=== PATIENT | female | born 1980 | race Two or more races ===

== ENCOUNTER 2020-11-18 10:34 | Outpatient (REF) | payer MEDICAID, SELFPAY ==
[2020-11-18 12:57] LABS: MANUAL DIFF FLAG NO
[2020-11-18 13:01] LABS: Basophils Absolute Auto 0.1 X10*3/uL (0.0-0.2); Eosinophils Absolute Auto 0.6 X10*3/uL (0.0-0.4); Eosinophils Percent Auto 5.8 % (0-4); Hematocrit 35.4 % (37-47); Imm Gran Abs Auto 0.03 X10*3/uL (0.00-0.03); Imm Gran Pct Auto 0.3 % (0.0-0.4); Lymphocytes Absolute Auto 2.4 X10*3/uL (1.2-4.9); Lymphocytes Percent Auto 23.6 % (20-40); Mean Corpuscular HGB Conc 31.1 g/dl (31.0-35.0); Mean Corpuscular Hemoglobin 22.9 pg (27.0-33.0); Mean Corpuscular Volume 73.8 fL (80-98); Mean Platelet Volume 12.9 fL (9.4-12.3); Monocytes Absolute Auto 0.5 X10*3/uL (0.1-1.2); Monocytes Percent Auto 4.9 % (2-11); Neutrophils Absolute Auto 6.5 X10*3/uL (2.0-8.3); Neutrophils Percent Auto 64.4 % (45-73); Platelet Count 250 X10*3/uL (160-400); Red Cell Distribution Width 14.4 % (11.0-16.0); White Blood Count 10.1 X10*3/uL (4.8-10.8)
[2020-11-18 13:33] LABS: Alanine Aminotransferase 18 U/L (0-31); Alkaline Phosphatase 229 U/L (39-117); Anion Gap 14 (12-20); Aspartate Amino Transferase 18 U/L (5-31); Bilirubin Total 0.5 mg/dL (0.0-1.0); Blood Urea Nitrogen 15 mg/dL (9-16); Calcium 9.2 mg/dL (8.4-10.2); Carbon Dioxide 17 mmol/L (22-29); Chloride 110 mmol/L (96-108); Estimated Glomerular Filt Rate > 60; Glucose Random 213 mg/dL (60-115); Potassium 4.1 mmol/L (3.3-5.1); Sodium 137 mmol/L (135-145); Total Protein 6.8 g/dL (6.5-8.0)
[2020-11-18 13:34] LABS: Estimated Average Glucose 280 mg/dL; Hemoglobin A1c % 11.4 %
== END 2020-11-18 10:35 | disposition home or self-care (01) ==
LOC: HO.MANLDS 10:34
PROVIDERS: PCP Internal Medicine; Visit Provider Physician Assistant
DX: E11.9 Type 2 diabetes mellitus without complications (principal)
CPT/HCPCS: 36415; 80053; 83036; 85025

== ENCOUNTER 2021-02-17 16:58 | Emergency (ER) | payer MEDICAID, SELFPAY ==
[2021-02-17 19:24] VITALS: BP 133/85; PULSE 100; RESP 16; TEMP 37.4; O2SAT 100; BMI 29.5
--- NOTE | 2021-02-17 22:32 | ED_ITS ---
HPI - Skin/Abscess/Foreign Bdy General Chief complaint: Skin/Abscess/Foreign Body Stated complaint: abcess on left calf Time Seen by Provider: 02/17/21 22:32 Source: patient Mode of arrival: ambulatory Limitations: no limitations History of Present Illness MD complaint: abscess/boil and lesion Onset (ago): week(s) (2) Tetanus up to date: yes Location: RLE Severity: moderate Quality: aching and dull Pain Consistency: constant Relieving factors: none Exacerbating factors: palpation and movement Associated symptoms: denies other symptoms Treatments prior to arrival: bandages Related Data Previous Rx's Medication Instructions Recorded cephalexin 500 mg capsule 500 mg PO TID 7 Days #21 cap 02/18/21 doxycycline hyclate 100 mg capsule 100 mg PO BID 7 Days #14 cap 02/18/21 hydrocodone 5 mg-acetaminophen 325 1 tab PO Q6H PRN #12 tab 02/18/21 mg tablet ondansetron 4 mg disintegrating 4 mg PO Q8H PRN #20 tab 02/18/21 tablet Allergies Allergy/AdvReac Type Severity Reaction Status Date / Time No Known Allergies Allergy Mild NONE Verified 02/17/21 19:24 Review of Systems Review of Systems: Constitutional : No Fever, No Chills ENT/Mouth : No sore throat, No Rhinorrhea Eyes: No Eye Pain, No Swelling, No Redness Cardiovascular : No Chest Pain, No SOB Respiratory : No Cough, No Sputum Gastrointestinal : No Nausea, No Vomiting, No Diarrhea, No abdominal Pain Genitourinary : No Dysuria, No Hematuria Musculoskeletal : No joint pain, No Myalgias, No Joint Swelling Skin : No Skin Lesions, positive skin rash Neuro : No Weakness, No Numbness, No Headache Psych : No Anxiety, No Depression Heme/Lymph: No Bruising, No Bleeding,No Lymphadenopathy Endocrine : No Polyuria, No Polydipsia All other systems reviewed and are negative [facility] Past Medical History Attestation statement: The following information was validated with the patient. Medical History Diabetes Social History Social History (Updated 02/17/21 @ 22:40 by Fang Banuelos DO) Patient Tobacco Use Status: Never used Tobacco Advance Directives: No Advance Directives Information Provided: Yes Physical Exam Vital Signs: Vital Signs: Last Vital Signs Temp 99.4 F 02/17/21 19:24 Pulse 100 02/17/21 19:24 Resp 16 02/17/21 19:24 BP 133/85 02/17/21 19:24 Pulse Ox 100 02/17/21 19:24 Body Mass Index 29.5 Appearance: Alert. Oriented X3. No acute distress. Eyes: Pupils equal, round and reactive to light. ENT: Pharynx normal. Neck: Normal inspection. Neck supple. CVS: Normal heart rate and rhythm. Pulses normal. Respiratory: No respiratory distress. Breath sounds normal. Abdomen: Soft and nontender. Skin: Skin warm and dry. Normal skin color. Normal skin turgor. Extremities: No lower extremity edema. R posterior calf 4cm fluctuant area with hyperpigmented purple area and pointing noted - no extension of erythema/swelling Neuro: Oriented X 3. No motor deficit. No sensory deficit. MDM - Skin/Abscess/Foreign Bdy MDM Narrative Medical decision making narrative: 40 yo female with DM here with c/o R posterior leg abscess that she thinks started outas a bug bite - no fevers, no extension will start on oral antibiotics and I/D area - no concern for deeper space infection at this time Procedures Abscess I/D Site: lower extremity Side (if applicable): right Local Anesthetic: lidocaine 1% Amount of anesthesia used (mL): 5 Technique: incised with blade Amount of fluid expressed (mL): 7 Sent for culture/gram staining?: No Irrigation: Yes Packing used?: iodoform Discharge Plan Discharge Clinical Impression: Abscess of skin or subcutaneous tissue Qualifiers: Site of cutaneous abscess: extremity Site of cutaneous abscess of extremity: lower extremity Laterality: right Qualified Code(s): L02.415 - Cutaneous abscess of right lower limb Patient Disposition: Home, Self-Care Instructions: Abscess (ED), Abscess Follow-up (ED), Incision and Drainage (ED) Additional Instructions: return to ED for any worsening symptoms or concerns PACKING HAS TO COME OUT BY SATURDAY - HERE OR PRIMARY CARE DOCTOR Prescriptions: New doxycycline hyclate 100 mg capsule 100 mg PO BID 7 Days Qty: 14 RF: 0 hydrocodone-acetaminophen 5-325 mg tablet 1 tab PO Q6H PRN (Reason: pain) Qty: 12 RF: 0 cephalexin 500 mg capsule 500 mg PO TID 7 Days Qty: 21 RF: 0 ondansetron 4 mg tablet,disintegrating 4 mg PO Q8H PRN (Reason: nausea and vomiting) Qty: 20 RF: 0 Referrals: Gene Esparza MD [Primary Care Provider] - 5 days (as scheduled) Stand Alone Forms: Work/School Release
[2021-02-17] MEDS: LORazepam 1 MG TABLET PO (23:01)
[2021-02-17] MEDS: Ondansetron ODT 4 MG TAB.RAPDIS TRANSLINGU (23:01)
[2021-02-17] MEDS: cephALEXin 500 MG CAPSULE PO (23:01)
[2021-02-17] MEDS: Lidocaine/Epineph/Tetracaine 3 ML GEL.PF.APP TOPICAL (23:01)
[2021-02-17] MEDS: Lidocaine HCl 1 % MPF 5 ML VIAL SUBCUT (23:01)
--- NOTE | 2021-02-17 23:04 | PC.NURSE ---
PT MEDICATED PER EMAR.
[2021-02-18 00:23] VITALS: BP 131/65; PULSE 82; RESP 16; TEMP 36.8; O2SAT 100
[2021-02-18] MEDS: HYDROcodone Bit/Acetam 5/325 TABLET 1 TAB PO (00:25)
== END 2021-02-18 00:30 | disposition home or self-care (01) ==
PROVIDERS: Emergency Provider Emergency Medicine; PCP Internal Medicine
DX: L02.415 Cutaneous abscess of right lower limb (principal); E11.9 Type 2 diabetes mellitus without complications
CPT/HCPCS: 10060; 99284

== ENCOUNTER 2021-04-10 21:33 | Inpatient (IN) | payer MEDICAID, SELFPAY ==
--- NOTE | ~2021-04-10 | XR_ITS ---
EXAMINATION: XR ABDOMEN KUB CLINICAL INDICATION: Distended stomach. NGT placement. COMPARISON: CT abdomen and pelvis 04/11/2021 TECHNIQUE: Portable AP view of the abdomen. FINDINGS: Distal end NG tube overlies the distal stomach right abdomen. There is scattered gas in the large and small bowel of normal caliber. There is some moderate stool in the rectosigmoid. There is no pneumatosis or focal interval abnormal collections of gas. No visible urinary tract calculi on plain film. Intradiscal cages are again noted lumbosacral junction. No acute bony abnormality. XR/XR KUB IMPRESSION: NG tube in abdomen, tip in region of distal stomach.
--- NOTE | ~2021-04-10 | XR_ITS ---
EXAMINATION: XR CHEST CLINICAL INFORMATION: New central line COMPARISON: Previous chest x-ray most recent May 2017 TECHNIQUE: Frontal view of the chest was obtained. FINDINGS: There is a right jugular line with tip projecting over the cavoatrial junction. There is a nasogastric tube projects over the stomach. The tip is not seen. The cardiac and mediastinal contours are normal. There may be subsegmental atelectasis at the left lung base. The lungs are otherwise clear. There is no pleural effusion or pneumothorax. The stomach is distended. XR/XR chest 1V IMPRESSION: Right jugular line projects over cavoatrial junction. No pneumothorax. Nasogastric tube projects over stomach, tip not seen. The stomach appears distended.
--- NOTE | ~2021-04-10 | CT_ITS ---
EXAMINATION: CT ABDOMEN AND PELVIS WITH CONTRAST CLINICAL INFORMATION: Peritonitis. COMPARISON: MRI abdomen to 11/29/2018, CT abdomen pelvis 07/23/2017. TECHNIQUE: Multidetector volumetric images were obtained from the superior aspect of the liver through the pubic symphysis following administration 85 mL of Omnipaque 350 intravenous contrast. Sagittal and coronal reformatted images were obtained on the technologist's workstation. Oral contrast: No This CT examination was performed using dose optimization techniques as appropriate, variously including the following: *Automated exposure control *Adjustment of mA and/or kV according to patient size (this includes techniques or standardized protocols for targeted exams where dose is matched to indication/reason for exam; i.e. extremities or head) *Use of iterative reconstruction technique DLP: 589 mGy-cm FINDINGS: LUNG BASES: The visualized lung bases are unremarkable. LIVER, GALLBLADDER, AND BILIARY TREE: The liver is normal in size, shape, and attenuation. No focal hepatic lesion or biliary ductal dilatation is present. The gallbladder is unremarkable with no evidence of radiopaque gallstones, gallbladder wall thickening, or obvious pericholecystic inflammatory changes. PANCREAS: Unremarkable. SPLEEN: Unremarkable. ADRENAL GLANDS: Unremarkable. KIDNEYS AND URETERS: The kidneys are normal in size, shape, and attenuation. No hydronephrosis, hydroureter, or calculi seen. No perinephric stranding. BLADDER: Unremarkable. GASTROINTESTINAL TRACT: Contiguous concentric submucosal thickening and enhancement is present within the jejunum and is associated with reticulation of the adjacent small bowel mesentery and trace interloop fluid. Additionally, marked fluid distention of the stomach is present and fluid is noted within the visualized distal cervical esophagus. Cecum, terminal ileum and appendix are normal in appearance. Trace right subphrenic free intraperitoneal fluid is noted. No free intraperitoneal gas is visualized. ABDOMINAL WALL: A small periumbilical hernia measuring 2 cm in diameter without evidence of inflammatory changes is noted. LYMPH NODES: Normal. VASCULAR: Unremarkable. PELVIC VISCERA: Unremarkable. OSSEOUS STRUCTURES: An interbody devices present at L5-S1. CT/CT abdomen pelvis w con IMPRESSION: -Findings suspicious for acute enteritis with small bowel findings predominantly involving the jejunum associated with marked fluid distention of the stomach and fluid within the visualized distal esophagus. Findings are characterized by concentric mural thickening and edema of the small bowel, principally within the jejunum. Trace interloop and free intraperitoneal fluid is present and likely represents reactive fluid. Fluid distention of the stomach and distal esophagus may predispose for aspiration risk. This result was discussed with Marycruz Malik MD by telephone at 04/11/2021 3:51 AM and it was ascertained that the content and urgency of the report was understood at the time of direct communication.
[2021-04-10 22:07] VITALS: BP 109/62; PULSE 100; RESP 18; TEMP 36.9; O2SAT 99; BMI 27.4
[2021-04-11] VITALS (16 sets, daily range): BP systolic 77–161; BP diastolic 51–89; PULSE 104–154; RESP 16–24; TEMP 37.3–37.7; O2SAT 95–100; BMI 28.6
[2021-04-11 00:42] LABS: Basophils Absolute Auto 0.1 X10*3/uL (0.0-0.2); Basophils Percent Auto 0.3 % (0-2); Eosinophils Absolute Auto 0.1 X10*3/uL (0.0-0.4); Eosinophils Percent Auto 0.4 % (0-4); Hematocrit 38.9 % (37.0-47.0); Hemoglobin 11.4 g/dl (12.0-16.0); Imm Gran Abs Auto 0.11 X10*3/uL (0.00-0.03); Imm Gran Pct Auto 0.6 % (0.0-0.4); Lymphocytes Percent Auto 5.4 % (20-40); MANUAL DIFF FLAG NO; Mean Corpuscular HGB Conc 29.3 g/dl (31.0-35.0); Mean Corpuscular Hemoglobin 22.1 pg (27.0-33.0); Mean Corpuscular Volume 75.4 fL (80.0-98.0); Mean Platelet Volume 11.7 fL (9.4-12.3); Monocytes Percent Auto 5.3 % (2-11); Neutrophils Absolute Auto 16.2 x10*3/uL (2.0-8.3); Platelet Count 293 X10*3/uL (160-400); Red Blood Count 5.16 X10*6/uL (4.20-5.50); Red Cell Distribution Width 14.9 % (11.0-16.0); White Blood Count 18.4 X10*3/uL (4.8-10.8)
[2021-04-11 01:14] LABS: Alanine Aminotransferase 26 U/L (0-31); Albumin Level 3.7 g/dL (3.5-5.0); Alkaline Phosphatase 274 U/L (39-117); Anion Gap 23 (12-20); Aspartate Amino Transferase 26 U/L (5-31); Bilirubin Total 0.8 mg/dL (0.0-1.0); Blood Urea Nitrogen 11 mg/dL (9-16); Calcium 9.5 mg/dL (8.4-10.2); Carbon Dioxide 14 mmol/L (22-29); Chloride 105 mmol/L (96-108); Creatinine Clr Calc Pharmacy 79.1; Estimated Glomerular Filt Rate > 60; Potassium 3.8 mmol/L (3.3-5.1); Sodium 138 mmol/L (135-145); Total Protein 6.7 g/dL (6.5-8.0)
--- NOTE | 2021-04-11 02:14 | ED_ITS ---
HPI - Abdominal Pain General Chief Complaint: Abdominal Pain Stated Complaint: Abdominal Pain Time Seen by Provider: 04/10/21 21:42 Source: patient Mode of arrival: EMS History of Present Illness HPI narrative: 40-year-old female with history of diabetes that is insulin controlled presents with intermittent epigastric pain that suddenly progressed into severe sharp right-sided abdominal pain without associated diarrhea but patient reports some chills and nausea with this and it has progressively worsened and she is unable to lie on her right side. Otherwise she denies any specific fevers and denies any urinary pain/burning/frequency. Related Data Previous Rx's Medication Instructions Recorded cephalexin 500 mg capsule 500 mg PO TID 7 Days #21 cap 02/18/21 doxycycline hyclate 100 mg capsule 100 mg PO BID 7 Days #14 cap 02/18/21 hydrocodone 5 mg-acetaminophen 325 1 tab PO Q6H PRN #12 tab 02/18/21 mg tablet ondansetron 4 mg disintegrating 4 mg PO Q8H PRN #20 tab 02/18/21 tablet Allergies Allergy/AdvReac Type Severity Reaction Status Date / Time No Known Allergies Allergy Mild NONE Verified 04/11/21 02:26 Review of Systems Review of Systems Pertinent positives and negatives as stated in HPI 10 point review of systems is otherwise negative. Physical Exam Vital Signs: Vital Signs: Last Vital Signs Temp 98.5 F 04/10/21 22:07 Pulse 100 04/10/21 22:07 Resp 18 04/10/21 22:07 BP 109/62 04/10/21 22:07 Pulse Ox 99 04/10/21 22:07 Body Mass Index 27.4 VITAL SIGNS: Reviewed. GENERAL: Well developed, well nourished, Moderate to severe pain distress. HEAD: Normocephalic/atraumatic, EYES: PERRLA, EOMI OROPHARYNX: no oral lesions noted, posterior pharynx clear NECK: Supple, no adenopathy LUNGS: Normal breath sounds. No adventitious sounds or accessory muscle use. SpO2<99> CARDIOVASCULAR: Regular rate and rhythm without noted murmurs ABDOMEN: Soft, diffusely tender with rebound, non-distended with bowel sounds. No rigidity. NEUROLOGIC: Alert and oriented x 4. Strength and sensation to light touch were grossly intact x 4. Course Course Course Narrative: 40-year-old female with history and clinical presentation concerning for acute peritonitis possible perforation and suspicious for DKA. Review of all investigations significant for DKA as well as acute gastroenter itis with fluid filled bowel up into the stomach and lower esophagus. Patient receiving IV fluids, antibiotics, and started on DKA protocol. She is otherwise hemodynamically stable and is receiving supplemental potassium as well. I discussed this case with the bus company manager who accepts admission. MDM - Abdominal Pain Lab Data Result diagrams: 04/11/21 00:35 04/11/21 00:35 Labs: Lab Results 04/11/21 04/11/21 04/11/21 Range/Units 00:35 00:35 03:15 WBC 18.4 H (4.8-10.8) X10*3/uL RBC 5.16 (4.20-5.50) X10*6/uL Hgb 11.4 L (12.0-16.0) g/dl Hct 38.9 (37.0-47.0) % MCV 75.4 L (80.0-98.0) fL MCH 22.1 L (27.0-33.0) pg MCHC 29.3 L (31.0-35.0) g/dl RDW 14.9 (11.0-16.0) % Plt Count 293 (160-400) X10*3/uL MPV 11.7 (9.4-12.3) fL Immature Gran % (Auto) 0.6 H (0.0-0.4) % Neut % (Auto) 88.0 H (45-73) % Lymph % (Auto) 5.4 L (20-40) % [place] % (Auto) 5.3 (2-11) % Eos % (Auto) 0.4 (0-4) % Baso % (Auto) 0.3 (0-2) % Lymph # (Auto) 1.0 L (1.2-4.9) X10*3/uL [place] # (Auto) 1.0 (0.1-1.2) X10*3/uL Eos # (Auto) 0.1 (0.0-0.4) X10*3/uL Baso # (Auto) 0.1 (0.0-0.2) X10*3/uL Abs Immat Gran (auto) 0.11 H (0.00-0.03) X10*3/uL Absolute Neuts (auto) 16.2 H (2.0-8.3) x10*3/uL Absolute Nucleated RBC 0.000 (0.0-0.012) X10*3/uL Nucleated RBC % (auto) 0.0 (0.0-0.2) /100WBC Sodium 138 (135-145) mmol/L Potassium 3.8 (3.3-5.1) mmol/L Chloride 105 (96-108) mmol/L Carbon Dioxide 14 L (22-29) mmol/L Anion Gap 23 H (12-20) BUN 11 (9-16) mg/dL Creatinine 0.98 (0.5-1.4) mg/dL Estim Creat Clear Calc 79.1 Estimated GFR > 60 Random Glucose 481 H* (60-115) mg/dL Lactic Acid (0.5-2.0) mmol/L Calcium 9.5 (8.4-10.2) mg/dL Total Bilirubin 0.8 (0.0-1.0) mg/dL AST 26 D (5-31) U/L ALT 26 (0-31) U/L Alkaline Phosphatase 274 H (39-117) U/L Total Protein 6.7 (6.5-8.0) g/dL Albumin 3.7 (3.5-5.0) g/dL Urine Color Urine Appearance Urine pH (5.0-8.0) Ur Specific [place] (1.005-1.025) Urine Protein (NEG-TRACE) MG/DL Urine Glucose (UA) (NEG) MG/DL Urine Ketones (NEG) MG/DL Urine Blood (NEG) Urine Nitrite (NEG) Ur Leukocyte Esterase (NEG) Urine RBC (0) /HPF Urine WBC (0-4) /HPF Ur Squamous Epith Cells /LPF Urine Bacteria /LPF Acetone, Qual Small H (Negative) COVID-19 (MARINA) Negative (Negative) COVID-19 Clin Com See Note 04/11/21 04/11/21 Range/Units 03:15 03:19 WBC (4.8-10.8) X10*3/uL RBC (4.20-5.50) X10*6/uL Hgb (12.0-16.0) g/dl Hct (37.0-47.0) % MCV (80.0-98.0) fL MCH (27.0-33.0) pg MCHC (31.0-35.0) g/dl RDW (11.0-16.0) % Plt Count (160-400) X10*3/uL MPV (9.4-12.3) fL Immature Gran % (Auto) (0.0-0.4) % Neut % (Auto) (45-73) % Lymph % (Auto) (20-40) % [place] % (Auto) (2-11) % Eos % (Auto) (0-4) % Baso % (Auto) (0-2) % Lymph # (Auto) (1.2-4.9) X10*3/uL [place] # (Auto) (0.1-1.2) X10*3/uL Eos # (Auto) (0.0-0.4) X10*3/uL Baso # (Auto) (0.0-0.2) X10*3/uL Abs Immat Gran (auto) (0.00-0.03) X10*3/uL Absolute Neuts (auto) (2.0-8.3) x10*3/uL Absolute Nucleated RBC (0.0-0.012) X10*3/uL Nucleated RBC % (auto) (0.0-0.2) /100WBC Sodium (135-145) mmol/L Potassium (3.3-5.1) mmol/L Chloride (96-108) mmol/L Carbon Dioxide (22-29) mmol/L Anion Gap (12-20) BUN (9-16) mg/dL Creatinine (0.5-1.4) mg/dL Estim Creat Clear Calc Estimated GFR Random Glucose (60-115) mg/dL Lactic Acid 1.1 (0.5-2.0) mmol/L Calcium (8.4-10.2) mg/dL Total Bilirubin (0.0-1.0) mg/dL AST (5-31) U/L ALT (0-31) U/L Alkaline Phosphatase (39-117) U/L Total Protein (6.5-8.0) g/dL Albumin (3.5-5.0) g/dL Urine Color YELLOW Urine Appearance CLEAR Urine pH 6.0 (5.0-8.0) Ur Specific [place] 1.015 (1.005-1.025) Urine Protein TRACE (NEG-TRACE) MG/DL Urine Glucose (UA) 500 H (NEG) MG/DL Urine Ketones >=80 (NEG) MG/DL Urine Blood TRACE (NEG) Urine Nitrite NEG (NEG) Ur Leukocyte Esterase NEG (NEG) Urine RBC 1-4 (0) /HPF Urine WBC 1-4 (0-4) /HPF Ur Squamous Epith Cells 1+ /LPF Urine Bacteria 1+ /LPF Acetone, Qual (Negative) COVID-19 (MARINA) (Negative) COVID-19 Clin Com Discharge Plan Discharge Clinical Impression: Enteritis, DKA (diabetic ketoacidosis) Patient Disposition: Admitted As Inpatient [facility] Past Medical History Source: nursing notes reviewed Medical History Diabetes Social History Social History Patient Tobacco Use Status: Never used Tobacco Advance Directives: No Advance Directives Information Provided: Yes Patient : No
[2021-04-11 02:21] LABS: Acetone, serum QL Small (Negative)
[2021-04-11] MEDS: iohexoL 350 MG/ML 100 ML INFUS..BTL 85 ML IV (03:00)
[2021-04-11] MEDS: HYDROmorphone HCl 0.5 MG/0.5 ML SYRINGE 0.25 MG IVPUSH (03:04)
[2021-04-11] MEDS: 0.9 % Sodium Chloride 2,000 ML 999 ML IV (03:04)
[2021-04-11] MEDS: Potassium Chloride/H20 10 MEQ/100 ML PIGGYBACK 100 MEQ IV ×3 (03:04→06:35)
[2021-04-11 03:21] LABS: Appearance Urine CLEAR; Color Urine YELLOW; Glucose Urine UA 500 MG/DL (NEG); Leukocyte Esterase Urine NEG (NEG); Nitrite Urine NEG (NEG); Specific Gravity - Urine 1.015 (1.005-1.025); UACC Culture Trigger NO; Urine Blood TRACE (NEG); Urine Ketones >=80 MG/DL (NEG); Urine Protein TRACE MG/DL (NEG-TRACE)
[2021-04-11] MEDS: Piperacillin Sodium/Tazobactam 3.375 GM in 0.9 % Sodium Chloride 50 ML IV ×2 (03:26→19:38)
[2021-04-11 03:29] LABS: Bacteria Urine 1+ /LPF; Squamous Epithelial Cell Urine 1+ /LPF
[2021-04-11 03:35] LABS: COVID-19 Test Negative (Negative); IDNOW Serial# 9DD0AD1C
[2021-04-11 03:36] LABS: Lactic Acid 1.1 mmol/L (0.5-2.0)
[2021-04-11 04:27] LABS: Glucose Random 481 mg/dL (60-115)
[2021-04-11] MEDS: Insulin Regular, Human 100 UNIT/ML 3 ML VIAL IVPUSH (04:37)
[2021-04-11] MEDS: Insulin Lispro 100 UNIT/ML 3 ML VIAL SUBCUT (04:41)
[2021-04-11] MEDS: Insulin Regular/NS 100 UNIT/100 ML PLAST..BAG IVCONT (04:41)
[2021-04-11 05:51] LABS: Glucose, Whole Blood 338 mg/dL (60-115)
[2021-04-11 06:06] LABS: Venous Blood Gas Refer to POC result
[2021-04-11 06:06] LABS: VBG Base Excess -9.6 mmol/L; VBG HCO3 14 mmol/L (22-26); VBG pCO2 27 mmHg; VBG pH 7.33 (7.32-7.43); VBG pO2 44 mmHg
[2021-04-11 06:34] LABS: Alanine Aminotransferase 26 U/L (0-31); Albumin Level 3.3 g/dL (3.5-5.0); Alkaline Phosphatase 227 U/L (39-117); Anion Gap 16 (12-20); Aspartate Amino Transferase 25 U/L (5-31); Bilirubin Total 0.9 mg/dL (0.0-1.0); Blood Urea Nitrogen 10 mg/dL (9-16); Calcium 8.5 mg/dL (8.4-10.2); Carbon Dioxide 16 mmol/L (22-29); Chloride 111 mmol/L (96-108); Creatinine Clr Calc Pharmacy 91.3; Estimated Glomerular Filt Rate > 60; Glucose Random 395 mg/dL (60-115); Potassium 3.7 mmol/L (3.3-5.1); Sodium 139 mmol/L (135-145); Total Protein 5.7 g/dL (6.5-8.0)
[2021-04-11] MEDS: Enoxaparin Sodium 40 MG/0.4 ML SYRINGE SUBCUT (06:36)
[2021-04-11] MEDS: LORazepam 2 MG/ML VIAL 0.5 MG IVPUSH (06:48)
[2021-04-11] MEDS: HYDROmorphone HCl 0.5 MG/0.5 ML SYRINGE IVPUSH ×3 (06:53→22:28)
[2021-04-11 07:10] LABS: Glucose, Whole Blood 323 mg/dL (60-115)
[2021-04-11 08:19] LABS: Glucose, Whole Blood 306 mg/dL (60-115)
[2021-04-11 09:08] LABS: Glucose, Whole Blood 348 mg/dL (60-115)
[2021-04-11 10:08] LABS: Erythrocyte Sedimentation Rate 74 MM/HR (0-20)
[2021-04-11 10:10] LABS: Glucose, Whole Blood 442 mg/dL (60-115)
[2021-04-11 10:10] LABS: Glucose, Whole Blood 402 mg/dL (60-115)
--- NOTE | 2021-04-11 10:54 | P.CNGI_ITS ---
History of Present Illness Data of Consult Service Date: 04/11/21 Requesting physician: Clarisa Funes Primary Care Provider: Unknown Physician HPI Reason for consult: Abdominal pain, DKA, abnormal CT scan of abdomen 40 YF with DM came to [facility] ED this am with 1 day hx of severe generalized abdominal pain, nausea dn vomiting: HPI narrative:? 40-year-old female with history of diabetes that is insulin controlled presents with intermittent epigastric pain that suddenly progressed into severe sharp right-sided abdominal pain without associated diarrhea but patient reports some chills and nausea with this and it has progressively worsened and she is unable to lie on her right side.? Otherwise she denies any specific fevers and denies any urinary pain/burning/frequency . Pt admits to taking Ibuprofen three times daily for back pain. IMAGING STUDIES: ABD CT SCAN SHOWED (Reviewed with radiology): Findings suspicious for acute enteritis with small bowel findings predominantly involving the jejunum associated with marked fluid distention of the stomach and fluid within the visualized distal esophagus. Findings are characterized by concentric mural thickening and edema of the small bowel, principally within the jejunum. Trace interloop and free intraperitoneal fluid is present and likely represents reactive fluid. Fluid distention of the stomach and distal esophagus may predispose for aspiration risk. Marked distension of the stomach with a 1.5 to 2 cms perforated ulcer along lesser curve with free air between the liver and the stomach. ? PMFSH Past Medical History Medical History Diabetes Type 1 diabetes mellitus Surgical History Surgical History H/O exploratory laparotomy (04/11/21) Social History Social History Household Members: Children Housing: House Do you presently have visiting nurse or other home services: No Patient Tobacco Use Status: Former Tobacco user Quit Date: -10YEARS Tobacco use type: Cigarette Cigarettes Per Day: 3 service: No Current occupational status: unemployed Meds Allergies Allergy/AdvReac Type Severity Reaction Status Date / Time No Known Allergies Allergy Mild NONE Verified 06/23/21 10:26 Active Medications: Current Medications Enoxaparin Sodium (Enoxaparin Sodium 40 Mg/0.4 Ml Syringe) 40 mg SUBCUT Q24H [facility] Last Admin: 11/30/21 06:36 Dose: 40 mg Documented by: Hydromorphone HCl (Hydromorphone Hcl 0.5 Mg/0.5 Ml Syringe) 0.5 mg IVPUSH Q4H PRN; Protocol PRN Reason: Pain, Severe (Pain Scale 7-10) Last Admin: 04/11/21 06:53 Dose: 0.5 mg Documented by: Insulin Human Regular (Myxredlin) 100 unit in 100 mls @ 0 mls/hr IVCONT .Q0M LILIAN; Protocol Last Titration: 04/11/21 09:12 Dose: 3 unit/hr, 3 mls/hr Documented by: Potassium Chloride 40 meq/ (Lactated Ringer's) 1,020 mls @ 200 mls/hr IVCONT .Q5H6M LILIAN Last Infusion: 04/11/21 10:26 Dose: 200 mls/hr Documented by: Phenylephrine HCl 20 mg/ (Sodium Chloride) 252 mls @ 0 mls/hr IVCONT .Q0M LILIAN; Protocol Physical Exam Vital Signs: Vital Signs: Last Vital Signs Temp 98.5 F 04/10/21 22:07 Pulse 144 H 04/11/21 10:00 Resp 23 H 04/11/21 10:00 BP 77/51 L 04/11/21 10:00 Pulse Ox 98 04/11/21 10:00 Body Mass Index 28.6 Const: General: no acute distress and ill appearing Nutritional Appearance: overweight Orientation/consciousness: patient oriented x3 Limitations: no limitations HENMT: Head: Yes normal to inspection Ears: hearing grossly normal bilaterally Mouth: Normal oral and palatal mucosa present Eyes: Sclerae: sclerae normal Pupils: Equal, round and reactive pupils present Neck: Neck: Yes normal visual inspection Chest: Chest palpation & inspection: normal inspection of the chest Resp: Effort & Inspection: normal respiratory effort Auscultation: clear to auscultation bilaterally Cardio: Palpation: normal PMI Rate: regular rate Rhythm: regular rhythm Heart sounds: S1 normal heart sound present, S2 normal heart sound present and no murmurs GI: Inspection: Yes distended Palpation (GI): Soft to palpation, Tenderness to palpation present (GI) (moderate generalized tenderness ) and No hepatosplenomegaly present Auscultation: normal bowel sounds Rectal Exam - Female: deferred Skin: General skin exam: no rashes or lesions noted Neuro: General: patient oriented x3, gait normal and moves all extremities Cranial nerves: Yes Equal, round and reactive pupils present Psych: Appearance: grossly normal Mental Status: mental status grossly normal Results Labs CBC & Chem 7: 04/17/21 05:21 04/17/21 05:21 Labs: Short CBC 04/11/21 Range/Units 00:35 WBC 18.4 H (4.8-10.8) X10*3/uL Hgb 11.4 L (12.0-16.0) g/dl Hct 38.9 (37.0-47.0) % Plt Count 293 (160-400) X10*3/uL BMP 04/11/21 04/11/21 00:35 05:53 Sodium 138 139 Potassium 3.8 3.7 Chloride 105 111 H Carbon Dioxide 14 L 16 L BUN 11 10 Creatinine 0.98 0.85 Calcium 9.5 8.5 D Liver Function 04/11/21 04/11/21 Range/Units 00:35 05:53 Total Bilirubin 0.8 0.9 (0.0-1.0) mg/dL AST 26 D 25 (5-31) U/L ALT 26 26 (0-31) U/L Alkaline Phosphatase 274 H 227 H (39-117) U/L Albumin 3.7 3.3 L (3.5-5.0) g/dL Urine 04/11/21 Range/Units 03:15 Urine Color YELLOW Urine Appearance CLEAR Urine pH 6.0 (5.0-8.0) Ur Specific [place] 1.015 (1.005-1.025) Urine Protein TRACE (NEG-TRACE) MG/DL Urine Glucose (UA) 500 H (NEG) MG/DL Assessment and Plan (1) Abnormal CT scan, gastrointestinal tract: Status: Resolved (2) DKA (diabetic ketoacidosis): Status: Resolved Plan 40 YF with new onset DM admitted with 1 day hx of generalized abdominal pain ABD CT SCAN SHOWED (Reviewed with radiology): Findings suspicious for acute enteritis with small bowel findings predominantly involving the jejunum associated with marked fluid distention of the stomach and fluid within the visualized distal esophagus. Findings are characterized by concentric mural thickening and edema of the small bowel, principally within the jejunum. Trace interloop and free intraperitoneal fluid is present and likely represents reactive fluid. Fluid distention of the stomach and distal esophagus may predispose for aspiration risk. Marked distension of the stomach with a 1.5 to 2 cms perforated ulcer along lesser curve with free air between the liver and the stomach. RECOMMENDATIONS: 1. Agree with NG tube placement to decompress the stomach 2. Urgent Surgery consult - Dr Moe informed about the patient. Procedures Date of Service Date of Service: 04/11/21
[2021-04-11] MEDS: Albumin Human 25 % 50 ML 100 ML IV (11:11)
[2021-04-11 11:19] LABS: Amphetamine Screen Urine Not Detected (Not Detect); Barbiturates, Urine Not Detected (Not Detect); Benzodiazepines Screen Urine Not Detected (Not Detect); Cannabinoid Screen Urine Not Detected (Not Detect); Cocaine Screen Urine Not Detected (Not Detect); Fentanyl, urine Not Detected (Not Detect); Opiate Screen Urine POSITIVE (Not Detect); Phencyclidine Screen Urine Not Detected (Not Detect)
--- NOTE | 2021-04-11 11:20 | PM.CNGS ---
History of Present Illness Consult details Consult date: 04/11/21 Requesting physician: Clarisa Funes Narrative: 40-year-old female patient presenting with a 1 day history of severe abdominal pain in the epigastrium and right upper quadrant associated with nausea and vomiting. Pain started suddenly and without warning. And was associated with nausea, vomiting, fever, and chills. Pain increases with movement and especially when lying on her right side. Denies a previous history of similar type pain. She has a previous history of these mellitus and was found to be in diabetic ketoacidosis in the emergency department. She is admitted to the ICU and CT of the abdomen and pelvis obtained. This revealed a suspected perforation of the stomach with some free air between the lesser curve of the stomach and the liver. Surgical consultation was requested for further management of the possible perforated gastric ulcer. Review of Systems Review of Systems: Yes all other systems are reviewed and are negative Constitutional: Constitutional: Reports chills, Reports fever(s), Denies headache(s) and Reports poor appetite ENT: Denies dizziness and Denies headache(s) Cardiovascular: Cardiovascular: Denies chest pain, Reports rapid heart rate, Denies palpitations and Denies slow heart rate Respiratory: Respiratory: Denies chest congestion, Denies cough, Reports pain on inspiration and Denies wheezing Gastrointestinal: Gastrointestinal: Reports abdominal pain, Reports bloating, Denies change in stool character, Denies constipation, Denies diarrhea, Reports nausea, Reports vomiting and Denies hematemesis Musculoskeletal: Musculoskeletal: Reports back pain, Denies arthralgias, Denies joint swelling and Denies numbness Integumentary/Breasts: Skin/Breast: Denies change in pigmentation, Denies erythema and Denies rash Neurologic: Denies dizziness, Denies headache(s) and Denies numbness Psychiatric: Psychiatric: Denies anxiety and Denies depression Endocrine: Endocrine: Denies palpitations Hematologic/Lymphatic: Hematologic/Lymphatic: Denies easy bleeding, Denies easy bruising and Denies lymphadenopathy Allergic/Immunologic: Allergic/Immunologic: Denies wheezing PMFSH Past Medical History Medical History Diabetes Social History Social History Household Members: Children Housing: House Do you presently have visiting nurse or other home services: No Patient Tobacco Use Status: Former Tobacco user Quit Date: -10YEARS Tobacco use type: Cigarette Cigarettes Per Day: 3 Smoked in Last 30 Days: No Use of substances other than those prescribed or required for medical reasons: No Have you been hit, kicked, punched, or otherwise hurt by someone within the past year? If so, by whom?: No Do you feel safe in your current relationship?: Yes Is there a partner from a previous relationship who is making you feel unsafe now?: No Are you made to feel afraid or neglected: No Advance Directives: No Advance Directives Information Provided: Yes Advance Directives on File: No Do you have thoughts of harming others: None Do you have a plan to hurt others: No Plan Recently lost weight without trying: No Nutrition Risks: No Nutritional Risk Patient : No : No Poor oral hygiene: No Meds Allergies Allergy/AdvReac Type Severity Reaction Status Date / Time No Known Allergies Allergy Mild NONE Verified 04/11/21 02:26 Active Medications: Current Medications Enoxaparin Sodium (Enoxaparin Sodium 40 Mg/0.4 Ml Syringe) 40 mg SUBCUT Q24H [facility] Last Admin: 04/11/21 06:36 Dose: 40 mg Documented by: Hydromorphone HCl (Hydromorphone Hcl 0.5 Mg/0.5 Ml Syringe) 0.5 mg IVPUSH Q4H PRN; Protocol PRN Reason: Pain, Severe (Pain Scale 7-10) Last Admin: 04/11/21 06:53 Dose: 0.5 mg Documented by: Insulin Human Regular (Myxredlin) 100 unit in 100 mls @ 0 mls/hr IVCONT .Q0M [facility]; Protocol Last Titration: 04/11/21 10:00 Dose: 4.5 unit/hr, 4.5 mls/hr Documented by: Potassium Chloride 40 meq/ (Lactated Ringer's) 1,020 mls @ 200 mls/hr IVCONT .Q5H6M [facility] Last Infusion: 04/11/21 10:26 Dose: 200 mls/hr Documented by: Phenylephrine HCl 20 mg/ (Sodium Chloride) 252 mls @ 0 mls/hr IVCONT .Q0M [facility]; Protocol Cefazolin Sodium/Dextrose (Ancef) 2 gm in 50 mls @ 100 mls/hr IV PREOP ONE Stop: 04/11/21 11:36 Physical Exam Vital Signs: Vital Signs: Last Vital Signs Temp 98.5 F 04/10/21 22:07 Pulse 137 H 04/11/21 11:00 Resp 22 H 04/11/21 11:00 BP 94/57 L 04/11/21 11:00 Pulse Ox 97 04/11/21 11:00 Body Mass Index 28.6 Const: General: ill appearing and lethargic Nutritional Appearance: well nourished Orientation/consciousness: patient oriented x3 and lethargic HENMT: Head: Yes normocephalic and Yes atraumatic Resp: Other: Shallow respirations, no cough, no stridor Cardio: Rate: regular rate Rhythm: regular rhythm GI: Palpation (GI): Soft to palpation, Tenderness to palpation present (GI) ( diffusely) with rebound tenderness, Guarding due to palpation present (GI) and not rigid Percussion: Yes dullness to percussion Auscultation: Absent bowel sounds Rectal Exam - Female: deferred Skin: Other: pale, cool, no rash, no jaundice Neuro: General: patient oriented x3 Extrem: General: Yes normal to inspection and Yes no clubbing, cyanosis or edema Results Labs Result diagrams: 04/11/21 00:35 04/11/21 05:53 Labs: Abnormal lab results 04/11/21 04/11/21 04/11/21 Range/Units 00:35 00:35 03:15 WBC 18.4 H (4.8-10.8) X10*3/uL Hgb 11.4 L (12.0-16.0) g/dl MCV 75.4 L (80.0-98.0) fL MCH 22.1 L (27.0-33.0) pg MCHC 29.3 L (31.0-35.0) g/dl Immature Gran % (Auto) 0.6 H (0.0-0.4) % Neut % (Auto) 88.0 H (45-73) % Lymph % (Auto) 5.4 L (20-40) % Lymph # (Auto) 1.0 L (1.2-4.9) X10*3/uL Abs Immat Gran (auto) 0.11 H (0.00-0.03) X10*3/uL Absolute Neuts (auto) 16.2 H (2.0-8.3) x10*3/uL ESR (0-20) MM/HR VBG HCO3 (22-26) mmol/L Chloride (96-108) mmol/L Carbon Dioxide 14 L (22-29) mmol/L Anion Gap 23 H (12-20) POC Glucose (60-115) mg/dL Random Glucose 481 H* (60-115) mg/dL Alkaline Phosphatase 274 H (39-117) U/L C-Reactive Protein (< or = 0.50) mg/dL Total Protein (6.5-8.0) g/dL Albumin (3.5-5.0) g/dL Urine Glucose (UA) 500 H (NEG) MG/DL Urine Opiates Screen (Not Detect) Acetone, Qual Small H (Negative) 04/11/21 04/11/21 04/11/21 Range/Units 05:48 05:53 05:56 WBC (4.8-10.8) X10*3/uL Hgb (12.0-16.0) g/dl MCV (80.0-98.0) fL MCH (27.0-33.0) pg MCHC (31.0-35.0) g/dl Immature Gran % (Auto) (0.0-0.4) % Neut % (Auto) (45-73) % Lymph % (Auto) (20-40) % Lymph # (Auto) (1.2-4.9) X10*3/uL Abs Immat Gran (auto) (0.00-0.03) X10*3/uL Absolute Neuts (auto) (2.0-8.3) x10*3/uL ESR (0-20) MM/HR VBG HCO3 14 L (22-26) mmol/L Chloride 111 H (96-108) mmol/L Carbon Dioxide 16 L (22-29) mmol/L Anion Gap (12-20) POC Glucose 338 H (60-115) mg/dL Random Glucose 395 H* (60-115) mg/dL Alkaline Phosphatase 227 H (39-117) U/L C-Reactive Protein (< or = 0.50) mg/dL Total Protein 5.7 L (6.5-8.0) g/dL Albumin 3.3 L (3.5-5.0) g/dL Urine Glucose (UA) (NEG) MG/DL Urine Opiates Screen (Not Detect) Acetone, Qual (Negative) 04/11/21 04/11/21 04/11/21 Range/Units 07:07 08:06 09:04 WBC (4.8-10.8) X10*3/uL Hgb (12.0-16.0) g/dl MCV (80.0-98.0) fL MCH (27.0-33.0) pg MCHC (31.0-35.0) g/dl Immature Gran % (Auto) (0.0-0.4) % Neut % (Auto) (45-73) % Lymph % (Auto) (20-40) % Lymph # (Auto) (1.2-4.9) X10*3/uL Abs Immat Gran (auto) (0.00-0.03) X10*3/uL Absolute Neuts (auto) (2.0-8.3) x10*3/uL ESR (0-20) MM/HR VBG HCO3 (22-26) mmol/L Chloride (96-108) mmol/L Carbon Dioxide (22-29) mmol/L Anion Gap (12-20) POC Glucose 323 H 306 H 348 H (60-115) mg/dL Random Glucose (60-115) mg/dL Alkaline Phosphatase (39-117) U/L C-Reactive Protein (< or = 0.50) mg/dL Total Protein (6.5-8.0) g/dL Albumin (3.5-5.0) g/dL Urine Glucose (UA) (NEG) MG/DL Urine Opiates Screen (Not Detect) Acetone, Qual (Negative) 04/11/21 04/11/21 04/11/21 Range/Units 09:18 09:18 10:05 WBC (4.8-10.8) X10*3/uL Hgb (12.0-16.0) g/dl MCV (80.0-98.0) fL MCH (27.0-33.0) pg MCHC (31.0-35.0) g/dl Immature Gran % (Auto) (0.0-0.4) % Neut % (Auto) (45-73) % Lymph % (Auto) (20-40) % Lymph # (Auto) (1.2-4.9) X10*3/uL Abs Immat Gran (auto) (0.00-0.03) X10*3/uL Absolute Neuts (auto) (2.0-8.3) x10*3/uL ESR 74 H (0-20) MM/HR VBG HCO3 (22-26) mmol/L Chloride (96-108) mmol/L Carbon Dioxide (22-29) mmol/L Anion Gap (12-20) POC Glucose 402 H* (60-115) mg/dL Random Glucose (60-115) mg/dL Alkaline Phosphatase (39-117) U/L C-Reactive Protein 12.10 H (< or = 0.50) mg/dL Total Protein (6.5-8.0) g/dL Albumin (3.5-5.0) g/dL Urine Glucose (UA) (NEG) MG/DL Urine Opiates Screen (Not Detect) Acetone, Qual (Negative) 04/11/21 04/11/21 Range/Units 10:07 10:42 WBC (4.8-10.8) X10*3/uL Hgb (12.0-16.0) g/dl MCV (80.0-98.0) fL MCH (27.0-33.0) pg MCHC (31.0-35.0) g/dl Immature Gran % (Auto) (0.0-0.4) % Neut % (Auto) (45-73) % Lymph % (Auto) (20-40) % Lymph # (Auto) (1.2-4.9) X10*3/uL Abs Immat Gran (auto) (0.00-0.03) X10*3/uL Absolute Neuts (auto) (2.0-8.3) x10*3/uL ESR (0-20) MM/HR VBG HCO3 (22-26) mmol/L Chloride (96-108) mmol/L Carbon Dioxide (22-29) mmol/L Anion Gap (12-20) POC Glucose 442 H* (60-115) mg/dL Random Glucose (60-115) mg/dL Alkaline Phosphatase (39-117) U/L C-Reactive Protein (< or = 0.50) mg/dL Total Protein (6.5-8.0) g/dL Albumin (3.5-5.0) g/dL Urine Glucose (UA) (NEG) MG/DL Urine Opiates Screen POSITIVE H (Not Detect) Acetone, Qual (Negative) Short CBC 04/11/21 Range/Units 00:35 WBC 18.4 H (4.8-10.8) X10*3/uL Hgb 11.4 L (12.0-16.0) g/dl Hct 38.9 (37.0-47.0) % Plt Count 293 (160-400) X10*3/uL BMP 04/11/21 04/11/21 00:35 05:53 Sodium 138 139 Potassium 3.8 3.7 Chloride 105 111 H Carbon Dioxide 14 L 16 L BUN 11 10 Creatinine 0.98 0.85 Calcium 9.5 8.5 D Liver Function 04/11/21 04/11/21 Range/Units 00:35 05:53 Total Bilirubin 0.8 0.9 (0.0-1.0) mg/dL AST 26 D 25 (5-31) U/L ALT 26 26 (0-31) U/L Alkaline Phosphatase 274 H 227 H (39-117) U/L Albumin 3.7 3.3 L (3.5-5.0) g/dL Urine 04/11/21 Range/Units 03:15 Urine Color YELLOW Urine Appearance CLEAR Urine pH 6.0 (5.0-8.0) Ur Specific [place] 1.015 (1.005-1.025) Urine Protein TRACE (NEG-TRACE) MG/DL Urine Glucose (UA) 500 H (NEG) MG/DL All other labs normal. Assessment and Plan (1) Enteritis: Status: Acute (2) Abnormal CT scan, gastrointestinal tract: Status: Acute (3) DKA (diabetic ketoacidosis): Status: Acute (4) Perforated gastric ulcer: Status: Acute 40-year-old female patient presenting with a sudden onset of abdominal pain now diffusely tender peritoneal signs. Patient with history of diabetes found to be in DKA. CT of the abdomen and pelvis revealed air outside of the stomach suggestive of perforated gastric ulcer. I reviewed the findings with the patient and need for emergent exploratory laparotomy and possible repair of a perforated gastric ulcer, possible partial gastrectomy. After discussion of the procedure, risks, and alternatives, she consents to the procedure. She will be added onto the operative schedule as soon as possible. Procedures Date of Service Date of Service: 04/11/21
--- NOTE | 2021-04-11 11:44 | MHC.SHP ---
Pre-Procedural Eval Section A Date of Service: 04/11/21 The patient is an INPATIENT: Yes Section B Chief Complaint: DKA Allergies: Allergies Allergy/AdvReac Type Severity Reaction Status Date / Time No Known Allergies Allergy Mild NONE Verified 04/11/21 02:26 Plan Diagnosis/Plan: Unchanged I have reviewed the history and physical and performed a pertinent physical examination on my patient. No changes have occurred unless specified.
[2021-04-11 11:45] LABS: Glucose, Whole Blood 494 mg/dL (60-115)
--- NOTE | 2021-04-11 11:57 | P.CONAN_ITS ---
HPI - Anesthesia Eval Consult details Narrative: 40 F for perforated gastric ulcer . Patient in the ICU , being taken to the OR emergently PMFSH Active Problems Active Problems: All Active Problems (Updated 04/11/21 @ 11:27 by Eric Moe MD) Perforated gastric ulcer (Acute) Abnormal CT scan, gastrointestinal tract (Acute) Enteritis (Acute) DKA (diabetic ketoacidosis) (Acute) Past Medical History Medical History (Updated 04/11/21 @ 15:29 by Clarisa Funes MD) Diabetes Type 1 diabetes mellitus Family History Family history of problems with anesthesia: No Surgical History History of Problems with Anesthesia: Yes (Awarness under anesthesia ) Social History Social History Household Members: Children Housing: House Do you presently have visiting nurse or other home services: No Patient Tobacco Use Status: Former Tobacco user Quit Date: -10YEARS Tobacco use type: Cigarette Cigarettes Per Day: 3 Smoked in Last 30 Days: No Use of substances other than those prescribed or required for medical reasons: No Have you been hit, kicked, punched, or otherwise hurt by someone within the past year? If so, by whom?: No Do you feel safe in your current relationship?: Yes Is there a partner from a previous relationship who is making you feel unsafe now?: No Are you made to feel afraid or neglected: No Advance Directives: No Advance Directives Information Provided: Yes Advance Directives on File: No Do you have thoughts of harming others: None Do you have a plan to hurt others: No Plan Recently lost weight without trying: No Nutrition Risks: No Nutritional Risk Patient : No : No Poor oral hygiene: No service: No Current occupational status: unemployed Meds Allergies Allergy/AdvReac Type Severity Reaction Status Date / Time No Known Allergies Allergy Mild NONE Verified 04/11/21 02:26 Active Medications: Current Medications Enoxaparin Sodium (Enoxaparin Sodium 40 Mg/0.4 Ml Syringe) 40 mg SUBCUT Q24H [facility] Last Admin: 04/11/21 06:36 Dose: 40 mg Documented by: Hydromorphone HCl (Hydromorphone Hcl 0.5 Mg/0.5 Ml Syringe) 0.5 mg IVPUSH Q4H PRN; Protocol PRN Reason: Pain, Severe (Pain Scale 7-10) Last Admin: 04/11/21 06:53 Dose: 0.5 mg Documented by: Insulin Human Regular (Myxredlin) 100 unit in 100 mls @ 0 mls/hr IVCONT .Q0M [facility]; Protocol Last Titration: 04/11/21 10:00 Dose: 4.5 unit/hr, 4.5 mls/hr Documented by: Potassium Chloride 40 meq/ (Lactated Ringer's) 1,020 mls @ 200 mls/hr IVCONT .Q5H6M [facility] Last Infusion: 04/11/21 10:26 Dose: 200 mls/hr Documented by: Phenylephrine HCl 20 mg/ (Sodium Chloride) 252 mls @ 0 mls/hr IVCONT .Q0M [facility]; Protocol Albumin Human (Kedbumin 25 %) 50 mls @ 100 mls/hr IV ONCE ONE Stop: 04/11/21 12:11 Exam Exam Date and Time: April 11, 2021 1157 Height,Weight and Vital Signs: Height 5 ft 6 in Weight 80.6 kg Last Vital Signs Temp 98.5 F 04/10/21 22:07 Pulse 137 H 04/11/21 11:00 Resp 22 H 04/11/21 11:00 BP 94/57 L 04/11/21 11:00 Pulse Ox 97 04/11/21 11:00 Pertinent Lab Results Pertinent Lab Results: Laboratory Tests 04/11/21 04/11/21 04/11/21 00:35 00:35 03:15 WBC 18.4 H RBC 5.16 Hgb 11.4 L Hct 38.9 MCV 75.4 L MCH 22.1 L MCHC 29.3 L RDW 14.9 Plt Count 293 MPV 11.7 Immature Gran % (Auto) 0.6 H Neut % (Auto) 88.0 H Lymph % (Auto) 5.4 L [place] % (Auto) 5.3 Eos % (Auto) 0.4 Baso % (Auto) 0.3 Lymph # (Auto) 1.0 L [place] # (Auto) 1.0 Eos # (Auto) 0.1 Baso # (Auto) 0.1 Abs Immat Gran (auto) 0.11 H Absolute Neuts (auto) 16.2 H Absolute Nucleated RBC 0.000 Nucleated RBC % (auto) 0.0 ESR VBG pH VBG pCO2 VBG pO2 VBG HCO3 VBG O2 Saturation VBG Base Excess Sodium 138 Potassium 3.8 Chloride 105 Carbon Dioxide 14 L Anion Gap 23 H BUN 11 Creatinine 0.98 Estim Creat Clear Calc 79.1 Estimated GFR > 60 POC Glucose Random Glucose 481 H* Lactic Acid Calcium 9.5 Total Bilirubin 0.8 AST 26 D ALT 26 Alkaline Phosphatase 274 H C-Reactive Protein Total Protein 6.7 Albumin 3.7 Urine Color Urine Appearance Urine pH Ur Specific [place] Urine Protein Urine Glucose (UA) Urine Ketones Urine Blood Urine Nitrite Ur Leukocyte Esterase Urine RBC Urine WBC Ur Squamous Epith Cells Urine Bacteria Urine Opiates Screen Urine Fentanyl Screen Ur Barbiturates Screen Ur Phencyclidine Scrn Ur Amphetamines Screen U Benzodiazepines Scrn Urine Cocaine Screen U Marijuana (THC) Screen Acetone, Qual Small H COVID-19 ([facility]) Negative COVID-19 Clin Com See Note 04/11/21 04/11/21 04/11/21 03:15 03:19 05:48 WBC RBC Hgb Hct MCV MCH MCHC RDW Plt Count MPV Immature Gran % (Auto) Neut % (Auto) Lymph % (Auto) [place] % (Auto) Eos % (Auto) Baso % (Auto) Lymph # (Auto) [place] # (Auto) Eos # (Auto) Baso # (Auto) Abs Immat Gran (auto) Absolute Neuts (auto) Absolute Nucleated RBC Nucleated RBC % (auto) ESR VBG pH VBG pCO2 VBG pO2 VBG HCO3 VBG O2 Saturation VBG Base Excess Sodium Potassium Chloride Carbon Dioxide Anion Gap BUN Creatinine Estim Creat Clear Calc Estimated GFR POC Glucose 338 H Random Glucose Lactic Acid 1.1 Calcium Total Bilirubin AST ALT Alkaline Phosphatase C-Reactive Protein Total Protein Albumin Urine Color YELLOW Urine Appearance CLEAR Urine pH 6.0 Ur Specific [place] 1.015 Urine Protein TRACE Urine Glucose (UA) 500 H Urine Ketones >=80 Urine Blood TRACE Urine Nitrite NEG Ur Leukocyte Esterase NEG Urine RBC 1-4 Urine WBC 1-4 Ur Squamous Epith Cells 1+ Urine Bacteria 1+ Urine Opiates Screen Urine Fentanyl Screen Ur Barbiturates Screen Ur Phencyclidine Scrn Ur Amphetamines Screen U Benzodiazepines Scrn Urine Cocaine Screen U Marijuana (THC) Screen Acetone, Qual COVID-19 ([facility]) COVID-19 Clin Com 04/11/21 04/11/21 04/11/21 05:53 05:56 07:07 WBC RBC Hgb Hct MCV MCH MCHC RDW Plt Count MPV Immature Gran % (Auto) Neut % (Auto) Lymph % (Auto) [place] % (Auto) Eos % (Auto) Baso % (Auto) Lymph # (Auto) [place] # (Auto) Eos # (Auto) Baso # (Auto) Abs Immat Gran (auto) Absolute Neuts (auto) Absolute Nucleated RBC Nucleated RBC % (auto) ESR VBG pH 7.33 VBG pCO2 27 VBG pO2 44 VBG HCO3 14 L VBG O2 Saturation 67.0 VBG Base Excess -9.6 Sodium 139 Potassium 3.7 Chloride 111 H Carbon Dioxide 16 L Anion Gap 16 BUN 10 Creatinine 0.85 Estim Creat Clear Calc 91.3 Estimated GFR > 60 POC Glucose 323 H Random Glucose 395 H* Lactic Acid Calcium 8.5 D Total Bilirubin 0.9 AST 25 ALT 26 Alkaline Phosphatase 227 H C-Reactive Protein Total Protein 5.7 L Albumin 3.3 L Urine Color Urine Appearance Urine pH Ur Specific [place] Urine Protein Urine Glucose (UA) Urine Ketones Urine Blood Urine Nitrite Ur Leukocyte Esterase Urine RBC Urine WBC Ur Squamous Epith Cells Urine Bacteria Urine Opiates Screen Urine Fentanyl Screen Ur Barbiturates Screen Ur Phencyclidine Scrn Ur Amphetamines Screen U Benzodiazepines Scrn Urine Cocaine Screen U Marijuana (THC) Screen Acetone, Qual COVID-19 ([facility]) COVID-19 Clin Com 04/11/21 04/11/21 04/11/21 08:06 09:04 09:18 WBC RBC Hgb Hct MCV MCH MCHC RDW Plt Count MPV Immature Gran % (Auto) Neut % (Auto) Lymph % (Auto) [place] % (Auto) Eos % (Auto) Baso % (Auto) Lymph # (Auto) [place] # (Auto) Eos # (Auto) Baso # (Auto) Abs Immat Gran (auto) Absolute Neuts (auto) Absolute Nucleated RBC Nucleated RBC % (auto) ESR 74 H VBG pH VBG pCO2 VBG pO2 VBG HCO3 VBG O2 Saturation VBG Base Excess Sodium Potassium Chloride Carbon Dioxide Anion Gap BUN Creatinine Estim Creat Clear Calc Estimated GFR POC Glucose 306 H 348 H Random Glucose Lactic Acid Calcium Total Bilirubin AST ALT Alkaline Phosphatase C-Reactive Protein Total Protein Albumin Urine Color Urine Appearance Urine pH Ur Specific [place] Urine Protein Urine Glucose (UA) Urine Ketones Urine Blood Urine Nitrite Ur Leukocyte Esterase Urine RBC Urine WBC Ur Squamous Epith Cells Urine Bacteria Urine Opiates Screen Urine Fentanyl Screen Ur Barbiturates Screen Ur Phencyclidine Scrn Ur Amphetamines Screen U Benzodiazepines Scrn Urine Cocaine Screen U Marijuana (THC) Screen Acetone, Qual COVID-19 ([facility]) COVID-19 Clin Com 04/11/21 04/11/21 04/11/21 09:18 10:05 10:07 WBC RBC Hgb Hct MCV MCH MCHC RDW Plt Count MPV Immature Gran % (Auto) Neut % (Auto) Lymph % (Auto) [place] % (Auto) Eos % (Auto) Baso % (Auto) Lymph # (Auto) [place] # (Auto) Eos # (Auto) Baso # (Auto) Abs Immat Gran (auto) Absolute Neuts (auto) Absolute Nucleated RBC Nucleated RBC % (auto) ESR VBG pH VBG pCO2 VBG pO2 VBG HCO3 VBG O2 Saturation VBG Base Excess Sodium Potassium Chloride Carbon Dioxide Anion Gap BUN Creatinine Estim Creat Clear Calc Estimated GFR POC Glucose 402 H* 442 H* Random Glucose Lactic Acid Calcium Total Bilirubin AST ALT Alkaline Phosphatase C-Reactive Protein 12.10 H Total Protein Albumin Urine Color Urine Appearance Urine pH Ur Specific [place] Urine Protein Urine Glucose (UA) Urine Ketones Urine Blood Urine Nitrite Ur Leukocyte Esterase Urine RBC Urine WBC Ur Squamous Epith Cells Urine Bacteria Urine Opiates Screen Urine Fentanyl Screen Ur Barbiturates Screen Ur Phencyclidine Scrn Ur Amphetamines Screen U Benzodiazepines Scrn Urine Cocaine Screen U Marijuana (THC) Screen Acetone, Qual COVID-19 ([facility]) COVID-19 Clin Com 04/11/21 04/11/21 10:42 11:41 WBC RBC Hgb Hct MCV MCH MCHC RDW Plt Count MPV Immature Gran % (Auto) Neut % (Auto) Lymph % (Auto) [place] % (Auto) Eos % (Auto) Baso % (Auto) Lymph # (Auto) [place] # (Auto) Eos # (Auto) Baso # (Auto) Abs Immat Gran (auto) Absolute Neuts (auto) Absolute Nucleated RBC Nucleated RBC % (auto) ESR VBG pH VBG pCO2 VBG pO2 VBG HCO3 VBG O2 Saturation VBG Base Excess Sodium Potassium Chloride Carbon Dioxide Anion Gap BUN Creatinine Estim Creat Clear Calc Estimated GFR POC Glucose 494 H* Random Glucose Lactic Acid Calcium Total Bilirubin AST ALT Alkaline Phosphatase C-Reactive Protein Total Protein Albumin Urine Color Urine Appearance Urine pH Ur Specific [place] Urine Protein Urine Glucose (UA) Urine Ketones Urine Blood Urine Nitrite Ur Leukocyte Esterase Urine RBC Urine WBC Ur Squamous Epith Cells Urine Bacteria Urine Opiates Screen POSITIVE H Urine Fentanyl Screen Not Detected Ur Barbiturates Screen Not Detected Ur Phencyclidine Scrn Not Detected Ur Amphetamines Screen Not Detected U Benzodiazepines Scrn Not Detected Urine Cocaine Screen Not Detected U Marijuana (THC) Screen Not Detected Acetone, Qual COVID-19 ([facility]) COVID-19 Clin Com Airway Mallampati Class: II TM Dist: >3cm Neck ROM: Full Loose/Missing/Broken Teeth: Yes Heart: tacycardiac Lungs: bl breath sounds Assessment and Plan Assessment Anesthesia Assessment: Anesthesia Plan Discussed and Chart Reviewed Final Anesthetic Review Family History of Problems with Anesthesia: No History of Problems with Anesthesia: Yes (Awarness under anesthesia ) NPO: Yes ASA Class: III, IV and Emergency Final Preanesthetic Review: Meds/Allgs Chart Reviewed and Anes Risks/Benef Reviewed Patient Risk: High Procedure Risk: High Anesthetic Plan Anesthetic Plan: GA Disposition: Inp. Admit - ICU
[2021-04-11 12:01] LABS: VBG Base Excess -11.5 mmol/L; VBG HCO3 12 mmol/L (22-26); VBG pCO2 24 mmHg; VBG pH 7.32 (7.32-7.43); VBG pO2 40 mmHg
[2021-04-11 12:07] LABS: Glucose, Whole Blood 443 mg/dL (60-115)
[2021-04-11 12:11] LABS: Basophils Percent Auto 0.2 % (0-2); Eosinophils Percent Auto 0.1 % (0-4); Hematocrit 22.3 % (37.0-47.0); Lymphocytes Absolute Auto 1.6 X10*3/uL (1.2-4.9); Lymphocytes Percent Auto 7.8 % (20-40); MANUAL DIFF FLAG SCAN; Mean Corpuscular HGB Conc 30.5 g/dl (31.0-35.0); Mean Corpuscular Hemoglobin 22.5 pg (27.0-33.0); Mean Corpuscular Volume 73.8 fL (80.0-98.0); Mean Platelet Volume 12.5 fL (9.4-12.3); Monocytes Absolute Auto 1.7 X10*3/uL (0.1-1.2); Monocytes Percent Auto 8.4 % (2-11); Neutrophils Percent Auto 82.5 % (45-73); Platelet Count 374 X10*3/uL (160-400); Red Blood Count 3.02 X10*6/uL (4.20-5.50); Red Cell Distribution Width 15.1 % (11.0-16.0); SCAN SMEAR FLAG 1; White Blood Count 20.6 X10*3/uL (4.8-10.8)
[2021-04-11 12:14] LABS: Hemoglobin 6.8 g/dl (12.0-16.0)
[2021-04-11 12:37] LABS: Anion Gap 16 (12-20); Blood Urea Nitrogen 16 mg/dL (9-16); Carbon Dioxide 13 mmol/L (22-29); Chloride 111 mmol/L (96-108); Creatinine Clr Calc Pharmacy 82.5; Estimated Glomerular Filt Rate > 60; Glucose Random 538 mg/dL (60-115); Lipase 9 U/L (8-78); Sodium 134 mmol/L (135-145)
[2021-04-11 12:42] LABS: SLIDE REVIEW VERIFIED
--- NOTE | 2021-04-11 13:34 | PC.NURSE ---
PT ARRIVED ON UNIT WITH 9/10 ABD PAIN. ABD DISTENDED AND EXTREMELY TENDER TO TOUCH. GI CONSULTED. PT AFEBRILE, LETHARGIC, TACHYCARDIC, WITH LOW MAPs REQUIRING AN INCREASE IN FLUID RATE AND ADMINISTRATION OF ALBUMIN. MD AWARE OF HR, WILL CONTINUE TO MONITOR AT THIS TIME. PT HAS A HX OF SEVERE ANXIETY ON ATIVAN 0.5MG AT HOME. PT POC Q1HR PER DKA PROTOCOL, SUGARS TRENDING UPWARDS ALL MORNING, PROVIDER AWARE AND GTT ADJUSTED PER PROTOCOL. PT APPEARS PALE AND GI QUESTIONED PERFORATION, KUB PERFORMED BEDSIDE AT APPROXIMATELY 1115. PT IMMEDIATELY VOMITTED OVER 1 LITER OF BLOOD WITH LARGE CLOTS AND WAS TRANSFERRED TO THE OR FOR EMERGENT SX. CRITICAL H&H NOTED AND BLOOD BANK CALLED. BLOOD TO BE ADMINISTERED IN OR. CRITICAL POTASSIUM OF 6.0 REPORTED TO ICU AND OR NOTIFIED AT 1230 UPON RECEIPT. PT WILL RETURN TO ICU FOR CARE POST SX.
--- NOTE | 2021-04-11 14:34 | MHC.CM.PN ---
pt lives c her s.o. in their apt. she reports that she is independent in her own care but that if she needs help then her s.o. would be able to help. he will also be able to transport patient home at dc. pt denies the need for vna at dc. she has no svcs and ambulates s any AD. dc plan is home no svcs. cm to cont. to follow.
[2021-04-11 14:43] LABS: Venous Blood Gas Refer to POC result
--- NOTE | 2021-04-11 14:47 | W.PM.OPN ---
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 Prior to the surgery, patient vomiting a large amount of blood. Operative findings:Large perforated posterior lesser curve gastric ulcer with an actively bleeding vessel. Turbid fluid noted within the abdominal cavity. Specimen:1. peritoneal cultures, 2. gastric wall biopsy. Estimated blood loss:1 liter of old blood and clot in stomach Complications:none Procedure details: Patient was brought to the OR and placed in a supine position. After administering general anesthesia patient's abdomen was prepped with ChloraPrep and sterile fashion. An upper midline incision was made with a scalpel carried down through subcu through linea alba and passed peritoneum. The abdominal cavity was entered in the abdomen explored. Small amount of turbid white fluid was noted throughout the abdomen. A specimen was sent for wound culture. Attention was then directed to the stomach which was noted to be densely adherent to the liver edge. This was gently dissected free and a lesser curvature perforated ulcer identified which was walled off against the liver. This was freed and a bloody collection noted. A large amount of blood was evacuated from the ulcer opening with clot. The decision was made to create an anterior wall gastrotomy. This was done between 2 Surgilon sutures. The stomach was then entered and a large amount of blood and clot identified within the stomach. The nasogastric tube was found within this clot however the nasogastric tube was not functioning properly therefore was removed and a new tube inserted. The clot and blood were evacuated and the stomach irrigated completely. The posterior lesser curvature ulcer was identified with a large amount of fibrotic material surrounding it. Visible vessel which was actively bleeding was noted in the upper portion of this ulceration. A suture LigaSure x3 was applied around the bleeding vessel and good hemostasis achieved. The stomach was then explored and no other ulceration identified. The pylorus was noted to be soft and patent. No other areas of bleeding could be identified. A portion of the ulcer was excised using a 15 blade scalpel and sent to pathology for frozen section to evaluate for gastric cancer. Frozen section revealed no evidence of malignancy. The gastrotomy was then closed in layers beginning with a running locked full-thickness chromic 3-0 suture. This was followed by a interrupted 3-0 Surgilon Lembert suture. An omental patch was then created to close the gastric ulcer. This was done by plate cleaning the omentum using the 3-0 Surgilon suture directly over the ulceration. Nasogastric tube was placed adjacent to the ulceration in the antrum and pylorus. A 10. Ivan-Lauren flat drain was obtained and brought out through a separate stab wound incision in the right lower quadrant. This was secured to the skin using a 2-0 nylon suture. This was connected to bulb suction. The abdomen was then thoroughly irrigated with saline solution. This was then suctioned dry. Fascia was then closed using a 1 Maxon suture in a running fashion. Subcutaneous tissue and dermis were then reapproximated using interrupted 3-0 Polysorb sutures. Skin was closed using skin celia. Local anesthesia was infiltrated in the subcutaneous tissue using 0.5% Sensorcaine. Sterile dressings were then applied. The patient tolerated the procedure well. Sponge, instrument, and needle counts reported as correct. She was transferred to PACU in stable condition.
[2021-04-11 15:11] LABS: Base Excess Bedside Calculated -10 mmol/L (-3-3); Glucose, i-STAT 426 mg/dL (60-115); HCO3 Bedside Calculated 18 mmol/L (22-26); Hematocrit Bedside 27 %PCV (37-47); Hemoglobin Bedside 9.2 g/dL (12.0-16.0); Potassium Bedside 4.8 mmol/L (3.3-5.1); SO2 Bedside Calculated 96 %; Sodium Bedside 139 mmol/L (135-145); TCO2 Bedside 20 mmol/L (24-29); pCO2 Bedside 49 mmhg (35-48); pH Bedside 7.18 (7.35-7.45); pO2 Bedside 100 mmhg (83-108)
--- NOTE | 2021-04-11 15:21 | PM.CCHP ---
History of Present Illness Date of Service: 04/11/21 Attending physician on admission: Clarisa Funes Chief Complaint: Weakness and abdominal pain 40-year-old female type 1 diabetic presenting with weakness and abdominal pain which she feels across the epigastrium not into her back with a sense of nausea but no vomiting just yet no change in bowel habits no evidence of hematemesis no hematochezia and no fever this is all within less than 24 hours time was noted to be markedly hyperglycemic as well as having positive anion gap metabolic acidosis with positive acetone presumably therefore diabetic ketoacidosis which behaved intractably even on the IV insulin and IV fluid replacement which was aggressive The CT scan of the abdomen and pelvis initially it was read as having submucosal thickening noted in portions of the small bowel and there was some questionable free fluid that was noted in the abdomen with with some evidence of mesenteric stranding in relation to those portions of the small bowel that appeared thickened but on repeat blood work as there was some mild resolution of her metabolic acidosis with serum bicarb only climbing up to about 14 compensated pH of 7.3 due to a pCO2 of 22 we noted that there was a drop in hemoglobin and then she started to drop blood pressure is well and clearly had flat neck veins flat inferior vena cava and the presumption was of course is that she was she was bleeding and it at as yet had no hematemesis and no evidence of hematochezia or melena and on the CT scan because there was such a large volume in the stomach we placed an NG tube and we started to get what appeared to be maroonish heme-positive aspirate and then she vomited very large volume of of of blood big drop in hemoglobin to 6.8 blood pressure initially 77 she responded to volume and then we had to do emergent type and crossmatch surgical consult and GI consult with both called we will reviewed the CT scan together and thought we saw free air between the hepatic border in the lesser curvature of the stomach and we concerned because of the use of nonsteroidals that she might have a perforated ulcer so she was transfused 3 units of blood blood pressure stabilized we kept mean arterial pressures greater than 65 she was awake and alert taken to the OR of volume repleted where central line was placed and exploratory laparotomy did reveal a bleeding ulcer which was then patched bleeding was controlled she looked well was immediately extubated amount of doing beautifully but her pH felt a 715 because after she was ventilated artificially she was relatively hypo ventilated so hopefully it on her own she will be able to hyperventilate to compensate will relook at all of her electrolytes and redo all of her fluids reinstate her IV insulin drip Review of Systems Review of Systems: Have outside of the diffuse epigastric and bilateral hypo contra act pain with nausea no other positivity other than just simply feeling very weak Yes all other systems are reviewed and are negative [facility] Past Medical History Medical History (Updated 04/11/21 @ 15:29 by Clarisa Funes MD) Diabetes Type 1 diabetes mellitus Social History Social History Household Members: Children Housing: House Do you presently have visiting nurse or other home services: No Patient Tobacco Use Status: Former Tobacco user Quit Date: -10YEARS Tobacco use type: Cigarette Cigarettes Per Day: 3 Smoked in Last 30 Days: No Use of substances other than those prescribed or required for medical reasons: No Have you been hit, kicked, punched, or otherwise hurt by someone within the past year? If so, by whom?: No Do you feel safe in your current relationship?: Yes Is there a partner from a previous relationship who is making you feel unsafe now?: No Are you made to feel afraid or neglected: No Advance Directives: No Advance Directives Information Provided: Yes Advance Directives on File: No Do you have thoughts of harming others: None Do you have a plan to hurt others: No Plan Recently lost weight without trying: No Nutrition Risks: No Nutritional Risk Patient : No : No Poor oral hygiene: No service: No Current occupational status: unemployed Meds Allergies Allergy/AdvReac Type Severity Reaction Status Date / Time No Known Allergies Allergy Mild NONE Verified 04/11/21 02:26 Active Medications: Current Medications Enoxaparin Sodium (Enoxaparin Sodium 40 Mg/0.4 Ml Syringe) 40 mg SUBCUT Q24H [facility] Last Admin: 04/11/21 06:36 Dose: 40 mg Documented by: Hydromorphone HCl (Hydromorphone Hcl 0.5 Mg/0.5 Ml Syringe) 0.5 mg IVPUSH Q4H PRN; Protocol PRN Reason: Pain, Severe (Pain Scale 7-10) Last Admin: 04/11/21 06:53 Dose: 0.5 mg Documented by: Insulin Human Regular (Myxredlin) 100 unit in 100 mls @ 0 mls/hr IVCONT .Q0M LILIAN; Protocol Last Titration: 04/11/21 11:00 Dose: 6.75 unit/hr, 6.75 mls/hr Documented by: Potassium Chloride 40 meq/ (Lactated Ringer's) 1,020 mls @ 200 mls/hr IVCONT .Q5H6M LILIAN Last Infusion: 04/11/21 10:26 Dose: 200 mls/hr Documented by: Phenylephrine HCl 20 mg/ (Sodium Chloride) 252 mls @ 0 mls/hr IVCONT .Q0M LILIAN; Protocol Physical Exam Vital Signs: Vital Signs: Last Vital Signs Temp 100 F 04/11/21 15:15 Pulse 105 H 04/11/21 15:15 Resp 16 04/11/21 15:15 BP 153/73 H 04/11/21 15:15 Pulse Ox 100 04/11/21 15:15 Body Mass Index 28.6 Awake and alert oriented and nonfocal neurologically Increasing skin pallor but she never developed any acrocyanosis no diaphoresis Abdomen severely tender to it to examination but no distinct rebound Cardiac exam bedside normal LV and RV size and function with no primary valve or pericardial disease Chest was clear with no adventitious sounds Results Labs CBC and Chem 7: 04/11/21 11:56 04/11/21 11:56 Labs: Laboratory Results - last 24 hr 04/11/21 04/11/21 04/11/21 00:35 00:35 03:15 POC Hgb (Calc) POC Hct MCV 75.4 L MCH 22.1 L MCHC 29.3 L RDW 14.9 Plt Count 293 MPV 11.7 Immature Gran % (Auto) 0.6 H Neut % (Auto) 88.0 H Lymph % (Auto) 5.4 L Jennings % (Auto) 5.3 Eos % (Auto) 0.4 Baso % (Auto) 0.3 Lymph # (Auto) 1.0 L Jennings # (Auto) 1.0 Eos # (Auto) 0.1 Baso # (Auto) 0.1 Abs Immat Gran (auto) 0.11 H Absolute Neuts (auto) 16.2 H Absolute Nucleated RBC 0.000 Nucleated RBC % (auto) 0.0 Smear Tech's Comments ESR POC Std Base Excess POC O2 Sat (Calc) POC ABG pO2 POC ABG Total CO2 VBG pH VBG pCO2 VBG pO2 VBG HCO3 VBG O2 Saturation VBG Base Excess POC Capillary pH POC Capillary pCO2 POC Cap HCO3 (Calc) POC Sodium POC Potassium Anion Gap 23 H Estim Creat Clear Calc 79.1 Estimated GFR > 60 POC Glucose Random Glucose 481 H* Lactic Acid Calcium 9.5 Total Bilirubin 0.8 AST 26 D ALT 26 Alkaline Phosphatase 274 H C-Reactive Protein Total Protein 6.7 Albumin 3.7 Lipase Urine Color Urine Appearance Urine pH Ur Specific [place] Urine Protein Urine Glucose (UA) Urine Ketones Urine Blood Urine Nitrite Ur Leukocyte Esterase Urine RBC Urine WBC Ur Squamous Epith Cells Urine Bacteria Urine Opiates Screen Urine Fentanyl Screen Ur Barbiturates Screen Ur Phencyclidine Scrn Ur Amphetamines Screen U Benzodiazepines Scrn Urine Cocaine Screen U Marijuana (THC) Screen Acetone, Qual Small H COVID-19 (MARINA) Negative COVID-19 Clin Com See Note Blood Type Antibody Screen Crossmatch 04/11/21 04/11/21 04/11/21 03:15 03:19 05:48 POC Hgb (Calc) POC Hct MCV MCH MCHC RDW Plt Count MPV Immature Gran % (Auto) Neut % (Auto) Lymph % (Auto) Jennings % (Auto) Eos % (Auto) Baso % (Auto) Lymph # (Auto) Jennings # (Auto) Eos # (Auto) Baso # (Auto) Abs Immat Gran (auto) Absolute Neuts (auto) Absolute Nucleated RBC Nucleated RBC % (auto) Smear Tech's Comments ESR POC Std Base Excess POC O2 Sat (Calc) POC ABG pO2 POC ABG Total CO2 VBG pH VBG pCO2 VBG pO2 VBG HCO3 VBG O2 Saturation VBG Base Excess POC Capillary pH POC Capillary pCO2 POC Cap HCO3 (Calc) POC Sodium POC Potassium Anion Gap Estim Creat Clear Calc Estimated GFR POC Glucose 338 H Random Glucose Lactic Acid 1.1 Calcium Total Bilirubin AST ALT Alkaline Phosphatase C-Reactive Protein Total Protein Albumin Lipase Urine Color YELLOW Urine Appearance CLEAR Urine pH 6.0 Ur Specific [place] 1.015 Urine Protein TRACE Urine Glucose (UA) 500 H Urine Ketones >=80 Urine Blood TRACE Urine Nitrite NEG Ur Leukocyte Esterase NEG Urine RBC 1-4 Urine WBC 1-4 Ur Squamous Epith Cells 1+ Urine Bacteria 1+ Urine Opiates Screen Urine Fentanyl Screen Ur Barbiturates Screen Ur Phencyclidine Scrn Ur Amphetamines Screen U Benzodiazepines Scrn Urine Cocaine Screen U Marijuana (THC) Screen Acetone, Qual COVID-19 (MAR[facility]) COVID-19 Zuvvu Blood Type Antibody Screen Crossmatch 04/11/21 04/11/21 04/11/21 05:53 05:56 07:07 POC Hgb (Calc) POC Hct MCV MCH MCHC RDW Plt Count MPV Immature Gran % (Auto) Neut % (Auto) Lymph % (Auto) Jennings % (Auto) Eos % (Auto) Baso % (Auto) Lymph # (Auto) Jennings # (Auto) Eos # (Auto) Baso # (Auto) Abs Immat Gran (auto) Absolute Neuts (auto) Absolute Nucleated RBC Nucleated RBC % (auto) Smear Tech's Comments ESR POC Std Base Excess POC O2 Sat (Calc) POC ABG pO2 POC ABG Total CO2 VBG pH 7.33 VBG pCO2 27 VBG pO2 44 VBG HCO3 14 L VBG O2 Saturation 67.0 VBG Base Excess -9.6 POC Capillary pH POC Capillary pCO2 POC Cap HCO3 (Calc) POC Sodium POC Potassium Anion Gap 16 Estim Creat Clear Calc 91.3 Estimated GFR > 60 POC Glucose 323 H Random Glucose 395 H* Lactic Acid Calcium 8.5 D Total Bilirubin 0.9 AST 25 ALT 26 Alkaline Phosphatase 227 H C-Reactive Protein Total Protein 5.7 L Albumin 3.3 L Lipase Urine Color Urine Appearance Urine pH Ur Specific [place] Urine Protein Urine Glucose (UA) Urine Ketones Urine Blood Urine Nitrite Ur Leukocyte Esterase Urine RBC Urine WBC Ur Squamous Epith Cells Urine Bacteria Urine Opiates Screen Urine Fentanyl Screen Ur Barbiturates Screen Ur Phencyclidine Scrn Ur Amphetamines Screen U Benzodiazepines Scrn Urine Cocaine Screen U Marijuana (THC) Screen Acetone, Qual COVID-19 ([facility]) COVID-19 Evento Com Blood Type Antibody Screen Crossmatch 04/11/21 04/11/21 04/11/21 08:06 09:04 09:18 POC Hgb (Calc) POC Hct MCV MCH MCHC RDW Plt Count MPV Immature Gran % (Auto) Neut % (Auto) Lymph % (Auto) Jennings % (Auto) Eos % (Auto) Baso % (Auto) Lymph # (Auto) Jennings # (Auto) Eos # (Auto) Baso # (Auto) Abs Immat Gran (auto) Absolute Neuts (auto) Absolute Nucleated RBC Nucleated RBC % (auto) Smear Tech's Comments ESR 74 H POC Std Base Excess POC O2 Sat (Calc) POC ABG pO2 POC ABG Total CO2 VBG pH VBG pCO2 VBG pO2 VBG HCO3 VBG O2 Saturation VBG Base Excess POC Capillary pH POC Capillary pCO2 POC Cap HCO3 (Calc) POC Sodium POC Potassium Anion Gap Estim Creat Clear Calc Estimated GFR POC Glucose 306 H 348 H Random Glucose Lactic Acid Calcium Total Bilirubin AST ALT Alkaline Phosphatase C-Reactive Protein Total Protein Albumin Lipase Urine Color Urine Appearance Urine pH Ur Specific [place] Urine Protein Urine Glucose (UA) Urine Ketones Urine Blood Urine Nitrite Ur Leukocyte Esterase Urine RBC Urine WBC Ur Squamous Epith Cells Urine Bacteria Urine Opiates Screen Urine Fentanyl Screen Ur Barbiturates Screen Ur Phencyclidine Scrn Ur Amphetamines Screen U Benzodiazepines Scrn Urine Cocaine Screen U Marijuana (THC) Screen Acetone, Qual COVID-19 ([facility]) COVID-19 Clin Com Blood Type Antibody Screen Crossmatch 04/11/21 04/11/21 04/11/21 09:18 10:05 10:07 POC Hgb (Calc) POC Hct MCV MCH MCHC RDW Plt Count MPV Immature Gran % (Auto) Neut % (Auto) Lymph % (Auto) Jennings % (Auto) Eos % (Auto) Baso % (Auto) Lymph # (Auto) Jennings # (Auto) Eos # (Auto) Baso # (Auto) Abs Immat Gran (auto) Absolute Neuts (auto) Absolute Nucleated RBC Nucleated RBC % (auto) Smear Tech's Comments ESR POC Std Base Excess POC O2 Sat (Calc) POC ABG pO2 POC ABG Total CO2 VBG pH VBG pCO2 VBG pO2 VBG HCO3 VBG O2 Saturation VBG Base Excess POC Capillary pH POC Capillary pCO2 POC Cap HCO3 (Calc) POC Sodium POC Potassium Anion Gap Estim Creat Clear Calc Estimated GFR POC Glucose 402 H* 442 H* Random Glucose Lactic Acid Calcium Total Bilirubin AST ALT Alkaline Phosphatase C-Reactive Protein 12.10 H Total Protein Albumin Lipase Urine Color Urine Appearance Urine pH Ur Specific [place] Urine Protein Urine Glucose (UA) Urine Ketones Urine Blood Urine Nitrite Ur Leukocyte Esterase Urine RBC Urine WBC Ur Squamous Epith Cells Urine Bacteria Urine Opiates Screen Urine Fentanyl Screen Ur Barbiturates Screen Ur Phencyclidine Scrn Ur Amphetamines Screen U Benzodiazepines Scrn Urine Cocaine Screen U Marijuana (THC) Screen Acetone, Qual COVID-19 ([facility]) COVID-19 Clin Com Blood Type Antibody Screen Crossmatch 04/11/21 04/11/21 04/11/21 10:42 11:41 11:54 POC Hgb (Calc) POC Hct MCV MCH MCHC RDW Plt Count MPV Immature Gran % (Auto) Neut % (Auto) Lymph % (Auto) Jennings % (Auto) Eos % (Auto) Baso % (Auto) Lymph # (Auto) Jennings # (Auto) Eos # (Auto) Baso # (Auto) Abs Immat Gran (auto) Absolute Neuts (auto) Absolute Nucleated RBC Nucleated RBC % (auto) Smear Tech's Comments ESR POC Std Base Excess POC O2 Sat (Calc) POC ABG pO2 POC ABG Total CO2 VBG pH 7.32 VBG pCO2 24 VBG pO2 40 VBG HCO3 12 L VBG O2 Saturation 64.0 VBG Base Excess -11.5 POC Capillary pH POC Capillary pCO2 POC Cap HCO3 (Calc) POC Sodium POC Potassium Anion Gap Estim Creat Clear Calc Estimated GFR POC Glucose 494 H* Random Glucose Lactic Acid Calcium Total Bilirubin AST ALT Alkaline Phosphatase C-Reactive Protein Total Protein Albumin Lipase Urine Color Urine Appearance Urine pH Ur Specific [place] Urine Protein Urine Glucose (UA) Urine Ketones Urine Blood Urine Nitrite Ur Leukocyte Esterase Urine RBC Urine WBC Ur Squamous Epith Cells Urine Bacteria Urine Opiates Screen POSITIVE H Urine Fentanyl Screen Not Detected Ur Barbiturates Screen Not Detected Ur Phencyclidine Scrn Not Detected Ur Amphetamines Screen Not Detected U Benzodiazepines Scrn Not Detected Urine Cocaine Screen Not Detected U Marijuana (THC) Screen Not Detected Acetone, Qual COVID-19 ([facility]) COVID-19 Evento Com Blood Type Antibody Screen Crossmatch 04/11/21 04/11/21 04/11/21 11:56 11:56 11:56 POC Hgb (Calc) POC Hct MCV 73.8 L MCH 22.5 L MCHC 30.5 L RDW 15.1 Plt Count 374 D MPV 12.5 H Immature Gran % (Auto) 1.0 H Neut % (Auto) 82.5 H Lymph % (Auto) 7.8 L Jennings % (Auto) 8.4 Eos % (Auto) 0.1 Baso % (Auto) 0.2 Lymph # (Auto) 1.6 Jennings # (Auto) 1.7 H Eos # (Auto) 0.0 Baso # (Auto) 0.0 Abs Immat Gran (auto) 0.20 H Absolute Neuts (auto) 17.0 H Absolute Nucleated RBC 0.000 Nucleated RBC % (auto) 0.0 Smear Tech's Comments VERIFIED ESR POC Std Base Excess POC O2 Sat (Calc) POC ABG pO2 POC ABG Total CO2 VBG pH VBG pCO2 VBG pO2 VBG HCO3 VBG O2 Saturation VBG Base Excess POC Capillary pH POC Capillary pCO2 POC Cap HCO3 (Calc) POC Sodium POC Potassium Anion Gap 16 Estim Creat Clear Calc 82.5 Estimated GFR > 60 POC Glucose Random Glucose 538 H* Lactic Acid Calcium 8.0 L Total Bilirubin AST ALT Alkaline Phosphatase C-Reactive Protein Total Protein Albumin Lipase 9 Urine Color Urine Appearance Urine pH Ur Specific [place] Urine Protein Urine Glucose (UA) Urine Ketones Urine Blood Urine Nitrite Ur Leukocyte Esterase Urine RBC Urine WBC Ur Squamous Epith Cells Urine Bacteria Urine Opiates Screen Urine Fentanyl Screen Ur Barbiturates Screen Ur Phencyclidine Scrn Ur Amphetamines Screen U Benzodiazepines Scrn Urine Cocaine Screen U Marijuana (THC) Screen Acetone, Qual COVID-19 ([facility]) COVID-19 Clin Com Blood Type A Positive Antibody Screen NEGATIVE Crossmatch See Detail 04/11/21 04/11/21 12:03 14:22 POC Hgb (Calc) 9.2 L POC Hct 27 L MCV MCH MCHC RDW Plt Count MPV Immature Gran % (Auto) Neut % (Auto) Lymph % (Auto) Jennings % (Auto) Eos % (Auto) Baso % (Auto) Lymph # (Auto) Jennings # (Auto) Eos # (Auto) Baso # (Auto) Abs Immat Gran (auto) Absolute Neuts (auto) Absolute Nucleated RBC Nucleated RBC % (auto) Smear Tech's Comments ESR POC Std Base Excess -10 L POC O2 Sat (Calc) 96 POC ABG pO2 100 POC ABG Total CO2 20 L VBG pH VBG pCO2 VBG pO2 VBG HCO3 VBG O2 Saturation VBG Base Excess POC Capillary pH 7.18 L* POC Capillary pCO2 49 H POC Cap HCO3 (Calc) 18 L POC Sodium 139 POC Potassium 4.8 Anion Gap Estim Creat Clear Calc Estimated GFR POC Glucose 443 H* 426 H* Random Glucose Lactic Acid Calcium Total Bilirubin AST ALT Alkaline Phosphatase C-Reactive Protein Total Protein Albumin Lipase Urine Color Urine Appearance Urine pH Ur Specific [place] Urine Protein Urine Glucose (UA) Urine Ketones Urine Blood Urine Nitrite Ur Leukocyte Esterase Urine RBC Urine WBC Ur Squamous Epith Cells Urine Bacteria Urine Opiates Screen Urine Fentanyl Screen Ur Barbiturates Screen Ur Phencyclidine Scrn Ur Amphetamines Screen U Benzodiazepines Scrn Urine Cocaine Screen U Marijuana (THC) Screen Acetone, Qual COVID-19 ([facility]) COVID-19 Clin Com Blood Type Antibody Screen Crossmatch Imaging Radiologist's Impressions: Impressions Abdomen/Pelvis CT 04/11/21 02:15 IMPRESSION: -Findings suspicious for acute enteritis with small bowel findings predominantly involving the jejunum associated with marked fluid distention of the stomach and fluid within the visualized distal esophagus. Findings are characterized by concentric mural thickening and edema of the small bowel, principally within the jejunum. Trace interloop and free intraperitoneal fluid is present and likely represents reactive fluid. Fluid distention of the stomach and distal esophagus may predispose for aspiration risk. This result was discussed with Marycruz Malik MD by telephone at 04/11/2021 3:51 AM and it was ascertained that the content and urgency of the report was understood at the time of direct communication. KUB X-Ray 04/11/21 11:31 IMPRESSION: NG tube in abdomen, tip in region of distal stomach. Assessment and Plan (1) Perforated gastric ulcer: Status: Acute (2) DKA (diabetic ketoacidosis): Status: Acute (3) GI bleed due to NSAIDs: Status: Acute (4) Hypovolemic shock: Status: Acute (5) Anemia: Status: Acute (6) Hyponatremia: Status: Acute (7) Hyperkalemia: Status: Acute (8) Type 1 diabetes mellitus: Status: Acute At this point re-examine all electrolytes and reestablish of fluids and using CVP guidance for volume follow lab work including hemoglobin for evidence of further bleeding and reinstate the IV insulin drip
[2021-04-11 16:09] LABS: Venous Blood Gas Refer to POC result
[2021-04-11 16:10] LABS: VBG Base Excess -12.7 mmol/L; VBG HCO3 14 mmol/L (22-26); VBG pCO2 38 mmHg; VBG pH 7.18 (7.32-7.43); VBG pO2 41 mmHg
[2021-04-11 16:19] LABS: Glucose, Whole Blood 270 mg/dL (60-115)
[2021-04-11 16:24] LABS: Anion Gap 15 (12-20); Blood Urea Nitrogen 15 mg/dL (9-16); Calcium 8.5 mg/dL (8.4-10.2); Carbon Dioxide 17 mmol/L (22-29); Chloride 113 mmol/L (96-108); Estimated Glomerular Filt Rate > 60; Glucose Random 412 mg/dL (60-115); Magnesium 1.8 mg/dL (1.6-2.6); Phosphorus 3.9 mg/dL (2.7-4.5); Potassium 4.9 mmol/L (3.3-5.1); Sodium 140 mmol/L (135-145)
[2021-04-11 17:18] LABS: Glucose, Whole Blood 259 mg/dL (60-115)
[2021-04-11] MEDS: Pantoprazole Sodium 40 MG/10 ML VIAL IVPUSH (17:22)
[2021-04-11] MEDS: Sodium Chloride 0.45 % 1,000 ML 125 ML IVCONT (17:29)
[2021-04-11 18:14] LABS: Glucose, Whole Blood 252 mg/dL (60-115)
[2021-04-11 19:11] LABS: Glucose, Whole Blood 236 mg/dL (60-115)
[2021-04-11] MEDS: Fluconazole in NaCl,Iso-Osm 100 MG in Container,Empty 0 ML 50 MG IV (19:39)
[2021-04-11] MEDS: 0.9 % Sodium Chloride Flush 3 ML SYRINGE IVFLUSH (19:42)
[2021-04-11 19:57] LABS: Reflex Lactate? Lactic Acid Added
[2021-04-11 20:01] LABS: MANUAL DIFF FLAG NO
[2021-04-11 20:02] LABS: Basophils Percent Auto 0.2 % (0-2); Eosinophils Percent Auto 0.1 % (0-4); Hematocrit 29.3 % (37.0-47.0); Hemoglobin 9.8 g/dl (12.0-16.0); Imm Gran Abs Auto 0.08 X10*3/uL (0.00-0.03); Imm Gran Pct Auto 0.6 % (0.0-0.4); Lymphocytes Absolute Auto 1.5 X10*3/uL (1.2-4.9); Mean Corpuscular HGB Conc 33.4 g/dl (31.0-35.0); Mean Corpuscular Hemoglobin 27.1 pg (27.0-33.0); Mean Corpuscular Volume 81.2 fL (80.0-98.0); Mean Platelet Volume 11.2 fL (9.4-12.3); Monocytes Absolute Auto 0.9 X10*3/uL (0.1-1.2); Monocytes Percent Auto 6.5 % (2-11); Neutrophils Absolute Auto 10.8 x10*3/uL (2.0-8.3); Neutrophils Percent Auto 81.6 % (45-73); Platelet Count 187 X10*3/uL (160-400); Red Blood Count 3.61 X10*6/uL (4.20-5.50); Red Cell Distribution Width 17.2 % (11.0-16.0); White Blood Count 13.2 X10*3/uL (4.8-10.8)
[2021-04-11 20:05] LABS: VBG Base Excess -3.7 mmol/L; VBG HCO3 19 mmol/L (22-26); VBG pCO2 27 mmHg; VBG pH 7.44 (7.32-7.43); VBG pO2 51 mmHg
[2021-04-11 20:09] LABS: Venous Blood Gas Refer to POC result
[2021-04-11 20:13] LABS: Glucose, Whole Blood 172 mg/dL (60-115)
[2021-04-11 20:37] LABS: Anion Gap 9 (12-20); Blood Urea Nitrogen 11 mg/dL (9-16); Calcium 8.3 mg/dL (8.4-10.2); Carbon Dioxide 19 mmol/L (22-29); Chloride 116 mmol/L (96-108); Creatinine Clr Calc Pharmacy 116.5; Estimated Glomerular Filt Rate > 60; Glucose Random 183 mg/dL (60-115); Potassium 3.4 mmol/L (3.3-5.1); Sodium 141 mmol/L (135-145)
[2021-04-11 20:46] LABS: ~Lactic Acid-LAB USE ONLY 1.7 mmol/L (0.5-2.0)
[2021-04-11 21:03] LABS: Glucose, Whole Blood 146 mg/dL (60-115)
[2021-04-11] MEDS: Insulin Regular/NS 100 UNIT/100 ML PLAST..BAG 7 UNIT IVCONT (21:08)
[2021-04-11] MEDS: KCl 20 mEq in 5 % Dex/Lact Rin 20 MEQ/1,000 ML IV.SOLN 125 MEQ IVCONT (21:25)
[2021-04-11 22:02] LABS: Glucose, Whole Blood 121 mg/dL (60-115)
[2021-04-11 23:10] LABS: Glucose, Whole Blood 123 mg/dL (60-115)
[2021-04-12] VITALS (23 sets, daily range): BP systolic 99–125; BP diastolic 60–75; PULSE 98–130; RESP 14–96; TEMP 36.1–38; O2SAT 93–99; BMI 28.7
[2021-04-12 00:36] LABS: VBG Base Excess -0.9 mmol/L; VBG HCO3 22 mmol/L (22-26); VBG pCO2 29 mmHg; VBG pH 7.48 (7.32-7.43); VBG pO2 44 mmHg
[2021-04-12] MEDS: Piperacillin Sodium/Tazobactam 3.375 GM in 0.9 % Sodium Chloride 50 ML IV ×4 (00:42→18:24)
[2021-04-12 00:50] LABS: Anion Gap 11 (12-20); Blood Urea Nitrogen 10 mg/dL (9-16); Carbon Dioxide 17 mmol/L (22-29); Chloride 115 mmol/L (96-108); Creatinine Clr Calc Pharmacy 123.8; Estimated Glomerular Filt Rate > 60; Glucose Random 99 mg/dL (60-115); Potassium 3.2 mmol/L (3.3-5.1); Sodium 140 mmol/L (135-145)
[2021-04-12] MEDS: Potassium Chloride/H20 20 MEQ/100 ML PIGGYBACK 100 MEQ IV (01:42)
[2021-04-12 02:08] LABS: Glucose, Whole Blood 86 mg/dL (60-115)
[2021-04-12 02:15] LABS: Glucose, Whole Blood 91 mg/dL (60-115)
[2021-04-12 03:43] LABS: Glucose, Whole Blood 116 mg/dL (60-115)
[2021-04-12 04:36] LABS: Venous Blood Gas Refer to POC result
[2021-04-12 05:55] LABS: MANUAL DIFF FLAG NO
[2021-04-12 06:10] LABS: Basophils Percent Auto 0.2 % (0-2); Eosinophils Absolute Auto 0.1 X10*3/uL (0.0-0.4); Eosinophils Percent Auto 0.5 % (0-4); Hematocrit 26.6 % (37.0-47.0); Hemoglobin 8.7 g/dl (12.0-16.0); Imm Gran Abs Auto 0.08 X10*3/uL (0.00-0.03); Imm Gran Pct Auto 0.6 % (0.0-0.4); Lymphocytes Absolute Auto 1.4 X10*3/uL (1.2-4.9); Lymphocytes Percent Auto 11.1 % (20-40); Mean Corpuscular HGB Conc 32.7 g/dl (31.0-35.0); Mean Corpuscular Hemoglobin 26.4 pg (27.0-33.0); Mean Corpuscular Volume 80.9 fL (80.0-98.0); Monocytes Absolute Auto 1.1 X10*3/uL (0.1-1.2); Monocytes Percent Auto 8.6 % (2-11); Neutrophils Absolute Auto 10.2 x10*3/uL (2.0-8.3); Platelet Count 195 X10*3/uL (160-400); Red Blood Count 3.29 X10*6/uL (4.20-5.50); Red Cell Distribution Width 17.2 % (11.0-16.0); White Blood Count 12.9 X10*3/uL (4.8-10.8)
[2021-04-12] MEDS: Pantoprazole Sodium 40 MG/10 ML VIAL IVPUSH ×2 (06:21→16:35)
[2021-04-12] MEDS: HYDROmorphone HCl 0.5 MG/0.5 ML SYRINGE IVPUSH (06:21)
[2021-04-12] MEDS: KCl 20 mEq in 5 % Dex/Lact Rin 20 MEQ/1,000 ML IV.SOLN 125 MEQ IVCONT ×2 (06:22→14:24)
[2021-04-12 06:35] LABS: Anion Gap 13 (12-20); Blood Urea Nitrogen 9 mg/dL (9-16); Calcium 7.7 mg/dL (8.4-10.2); Carbon Dioxide 17 mmol/L (22-29); Chloride 113 mmol/L (96-108); Creatinine Clr Calc Pharmacy 121.9; Estimated Glomerular Filt Rate > 60; Glucose Random 156 mg/dL (60-115); Potassium 3.5 mmol/L (3.3-5.1); Sodium 139 mmol/L (135-145)
[2021-04-12 06:41] LABS: Glucose, Whole Blood 147 mg/dL (60-115)
--- NOTE | 2021-04-12 06:55 | HO.POSTANES ---
Post Anesthesia Evaluation Post Anesthesia Evaluation Vital Signs: Vital Signs Temp Pulse Resp BP Pulse Ox 04/12/21 06:21 18 04/12/21 06:00 101 H 22 H 103/61 97 04/12/21 05:00 107 H 17 121/75 98 04/12/21 04:00 105 H 17 123/74 97 04/12/21 03:00 109 H 17 125/71 96 04/12/21 02:16 98.2 F 04/12/21 02:00 98.2 F 117 H 96 H 116/63 96 04/12/21 01:00 123 H 25 H 110/67 96 04/12/21 00:00 100.4 F 130 H 22 H 120/72 95 04/11/21 23:00 130 H 22 H 110/66 96 04/11/21 22:28 24 H 04/11/21 22:00 133 H 18 127/67 97 04/11/21 21:00 128 H 22 H 119/75 96 04/11/21 20:00 99.1 F 126 H 22 H 120/75 97 04/11/21 19:00 99.6 F 133 H 20 125/77 98 Anesthesia: General Endotracheal-GETA Mental Status: Awake Pain Control: Satisfactory (having pain but thats normal) Nausea/Vomiting: Mild Hydration: Adequate Anesthesia-Related Issues: No Anes. Related Issues Comments: Patient looks great.
[2021-04-12 07:19] LABS: Glucose, Whole Blood 164 mg/dL (60-115)
[2021-04-12] MEDS: 0.9 % Sodium Chloride Flush 3 ML SYRINGE IVFLUSH ×2 (07:33→15:19)
[2021-04-12] MEDS: HYDROmorphone HCl 0.5 MG/0.5 ML SYRINGE 1 MG IVPUSH ×4 (08:30→20:29)
[2021-04-12 08:39] LABS: CDiff Gene PCR NEGATIVE (Negative)
[2021-04-12 08:42] LABS: Glucose, Whole Blood 169 mg/dL (60-115)
--- NOTE | 2021-04-12 08:57 | PM.PNGS ---
Subjective Subjective Date of Service: 04/12/21 Interval history: Pod 1 following exploratory laparotomy, LigaSure of bleeding gastric ulcer and omental patching of perforated gastric ulcer. Patient reports incisional pain but overall feels much improved compared to yesterday. She denies nausea or vomiting. Physical Exam Vital Signs: Vital Signs: Last Vital Signs Temp 97.7 F 04/12/21 08:00 Pulse 98 04/12/21 08:00 Resp 18 04/12/21 08:30 BP 123/73 04/12/21 08:00 Pulse Ox 98 04/12/21 08:00 Body Mass Index 28.7 Const: General: alert and awake Nutritional Appearance: well nourished Orientation/consciousness: patient oriented x3 Resp: Effort & Inspection: normal respiratory effort GI: Other: Wounds are clean, dry, and intact without redness or discharge. Skin: General skin exam: no erythema and pallor Neuro: General: patient oriented x3 Extrem: General: Yes edema Objective Data Active Medications Hydromorphone HCl (Hydromorphone Hcl 0.5 Mg/0.5 Ml Syringe) 1 mg IVPUSH Q4H PRN; Protocol PRN Reason: Pain, Severe (Pain Scale 7-10) Last Admin: 04/12/21 08:30 Dose: 1 mg Documented by: DE Insulin Human Regular (Myxredlin) 100 unit in 100 mls @ 0 mls/hr IVCONT .Q0M [facility]; Protocol Last Titration: 04/12/21 06:49 Dose: 3 unit/hr, 3 mls/hr Documented by: JOSE Cosigned by: PAYTON Phenylephrine HCl 20 mg/ (Sodium Chloride) 252 mls @ 0 mls/hr IVCONT .Q0M [facility]; Protocol Piperacillin Sod/Tazobactam (Sod 3.375 gm/ Sodium Chloride) 50 mls @ 100 mls/hr IV Q6H [facility] Last Infusion: 04/12/21 08:01 Dose: 0 mls/hr Documented by: DE Fluconazole 100 mg/ IV (Miscellaneous Supplies) 50 mls @ 50 mls/hr IV Q24H [facility] Last Infusion: 04/11/21 21:03 Dose: 0 mls/hr Documented by: JOSE Potassium Cl/Dextrose/Lact Ringer's () 20 meq in 1,000 mls @ 125 mls/hr IVCONT .Q8H [facility] [place] Last Admin: 04/12/21 06:22 Dose: 125 mls/hr Documented by: JOSE Pantoprazole Sodium (Pantoprazole Sodium 40 Mg/10 Ml Vial) 40 mg IVPUSH BID@0630,1630 [facility] [place] Last Admin: 04/12/21 06:21 Dose: 40 mg Documented by: JOSE Sodium Chloride (0.9 % Sodium Chloride Flush 3 Ml Syringe) 3 ml IVFLUSH QSHIFT [facility] [place] Last Admin: 04/12/21 07:33 Dose: 3 ml Documented by: ALVAREZ Labs CBC & Chem 7: 04/12/21 05:15 04/12/21 05:15 Labs: Laboratory Results - last 24 hr 04/11/21 04/11/21 04/11/21 09:04 09:18 09:18 POC Hgb (Calc) POC Hct MCV MCH MCHC RDW Plt Count MPV Immature Gran % (Auto) Neut % (Auto) Lymph % (Auto) Saunders % (Auto) Eos % (Auto) Baso % (Auto) Lymph # (Auto) Saunders # (Auto) Eos # (Auto) Baso # (Auto) Abs Immat Gran (auto) Absolute Neuts (auto) Absolute Nucleated RBC Nucleated RBC % (auto) Smear Tech's Comments ESR 74 H POC Std Base Excess POC O2 Sat (Calc) POC ABG pO2 POC ABG Total CO2 VBG pH VBG pCO2 VBG pO2 VBG HCO3 VBG O2 Saturation VBG Base Excess POC Capillary pH POC Capillary pCO2 POC Cap HCO3 (Calc) POC Sodium POC Potassium Anion Gap Estim Creat Clear Calc Estimated GFR POC Glucose 348 H Random Glucose Lactic Acid Lactic Acid Fup @ 2Hr Calcium Phosphorus Magnesium C-Reactive Protein 12.10 H Lipase Urine Opiates Screen Urine Fentanyl Screen Ur Barbiturates Screen Ur Phencyclidine Scrn Ur Amphetamines Screen U Benzodiazepines Scrn Urine Cocaine Screen U Marijuana (THC) Screen C. difficile Tox B Gene Blood Type Antibody Screen Crossmatch 04/11/21 04/11/21 04/11/21 10:05 10:07 10:42 POC Hgb (Calc) POC Hct MCV MCH MCHC RDW Plt Count MPV Immature Gran % (Auto) Neut % (Auto) Lymph % (Auto) Saunders % (Auto) Eos % (Auto) Baso % (Auto) Lymph # (Auto) Saunders # (Auto) Eos # (Auto) Baso # (Auto) Abs Immat Gran (auto) Absolute Neuts (auto) Absolute Nucleated RBC Nucleated RBC % (auto) Smear Tech's Comments ESR POC Std Base Excess POC O2 Sat (Calc) POC ABG pO2 POC ABG Total CO2 VBG pH VBG pCO2 VBG pO2 VBG HCO3 VBG O2 Saturation VBG Base Excess POC Capillary pH POC Capillary pCO2 POC Cap HCO3 (Calc) POC Sodium POC Potassium Anion Gap Estim Creat Clear Calc Estimated GFR POC Glucose 402 H* 442 H* Random Glucose Lactic Acid Lactic Acid Fup @ 2Hr Calcium Phosphorus Magnesium C-Reactive Protein Lipase Urine Opiates Screen POSITIVE H Urine Fentanyl Screen Not Detected Ur Barbiturates Screen Not Detected Ur Phencyclidine Scrn Not Detected Ur Amphetamines Screen Not Detected U Benzodiazepines Scrn Not Detected Urine Cocaine Screen Not Detected U Marijuana (THC) Screen Not Detected C. difficile Tox B Gene Blood Type Antibody Screen Crossmatch 04/11/21 04/11/21 04/11/21 11:41 11:54 11:56 POC Hgb (Calc) POC Hct MCV MCH MCHC RDW Plt Count MPV Immature Gran % (Auto) Neut % (Auto) Lymph % (Auto) Saunders % (Auto) Eos % (Auto) Baso % (Auto) Lymph # (Auto) Saunders # (Auto) Eos # (Auto) Baso # (Auto) Abs Immat Gran (auto) Absolute Neuts (auto) Absolute Nucleated RBC Nucleated RBC % (auto) Smear Tech's Comments ESR POC Std Base Excess POC O2 Sat (Calc) POC ABG pO2 POC ABG Total CO2 VBG pH 7.32 VBG pCO2 24 VBG pO2 40 VBG HCO3 12 L VBG O2 Saturation 64.0 VBG Base Excess -11.5 POC Capillary pH POC Capillary pCO2 POC Cap HCO3 (Calc) POC Sodium POC Potassium Anion Gap 16 Estim Creat Clear Calc 82.5 Estimated GFR > 60 POC Glucose 494 H* Random Glucose 538 H* Lactic Acid Lactic Acid Fup @ 2Hr Calcium 8.0 L Phosphorus Magnesium C-Reactive Protein Lipase 9 Urine Opiates Screen Urine Fentanyl Screen Ur Barbiturates Screen Ur Phencyclidine Scrn Ur Amphetamines Screen U Benzodiazepines Scrn Urine Cocaine Screen U Marijuana (THC) Screen C. difficile Tox B Gene Blood Type Antibody Screen Crossmatch 04/11/21 04/11/21 04/11/21 11:56 11:56 12:03 POC Hgb (Calc) POC Hct MCV 73.8 L MCH 22.5 L MCHC 30.5 L RDW 15.1 Plt Count 374 D MPV 12.5 H Immature Gran % (Auto) 1.0 H Neut % (Auto) 82.5 H Lymph % (Auto) 7.8 L Saunders % (Auto) 8.4 Eos % (Auto) 0.1 Baso % (Auto) 0.2 Lymph # (Auto) 1.6 Saunders # (Auto) 1.7 H Eos # (Auto) 0.0 Baso # (Auto) 0.0 Abs Immat Gran (auto) 0.20 H Absolute Neuts (auto) 17.0 H Absolute Nucleated RBC 0.000 Nucleated RBC % (auto) 0.0 Smear Tech's Comments VERIFIED ESR POC Std Base Excess POC O2 Sat (Calc) POC ABG pO2 POC ABG Total CO2 VBG pH VBG pCO2 VBG pO2 VBG HCO3 VBG O2 Saturation VBG Base Excess POC Capillary pH POC Capillary pCO2 POC Cap HCO3 (Calc) POC Sodium POC Potassium Anion Gap Estim Creat Clear Calc Estimated GFR POC Glucose 443 H* Random Glucose Lactic Acid Lactic Acid Fup @ 2Hr Calcium Phosphorus Magnesium C-Reactive Protein Lipase Urine Opiates Screen Urine Fentanyl Screen Ur Barbiturates Screen Ur Phencyclidine Scrn Ur Amphetamines Screen U Benzodiazepines Scrn Urine Cocaine Screen U Marijuana (THC) Screen C. difficile Tox B Gene Blood Type A Positive Antibody Screen NEGATIVE Crossmatch See Detail 04/11/21 04/11/21 04/11/21 14:22 15:51 15:57 POC Hgb (Calc) 9.2 L POC Hct 27 L MCV MCH MCHC RDW Plt Count MPV Immature Gran % (Auto) Neut % (Auto) Lymph % (Auto) Saunders % (Auto) Eos % (Auto) Baso % (Auto) Lymph # (Auto) Saunders # (Auto) Eos # (Auto) Baso # (Auto) Abs Immat Gran (auto) Absolute Neuts (auto) Absolute Nucleated RBC Nucleated RBC % (auto) Smear Tech's Comments ESR POC Std Base Excess -10 L POC O2 Sat (Calc) 96 POC ABG pO2 100 POC ABG Total CO2 20 L VBG pH 7.18 L* VBG pCO2 38 VBG pO2 41 VBG HCO3 14 L VBG O2 Saturation 61.0 VBG Base Excess -12.7 POC Capillary pH 7.18 L* POC Capillary pCO2 49 H POC Cap HCO3 (Calc) 18 L POC Sodium 139 POC Potassium 4.8 Anion Gap 15 Estim Creat Clear Calc 80.0 Estimated GFR > 60 POC Glucose 426 H* Random Glucose 412 H* Lactic Acid Lactic Acid Fup @ 2Hr Calcium 8.5 D Phosphorus 3.9 Magnesium 1.8 C-Reactive Protein Lipase Urine Opiates Screen Urine Fentanyl Screen Ur Barbiturates Screen Ur Phencyclidine Scrn Ur Amphetamines Screen U Benzodiazepines Scrn Urine Cocaine Screen U Marijuana (THC) Screen C. difficile Tox B Gene Blood Type Antibody Screen Crossmatch 04/11/21 04/11/21 04/11/21 16:16 17:13 17:32 POC Hgb (Calc) POC Hct MCV MCH MCHC RDW Plt Count MPV Immature Gran % (Auto) Neut % (Auto) Lymph % (Auto) Saunders % (Auto) Eos % (Auto) Baso % (Auto) Lymph # (Auto) Saunders # (Auto) Eos # (Auto) Baso # (Auto) Abs Immat Gran (auto) Absolute Neuts (auto) Absolute Nucleated RBC Nucleated RBC % (auto) Smear Tech's Comments ESR POC Std Base Excess POC O2 Sat (Calc) POC ABG pO2 POC ABG Total CO2 VBG pH VBG pCO2 VBG pO2 VBG HCO3 VBG O2 Saturation VBG Base Excess POC Capillary pH POC Capillary pCO2 POC Cap HCO3 (Calc) POC Sodium POC Potassium Anion Gap Estim Creat Clear Calc Estimated GFR POC Glucose 270 H 259 H Random Glucose Lactic Acid 4.0 H* Lactic Acid Fup @ 2Hr Calcium Phosphorus Magnesium C-Reactive Protein Lipase Urine Opiates Screen Urine Fentanyl Screen Ur Barbiturates Screen Ur Phencyclidine Scrn Ur Amphetamines Screen U Benzodiazepines Scrn Urine Cocaine Screen U Marijuana (THC) Screen C. difficile Tox B Gene Blood Type Antibody Screen Crossmatch 04/11/21 04/11/21 04/11/21 18:10 19:07 19:56 POC Hgb (Calc) POC Hct MCV 81.2 D MCH 27.1 MCHC 33.4 RDW 17.2 H Plt Count 187 D MPV 11.2 Immature Gran % (Auto) 0.6 H Neut % (Auto) 81.6 H Lymph % (Auto) 11.0 L Saunders % (Auto) 6.5 Eos % (Auto) 0.1 Baso % (Auto) 0.2 Lymph # (Auto) 1.5 Saunders # (Auto) 0.9 Eos # (Auto) 0.0 Baso # (Auto) 0.0 Abs Immat Gran (auto) 0.08 H Absolute Neuts (auto) 10.8 H Absolute Nucleated RBC 0.000 Nucleated RBC % (auto) 0.0 Smear Tech's Comments ESR POC Std Base Excess POC O2 Sat (Calc) POC ABG pO2 POC ABG Total CO2 VBG pH VBG pCO2 VBG pO2 VBG HCO3 VBG O2 Saturation VBG Base Excess POC Capillary pH POC Capillary pCO2 POC Cap HCO3 (Calc) POC Sodium POC Potassium Anion Gap Estim Creat Clear Calc Estimated GFR POC Glucose 252 H 236 H Random Glucose Lactic Acid Lactic Acid Fup @ 2Hr Calcium Phosphorus Magnesium C-Reactive Protein Lipase Urine Opiates Screen Urine Fentanyl Screen Ur Barbiturates Screen Ur Phencyclidine Scrn Ur Amphetamines Screen U Benzodiazepines Scrn Urine Cocaine Screen U Marijuana (THC) Screen C. difficile Tox B Gene Blood Type Antibody Screen Crossmatch 04/11/21 04/11/21 04/11/21 19:56 19:59 20:09 POC Hgb (Calc) POC Hct MCV MCH MCHC RDW Plt Count MPV Immature Gran % (Auto) Neut % (Auto) Lymph % (Auto) Saunders % (Auto) Eos % (Auto) Baso % (Auto) Lymph # (Auto) Saunders # (Auto) Eos # (Auto) Baso # (Auto) Abs Immat Gran (auto) Absolute Neuts (auto) Absolute Nucleated RBC Nucleated RBC % (auto) Smear Tech's Comments ESR POC Std Base Excess POC O2 Sat (Calc) POC ABG pO2 POC ABG Total CO2 VBG pH 7.44 H VBG pCO2 27 VBG pO2 51 VBG HCO3 19 L VBG O2 Saturation 84.0 VBG Base Excess -3.7 POC Capillary pH POC Capillary pCO2 POC Cap HCO3 (Calc) POC Sodium POC Potassium Anion Gap 9 L Estim Creat Clear Calc 116.5 Estimated GFR > 60 POC Glucose 172 H Random Glucose 183 H Lactic Acid Lactic Acid Fup @ 2Hr Calcium 8.3 L Phosphorus Magnesium C-Reactive Protein Lipase Urine Opiates Screen Urine Fentanyl Screen Ur Barbiturates Screen Ur Phencyclidine Scrn Ur Amphetamines Screen U Benzodiazepines Scrn Urine Cocaine Screen U Marijuana (THC) Screen C. difficile Tox B Gene Blood Type Antibody Screen Crossmatch 04/11/21 04/11/21 04/11/21 20:30 21:00 21:58 POC Hgb (Calc) POC Hct MCV MCH MCHC RDW Plt Count MPV Immature Gran % (Auto) Neut % (Auto) Lymph % (Auto) Saunders % (Auto) Eos % (Auto) Baso % (Auto) Lymph # (Auto) Saunders # (Auto) Eos # (Auto) Baso # (Auto) Abs Immat Gran (auto) Absolute Neuts (auto) Absolute Nucleated RBC Nucleated RBC % (auto) Smear Tech's Comments ESR POC Std Base Excess POC O2 Sat (Calc) POC ABG pO2 POC ABG Total CO2 VBG pH VBG pCO2 VBG pO2 VBG HCO3 VBG O2 Saturation VBG Base Excess POC Capillary pH POC Capillary pCO2 POC Cap HCO3 (Calc) POC Sodium POC Potassium Anion Gap Estim Creat Clear Calc Estimated GFR POC Glucose 146 H 121 H Random Glucose Lactic Acid Lactic Acid Fup @ 2Hr 1.7 Calcium Phosphorus Magnesium C-Reactive Protein Lipase Urine Opiates Screen Urine Fentanyl Screen Ur Barbiturates Screen Ur Phencyclidine Scrn Ur Amphetamines Screen U Benzodiazepines Scrn Urine Cocaine Screen U Marijuana (THC) Screen C. difficile Tox B Gene Blood Type Antibody Screen Crossmatch 04/11/21 04/12/21 04/12/21 23:05 00:18 00:29 POC Hgb (Calc) POC Hct MCV MCH MCHC RDW Plt Count MPV Immature Gran % (Auto) Neut % (Auto) Lymph % (Auto) Saunders % (Auto) Eos % (Auto) Baso % (Auto) Lymph # (Auto) Saunders # (Auto) Eos # (Auto) Baso # (Auto) Abs Immat Gran (auto) Absolute Neuts (auto) Absolute Nucleated RBC Nucleated RBC % (auto) Smear Tech's Comments ESR POC Std Base Excess POC O2 Sat (Calc) POC ABG pO2 POC ABG Total CO2 VBG pH 7.48 H VBG pCO2 29 VBG pO2 44 VBG HCO3 22 VBG O2 Saturation 79.0 VBG Base Excess -0.9 POC Capillary pH POC Capillary pCO2 POC Cap HCO3 (Calc) POC Sodium POC Potassium Anion Gap 11 L Estim Creat Clear Calc 123.8 Estimated GFR > 60 POC Glucose 123 H Random Glucose 99 Lactic Acid Lactic Acid Fup @ 2Hr Calcium 8.0 L Phosphorus Magnesium C-Reactive Protein Lipase Urine Opiates Screen Urine Fentanyl Screen Ur Barbiturates Screen Ur Phencyclidine Scrn Ur Amphetamines Screen U Benzodiazepines Scrn Urine Cocaine Screen U Marijuana (THC) Screen C. difficile Tox B Gene Blood Type Antibody Screen Crossmatch 04/12/21 04/12/21 04/12/21 01:11 02:07 03:38 POC Hgb (Calc) POC Hct MCV MCH MCHC RDW Plt Count MPV Immature Gran % (Auto) Neut % (Auto) Lymph % (Auto) Saunders % (Auto) Eos % (Auto) Baso % (Auto) Lymph # (Auto) Saunders # (Auto) Eos # (Auto) Baso # (Auto) Abs Immat Gran (auto) Absolute Neuts (auto) Absolute Nucleated RBC Nucleated RBC % (auto) Smear Tech's Comments ESR POC Std Base Excess POC O2 Sat (Calc) POC ABG pO2 POC ABG Total CO2 VBG pH VBG pCO2 VBG pO2 VBG HCO3 VBG O2 Saturation VBG Base Excess POC Capillary pH POC Capillary pCO2 POC Cap HCO3 (Calc) POC Sodium POC Potassium Anion Gap Estim Creat Clear Calc Estimated GFR POC Glucose 86 91 116 H Random Glucose Lactic Acid Lactic Acid Fup @ 2Hr Calcium Phosphorus Magnesium C-Reactive Protein Lipase Urine Opiates Screen Urine Fentanyl Screen Ur Barbiturates Screen Ur Phencyclidine Scrn Ur Amphetamines Screen U Benzodiazepines Scrn Urine Cocaine Screen U Marijuana (THC) Screen C. difficile Tox B Gene Blood Type Antibody Screen Crossmatch 04/12/21 04/12/21 04/12/21 05:15 05:15 06:38 POC Hgb (Calc) POC Hct MCV 80.9 MCH 26.4 L MCHC 32.7 RDW 17.2 H Plt Count 195 MPV 12.0 Immature Gran % (Auto) 0.6 H Neut % (Auto) 79.0 H Lymph % (Auto) 11.1 L Saunders % (Auto) 8.6 Eos % (Auto) 0.5 Baso % (Auto) 0.2 Lymph # (Auto) 1.4 Saunders # (Auto) 1.1 Eos # (Auto) 0.1 Baso # (Auto) 0.0 Abs Immat Gran (auto) 0.08 H Absolute Neuts (auto) 10.2 H Absolute Nucleated RBC 0.000 Nucleated RBC % (auto) 0.0 Smear Tech's Comments ESR POC Std Base Excess POC O2 Sat (Calc) POC ABG pO2 POC ABG Total CO2 VBG pH VBG pCO2 VBG pO2 VBG HCO3 VBG O2 Saturation VBG Base Excess POC Capillary pH POC Capillary pCO2 POC Cap HCO3 (Calc) POC Sodium POC Potassium Anion Gap 13 Estim Creat Clear Calc 121.9 Estimated GFR > 60 POC Glucose 147 H Random Glucose 156 H Lactic Acid Lactic Acid Fup @ 2Hr Calcium 7.7 L Phosphorus Magnesium C-Reactive Protein Lipase Urine Opiates Screen Urine Fentanyl Screen Ur Barbiturates Screen Ur Phencyclidine Scrn Ur Amphetamines Screen U Benzodiazepines Scrn Urine Cocaine Screen U Marijuana (THC) Screen C. difficile Tox B Gene Blood Type Antibody Screen Crossmatch 04/12/21 04/12/21 04/12/21 06:42 07:12 08:39 POC Hgb (Calc) POC Hct MCV MCH MCHC RDW Plt Count MPV Immature Gran % (Auto) Neut % (Auto) Lymph % (Auto) Saunders % (Auto) Eos % (Auto) Baso % (Auto) Lymph # (Auto) Saunders # (Auto) Eos # (Auto) Baso # (Auto) Abs Immat Gran (auto) Absolute Neuts (auto) Absolute Nucleated RBC Nucleated RBC % (auto) Smear Tech's Comments ESR POC Std Base Excess POC O2 Sat (Calc) POC ABG pO2 POC ABG Total CO2 VBG pH VBG pCO2 VBG pO2 VBG HCO3 VBG O2 Saturation VBG Base Excess POC Capillary pH POC Capillary pCO2 POC Cap HCO3 (Calc) POC Sodium POC Potassium Anion Gap Estim Creat Clear Calc Estimated GFR POC Glucose 164 H 169 H Random Glucose Lactic Acid Lactic Acid Fup @ 2Hr Calcium Phosphorus Magnesium C-Reactive Protein Lipase Urine Opiates Screen Urine Fentanyl Screen Ur Barbiturates Screen Ur Phencyclidine Scrn Ur Amphetamines Screen U Benzodiazepines Scrn Urine Cocaine Screen U Marijuana (THC) Screen C. difficile Tox B Gene NEGATIVE Blood Type Antibody Screen Crossmatch Microbiology Microbiology Results: Microbiology 04/11/21 Unknown Gram Stain - Final Peritoneal Fluid Anaerobic Culture - Preliminary 04/11/21 03:21 Blood Culture - Preliminary Blood - Venous No growth after 24 hours. 04/11/21 03:19 Blood Culture - Preliminary Blood - Venous No growth after 24 hours. Procedures Date of Service Date of Service: 04/12/21 Progress Note: A&P Assessment and plan (1) GI bleed due to NSAIDs: Status: Acute (2) Perforated gastric ulcer: Status: Acute Assessment and Plan: Status post exploratory laparotomy, suture ligature of bleeding gastric ulcer and repair of perforation pod 1. Patient is improved with improved glucose levels. Patient at risk for intra-abdominal infection due to diffuse peritonitis. Awaiting wound cultures peritoneal fluid. Appreciate excellent ICU care. Fall Risk Details Current Medications: Current Medications Hydromorphone HCl (Hydromorphone Hcl 0.5 Mg/0.5 Ml Syringe) 1 mg IVPUSH Q4H PRN; Protocol PRN Reason: Pain, Severe (Pain Scale 7-10) Last Admin: 04/12/21 08:30 Dose: 1 mg Documented by: Insulin Human Regular (Myxredlin) 100 unit in 100 mls @ 0 mls/hr IVCONT .Q0M [facility] [place]; Protocol Last Titration: 04/12/21 06:49 Dose: 3 unit/hr, 3 mls/hr Documented by: Phenylephrine HCl 20 mg/ (Sodium Chloride) 252 mls @ 0 mls/hr IVCONT .Q0M [facility] [place]; Protocol Piperacillin Sod/Tazobactam (Sod 3.375 gm/ Sodium Chloride) 50 mls @ 100 mls/hr IV Q6H [facility] [place] Last Infusion: 04/12/21 08:01 Dose: Infused Documented by: Fluconazole 100 mg/ IV (Miscellaneous Supplies) 50 mls @ 50 mls/hr IV Q24H [facility] [place] Last Infusion: 04/11/21 21:03 Dose: Infused Documented by: Potassium Cl/Dextrose/Lact Ringer's () 20 meq in 1,000 mls @ 125 mls/hr IVCONT .Q8H [facility] [place] Last Admin: 04/12/21 06:22 Dose: 125 mls/hr Documented by: Pantoprazole Sodium (Pantoprazole Sodium 40 Mg/10 Ml Vial) 40 mg IVPUSH BID@0630,1630 [facility] [place] Last Admin: 04/12/21 06:21 Dose: 40 mg Documented by: Sodium Chloride (0.9 % Sodium Chloride Flush 3 Ml Syringe) 3 ml IVFLUSH QSHIFT [facility] [place] Last Admin: 04/12/21 07:33 Dose: 3 ml Documented by: Time Spent With Patient Time: Total time spent is greater than 50% in coordination of care (as documented) at patient's floor/unit and/or counseling patient: Time with patient: 15 - 24 minutes Quality Stroke Does the patient have a stroke diagnosis?: No VTE Prior VTE?: No VTE Risk Level:: Medical - low VTE Device Contraindication: N/A - Device Ordered VTE Drug Contraindication: N/A - Med Ordered
[2021-04-12 10:03] LABS: Glucose, Whole Blood 168 mg/dL (60-115)
[2021-04-12 10:50] LABS: VBG Base Excess -0.7 mmol/L; VBG HCO3 22 mmol/L (22-26); VBG pCO2 31 mmHg; VBG pH 7.45 (7.32-7.43); VBG pO2 42 mmHg
[2021-04-12] MEDS: LORazepam 2 MG/ML VIAL 0.25 MG IVPUSH (10:55)
[2021-04-12 11:12] LABS: Anion Gap 10 (12-20); Blood Urea Nitrogen 7 mg/dL (9-16); Calcium 8.1 mg/dL (8.4-10.2); Carbon Dioxide 19 mmol/L (22-29); Chloride 111 mmol/L (96-108); Estimated Glomerular Filt Rate > 60; Glucose Random 181 mg/dL (60-115); Potassium 3.4 mmol/L (3.3-5.1); Sodium 137 mmol/L (135-145)
[2021-04-12 11:18] LABS: Glucose, Whole Blood 153 mg/dL (60-115)
[2021-04-12 12:10] LABS: Glucose, Whole Blood 173 mg/dL (60-115)
[2021-04-12 12:58] LABS: Venous Blood Gas Refer to POC result
[2021-04-12 13:10] LABS: Glucose, Whole Blood 173 mg/dL (60-115)
[2021-04-12 13:24] LABS: OBS Int Ctl Valid YES; OBS1 POSITIVE (NEGATIVE)
[2021-04-12 14:06] LABS: Leukocytes Stool Qualitative NEGATIVE (NEGATIVE)
[2021-04-12 14:14] LABS: Glucose, Whole Blood 179 mg/dL (60-115)
[2021-04-12] MEDS: KCl 20 mEq in 5% Dex/0.45% Sod 20 MEQ/1,000 ML IV.SOLN 100 MEQ IVCONT (14:43)
[2021-04-12 15:17] LABS: Glucose, Whole Blood 178 mg/dL (60-115)
[2021-04-12] MEDS: Insulin Lispro 100 UNIT/ML 3 ML VIAL SUBCUT ×2 (15:17→20:30)
--- NOTE | 2021-04-12 15:52 | P.PNCC_ITS ---
Subjective Subjective Date of Service: 04/12/21 Interval History: 40-year-old female 24 hours status post open laparotomy for a repair of a perforated gastric ulcer with with GI bleeding and received 3 units of packed red cells and 3 units of fresh frozen plasma and appears to be hemodynamically stable off all pressors today no complaints and she presented also with diabetic ketoacidosis and the gap is fully repaired serum bicarb is now approximately 20 and I do believe that it is no longer a ketoacidotic issue but it is more hyperchloremia Critical Care Time (minutes): 60 Physical Exam Vital Signs: Vital Signs: Last Vital Signs Temp 99.0 F 04/12/21 14:26 Pulse 107 H 04/12/21 14:00 Resp 18 04/12/21 14:10 BP 112/73 04/12/21 14:00 Pulse Ox 99 04/12/21 14:00 BMI result Body Mass Index 28.7 Awake alert and nonfocal Cardiac exam normal no gallops or murmurs no neck vein distension and good bilateral carotid upstrokes Skin is intact warm and well-perfused Abdomen silent Chest is clear no adventitious sounds Objective Data Labs CBC & Chem 7: 04/12/21 05:15 04/12/21 10:46 Labs: Laboratory Results - last 24 hr 04/11/21 04/11/21 04/11/21 11:56 15:51 15:57 WBC RBC Hgb Hct MCV MCH MCHC RDW Plt Count MPV Immature Gran % (Auto) Neut % (Auto) Lymph % (Auto) [place] % (Auto) Eos % (Auto) Baso % (Auto) Lymph # (Auto) [place] # (Auto) Eos # (Auto) Baso # (Auto) Abs Immat Gran (auto) Absolute Neuts (auto) Absolute Nucleated RBC Nucleated RBC % (auto) Smear Path Review SEE NOTE VBG pH 7.18 L* VBG pCO2 38 VBG pO2 41 VBG HCO3 14 L VBG O2 Saturation 61.0 VBG Base Excess -12.7 Sodium 140 Potassium 4.9 Chloride 113 H Carbon Dioxide 17 L Anion Gap 15 BUN 15 Creatinine 0.99 Estim Creat Clear Calc 80.0 Estimated GFR > 60 POC Glucose Random Glucose 412 H* Lactic Acid Lactic Acid Fup @ 2Hr Calcium 8.5 D Phosphorus 3.9 Magnesium 1.8 Stool Occult Blood Stool Leukocytes, Qual C. difficile Tox B Gene 04/11/21 04/11/21 04/11/21 16:16 17:13 17:32 WBC RBC Hgb Hct MCV MCH MCHC RDW Plt Count MPV Immature Gran % (Auto) Neut % (Auto) Lymph % (Auto) [place] % (Auto) Eos % (Auto) Baso % (Auto) Lymph # (Auto) [place] # (Auto) Eos # (Auto) Baso # (Auto) Abs Immat Gran (auto) Absolute Neuts (auto) Absolute Nucleated RBC Nucleated RBC % (auto) Smear Path Review VBG pH VBG pCO2 VBG pO2 VBG HCO3 VBG O2 Saturation VBG Base Excess Sodium Potassium Chloride Carbon Dioxide Anion Gap BUN Creatinine Estim Creat Clear Calc Estimated GFR POC Glucose 270 H 259 H Random Glucose Lactic Acid 4.0 H* Lactic Acid Fup @ 2Hr Calcium Phosphorus Magnesium Stool Occult Blood Stool Leukocytes, Qual C. difficile Tox B Gene 04/11/21 04/11/21 04/11/21 18:10 19:07 19:56 WBC 13.2 H RBC 3.61 L Hgb 9.8 L D Hct 29.3 L D MCV 81.2 D MCH 27.1 MCHC 33.4 RDW 17.2 H Plt Count 187 D MPV 11.2 Immature Gran % (Auto) 0.6 H Neut % (Auto) 81.6 H Lymph % (Auto) 11.0 L Waller % (Auto) 6.5 Eos % (Auto) 0.1 Baso % (Auto) 0.2 Lymph # (Auto) 1.5 [place]er # (Auto) 0.9 Eos # (Auto) 0.0 Baso # (Auto) 0.0 Abs Immat Gran (auto) 0.08 H Absolute Neuts (auto) 10.8 H Absolute Nucleated RBC 0.000 Nucleated RBC % (auto) 0.0 Smear Path Review VBG pH VBG pCO2 VBG pO2 VBG HCO3 VBG O2 Saturation VBG Base Excess Sodium Potassium Chloride Carbon Dioxide Anion Gap BUN Creatinine Estim Creat Clear Calc Estimated GFR POC Glucose 252 H 236 H Random Glucose Lactic Acid Lactic Acid Fup @ 2Hr Calcium Phosphorus Magnesium Stool Occult Blood Stool Leukocytes, Qual C. difficile Tox B Gene 04/11/21 04/11/21 04/11/21 19:56 19:59 20:09 WBC RBC Hgb Hct MCV MCH MCHC RDW Plt Count MPV Immature Gran % (Auto) Neut % (Auto) Lymph % (Auto) [place] % (Auto) Eos % (Auto) Baso % (Auto) Lymph # (Auto) [place] # (Auto) Eos # (Auto) Baso # (Auto) Abs Immat Gran (auto) Absolute Neuts (auto) Absolute Nucleated RBC Nucleated RBC % (auto) Smear Path Review VBG pH 7.44 H VBG pCO2 27 VBG pO2 51 VBG HCO3 19 L VBG O2 Saturation 84.0 VBG Base Excess -3.7 Sodium 141 Potassium 3.4 D Chloride 116 H Carbon Dioxide 19 L Anion Gap 9 L BUN 11 Creatinine 0.68 Estim Creat Clear Calc 116.5 Estimated GFR > 60 POC Glucose 172 H Random Glucose 183 H Lactic Acid Lactic Acid Fup @ 2Hr Calcium 8.3 L Phosphorus Magnesium Stool Occult Blood Stool Leukocytes, Qual C. difficile Tox B Gene 04/11/21 04/11/21 04/11/21 20:30 21:00 21:58 WBC RBC Hgb Hct MCV MCH MCHC RDW Plt Count MPV Immature Gran % (Auto) Neut % (Auto) Lymph % (Auto) [place] % (Auto) Eos % (Auto) Baso % (Auto) Lymph # (Auto) [place] # (Auto) Eos # (Auto) Baso # (Auto) Abs Immat Gran (auto) Absolute Neuts (auto) Absolute Nucleated RBC Nucleated RBC % (auto) Smear Path Review VBG pH VBG pCO2 VBG pO2 VBG HCO3 VBG O2 Saturation VBG Base Excess Sodium Potassium Chloride Carbon Dioxide Anion Gap BUN Creatinine Estim Creat Clear Calc Estimated GFR POC Glucose 146 H 121 H Random Glucose Lactic Acid Lactic Acid Fup @ 2Hr 1.7 Calcium Phosphorus Magnesium Stool Occult Blood Stool Leukocytes, Qual C. difficile Tox B Gene 04/11/21 04/12/21 04/12/21 23:05 00:18 00:29 WBC RBC Hgb Hct MCV MCH MCHC RDW Plt Count MPV Immature Gran % (Auto) Neut % (Auto) Lymph % (Auto) [place] % (Auto) Eos % (Auto) Baso % (Auto) Lymph # (Auto) [place] # (Auto) Eos # (Auto) Baso # (Auto) Abs Immat Gran (auto) Absolute Neuts (auto) Absolute Nucleated RBC Nucleated RBC % (auto) Smear Path Review VBG pH 7.48 H VBG pCO2 29 VBG pO2 44 VBG HCO3 22 VBG O2 Saturation 79.0 VBG Base Excess -0.9 Sodium 140 Potassium 3.2 L Chloride 115 H Carbon Dioxide 17 L Anion Gap 11 L BUN 10 Creatinine 0.64 Estim Creat Clear Calc 123.8 Estimated GFR > 60 POC Glucose 123 H Random Glucose 99 Lactic Acid Lactic Acid Fup @ 2Hr Calcium 8.0 L Phosphorus Magnesium Stool Occult Blood Stool Leukocytes, Qual C. difficile Tox B Gene 04/12/21 04/12/21 04/12/21 01:11 02:07 03:38 WBC RBC Hgb Hct MCV MCH MCHC RDW Plt Count MPV Immature Gran % (Auto) Neut % (Auto) Lymph % (Auto) [place] % (Auto) Eos % (Auto) Baso % (Auto) Lymph # (Auto) [place] # (Auto) Eos # (Auto) Baso # (Auto) Abs Immat Gran (auto) Absolute Neuts (auto) Absolute Nucleated RBC Nucleated RBC % (auto) Smear Path Review VBG pH VBG pCO2 VBG pO2 VBG HCO3 VBG O2 Saturation VBG Base Excess Sodium Potassium Chloride Carbon Dioxide Anion Gap BUN Creatinine Estim Creat Clear Calc Estimated GFR POC Glucose 86 91 116 H Random Glucose Lactic Acid Lactic Acid Fup @ 2Hr Calcium Phosphorus Magnesium Stool Occult Blood Stool Leukocytes, Qual C. difficile Tox B Gene 04/12/21 04/12/21 04/12/21 05:15 05:15 06:38 WBC 12.9 H RBC 3.29 L Hgb 8.7 L Hct 26.6 L MCV 80.9 MCH 26.4 L MCHC 32.7 RDW 17.2 H Plt Count 195 MPV 12.0 Immature Gran % (Auto) 0.6 H Neut % (Auto) 79.0 H Lymph % (Auto) 11.1 L Waller % (Auto) 8.6 Eos % (Auto) 0.5 Baso % (Auto) 0.2 Lymph # (Auto) 1.4 [place]er # (Auto) 1.1 Eos # (Auto) 0.1 Baso # (Auto) 0.0 Abs Immat Gran (auto) 0.08 H Absolute Neuts (auto) 10.2 H Absolute Nucleated RBC 0.000 Nucleated RBC % (auto) 0.0 Smear Path Review VBG pH VBG pCO2 VBG pO2 VBG HCO3 VBG O2 Saturation VBG Base Excess Sodium 139 Potassium 3.5 Chloride 113 H Carbon Dioxide 17 L Anion Gap 13 BUN 9 Creatinine 0.65 Estim Creat Clear Calc 121.9 Estimated GFR > 60 POC Glucose 147 H Random Glucose 156 H Lactic Acid Lactic Acid Fup @ 2Hr Calcium 7.7 L Phosphorus Magnesium Stool Occult Blood Stool Leukocytes, Qual C. difficile Tox B Gene 04/12/21 04/12/21 04/12/21 06:42 06:42 06:42 WBC RBC Hgb Hct MCV MCH MCHC RDW Plt Count MPV Immature Gran % (Auto) Neut % (Auto) Lymph % (Auto) [place] % (Auto) Eos % (Auto) Baso % (Auto) Lymph # (Auto) [place] # (Auto) Eos # (Auto) Baso # (Auto) Abs Immat Gran (auto) Absolute Neuts (auto) Absolute Nucleated RBC Nucleated RBC % (auto) Smear Path Review VBG pH VBG pCO2 VBG pO2 VBG HCO3 VBG O2 Saturation VBG Base Excess Sodium Potassium Chloride Carbon Dioxide Anion Gap BUN Creatinine Estim Creat Clear Calc Estimated GFR POC Glucose Random Glucose Lactic Acid Lactic Acid Fup @ 2Hr Calcium Phosphorus Magnesium Stool Occult Blood POSITIVE Stool Leukocytes, Qual NEGATIVE C. difficile Tox B Gene NEGATIVE 04/12/21 04/12/21 04/12/21 07:12 08:39 10:00 WBC RBC Hgb Hct MCV MCH MCHC RDW Plt Count MPV Immature Gran % (Auto) Neut % (Auto) Lymph % (Auto) [place] % (Auto) Eos % (Auto) Baso % (Auto) Lymph # (Auto) [place] # (Auto) Eos # (Auto) Baso # (Auto) Abs Immat Gran (auto) Absolute Neuts (auto) Absolute Nucleated RBC Nucleated RBC % (auto) Smear Path Review VBG pH VBG pCO2 VBG pO2 VBG HCO3 VBG O2 Saturation VBG Base Excess Sodium Potassium Chloride Carbon Dioxide Anion Gap BUN Creatinine Estim Creat Clear Calc Estimated GFR POC Glucose 164 H 169 H 168 H Random Glucose Lactic Acid Lactic Acid Fup @ 2Hr Calcium Phosphorus Magnesium Stool Occult Blood Stool Leukocytes, Qual C. difficile Tox B Gene 04/12/21 04/12/21 04/12/21 10:43 10:46 11:12 WBC RBC Hgb Hct MCV MCH MCHC RDW Plt Count MPV Immature Gran % (Auto) Neut % (Auto) Lymph % (Auto) [place] % (Auto) Eos % (Auto) Baso % (Auto) Lymph # (Auto) [place] # (Auto) Eos # (Auto) Baso # (Auto) Abs Immat Gran (auto) Absolute Neuts (auto) Absolute Nucleated RBC Nucleated RBC % (auto) Smear Path Review VBG pH 7.45 H VBG pCO2 31 VBG pO2 42 VBG HCO3 22 VBG O2 Saturation 74.0 VBG Base Excess -0.7 Sodium 137 Potassium 3.4 Chloride 111 H Carbon Dioxide 19 L Anion Gap 10 L BUN 7 L Creatinine 0.61 Estim Creat Clear Calc 130.0 Estimated GFR > 60 POC Glucose 153 H Random Glucose 181 H Lactic Acid Lactic Acid Fup @ 2Hr Calcium 8.1 L Phosphorus Magnesium Stool Occult Blood Stool Leukocytes, Qual C. difficile Tox B Gene 04/12/21 04/12/21 04/12/21 12:07 13:06 14:10 WBC RBC Hgb Hct MCV MCH MCHC RDW Plt Count MPV Immature Gran % (Auto) Neut % (Auto) Lymph % (Auto) [place] % (Auto) Eos % (Auto) Baso % (Auto) Lymph # (Auto) [place] # (Auto) Eos # (Auto) Baso # (Auto) Abs Immat Gran (auto) Absolute Neuts (auto) Absolute Nucleated RBC Nucleated RBC % (auto) Smear Path Review VBG pH VBG pCO2 VBG pO2 VBG HCO3 VBG O2 Saturation VBG Base Excess Sodium Potassium Chloride Carbon Dioxide Anion Gap BUN Creatinine Estim Creat Clear Calc Estimated GFR POC Glucose 173 H 173 H 179 H Random Glucose Lactic Acid Lactic Acid Fup @ 2Hr Calcium Phosphorus Magnesium Stool Occult Blood Stool Leukocytes, Qual C. difficile Tox B Gene 04/12/21 15:14 WBC RBC Hgb Hct MCV MCH MCHC RDW Plt Count MPV Immature Gran % (Auto) Neut % (Auto) Lymph % (Auto) [place] % (Auto) Eos % (Auto) Baso % (Auto) Lymph # (Auto) [place] # (Auto) Eos # (Auto) Baso # (Auto) Abs Immat Gran (auto) Absolute Neuts (auto) Absolute Nucleated RBC Nucleated RBC % (auto) Smear Path Review VBG pH VBG pCO2 VBG pO2 VBG HCO3 VBG O2 Saturation VBG Base Excess Sodium Potassium Chloride Carbon Dioxide Anion Gap BUN Creatinine Estim Creat Clear Calc Estimated GFR POC Glucose 178 H Random Glucose Lactic Acid Lactic Acid Fup @ 2Hr Calcium Phosphorus Magnesium Stool Occult Blood Stool Leukocytes, Qual C. difficile Tox B Gene Microbiology Microbiology Results: Microbiology 04/11/21 Unknown Peritoneal Fluid Gram Stain - Final 04/11/21 Unknown Peritoneal Fluid Anaerobic Culture - Preliminary No growth to date. 04/11/21 Unknown Peritoneal Fluid Body Fluid Culture - Preliminary No growth to date. 04/11/21 03:21 Blood - Venous Blood Culture - Preliminary No growth after 24 hours. 04/11/21 03:19 Blood - Venous Blood Culture - Preliminary No growth after 24 hours. Progress Note: A&P Assessment and plan (1) Type 1 diabetes mellitus: Status: Acute (2) Hyperkalemia: Status: Acute (3) Hyponatremia: Status: Acute (4) Anemia: Status: Acute (5) Hypovolemic shock: Status: Acute (6) GI bleed due to NSAIDs: Status: Acute (7) Perforated gastric ulcer: Status: Acute (8) Abnormal CT scan, gastrointestinal tract: Status: Acute (9) Enteritis: Status: Acute (10) DKA (diabetic ketoacidosis): Status: Acute Assessment and Plan: Status post open repair of a bleeding and perforated gastric ulcer both volume repleted as well as blood really repleted and now repaired diabetic ketoacidosis switched from insulin IV drip to subcutaneous coverage and just a mild residual hyperchloremic but non anion gap metabolic acidosis Quality Stroke Does the patient have a stroke diagnosis?: No VTE Prior VTE?: No VTE Risk Level:: Medical - low VTE Device Contraindication: N/A - Device Ordered VTE Drug Contraindication: N/A - Med Ordered
[2021-04-12 16:25] LABS: Glucose, Whole Blood 191 mg/dL (60-115)
[2021-04-12 16:47] LABS: Anion Gap 10 (12-20); Blood Urea Nitrogen 6 mg/dL (9-16); Carbon Dioxide 19 mmol/L (22-29); Chloride 111 mmol/L (96-108); Creatinine Clr Calc Pharmacy 127.8; Estimated Glomerular Filt Rate > 60; Glucose Random 203 mg/dL (60-115); Sodium 136 mmol/L (135-145)
[2021-04-12 19:46] LABS: Glucose, Whole Blood 237 mg/dL (60-115)
[2021-04-12] MEDS: Fluconazole in NaCl,Iso-Osm 100 MG in Container,Empty 0 ML 50 MG IV (20:30)
[2021-04-13] MEDS: HYDROmorphone HCl 0.5 MG/0.5 ML SYRINGE 1 MG IVPUSH ×5 (00:43→16:43)
[2021-04-13] MEDS: Piperacillin Sodium/Tazobactam 3.375 GM in 0.9 % Sodium Chloride 50 ML IV ×4 (00:43→18:24)
[2021-04-13] MEDS: KCl 20 mEq in 5% Dex/0.45% Sod 20 MEQ/1,000 ML IV.SOLN 100 MEQ IVCONT (00:43)
[2021-04-13 02:27] LABS: Glucose, Whole Blood 271 mg/dL (60-115)
[2021-04-13] MEDS: Insulin Lispro 100 UNIT/ML 3 ML VIAL SUBCUT ×5 (02:30→23:44)
[2021-04-13 04:00] VITALS: BP 112/64; PULSE 102; RESP 20; TEMP 36.2; O2SAT 95
[2021-04-13] MEDS: Pantoprazole Sodium 40 MG/10 ML VIAL IVPUSH ×2 (04:33→16:43)
[2021-04-13 06:59] LABS: Hematocrit 24.4 % (37.0-47.0); Hemoglobin 8.1 g/dl (12.0-16.0); Mean Corpuscular HGB Conc 33.2 g/dl (31.0-35.0); Mean Corpuscular Hemoglobin 27.1 pg (27.0-33.0); Mean Corpuscular Volume 81.6 fL (80.0-98.0); Platelet Count 182 X10*3/uL (160-400); Red Blood Count 2.99 X10*6/uL (4.20-5.50); Red Cell Distribution Width 17.1 % (11.0-16.0); White Blood Count 12.6 X10*3/uL (4.8-10.8)
--- NOTE | 2021-04-13 07:09 | P.CDIC_ITS ---
CDI Concurrent Query Documentation Clarification: PHYSICIAN'S DOCUMENTATION REQUEST Date of Query: 04/13/21 0711 Patient Name: Luzma Garcia Admit Date: 04/11/21 Dear Doctor, A review of the medical record indicates additional documentation may be needed. Please review below and update the documentation accordingly. Risk Factors/Clinical Indicators/Treatments Per Operative Report 04/11/21: The abdominal cavity was entered in the abdomen explored.? Small amount of turbid white fluid was noted throughout the abdomen.? A specimen was sent for wound culture.? Patient is on IV antibiotics Based on the above, could you clarify in the Progress Notes the appropriate diagnosis, if significant, that supports the above abnormalities and additional evaluation, monitoring, and/or treatment rendered: * Please provide a diagnosis based on the above finding requiring additonal treatment, evaluation and monitoring * Other (please specify) * Unable to determine Use of terms such as suspected, likely, concern for, or probable (associated with a specific diagnosis that is being evaluated, monitored, or treated as if it exists) are acceptable and can be coded in the inpatient setting, when documented at the time of discharge. Thank you, Rianna Ugarte RN Extension: [phone] Please use your independent medical judgment in providing your response. THIS QUERY IS PART OF THE PERMANENT MEDICAL RECORD Provider Response: Other Other Diagnosis: Suspected bacterial peritonitis due to perforated gastric ulcer.
[2021-04-13 07:12] LABS: Anion Gap 11 (12-20); Blood Urea Nitrogen 5 mg/dL (9-16); Calcium 7.6 mg/dL (8.4-10.2); Carbon Dioxide 21 mmol/L (22-29); Chloride 108 mmol/L (96-108); Creatinine Clr Calc Pharmacy 123.8; Estimated Glomerular Filt Rate > 60; Glucose Random 257 mg/dL (60-115); Potassium 3.6 mmol/L (3.3-5.1); Sodium 136 mmol/L (135-145)
--- NOTE | 2021-04-13 07:28 | P.CDIC_ITS ---
CDI Concurrent Query Documentation Clarification: PHYSICIAN'S DOCUMENTATION REQUEST Date of Query: 04/13/21 0728 Patient Name: Luzma Garcia Admit Date: 04/11/21 Dear Doctor, A review of the medical record indicates additional documentation may be needed. Please review below and update the documentation accordingly. Clinical Indicators: Risk Factors/Clinical Indicators/Treatments H/H 04/11/21: 11.4/38.9 OR 04/11/21:Per Operative Note: Estimated blood loss:1 liter of old blood and clot in stomach H/H 04/11/21: 6.8/22.3 Per ICU note 04/12/21: status post open laparotomy for a repair of a perforated gastric ulcer with with GI bleeding and received 3 units of packed red cells and 3 units of fresh frozen plasma? Based on the above, could you clarify in the Progress Notes which of the following is the most likely type of anemia you are evaluating, treating, and/or monitoring? * Acute blood loss anemia * Acute blood loss anemia with baseline chronic anemia (specify type) * Other ? please specify * Unable to determine Use of terms such as suspected, likely, concern for, or probable (associated with a specific diagnosis that is being evaluated, monitored, or treated as if it exists) are acceptable and can be coded in the inpatient setting, when documented at the time of discharge. Thank you, Rianna Ugarte RN Extension: [phone] Please use your independent medical judgment in providing your response. THIS QUERY IS PART OF THE PERMANENT MEDICAL RECORD Provider Response: Other Other Diagnosis: see note
[2021-04-13 07:44] VITALS: BP 100/57; PULSE 101; RESP 18; TEMP 36.9; O2SAT 93
[2021-04-13 08:00] VITALS: BMI 28.5
[2021-04-13 08:06] LABS: Glucose, Whole Blood 226 mg/dL (60-115)
--- NOTE | 2021-04-13 08:14 | PM.PNGS ---
Subjective Subjective Date of Service: 04/13/21 Interval history: Patient still in pain, seems afraid to move or talk. Denies nausea or vomiting. She was moved to [facility] yesterday. Physical Exam Vital Signs: Vital Signs: Last Vital Signs Temp 98.4 F 04/13/21 07:44 Pulse 101 H 04/13/21 07:44 Resp 18 04/13/21 07:44 BP 100/57 L 04/13/21 07:44 Pulse Ox 93 04/13/21 07:44 BMI result Body Mass Index 28.7 Const: General: ill appearing and tired appearing Nutritional Appearance: well nourished Orientation/consciousness: patient oriented x3 Limitations: no limitations HENMT: Other: NGT in place, bilious output noted, no blood GI: Other: incision is clean and intact without redness or discharge. JEAN with serous discharge. Skin: General skin exam: no rashes or lesions noted Neuro: General: patient oriented x3 Extrem: Other: pedal edema Objective Data Active Medications Dextrose (Dextrose 50 % 25 Gm/50 Ml Vial) 25 gm IVPUSH Q15M PRN; Protocol PRN Reason: per Hypoglycemia Standing Ord. Glucose (Glucose Gel 15 Gm Gel..Gram.) 15 gm PO Q15M PRN; Protocol PRN Reason: per Hypoglycemia Standing Ord. Hydromorphone HCl (Hydromorphone Hcl 0.5 Mg/0.5 Ml Syringe) 1 mg IVPUSH Q4H PRN; Protocol PRN Reason: Pain, Severe (Pain Scale 7-10) Last Admin: 04/13/21 04:33 Dose: 1 mg Documented by: TY Piperacillin Sod/Tazobactam (Sod 3.375 gm/ Sodium Chloride) 50 mls @ 100 mls/hr IV Q6H [facility] Last Infusion: 04/13/21 05:21 Dose: 0 mls/hr Documented by: TY Fluconazole 100 mg/ IV (Miscellaneous Supplies) 50 mls @ 50 mls/hr IV Q24H [facility] Last Infusion: 04/12/21 22:05 Dose: 0 mls/hr Documented by: TY Potassium Chloride/Dextrose/Sod Cl () 20 meq in 1,000 mls @ 100 mls/hr IVCONT .Q10H [facility] Last Admin: 04/13/21 00:43 Dose: 100 mls/hr Documented by: TY Insulin Glargine (Insulin Glargine,Hum.Rec.Anlog 100 Unit/Ml 10 Ml Vial) 10 unit SUBCUT BEDTIME [facility] Last Admin: 04/12/21 20:31 Dose: Not Given Documented by: TY Non-Admin Reason: No Insulin Coverage Insulin Human Lispro (Insulin Lispro 100 Unit/Ml 3 Ml Vial) 0 unit SUBCUT Q6H [facility]; Protocol Last Admin: 04/13/21 02:30 Dose: 6 unit Documented by: TY Lorazepam (Lorazepam 2 Mg/Ml Vial) 0.25 mg IVPUSH Q4H PRN PRN Reason: anxiety/restlessness Last Admin: 04/12/21 10:55 Dose: 0.25 mg Documented by: DE Pantoprazole Sodium (Pantoprazole Sodium 40 Mg/10 Ml Vial) 40 mg IVPUSH BID@0630,1630 [facility] Last Admin: 04/13/21 04:33 Dose: 40 mg Documented by: TY Sodium Chloride (0.9 % Sodium Chloride Flush 3 Ml Syringe) 3 ml IVFLUSH QSHIFT [facility] Last Admin: 04/13/21 00:30 Dose: Not Given Documented by: TY Non-Admin Reason: IV Running Labs CBC & Chem 7: 04/13/21 06:16 04/13/21 06:17 Labs: Laboratory Results - last 24 hr 04/11/21 04/12/21 04/12/21 11:56 06:42 06:42 MCV MCH MCHC RDW Plt Count MPV Absolute Nucleated RBC Nucleated RBC % (auto) Smear Path Review SEE NOTE VBG pH VBG pCO2 VBG pO2 VBG HCO3 VBG O2 Saturation VBG Base Excess Anion Gap Estim Creat Clear Calc Estimated GFR POC Glucose Random Glucose Calcium Stool Occult Blood POSITIVE Stool Leukocytes, Qual C. difficile Tox B Gene NEGATIVE 04/12/21 04/12/21 04/12/21 06:42 08:39 10:00 MCV MCH MCHC RDW Plt Count MPV Absolute Nucleated RBC Nucleated RBC % (auto) Smear Path Review VBG pH VBG pCO2 VBG pO2 VBG HCO3 VBG O2 Saturation VBG Base Excess Anion Gap Estim Creat Clear Calc Estimated GFR POC Glucose 169 H 168 H Random Glucose Calcium Stool Occult Blood Stool Leukocytes, Qual NEGATIVE C. difficile Tox B Gene 04/12/21 04/12/21 04/12/21 10:43 10:46 11:12 MCV MCH MCHC RDW Plt Count MPV Absolute Nucleated RBC Nucleated RBC % (auto) Smear Path Review VBG pH 7.45 H VBG pCO2 31 VBG pO2 42 VBG HCO3 22 VBG O2 Saturation 74.0 VBG Base Excess -0.7 Anion Gap 10 L Estim Creat Clear Calc 130.0 Estimated GFR > 60 POC Glucose 153 H Random Glucose 181 H Calcium 8.1 L Stool Occult Blood Stool Leukocytes, Qual C. difficile Tox B Gene 04/12/21 04/12/21 04/12/21 12:07 13:06 14:10 MCV MCH MCHC RDW Plt Count MPV Absolute Nucleated RBC Nucleated RBC % (auto) Smear Path Review VBG pH VBG pCO2 VBG pO2 VBG HCO3 VBG O2 Saturation VBG Base Excess Anion Gap Estim Creat Clear Calc Estimated GFR POC Glucose 173 H 173 H 179 H Random Glucose Calcium Stool Occult Blood Stool Leukocytes, Qual C. difficile Tox B Gene 04/12/21 04/12/21 04/12/21 15:14 16:12 16:13 MCV MCH MCHC RDW Plt Count MPV Absolute Nucleated RBC Nucleated RBC % (auto) Smear Path Review VBG pH VBG pCO2 VBG pO2 VBG HCO3 VBG O2 Saturation VBG Base Excess Anion Gap 10 L Estim Creat Clear Calc 127.8 Estimated GFR > 60 POC Glucose 178 H 191 H Random Glucose 203 H Calcium 8.0 L Stool Occult Blood Stool Leukocytes, Qual C. difficile Tox B Gene 04/12/21 04/13/21 04/13/21 19:39 02:22 06:16 MCV 81.6 MCH 27.1 MCHC 33.2 RDW 17.1 H Plt Count 182 MPV 11.0 Absolute Nucleated RBC 0.000 Nucleated RBC % (auto) 0.0 Smear Path Review VBG pH VBG pCO2 VBG pO2 VBG HCO3 VBG O2 Saturation VBG Base Excess Anion Gap Estim Creat Clear Calc Estimated GFR POC Glucose 237 H 271 H Random Glucose Calcium Stool Occult Blood Stool Leukocytes, Qual C. difficile Tox B Gene 04/13/21 04/13/21 06:17 07:46 MCV MCH MCHC RDW Plt Count MPV Absolute Nucleated RBC Nucleated RBC % (auto) Smear Path Review VBG pH VBG pCO2 VBG pO2 VBG HCO3 VBG O2 Saturation VBG Base Excess Anion Gap 11 L Estim Creat Clear Calc 123.8 Estimated GFR > 60 POC Glucose 226 H Random Glucose 257 H Calcium 7.6 L Stool Occult Blood Stool Leukocytes, Qual C. difficile Tox B Gene Microbiology Microbiology Results: Microbiology 04/11/21 03:21 Blood Culture - Preliminary Blood - Venous No growth after 48 hours. 04/11/21 03:19 Blood Culture - Preliminary Blood - Venous No growth after 48 hours. 04/11/21 Unknown Gram Stain - Final Peritoneal Fluid Anaerobic Culture - Preliminary No growth to date. Body Fluid Culture - Preliminary No growth to date. Procedures Date of Service Date of Service: 04/13/21 Progress Note: A&P Assessment and plan (1) Perforated gastric ulcer: Status: Acute Assessment and Plan: s/p suture ligature of bleeding ulcer, repair of perforation with omental patch. (2) GI bleed due to NSAIDs: Status: Acute Assessment and Plan: No evidence of ongoing bleeding although H/H drifting downward. (3) Hypovolemic shock: Status: Acute (4) Peritonitis (acute) generalized: Status: Acute Assessment and Plan: White turbid fluid on exploratory laparotomy; wound cultures negative to date. Continue antibiotics Assessment and Plan: NGT output still high; will need to continue NG decompression. Pain control remains an issue. Encouraged OOB, IS. 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 Glucose (Glucose Gel 15 Gm Gel..Gram.) 15 gm PO Q15M PRN; Protocol PRN Reason: per Hypoglycemia Standing Ord. Hydromorphone HCl (Hydromorphone Hcl 0.5 Mg/0.5 Ml Syringe) 1 mg IVPUSH Q4H PRN; Protocol PRN Reason: Pain, Severe (Pain Scale 7-10) Last Admin: 04/13/21 04:33 Dose: 1 mg Documented by: Piperacillin Sod/Tazobactam (Sod 3.375 gm/ Sodium Chloride) 50 mls @ 100 mls/hr IV Q6H [facility] Last Infusion: 04/13/21 05:21 Dose: Infused Documented by: Fluconazole 100 mg/ IV (Miscellaneous Supplies) 50 mls @ 50 mls/hr IV Q24H [facility] Last Infusion: 04/12/21 22:05 Dose: Infused Documented by: Potassium Chloride/Dextrose/Sod Cl () 20 meq in 1,000 mls @ 100 mls/hr IVCONT .Q10H [facility] Last Admin: 04/13/21 00:43 Dose: 100 mls/hr Documented by: Insulin Glargine (Insulin Glargine,Hum.Rec.Anlog 100 Unit/Ml 10 Ml Vial) 10 unit SUBCUT BEDTIME [facility] Last Admin: 04/12/21 20:31 Dose: Not Given Documented by: Insulin Human Lispro (Insulin Lispro 100 Unit/Ml 3 Ml Vial) 0 unit SUBCUT Q6H [facility]; Protocol Last Admin: 04/13/21 02:30 Dose: 6 unit Documented by: Lorazepam (Lorazepam 2 Mg/Ml Vial) 0.25 mg IVPUSH Q4H PRN PRN Reason: anxiety/restlessness Last Admin: 04/12/21 10:55 Dose: 0.25 mg Documented by: Pantoprazole Sodium (Pantoprazole Sodium 40 Mg/10 Ml Vial) 40 mg IVPUSH BID@0630,1630 [facility] Last Admin: 04/13/21 04:33 Dose: 40 mg Documented by: Sodium Chloride (0.9 % Sodium Chloride Flush 3 Ml Syringe) 3 ml IVFLUSH QSHIFT [facility] Last Admin: 04/13/21 00:30 Dose: Not Given Documented by: Time Spent With Patient Time: Total time spent is greater than 50% in coordination of care (as documented) at patient's floor/unit and/or counseling patient: Time with patient: 15 - 24 minutes Quality Stroke Does the patient have a stroke diagnosis?: No VTE Prior VTE?: No VTE Risk Level:: Medical - low VTE Device Contraindication: N/A - Device Ordered VTE Drug Contraindication: N/A - Med Ordered
[2021-04-13] MEDS: LORazepam 2 MG/ML VIAL 0.25 MG IVPUSH (08:57)
[2021-04-13 11:04] VITALS: BP 102/59; PULSE 102; RESP 18; TEMP 37.2; O2SAT 93
[2021-04-13 11:32] LABS: Glucose, Whole Blood 227 mg/dL (60-115)
[2021-04-13] MEDS: KCl 20 mEq in 5% Dex/0.45% Sod 20 MEQ/1,000 ML IV.SOLN 125 MEQ IVCONT ×2 (12:17→18:34)
--- NOTE | 2021-04-13 14:37 | HO.PM.IMPN ---
Subjective Subjective Date of Service: 04/13/21 Interval History: Patient being followed for perforated gastric ulcer with GI bleeding status post surgery [place] [facility] [place], this a.m. patient complaining of persistent abdominal pain not talking due to pain and anxiety, NG tube with significant drainage. Review of Systems Difficult to communicate since patient afraid to talk. But it are answered no to chest pain, shortness of breath, no palpitation no urinary burning Skin no itching Physical Exam Vital Signs: Vital Signs: Last Vital Signs Temp 99.0 F 04/13/21 11:04 Pulse 102 H 04/13/21 11:04 Resp 18 04/13/21 11:04 BP 102/59 L 04/13/21 11:04 Pulse Ox 93 04/13/21 11:04 BMI result Body Mass Index 28.5 General awake alert x3, very anxious, acute distress. Neck supple ,no JVD. CVS regular rate rhythm, Respiratory lungs clear to auscultation, no respiratory distress, no wheeze, no rhonchi. Gastrointestinal abdomen dressing in place, JEAN with serous drainage Extremities no edema. Neuro nonfocal Skin no rash Psych anxious Objective Data Active Medications Dextrose (Dextrose 50 % 25 Gm/50 Ml Vial) 25 gm IVPUSH Q15M PRN; Protocol PRN Reason: per Hypoglycemia Standing Ord. Glucose (Glucose Gel 15 Gm Gel..Gram.) 15 gm PO Q15M PRN; Protocol PRN Reason: per Hypoglycemia Standing Ord. Hydromorphone HCl (Hydromorphone Hcl 0.5 Mg/0.5 Ml Syringe) 1 mg IVPUSH Q4H PRN; Protocol PRN Reason: Pain, Severe (Pain Scale 7-10) Last Admin: 04/13/21 12:27 Dose: 1 mg Documented by: KILO Piperacillin Sod/Tazobactam (Sod 3.375 gm/ Sodium Chloride) 50 mls @ 100 mls/hr IV Q6H [facility] Last Infusion: 04/13/21 13:09 Dose: 0 mls/hr Documented by: KILO Fluconazole 100 mg/ IV (Miscellaneous Supplies) 50 mls @ 50 mls/hr IV Q24H [facility] Last Infusion: 04/12/21 22:05 Dose: 0 mls/hr Documented by: TY Potassium Chloride/Dextrose/Sod Cl () 20 meq in 1,000 mls @ 125 mls/hr IVCONT .Q8H [facility] Last Admin: 04/13/21 12:17 Dose: 125 mls/hr Documented by: KILO Insulin Glargine (Insulin Glargine,Hum.Rec.Anlog 100 Unit/Ml 10 Ml Vial) 10 unit SUBCUT BEDTIME [facility] Last Admin: 04/12/21 20:31 Dose: Not Given Documented by: TY Non-Admin Reason: No Insulin Coverage Insulin Human Lispro (Insulin Lispro 100 Unit/Ml 3 Ml Vial) 0 unit SUBCUT Q6H [facility]; Protocol Lorazepam (Lorazepam 2 Mg/Ml Vial) 0.25 mg IVPUSH Q4H PRN PRN Reason: anxiety/restlessness Last Admin: 04/13/21 08:57 Dose: 0.25 mg Documented by: KILO Pantoprazole Sodium (Pantoprazole Sodium 40 Mg/10 Ml Vial) 40 mg IVPUSH BID@0630,1630 [facility] Last Admin: 04/13/21 04:33 Dose: 40 mg Documented by: TY Sodium Chloride (0.9 % Sodium Chloride Flush 3 Ml Syringe) 3 ml IVFLUSH QSHIFT [facility] Last Admin: 04/13/21 09:20 Dose: Not Given Documented by: KILO Non-Admin Reason: IV Running Labs CBC & Chem 7: 04/13/21 06:16 04/13/21 06:17 Labs: Laboratory Results - last 24 hr 04/12/21 04/12/21 04/12/21 15:14 16:12 16:13 MCV MCH MCHC RDW Plt Count MPV Absolute Nucleated RBC Nucleated RBC % (auto) Anion Gap 10 L Estim Creat Clear Calc 127.8 Estimated GFR > 60 POC Glucose 178 H 191 H Random Glucose 203 H Calcium 8.0 L 04/12/21 04/13/21 04/13/21 19:39 02:22 06:16 MCV 81.6 MCH 27.1 MCHC 33.2 RDW 17.1 H Plt Count 182 MPV 11.0 Absolute Nucleated RBC 0.000 Nucleated RBC % (auto) 0.0 Anion Gap Estim Creat Clear Calc Estimated GFR POC Glucose 237 H 271 H Random Glucose Calcium 1204/13/21 04/13/21 06:17 07:46 11:05 MCV MCH MCHC RDW Plt Count MPV Absolute Nucleated RBC Nucleated RBC % (auto) Anion Gap 11 L Estim Creat Clear Calc 123.8 Estimated GFR > 60 POC Glucose 226 H 227 H Random Glucose 257 H Calcium 7.6 L Microbiology Microbiology Results: Microbiology 04/11/21 Unknown Gram Stain - Final Peritoneal Fluid Anaerobic Culture - Preliminary No growth to date. Body Fluid Culture - Final No growth after 2 days 04/11/21 03:21 Blood Culture - Preliminary Blood - Venous No growth after 48 hours. 04/11/21 03:19 Blood Culture - Preliminary Blood - Venous No growth after 48 hours. Assessment and Plan (1) Peritonitis (acute) generalized: Status: Acute (2) Type 1 diabetes mellitus: Status: Acute (3) Perforated gastric ulcer: Status: Acute (4) DKA (diabetic ketoacidosis): Status: Acute Assessment and Plan: ?40-year-old female admitted due to abdominal pain, nausea and vomiting of 24 hour duration without associated diarrhea had some associated chills had no fevers, no urinary symptoms , CT abdomen showed marked distention of the stomach with 1.5-2 cm perforated ulcer along lesser curve with free air between the liver and stomach patient admitted to ICU. A/p Acute Perforated gastric ulcer s/p suture ligature of bleeding ulcer, repair of perforation with omental patch pod 2.? Continue NG tube due to high output Patient NPO, Continue IV fluid Consider TPN if remains NPO for next couple days Acute blood loss anemia due to GI bleed due to NSAIDs: No evidence of ongoing bleeding , H&H trending down question dilutional, follow H&H and transfuse if hemoglobin less than 7 Mild tachycardia likely due to anxiety and anemia Reassured patient follow CBC Hypovolemic shock: BP stable status post pressors in ICU Acute generalized Peritonitis White turbid fluid noted on exploratory laparotomy Continue IV Zosyn and IV fluconazole as per surgery Blood cultures negative Insulin-dependent diabetes mellitus Patient NPO check blood sugars and continue insulin sliding scale q.6 hours,cont ivf. ? DKA resolved Hyperkalemia resolved Hyponatremia resolved DVT prophylaxis Compression boots Quality Stroke Does the patient have a stroke diagnosis?: No VTE Prior VTE?: No VTE Risk Level:: Medical - low VTE Device Contraindication: N/A - Device Ordered VTE Drug Contraindication: N/A - Med Ordered
[2021-04-13 15:21] LABS: Transglutaminase Ab IgG <1.0 U/mL; Transglutaminase IgA <1.0 U/mL
[2021-04-13 15:38] VITALS: BP 114/58; PULSE 103; RESP 18; TEMP 37.9; O2SAT 92
[2021-04-13 16:45] LABS: Glucose, Whole Blood 253 mg/dL (60-115)
[2021-04-13 19:50] VITALS: BP 99/59; PULSE 106; RESP 18; TEMP 36.4; O2SAT 93
[2021-04-13] MEDS: HYDROmorphone HCl 1 MG/ML SYRINGE IVPUSH (20:17)
[2021-04-13] MEDS: Insulin Glargine,Hum.rec.anlog 100 UNIT/ML 10 ML VIAL 10 UNIT SUBCUT (20:18)
[2021-04-13 20:51] LABS: Glucose, Whole Blood 239 mg/dL (60-115)
[2021-04-13] MEDS: Fluconazole in NaCl,Iso-Osm 100 MG in Container,Empty 0 ML 50 MG IV (21:58)
[2021-04-14] VITALS (8 sets, daily range): BP systolic 98–116; BP diastolic 48–63; PULSE 82–100; RESP 16–20; TEMP 36.8–37.3; O2SAT 90–95; BMI 28.5
[2021-04-14 00:28] LABS: Glucose, Whole Blood 224 mg/dL (60-115)
[2021-04-14] MEDS: Piperacillin Sodium/Tazobactam 3.375 GM in 0.9 % Sodium Chloride 50 ML IV ×3 (00:51→12:28)
[2021-04-14] MEDS: HYDROmorphone HCl 1 MG/ML SYRINGE IVPUSH ×7 (02:09→22:27)
[2021-04-14] MEDS: KCl 20 mEq in 5% Dex/0.45% Sod 20 MEQ/1,000 ML IV.SOLN 125 MEQ IVCONT ×3 (03:45→22:27)
[2021-04-14 05:13] LABS: Glucose, Whole Blood 235 mg/dL (60-115)
[2021-04-14] MEDS: Insulin Lispro 100 UNIT/ML 3 ML VIAL SUBCUT ×3 (05:49→18:01)
[2021-04-14] MEDS: Pantoprazole Sodium 40 MG/10 ML VIAL IVPUSH ×2 (05:49→17:17)
[2021-04-14 06:23] LABS: MANUAL DIFF FLAG NO
[2021-04-14 06:30] LABS: Basophils Percent Auto 0.4 % (0-2); Eosinophils Absolute Auto 0.3 X10*3/uL (0.0-0.4); Eosinophils Percent Auto 3.2 % (0-4); Hemoglobin 7.9 g/dl (12.0-16.0); Imm Gran Abs Auto 0.07 X10*3/uL (0.00-0.03); Imm Gran Pct Auto 0.7 % (0.0-0.4); Lymphocytes Absolute Auto 1.1 X10*3/uL (1.2-4.9); Lymphocytes Percent Auto 11.6 % (20-40); Mean Corpuscular HGB Conc 32.9 g/dl (31.0-35.0); Mean Corpuscular Hemoglobin 26.8 pg (27.0-33.0); Mean Corpuscular Volume 81.4 fL (80.0-98.0); Mean Platelet Volume 10.6 fL (9.4-12.3); Monocytes Absolute Auto 0.7 X10*3/uL (0.1-1.2); Monocytes Percent Auto 7.1 % (2-11); Neutrophils Absolute Auto 7.5 x10*3/uL (2.0-8.3); Platelet Count 195 X10*3/uL (160-400); Red Blood Count 2.95 X10*6/uL (4.20-5.50); Red Cell Distribution Width 16.8 % (11.0-16.0); White Blood Count 9.7 X10*3/uL (4.8-10.8)
[2021-04-14 06:42] LABS: Anion Gap 9 (12-20); Blood Urea Nitrogen 4 mg/dL (9-16); Calcium 7.6 mg/dL (8.4-10.2); Carbon Dioxide 23 mmol/L (22-29); Chloride 108 mmol/L (96-108); Creatinine Clr Calc Pharmacy 131.8; Estimated Glomerular Filt Rate > 60; Glucose Random 246 mg/dL (60-115); Potassium 3.5 mmol/L (3.3-5.1); Sodium 136 mmol/L (135-145)
[2021-04-14] MEDS: LORazepam 2 MG/ML VIAL 0.25 MG IVPUSH ×2 (06:48→14:41)
--- NOTE | 2021-04-14 07:26 | PC.NURSE ---
some old blood was noted this am while cleaning pt
[2021-04-14 10:06] LABS: C Reactive Protein 10.54 mg/dL (< or = 0.50)
[2021-04-14 10:11] LABS: Estimated Average Glucose 192 mg/dL; Hemoglobin A1c % 8.3 %
--- NOTE | 2021-04-14 10:12 | MHC.CLN ---
PT IS CURRENTLY NPO DAY 4 NGT CONTINUES ON SUCTION IF TPN NEEDED; RECOMMEND D15AA5% AT 45ML/HR TO PROVIDE 767KCALS, 54G PROTEIN PT WILL NEED CENTRAL LINE PLACED IF PPN NEEDED; RECOMMEND D10AA4.25 AT 40ML/HR TO PROVIDE 490KCALS, 41G PROTEIN REPLETE LYTES NEEDED; CHECK TRIGS CONSULT RD NEEDED SEE ALSO CLINICAL NUTRITION ASSESSMENT
[2021-04-14 11:10] LABS: Glucose, Whole Blood 228 mg/dL (60-115)
--- NOTE | 2021-04-14 12:37 | PM.PNGS ---
Subjective Subjective Date of Service: 04/14/21 Interval history: Reports headache today, probably from lying in bed. Continued incisional pain. Somewhat more talkative today. BM during the night with some streaks of blood. Physical Exam Vital Signs: Vital Signs: Last Vital Signs Temp 99.1 F 04/14/21 11:08 Pulse 91 04/14/21 11:08 Resp 20 04/14/21 11:08 BP 116/62 04/14/21 11:08 Pulse Ox 93 04/14/21 11:08 BMI result Body Mass Index 28.5 Const: General: no acute distress and ill appearing Nutritional Appearance: well nourished Orientation/consciousness: patient oriented x3 Limitations: no limitations Eyes: Sclerae: sclerae normal Resp: Effort & Inspection: normal respiratory effort, no audible wheezes, no cough and no respiratory distress GI: Other: Incision is clean and intact without redness or discharge. JEAN with serous discharge. NGT 100 mls/ 5 hours. Dressings removed. Skin: General skin exam: no rashes or lesions noted Neuro: General: patient oriented x3 Extrem: General: Yes edema Objective Data Active Medications Dextrose (Dextrose 50 % 25 Gm/50 Ml Vial) 25 gm IVPUSH Q15M PRN; Protocol PRN Reason: per Hypoglycemia Standing Ord. Glucose (Glucose Gel 15 Gm Gel..Gram.) 15 gm PO Q15M PRN; Protocol PRN Reason: per Hypoglycemia Standing Ord. Hydromorphone HCl (Hydromorphone Hcl 1 Mg/Ml Syringe) 1 mg IVPUSH Q3H PRN; Protocol PRN Reason: Pain, Severe (Pain Scale 7-10) Last Admin: 04/14/21 10:29 Dose: 1 mg Documented by: MIS Piperacillin Sod/Tazobactam (Sod 3.375 gm/ Sodium Chloride) 50 mls @ 100 mls/hr IV Q6H [facility] Last Admin: 04/14/21 12:28 Dose: 100 mls/hr Documented by: MIS Fluconazole 100 mg/ IV (Miscellaneous Supplies) 50 mls @ 50 mls/hr IV Q24H [facility] Last Infusion: 04/13/21 23:15 Dose: 0 mls/hr Documented by: AUGUSTUS Potassium Chloride/Dextrose/Sod Cl () 20 meq in 1,000 mls @ 125 mls/hr IVCONT .Q8H [facility] Last Admin: 04/14/21 10:38 Dose: Not Given Documented by: MIS Non-Admin Reason: IV Running Acetaminophen (Ofirmev) 1,000 mg in 100 mls @ 400 mls/hr IV Q6H [facility] Last Infusion: 04/14/21 10:51 Dose: 0 mls/hr Documented by: MIS Insulin Glargine (Insulin Glargine,Hum.Rec.Anlog 100 Unit/Ml 10 Ml Vial) 12 unit SUBCUT BEDTIME [facility] Insulin Human Lispro (Insulin Lispro 100 Unit/Ml 3 Ml Vial) 0 unit SUBCUT Q6H [facility]; Protocol Last Admin: 04/14/21 12:23 Dose: 4 unit Documented by: MIS Lorazepam (Lorazepam 2 Mg/Ml Vial) 0.25 mg IVPUSH Q4H PRN PRN Reason: anxiety/restlessness Last Admin: 04/14/21 06:48 Dose: 0.25 mg Documented by: SCOTTY Pantoprazole Sodium (Pantoprazole Sodium 40 Mg/10 Ml Vial) 40 mg IVPUSH BID@0630,1630 [facility] Last Admin: 04/14/21 05:49 Dose: 40 mg Documented by: CORNELIUSLOBA Sodium Chloride (0.9 % Sodium Chloride Flush 3 Ml Syringe) 3 ml IVFLUSH QSHIFT [facility] Last Admin: 04/14/21 08:00 Dose: Not Given Documented by: MIS Non-Admin Reason: IV Running Labs CBC & Chem 7: 04/14/21 06:10 04/14/21 06:10 Labs: Laboratory Results - last 24 hr 04/11/21 04/13/21 04/13/21 09:18 16:31 20:43 MCV MCH MCHC RDW Plt Count MPV Immature Gran % (Auto) Neut % (Auto) Lymph % (Auto) [place] % (Auto) Eos % (Auto) Baso % (Auto) Lymph # (Auto) [place] # (Auto) Eos # (Auto) Baso # (Auto) Abs Immat Gran (auto) Absolute Neuts (auto) Absolute Nucleated RBC Nucleated RBC % (auto) Anion Gap Estim Creat Clear Calc Estimated GFR POC Glucose 253 H 239 H Random Glucose Estimat Average Glucose Hemoglobin A1c % Calcium C-Reactive Protein Tiss Transglutamin IgG <1.0 Tiss Transglutamin IgA <1.0 04/14/21 04/14/21 04/14/21 00:24 05:09 06:10 MCV 81.4 MCH 26.8 L MCHC 32.9 RDW 16.8 H Plt Count 195 MPV 10.6 Immature Gran % (Auto) 0.7 H Neut % (Auto) 77.0 H Lymph % (Auto) 11.6 L [place] % (Auto) 7.1 Eos % (Auto) 3.2 Baso % (Auto) 0.4 Lymph # (Auto) 1.1 L [place] # (Auto) 0.7 Eos # (Auto) 0.3 Baso # (Auto) 0.0 Abs Immat Gran (auto) 0.07 H Absolute Neuts (auto) 7.5 Absolute Nucleated RBC 0.000 Nucleated RBC % (auto) 0.0 Anion Gap Estim Creat Clear Calc Estimated GFR POC Glucose 224 H 235 H Random Glucose Estimat Average Glucose Hemoglobin A1c % Calcium C-Reactive Protein Tiss Transglutamin IgG Tiss Transglutamin IgA 04/14/21 04/14/21 04/14/21 06:10 06:10 06:10 MCV MCH MCHC RDW Plt Count MPV Immature Gran % (Auto) Neut % (Auto) Lymph % (Auto) [place] % (Auto) Eos % (Auto) Baso % (Auto) Lymph # (Auto) [place] # (Auto) Eos # (Auto) Baso # (Auto) Abs Immat Gran (auto) Absolute Neuts (auto) Absolute Nucleated RBC Nucleated RBC % (auto) Anion Gap 9 L Cancelled Estim Creat Clear Calc 131.8 Cancelled Estimated GFR > 60 Cancelled POC Glucose Random Glucose 246 H Cancelled Estimat Average Glucose 192 Hemoglobin A1c % 8.3 Calcium 7.6 L Cancelled C-Reactive Protein 10.54 H Tiss Transglutamin IgG Tiss Transglutamin IgA 04/14/21 11:06 MCV MCH MCHC RDW Plt Count MPV Immature Gran % (Auto) Neut % (Auto) Lymph % (Auto) [place] % (Auto) Eos % (Auto) Baso % (Auto) Lymph # (Auto) [place] # (Auto) Eos # (Auto) Baso # (Auto) Abs Immat Gran (auto) Absolute Neuts (auto) Absolute Nucleated RBC Nucleated RBC % (auto) Anion Gap Estim Creat Clear Calc Estimated GFR POC Glucose 228 H Random Glucose Estimat Average Glucose Hemoglobin A1c % Calcium C-Reactive Protein Tiss Transglutamin IgG Tiss Transglutamin IgA Microbiology Microbiology Results: Microbiology 04/11/21 Unknown Gram Stain - Final Peritoneal Fluid Anaerobic Culture - Preliminary No growth to date. Body Fluid Culture - Final No growth after 2 days Procedures Date of Service Date of Service: 04/14/21 Progress Note: A&P Assessment and plan (1) Peritonitis (acute) generalized: Status: Acute (2) GI bleed due to NSAIDs: Status: Acute (3) Perforated gastric ulcer: Status: Acute Assessment and Plan: POD #3 s/p gastrotomy, ligation of bleeding ulcer, omental patch of gastric ulcer. Biopsy of ulcer negative for malignancy. Pain remains main issue at this time. Overall she appears improved. H/H is drifting downward slightly. WBC now normal. Will d/c antibiotics, d/c BC belcher clamp trial, recheck CBC in AM. OOB and ambulation, PT. Fall Risk Details Current Medications: Current Medications Dextrose (Dextrose 50 % 25 Gm/50 Ml Vial) 25 gm IVPUSH Q15M PRN; Protocol PRN Reason: per Hypoglycemia Standing Ord. Glucose (Glucose Gel 15 Gm Gel..Gram.) 15 gm PO Q15M PRN; Protocol PRN Reason: per Hypoglycemia Standing Ord. Hydromorphone HCl (Hydromorphone Hcl 1 Mg/Ml Syringe) 1 mg IVPUSH Q3H PRN; Protocol PRN Reason: Pain, Severe (Pain Scale 7-10) Last Admin: 04/14/21 10:29 Dose: 1 mg Documented by: Piperacillin Sod/Tazobactam (Sod 3.375 gm/ Sodium Chloride) 50 mls @ 100 mls/hr IV Q6H [facility] Last Admin: 04/14/21 12:28 Dose: 100 mls/hr Documented by: Fluconazole 100 mg/ IV (Miscellaneous Supplies) 50 mls @ 50 mls/hr IV Q24H [facility] Last Infusion: 04/13/21 23:15 Dose: Infused Documented by: Potassium Chloride/Dextrose/Sod Cl () 20 meq in 1,000 mls @ 125 mls/hr IVCONT .Q8H [facility] Last Admin: 04/14/21 10:38 Dose: Not Given Documented by: Acetaminophen (Ofirmev) 1,000 mg in 100 mls @ 400 mls/hr IV Q6H [facility] Last Infusion: 04/14/21 10:51 Dose: Infused Documented by: Insulin Glargine (Insulin Glargine,Hum.Rec.Anlog 100 Unit/Ml 10 Ml Vial) 12 unit SUBCUT BEDTIME [facility] Insulin Human Lispro (Insulin Lispro 100 Unit/Ml 3 Ml Vial) 0 unit SUBCUT Q6H [facility]; Protocol Last Admin: 04/14/21 12:23 Dose: 4 unit Documented by: Lorazepam (Lorazepam 2 Mg/Ml Vial) 0.25 mg IVPUSH Q4H PRN PRN Reason: anxiety/restlessness Last Admin: 04/14/21 06:48 Dose: 0.25 mg Documented by: Pantoprazole Sodium (Pantoprazole Sodium 40 Mg/10 Ml Vial) 40 mg IVPUSH BID@0630,1630 [facility] Last Admin: 04/14/21 05:49 Dose: 40 mg Documented by: Sodium Chloride (0.9 % Sodium Chloride Flush 3 Ml Syringe) 3 ml IVFLUSH QSHIFT [facility] Last Admin: 04/14/21 08:00 Dose: Not Given Documented by: Time Spent With Patient Time: Total time spent is greater than 50% in coordination of care (as documented) at patient's floor/unit and/or counseling patient: Time with patient: 15 - 24 minutes Quality Stroke Does the patient have a stroke diagnosis?: No VTE Prior VTE?: No VTE Risk Level:: Medical - low VTE Device Contraindication: N/A - Device Ordered VTE Drug Contraindication: N/A - Med Ordered
--- NOTE | 2021-04-14 12:49 | PC.NURSE ---
Russell Catheter removed at 12:40 without complication. pt tolerated well. pericare provided
--- NOTE | 2021-04-14 13:16 | MHC.CM.PN ---
per rounds pt will tariley be here over the w/e she is npo
--- NOTE | 2021-04-14 15:53 | HO.PM.IMPN ---
Subjective Subjective Date of Service: 04/14/21 Interval History: Abd pain/distention improved Had BM + passing gas Review of Systems Review of Systems: Yes all other systems are reviewed and are negative Physical Exam Vital Signs: Vital Signs: Last Vital Signs Temp 99.2 F 04/14/21 15:23 Pulse 98 04/14/21 15:23 Resp 17 04/14/21 15:23 BP 109/55 L 04/14/21 15:23 Pulse Ox 91 L 04/14/21 15:23 BMI result Body Mass Index 28.5 Gen: in no acute distress HEENT: sclera anicteric, moist mucus membranes Neck: supple, RIJ with 3LC Lungs: clear to auscultation bilaterally Heart: regular rate and rhythm, no murmurs Abd: laparotomy incision clean/dry/intact, JEAN with serous liquid, NGT to suction Ext: no edema Skin: warm/well-perfused Neuro: alert and oriented x3, no focal findings Psych: appropriate affect Objective Data Active Medications Dextrose (Dextrose 50 % 25 Gm/50 Ml Vial) 25 gm IVPUSH Q15M PRN; Protocol PRN Reason: per Hypoglycemia Standing Ord. Glucose (Glucose Gel 15 Gm Gel..Gram.) 15 gm PO Q15M PRN; Protocol PRN Reason: per Hypoglycemia Standing Ord. Hydromorphone HCl (Hydromorphone Hcl 1 Mg/Ml Syringe) 1 mg IVPUSH Q3H PRN; Protocol PRN Reason: Pain, Severe (Pain Scale 7-10) Last Admin: 04/14/21 13:33 Dose: 1 mg Documented by: MIS Potassium Chloride/Dextrose/Sod Cl () 20 meq in 1,000 mls @ 125 mls/hr IVCONT .Q8H [facility] Last Admin: 04/14/21 14:41 Dose: 125 mls/hr Documented by: MIS Acetaminophen (Ofirmev) 1,000 mg in 100 mls @ 400 mls/hr IV Q6H [facility] Last Infusion: 04/14/21 10:51 Dose: 0 mls/hr Documented by: MIS Insulin Glargine (Insulin Glargine,Hum.Rec.Anlog 100 Unit/Ml 10 Ml Vial) 12 unit SUBCUT BEDTIME [facility] Insulin Human Lispro (Insulin Lispro 100 Unit/Ml 3 Ml Vial) 0 unit SUBCUT Q6H [facility]; Protocol Last Admin: 04/14/21 12:23 Dose: 4 unit Documented by: MIS Lorazepam (Lorazepam 2 Mg/Ml Vial) 0.25 mg IVPUSH Q4H PRN PRN Reason: anxiety/restlessness Last Admin: 04/14/21 14:41 Dose: 0.25 mg Documented by: MIS Pantoprazole Sodium (Pantoprazole Sodium 40 Mg/10 Ml Vial) 40 mg IVPUSH BID@0630,1630 [facility] Last Admin: 04/14/21 05:49 Dose: 40 mg Documented by: CORNELIUSLOBA Sodium Chloride (0.9 % Sodium Chloride Flush 3 Ml Syringe) 3 ml IVFLUSH QSHIFT [facility] Last Admin: 04/14/21 08:00 Dose: Not Given Documented by: MIS Non-Admin Reason: IV Running Labs CBC & Chem 7: 04/14/21 06:10 04/14/21 06:10 Labs: Laboratory Results - last 24 hr 04/13/21 04/13/21 04/14/21 16:31 20:43 00:24 MCV MCH MCHC RDW Plt Count MPV Immature Gran % (Auto) Neut % (Auto) Lymph % (Auto) [place] % (Auto) Eos % (Auto) Baso % (Auto) Lymph # (Auto) [place] # (Auto) Eos # (Auto) Baso # (Auto) Abs Immat Gran (auto) Absolute Neuts (auto) Absolute Nucleated RBC Nucleated RBC % (auto) Anion Gap Estim Creat Clear Calc Estimated GFR POC Glucose 253 H 239 H 224 H Random Glucose Estimat Average Glucose Hemoglobin A1c % Calcium C-Reactive Protein 04/14/21 04/14/21 04/14/21 05:09 06:10 06:10 MCV 81.4 MCH 26.8 L MCHC 32.9 RDW 16.8 H Plt Count 195 MPV 10.6 Immature Gran % (Auto) 0.7 H Neut % (Auto) 77.0 H Lymph % (Auto) 11.6 L [place] % (Auto) 7.1 Eos % (Auto) 3.2 Baso % (Auto) 0.4 Lymph # (Auto) 1.1 L [place] # (Auto) 0.7 Eos # (Auto) 0.3 Baso # (Auto) 0.0 Abs Immat Gran (auto) 0.07 H Absolute Neuts (auto) 7.5 Absolute Nucleated RBC 0.000 Nucleated RBC % (auto) 0.0 Anion Gap 9 L Estim Creat Clear Calc 131.8 Estimated GFR > 60 POC Glucose 235 H Random Glucose 246 H Estimat Average Glucose Hemoglobin A1c % Calcium 7.6 L C-Reactive Protein 10.54 H 04/14/21 04/14/21 04/14/21 06:10 06:10 11:06 MCV MCH MCHC RDW Plt Count MPV Immature Gran % (Auto) Neut % (Auto) Lymph % (Auto) [place] % (Auto) Eos % (Auto) Baso % (Auto) Lymph # (Auto) [place] # (Auto) Eos # (Auto) Baso # (Auto) Abs Immat Gran (auto) Absolute Neuts (auto) Absolute Nucleated RBC Nucleated RBC % (auto) Anion Gap Cancelled Estim Creat Clear Calc Cancelled Estimated GFR Cancelled POC Glucose 228 H Random Glucose Cancelled Estimat Average Glucose 192 Hemoglobin A1c % 8.3 Calcium Cancelled C-Reactive Protein Microbiology Microbiology Results: Microbiology 04/11/21 Unknown Gram Stain - Final Peritoneal Fluid Anaerobic Culture - Preliminary No growth to date. Body Fluid Culture - Final No growth after 2 days Assessment and Plan (1) Peritonitis (acute) generalized: Status: Acute (2) Type 1 diabetes mellitus: Status: Acute (3) Perforated gastric ulcer: Status: Acute (4) DKA (diabetic ketoacidosis): Status: Acute Assessment and Plan: hospital d#4 40yo F with DM1 admitted to ICU with acute perforated gastric ulcer requiring pressor support s/p suture ligature + omental patch, POD #3 # perforated ulcer # generalized peritonitis- turbid fluid noted on ex-lap - POD#3, Surgery following, trial of clamping NGT, Russell out, d/c pip/sergio + fluconazole [peritoneal fluid cultures negative], continue IV fluids and hopefully can start feeding [if not in next few days, will need TPN] # acute blood loss anemia due to GI bleed - monitor Hb, transfuse if <7 # tachycardia # hypovolemic shock - resolved # DM1 - A1c 8.3 - increase Lantus to 12 units, continue correction-dose lispro # hyperK - resolved # VTE ppx - SCDs Quality Stroke Does the patient have a stroke diagnosis?: No VTE Prior VTE?: No VTE Risk Level:: Medical - low VTE Device Contraindication: N/A - Device Ordered VTE Drug Contraindication: N/A - Med Ordered
[2021-04-14] MEDS: 0.9 % Sodium Chloride Flush 3 ML SYRINGE IVFLUSH (17:17)
[2021-04-14 18:00] LABS: Glucose, Whole Blood 233 mg/dL (60-115)
[2021-04-14 21:10] LABS: Glucose, Whole Blood 247 mg/dL (60-115)
--- NOTE | 2021-04-14 21:12 | PC.NURSE ---
contacted oncall surgery regarding if patient can have ice chips. Dr. Perrin gave okay to give pt ice chips
[2021-04-14] MEDS: Insulin Glargine,Hum.rec.anlog 100 UNIT/ML 10 ML VIAL 12 UNIT SUBCUT (22:33)
[2021-04-14 23:59] LABS: Glucose, Whole Blood 237 mg/dL (60-115)
[2021-04-15] MEDS: LORazepam 2 MG/ML VIAL 0.25 MG IVPUSH ×4 (00:25→20:20)
[2021-04-15] MEDS: Insulin Lispro 100 UNIT/ML 3 ML VIAL SUBCUT ×5 (00:25→23:34)
[2021-04-15] MEDS: 0.9 % Sodium Chloride Flush 3 ML SYRINGE IVFLUSH ×4 (00:26→20:20)
[2021-04-15] MEDS: HYDROmorphone HCl 1 MG/ML SYRINGE IVPUSH ×6 (02:51→21:30)
[2021-04-15 05:53] LABS: Glucose, Whole Blood 216 mg/dL (60-115)
[2021-04-15 05:56] VITALS: BP 119/54; PULSE 94; RESP 20; TEMP 37.1; O2SAT 92
[2021-04-15] MEDS: Pantoprazole Sodium 40 MG/10 ML VIAL IVPUSH ×2 (06:14→16:05)
[2021-04-15 07:20] LABS: MANUAL DIFF FLAG NO
[2021-04-15 07:23] LABS: Basophils Percent Auto 0.5 % (0-2); Eosinophils Absolute Auto 0.4 X10*3/uL (0.0-0.4); Eosinophils Percent Auto 4.5 % (0-4); Hemoglobin 8.4 g/dl (12.0-16.0); Imm Gran Abs Auto 0.07 X10*3/uL (0.00-0.03); Imm Gran Pct Auto 0.8 % (0.0-0.4); Lymphocytes Absolute Auto 1.1 X10*3/uL (1.2-4.9); Lymphocytes Percent Auto 12.6 % (20-40); Mean Corpuscular HGB Conc 32.3 g/dl (31.0-35.0); Mean Corpuscular Hemoglobin 26.6 pg (27.0-33.0); Mean Corpuscular Volume 82.3 fL (80.0-98.0); Mean Platelet Volume 10.7 fL (9.4-12.3); Monocytes Absolute Auto 0.6 X10*3/uL (0.1-1.2); Monocytes Percent Auto 6.6 % (2-11); Neutrophils Absolute Auto 6.6 x10*3/uL (2.0-8.3); Platelet Count 219 X10*3/uL (160-400); Red Blood Count 3.16 X10*6/uL (4.20-5.50); Red Cell Distribution Width 16.8 % (11.0-16.0); White Blood Count 8.8 X10*3/uL (4.8-10.8)
[2021-04-15 07:39] VITALS: BP 98/58; PULSE 93; RESP 18; TEMP 36.5; O2SAT 89
[2021-04-15 07:58] LABS: Anion Gap 10 (12-20); Blood Urea Nitrogen 4 mg/dL (9-16); Calcium 7.7 mg/dL (8.4-10.2); Carbon Dioxide 21 mmol/L (22-29); Chloride 108 mmol/L (96-108); Creatinine Clr Calc Pharmacy 138.8; Estimated Glomerular Filt Rate > 60; Glucose Random 235 mg/dL (60-115); Potassium 3.4 mmol/L (3.3-5.1); Sodium 136 mmol/L (135-145)
[2021-04-15] MEDS: KCl 20 mEq in 5% Dex/0.45% Sod 20 MEQ/1,000 ML IV.SOLN 125 MEQ IVCONT ×2 (08:01→15:59)
--- NOTE | 2021-04-15 09:50 | P.PNGS_ITS ---
Subjective Subjective Date of Service: 04/15/21 Interval history: says she is ok still has pain but improving NGT in place Physical Exam Vital Signs: Vital Signs: Last Vital Signs Temp 97.7 F 04/15/21 07:39 Pulse 93 04/15/21 07:39 Resp 18 04/15/21 07:39 BP 98/58 L 04/15/21 07:39 Pulse Ox 89 L 04/15/21 07:39 BMI result Body Mass Index 28.5 Const: General: comfortable and no acute distress Resp: Effort & Inspection: normal respiratory effort Cardio: Rate: regular rate GI: Other: incision clean and dry NGT in place, output not bloody Palpation (GI): Soft to palpation, not firm and no guarding Objective Data Active Medications Dextrose (Dextrose 50 % 25 Gm/50 Ml Vial) 25 gm IVPUSH Q15M PRN; Protocol PRN Reason: per Hypoglycemia Standing Ord. Glucose (Glucose Gel 15 Gm Gel..Gram.) 15 gm PO Q15M PRN; Protocol PRN Reason: per Hypoglycemia Standing Ord. Hydromorphone HCl (Hydromorphone Hcl 1 Mg/Ml Syringe) 1 mg IVPUSH Q3H PRN; Protocol PRN Reason: Pain, Severe (Pain Scale 7-10) Last Admin: 04/15/21 06:28 Dose: 1 mg Documented by: DIANNE Potassium Chloride/Dextrose/Sod Cl () 20 meq in 1,000 mls @ 125 mls/hr IVCONT .Q8H [facility] Last Admin: 04/15/21 08:01 Dose: 125 mls/hr Documented by: IGLMARTA Acetaminophen (irmev) 1,000 mg in 100 mls @ 400 mls/hr IV Q6H [facility] Last Infusion: 04/15/21 06:56 Dose: 0 mls/hr Documented by: DIANNE Insulin Glargine (Insulin Glargine,Hum.Rec.Anlog 100 Unit/Ml 10 Ml Vial) 15 unit SUBCUT BEDTIME [facility] Insulin Human Lispro (Insulin Lispro 100 Unit/Ml 3 Ml Vial) 0 unit SUBCUT Q6H [facility]; Protocol Last Admin: 04/15/21 06:28 Dose: 4 unit Documented by: DIANNE Lorazepam (Lorazepam 2 Mg/Ml Vial) 0.25 mg IVPUSH Q4H PRN PRN Reason: anxiety/restlessness Last Admin: 04/15/21 08:05 Dose: 0.25 mg Documented by: YANICK Pantoprazole Sodium (Pantoprazole Sodium 40 Mg/10 Ml Vial) 40 mg IVPUSH BID@0630,1630 [facility] Last Admin: 04/15/21 06:14 Dose: 40 mg Documented by: BUTCH Sodium Chloride (0.9 % Sodium Chloride Flush 3 Ml Syringe) 3 ml IVFLUSH QSHIFT [facility] Last Admin: 04/15/21 08:02 Dose: 3 ml Documented by: YANICK Labs CBC & Chem 7: 04/15/21 06:48 04/15/21 06:48 Labs: Laboratory Results - last 24 hr 04/14/21 04/14/21 04/14/21 06:10 06:10 11:06 MCV MCH MCHC RDW Plt Count MPV Immature Gran % (Auto) Neut % (Auto) Lymph % (Auto) [place] % (Auto) Eos % (Auto) Baso % (Auto) Lymph # (Auto) [place] # (Auto) Eos # (Auto) Baso # (Auto) Abs Immat Gran (auto) Absolute Neuts (auto) Absolute Nucleated RBC Nucleated RBC % (auto) Anion Gap Estim Creat Clear Calc Estimated GFR POC Glucose 228 H Random Glucose Estimat Average Glucose 192 Hemoglobin A1c % 8.3 Calcium C-Reactive Protein 10.54 H 04/14/21 04/14/21 04/14/21 17:56 21:05 23:55 MCV MCH MCHC RDW Plt Count MPV Immature Gran % (Auto) Neut % (Auto) Lymph % (Auto) [place] % (Auto) Eos % (Auto) Baso % (Auto) Lymph # (Auto) [place] # (Auto) Eos # (Auto) Baso # (Auto) Abs Immat Gran (auto) Absolute Neuts (auto) Absolute Nucleated RBC Nucleated RBC % (auto) Anion Gap Estim Creat Clear Calc Estimated GFR POC Glucose 233 H 247 H 237 H Random Glucose Estimat Average Glucose Hemoglobin A1c % Calcium C-Reactive Protein 04/15/21 04/15/21 04/15/21 05:47 06:48 06:48 MCV 82.3 MCH 26.6 L MCHC 32.3 RDW 16.8 H Plt Count 219 MPV 10.7 Immature Gran % (Auto) 0.8 H Neut % (Auto) 75.0 H Lymph % (Auto) 12.6 L [place] % (Auto) 6.6 Eos % (Auto) 4.5 H Baso % (Auto) 0.5 Lymph # (Auto) 1.1 L [place] # (Auto) 0.6 Eos # (Auto) 0.4 Baso # (Auto) 0.0 Abs Immat Gran (auto) 0.07 H Absolute Neuts (auto) 6.6 Absolute Nucleated RBC 0.000 Nucleated RBC % (auto) 0.0 Anion Gap 10 L Estim Creat Clear Calc 138.8 Estimated GFR > 60 POC Glucose 216 H Random Glucose 235 H Estimat Average Glucose Hemoglobin A1c % Calcium 7.7 L C-Reactive Protein Microbiology Microbiology Results: Microbiology 04/11/21 Unknown Gram Stain - Final Peritoneal Fluid Anaerobic Culture - Preliminary No growth to date. Body Fluid Culture - Final No growth after 2 days Procedures Date of Service Date of Service: 04/15/21 Progress Note: A&P Assessment and plan (1) Perforated gastric ulcer: Status: Acute Assessment and Plan: s/p repair and oversew of bleeding ulcer looks well will monitor NGT output possible dc NGT later today or tomorrow pain mgt OOB Hg hovering above 8 Fall Risk Details Current Medications: Current Medications Dextrose (Dextrose 50 % 25 Gm/50 Ml Vial) 25 gm IVPUSH Q15M PRN; Protocol PRN Reason: per Hypoglycemia Standing Ord. Glucose (Glucose Gel 15 Gm Gel..Gram.) 15 gm PO Q15M PRN; Protocol PRN Reason: per Hypoglycemia Standing Ord. Hydromorphone HCl (Hydromorphone Hcl 1 Mg/Ml Syringe) 1 mg IVPUSH Q3H PRN; Protocol PRN Reason: Pain, Severe (Pain Scale 7-10) Last Admin: 04/15/21 06:28 Dose: 1 mg Documented by: Potassium Chloride/Dextrose/Sod Cl () 20 meq in 1,000 mls @ 125 mls/hr IVCONT .Q8H [facility] Last Admin: 04/15/21 08:01 Dose: 125 mls/hr Documented by: Acetaminophen (Ofirmev) 1,000 mg in 100 mls @ 400 mls/hr IV Q6H [facility] Last Infusion: 04/15/21 06:56 Dose: Infused Documented by: Insulin Glargine (Insulin Glargine,Hum.Rec.Anlog 100 Unit/Ml 10 Ml Vial) 15 unit SUBCUT BEDTIME [facility] Insulin Human Lispro (Insulin Lispro 100 Unit/Ml 3 Ml Vial) 0 unit SUBCUT Q6H [facility]; Protocol Last Admin: 04/15/21 06:28 Dose: 4 unit Documented by: Lorazepam (Lorazepam 2 Mg/Ml Vial) 0.25 mg IVPUSH Q4H PRN PRN Reason: anxiety/restlessness Last Admin: 04/15/21 08:05 Dose: 0.25 mg Documented by: Pantoprazole Sodium (Pantoprazole Sodium 40 Mg/10 Ml Vial) 40 mg IVPUSH BID@0630,1630 [facility] Last Admin: 04/15/21 06:14 Dose: 40 mg Documented by: Sodium Chloride (0.9 % Sodium Chloride Flush 3 Ml Syringe) 3 ml IVFLUSH QSHIFT [facility] Last Admin: 04/15/21 08:02 Dose: 3 ml Documented by: Time Spent With Patient Time: Total time spent is greater than 50% in coordination of care (as documented) at patient's floor/unit and/or counseling patient: Time with patient: 15 - 24 minutes Quality Stroke Does the patient have a stroke diagnosis?: No VTE Prior VTE?: No VTE Risk Level:: Medical - low VTE Device Contraindication: N/A - Device Ordered VTE Drug Contraindication: N/A - Med Ordered
--- NOTE | 2021-04-15 11:18 | P.PNIM_ITS ---
Subjective Subjective Date of Service: 04/15/21 Interval History: minimal abd discomfort passing gas NGT on intermittent suction Review of Systems Review of Systems: Yes all other systems are reviewed and are negative Physical Exam Vital Signs: Vital Signs: Last Vital Signs Temp 97.7 F 04/15/21 07:39 Pulse 93 04/15/21 07:39 Resp 18 04/15/21 07:39 BP 98/58 L 04/15/21 07:39 Pulse Ox 89 L 04/15/21 07:39 BMI result Body Mass Index 28.5 Gen: in no acute distress HEENT: sclera anicteric, moist mucus membranes Neck: supple, RIJ with 3LC Lungs: clear to auscultation bilaterally Heart: regular rate and rhythm, no murmurs Abd: laparotomy incision clean/dry/intact, JEAN with serous liquid, NGT to suction Ext: no edema Skin: warm/well-perfused Neuro: alert and oriented x3, no focal findings Psych: appropriate affect Objective Data Active Medications Dextrose (Dextrose 50 % 25 Gm/50 Ml Vial) 25 gm IVPUSH Q15M PRN; Protocol PRN Reason: per Hypoglycemia Standing Ord. Glucose (Glucose Gel 15 Gm Gel..Gram.) 15 gm PO Q15M PRN; Protocol PRN Reason: per Hypoglycemia Standing Ord. Hydromorphone HCl (Hydromorphone Hcl 1 Mg/Ml Syringe) 1 mg IVPUSH Q3H PRN; Protocol PRN Reason: Pain, Severe (Pain Scale 7-10) Last Admin: 04/15/21 09:40 Dose: 1 mg Documented by: YANICK Potassium Chloride/Dextrose/Sod Cl () 20 meq in 1,000 mls @ 125 mls/hr IVCONT .Q8H [facility] Last Admin: 04/15/21 08:01 Dose: 125 mls/hr Documented by: YANICK Acetaminophen (Ofirmev) 1,000 mg in 100 mls @ 400 mls/hr IV Q6H [facility] Last Infusion: 04/15/21 06:56 Dose: 0 mls/hr Documented by: DIANNE Insulin Glargine (Insulin Glargine,Hum.Rec.Anlog 100 Unit/Ml 10 Ml Vial) 15 unit SUBCUT BEDTIME [facility] Insulin Human Lispro (Insulin Lispro 100 Unit/Ml 3 Ml Vial) 0 unit SUBCUT Q6H [facility]; Protocol Last Admin: 04/15/21 06:28 Dose: 4 unit Documented by: DIANNE Lorazepam (Lorazepam 2 Mg/Ml Vial) 0.25 mg IVPUSH Q4H PRN PRN Reason: anxiety/restlessness Last Admin: 04/15/21 08:05 Dose: 0.25 mg Documented by: YANICK Pantoprazole Sodium (Pantoprazole Sodium 40 Mg/10 Ml Vial) 40 mg IVPUSH BID@0630,1630 [facility] Last Admin: 04/15/21 06:14 Dose: 40 mg Documented by: BUTCH Sodium Chloride (0.9 % Sodium Chloride Flush 3 Ml Syringe) 3 ml IVFLUSH QSHIFT [facility] Last Admin: 04/15/21 08:02 Dose: 3 ml Documented by: YANICK Labs CBC & Chem 7: 04/15/21 06:48 04/15/21 06:48 Labs: Laboratory Results - last 24 hr 04/14/21 04/14/21 04/14/21 17:56 21:05 23:55 MCV MCH MCHC RDW Plt Count MPV Immature Gran % (Auto) Neut % (Auto) Lymph % (Auto) [place] % (Auto) Eos % (Auto) Baso % (Auto) Lymph # (Auto) [place] # (Auto) Eos # (Auto) Baso # (Auto) Abs Immat Gran (auto) Absolute Neuts (auto) Absolute Nucleated RBC Nucleated RBC % (auto) Anion Gap Estim Creat Clear Calc Estimated GFR POC Glucose 233 H 247 H 237 H Random Glucose Calcium 04/15/21 04/15/21 04/15/21 05:47 06:48 06:48 MCV 82.3 MCH 26.6 L MCHC 32.3 RDW 16.8 H Plt Count 219 MPV 10.7 Immature Gran % (Auto) 0.8 H Neut % (Auto) 75.0 H Lymph % (Auto) 12.6 L [place] % (Auto) 6.6 Eos % (Auto) 4.5 H Baso % (Auto) 0.5 Lymph # (Auto) 1.1 L [place] # (Auto) 0.6 Eos # (Auto) 0.4 Baso # (Auto) 0.0 Abs Immat Gran (auto) 0.07 H Absolute Neuts (auto) 6.6 Absolute Nucleated RBC 0.000 Nucleated RBC % (auto) 0.0 Anion Gap 10 L Estim Creat Clear Calc 138.8 Estimated GFR > 60 POC Glucose 216 H Random Glucose 235 H Calcium 7.7 L Microbiology Microbiology Results: Microbiology 04/11/21 Unknown Gram Stain - Final Peritoneal Fluid Anaerobic Culture - Preliminary No growth to date. Body Fluid Culture - Final No growth after 2 days Assessment and Plan (1) Peritonitis (acute) generalized: Status: Acute (2) Type 1 diabetes mellitus: Status: Acute (3) Perforated gastric ulcer: Status: Acute (4) DKA (diabetic ketoacidosis): Status: Acute Assessment and Plan: hospital d#4 40yo F with DM1 admitted to ICU with acute perforated gastric ulcer requiring pressor support s/p suture ligature + omental patch, POD #4 stepped down to C 04/12/21 # perforated ulcer # generalized peritonitis- turbid fluid noted on ex-lap - POD#4, Surgery following, d/c'ed pip/sergio + fluconazole [peritoneal fluid cul tures negative], continue IV fluids and possibly trial without NGT later today and hopefully can start feeding [if not in next few days, will need TPN] # acute blood loss anemia due to GI bleed - monitor Hb, transfuse if <7 # tachycardia # hypovolemic shock - resolved # DM1 - A1c 8.3 - increase Lantus to 15 units, continue correction-dose lispro # hyperK - resolved # VTE ppx - SCDs # dispo - anticipate home with VNA eventually per PT eval Quality Stroke Does the patient have a stroke diagnosis?: No VTE Prior VTE?: No VTE Risk Level:: Medical - low VTE Device Contraindication: N/A - Device Ordered VTE Drug Contraindication: N/A - Med Ordered
[2021-04-15 11:34] VITALS: BP 109/55; PULSE 93; RESP 18; TEMP 36.9; O2SAT 91
[2021-04-15 11:38] LABS: Glucose, Whole Blood 212 mg/dL (60-115)
[2021-04-15 15:10] VITALS: BP 108/58; PULSE 93; RESP 18; TEMP 37.1; O2SAT 95
[2021-04-15 17:46] LABS: Glucose, Whole Blood 187 mg/dL (60-115)
[2021-04-15 19:17] VITALS: BP 118/68; PULSE 18; RESP 16; TEMP 37.1; O2SAT 92
[2021-04-15 20:19] LABS: Glucose, Whole Blood 208 mg/dL (60-115)
[2021-04-15] MEDS: Insulin Glargine,Hum.rec.anlog 100 UNIT/ML 10 ML VIAL 15 UNIT SUBCUT (20:20)
[2021-04-15 23:23] LABS: Glucose, Whole Blood 221 mg/dL (60-115)
[2021-04-15 23:49] VITALS: BP 109/62; PULSE 92; RESP 18; TEMP 36.8; O2SAT 93
[2021-04-16] VITALS (9 sets, daily range): BP systolic 99–126; BP diastolic 60–67; PULSE 71–106; RESP 16–20; TEMP 36.7–37.6; O2SAT 93–97; BMI 28.5
[2021-04-16] MEDS: KCl 20 mEq in 5% Dex/0.45% Sod 20 MEQ/1,000 ML IV.SOLN 125 MEQ IVCONT ×3 (00:01→16:04)
[2021-04-16] MEDS: LORazepam 2 MG/ML VIAL 0.25 MG IVPUSH ×2 (01:25→22:25)
[2021-04-16] MEDS: HYDROmorphone HCl 1 MG/ML SYRINGE IVPUSH ×6 (01:25→23:34)
[2021-04-16 05:55] LABS: Glucose, Whole Blood 185 mg/dL (60-115)
[2021-04-16] MEDS: Pantoprazole Sodium 40 MG/10 ML VIAL IVPUSH ×2 (06:05→15:53)
[2021-04-16] MEDS: Insulin Lispro 100 UNIT/ML 3 ML VIAL SUBCUT ×3 (06:05→23:46)
[2021-04-16 06:47] LABS: Hematocrit 24.3 % (37.0-47.0); Hemoglobin 7.7 g/dl (12.0-16.0); Mean Corpuscular HGB Conc 31.7 g/dl (31.0-35.0); Mean Corpuscular Hemoglobin 25.9 pg (27.0-33.0); Mean Corpuscular Volume 81.8 fL (80.0-98.0); Mean Platelet Volume 10.6 fL (9.4-12.3); NRBC Pct Auto 0.2 /100WBC (0.0-0.2); Platelet Count 262 X10*3/uL (160-400); Red Blood Count 2.97 X10*6/uL (4.20-5.50); White Blood Count 9.6 X10*3/uL (4.8-10.8)
[2021-04-16 07:34] LABS: Anion Gap 10 (12-20); Blood Urea Nitrogen 3 mg/dL (9-16); Calcium 7.8 mg/dL (8.4-10.2); Carbon Dioxide 21 mmol/L (22-29); Chloride 109 mmol/L (96-108); Creatinine Clr Calc Pharmacy 136.3; Estimated Glomerular Filt Rate > 60; Glucose Random 188 mg/dL (60-115); Magnesium 1.7 mg/dL (1.6-2.6); Phosphorus 2.9 mg/dL (2.7-4.5); Potassium 3.4 mmol/L (3.3-5.1); Sodium 137 mmol/L (135-145)
[2021-04-16] MEDS: 0.9 % Sodium Chloride Flush 3 ML SYRINGE IVFLUSH ×2 (07:59→15:56)
--- NOTE | 2021-04-16 10:40 | P.PNGS_ITS ---
Subjective Subjective Date of Service: 04/16/21 Interval history: no complaints no events reported as per staff - appears to have been comfortable has flat affect though, does not say much Physical Exam Vital Signs: Vital Signs: Last Vital Signs Temp 98.1 F 04/16/21 07:36 Pulse 91 04/16/21 07:36 Resp 20 04/16/21 07:36 BP 99/60 04/16/21 07:36 Pulse Ox 93 04/16/21 07:36 BMI result Body Mass Index 28.5 Const: General: comfortable and no acute distress Resp: Effort & Inspection: normal respiratory effort Cardio: Rate: regular rate GI: Other: soft, incision clean and dry, JEAN clear, scanty, NGT in place Objective Data Active Medications Dextrose (Dextrose 50 % 25 Gm/50 Ml Vial) 25 gm IVPUSH Q15M PRN; Protocol PRN Reason: per Hypoglycemia Standing Ord. Glucose (Glucose Gel 15 Gm Gel..Gram.) 15 gm PO Q15M PRN; Protocol PRN Reason: per Hypoglycemia Standing Ord. Hydromorphone HCl (Hydromorphone Hcl 1 Mg/Ml Syringe) 1 mg IVPUSH Q3H PRN; Protocol PRN Reason: Pain, Severe (Pain Scale 7-10) Last Admin: 04/16/21 06:05 Dose: 1 mg Documented by: VALENCIA Potassium Chloride/Dextrose/Sod Cl () 20 meq in 1,000 mls @ 125 mls/hr IVCONT .Q8H [facility] Last Admin: 04/16/21 07:55 Dose: 125 mls/hr Documented by: ANDRES Acetaminophen ([facility]) 1,000 mg in 100 mls @ 400 mls/hr IV Q6H [facility] Last Infusion: 04/16/21 06:25 Dose: 0 mls/hr Documented by: VALENCIA Insulin Glargine (Insulin Glargine,Hum.Rec.Anlog 100 Unit/Ml 10 Ml Vial) 15 unit SUBCUT BEDTIME [facility] Last Admin: 04/15/21 20:20 Dose: 15 unit Documented by: VALENCIA Insulin Human Lispro (Insulin Lispro 100 Unit/Ml 3 Ml Vial) 0 unit SUBCUT Q6H [facility]; Protocol Last Admin: 04/16/21 06:05 Dose: 2 unit Documented by: HO.ANTOIC Lorazepam (Lorazepam 2 Mg/Ml Vial) 0.25 mg IVPUSH Q4H PRN PRN Reason: anxiety/restlessness Last Admin: 04/16/21 01:25 Dose: 0.25 mg Documented by: ANTOIC Pantoprazole Sodium (Pantoprazole Sodium 40 Mg/10 Ml Vial) 40 mg IVPUSH B [id number] [facility] Last Admin: 04/16/21 06:05 Dose: 40 mg Documented by: ANTOIC Sodium Chloride (0.9 % Sodium Chloride Flush 3 Ml Syringe) 3 ml IVFLUSH QSHIFT [facility] Last Admin: 04/16/21 07:59 Dose: 3 ml Documented by: ANDRES Labs CBC & Chem 7: 04/16/21 06:17 04/16/21 06:17 Labs: Laboratory Results - last 24 hr 04/15/21 04/15/21 04/15/21 11:34 17:42 20:16 MCV MCH MCHC RDW Plt Count MPV Absolute Nucleated RBC Nucleated RBC % (auto) Anion Gap Estim Creat Clear Calc Estimated GFR POC Glucose 212 H 187 H 208 H Random Glucose Calcium Phosphorus Magnesium 04/15/21 04/16/21 04/16/21 23:18 05:38 06:17 MCV 81.8 MCH 25.9 L MCHC 31.7 RDW 17.0 H Plt Count 262 MPV 10.6 Absolute Nucleated RBC 0.020 H Nucleated RBC % (auto) 0.2 Anion Gap Estim Creat Clear Calc Estimated GFR POC Glucose 221 H 185 H Random Glucose Calcium Phosphorus Magnesium 04/16/21 06:17 MCV MCH MCHC RDW Plt Count MPV Absolute Nucleated RBC Nucleated RBC % (auto) Anion Gap 10 L Estim Creat Clear Calc 136.3 Estimated GFR > 60 POC Glucose Random Glucose 188 H Calcium 7.8 L Phosphorus 2.9 Magnesium 1.7 Microbiology Microbiology Results: Microbiology 04/11/21 03:21 Blood Culture - Final Blood - Venous No growth after 5 days. 04/11/21 03:19 Blood Culture - Final Blood - Venous No growth after 5 days. Procedures Date of Service Date of Service: 04/16/21 Progress Note: A&P Assessment and plan (1) Perforated gastric ulcer: Status: Acute Assessment and Plan: s/p oversew of ulcer and bleeder appears to be doing well clinically has flatus abd soft, benign NGT - still with output on cannister but pt has been taking a lot of ice chips will dc NGT NPO for now clinically well Hg low - follow closely Fall Risk Details Current Medications: Current Medications Dextrose (Dextrose 50 % 25 Gm/50 Ml Vial) 25 gm IVPUSH Q15M PRN; Protocol PRN Reason: per Hypoglycemia Standing Ord. Glucose (Glucose Gel 15 Gm Gel..Gram.) 15 gm PO Q15M PRN; Protocol PRN Reason: per Hypoglycemia Standing Ord. Hydromorphone HCl (Hydromorphone Hcl 1 Mg/Ml Syringe) 1 mg IVPUSH Q3H PRN; Protocol PRN Reason: Pain, Severe (Pain Scale 7-10) Last Admin: 04/16/21 06:05 Dose: 1 mg Documented by: Potassium Chloride/Dextrose/Sod Cl () 20 meq in 1,000 mls @ 125 mls/hr IVCONT .Q8H [facility] Last Admin: 04/16/21 07:55 Dose: 125 mls/hr Documented by: [facility]amin[facility] ([facility] 1,000 mg in 100 mls @ 400 mls/hr IV Q6H [facility] Last Infusion: 04/16/21 06:25 Dose: Infused Documented by: Insulin Glargine (Insulin Glargine,Hum.Rec.Anlog 100 Unit/Ml 10 Ml Vial) 15 unit SUBCUT BEDTIME [facility] Last Admin: 04/15/21 20:20 Dose: 15 unit Documented by: Insulin Human Lispro (Insulin Lispro 100 Unit/Ml 3 Ml Vial) 0 unit SUBCUT Q6H [facility]; Protocol Last Admin: 04/16/21 06:05 Dose: 2 unit Documented by: Lorazepam (Lorazepam 2 Mg/Ml Vial) 0.25 mg IVPUSH Q4H PRN PRN Reason: anxiety/restlessness Last Admin: 04/16/21 01:25 Dose: 0.25 mg Documented by: Pantoprazole Sodium (Pantoprazole Sodium 40 Mg/10 Ml Vial) 40 mg IVPUSH BID@0630,1630 [facility] Last Admin: 04/16/21 06:05 Dose: 40 mg Documented by: Sodium Chloride (0.9 % Sodium Chloride Flush 3 Ml Syringe) 3 ml IVFLUSH QSHIFT [facility] Last Admin: 04/16/21 07:59 Dose: 3 ml Documented by: Time Spent With Patient Time: Total time spent is greater than 50% in coordination of care (as documented) at patient's floor/unit and/or counseling patient: Time with patient: 15 - 24 minutes Quality Stroke Does the patient have a stroke diagnosis?: No VTE Prior VTE?: No VTE Risk Level:: Medical - low VTE Device Contraindication: N/A - Device Ordered VTE Drug Contraindication: N/A - Med Ordered
[2021-04-16 11:43] LABS: Glucose, Whole Blood 166 mg/dL (60-115)
--- NOTE | 2021-04-16 13:45 | HO.PM.IMPN ---
Subjective Subjective Date of Service: 04/16/21 Interval History: Passing gas + tolerating ice chips Very restricted affect Review of Systems Review of Systems: Yes all other systems are reviewed and are negative Physical Exam Vital Signs: Vital Signs: Last Vital Signs Temp 98.1 F 04/16/21 07:36 Pulse 91 04/16/21 07:36 Resp 16 04/16/21 11:36 BP 99/60 04/16/21 07:36 Pulse Ox 93 04/16/21 07:36 BMI result Body Mass Index 28.5 Gen: in no acute distress HEENT: sclera anicteric, moist mucus membranes Neck: supple, RIJ with 3LC Lungs: clear to auscultation bilaterally Heart: regular rate and rhythm, no murmurs Abd: laparotomy incision clean/dry/intact, JEAN with serous liquid, NGT with scant bilious output Ext: no edema Skin: warm/well-perfused Neuro: alert and oriented x3, no focal findings Psych: restricted affect Objective Data Active Medications Dextrose (Dextrose 50 % 25 Gm/50 Ml Vial) 25 gm IVPUSH Q15M PRN; Protocol PRN Reason: per Hypoglycemia Standing Ord. Glucose (Glucose Gel 15 Gm Gel..Gram.) 15 gm PO Q15M PRN; Protocol PRN Reason: per Hypoglycemia Standing Ord. Hydromorphone HCl (Hydromorphone Hcl 1 Mg/Ml Syringe) 1 mg IVPUSH Q3H PRN; Protocol PRN Reason: Pain, Severe (Pain Scale 7-10) Last Admin: 04/16/21 11:36 Dose: 1 mg Documented by: ANDRES Potassium Chloride/Dextrose/Sod Cl () 20 meq in 1,000 mls @ 125 mls/hr IVCONT .Q8H [facility] Last Admin: 04/16/21 07:55 Dose: 125 mls/hr Documented by: ANDRES Acetaminophen (Ofirmev) 1,000 mg in 100 mls @ 400 mls/hr IV Q6H [facility] Last Infusion: 04/16/21 11:59 Dose: 0 mls/hr Documented by: ANDRES Insulin Glargine (Insulin Glargine,Hum.Rec.Anlog 100 Unit/Ml 10 Ml Vial) 15 unit SUBCUT BEDTIME [facility] Last Admin: 04/15/21 20:20 Dose: 15 unit Documented by: VALENCIA Insulin Human Lispro (Insulin Lispro 100 Unit/Ml 3 Ml Vial) 0 unit SUBCUT Q6H [facility]; Protocol Last Admin: 04/16/21 11:43 Dose: Not Given Documented by: ANDRES Non-Admin Reason: NPO Lorazepam (Lorazepam 2 Mg/Ml Vial) 0.25 mg IVPUSH Q4H PRN PRN Reason: anxiety/restlessness Last Admin: 04/16/21 01:25 Dose: 0.25 mg Documented by: VALENCIA Pantoprazole Sodium (Pantoprazole Sodium 40 Mg/10 Ml Vial) 40 mg IVPUSH BID@0630,1630 [facility] Last Admin: 04/16/21 06:05 Dose: 40 mg Documented by: VALENCIA Sodium Chloride (0.9 % Sodium Chloride Flush 3 Ml Syringe) 3 ml IVFLUSH QSHIFT [facility] Last Admin: 04/16/21 07:59 Dose: 3 ml Documented by: ANDRES Labs CBC & Chem 7: 04/16/21 06:17 04/16/21 06:17 Labs: Laboratory Results - last 24 hr 04/15/21 04/15/21 04/15/21 17:42 20:16 23:18 MCV MCH MCHC RDW Plt Count MPV Absolute Nucleated RBC Nucleated RBC % (auto) Anion Gap Estim Creat Clear Calc Estimated GFR POC Glucose 187 H 208 H 221 H Random Glucose Calcium Phosphorus Magnesium 04/16/21 04/16/21 04/16/21 05:38 06:17 06:17 MCV 81.8 MCH 25.9 L MCHC 31.7 RDW 17.0 H Plt Count 262 MPV 10.6 Absolute Nucleated RBC 0.020 H Nucleated RBC % (auto) 0.2 Anion Gap 10 L Estim Creat Clear Calc 136.3 Estimated GFR > 60 POC Glucose 185 H Random Glucose 188 H Calcium 7.8 L Phosphorus 2.9 Magnesium 1.7 04/16/21 11:40 MCV MCH MCHC RDW Plt Count MPV Absolute Nucleated RBC Nucleated RBC % (auto) Anion Gap Estim Creat Clear Calc Estimated GFR POC Glucose 166 H Random Glucose Calcium Phosphorus Magnesium Microbiology Microbiology Results: Microbiology 04/11/21 Unknown Gram Stain - Final Peritoneal Fluid Anaerobic Culture - Final NO GROWTH AFTER 5 DAYS Body Fluid Culture - Final No growth after 2 days 04/11/21 03:21 Blood Culture - Final Blood - Venous No growth after 5 days. 04/11/21 03:19 Blood Culture - Final Blood - Venous No growth after 5 days. Assessment and Plan (1) Peritonitis (acute) generalized: Status: Acute (2) Type 1 diabetes mellitus: Status: Acute (3) Perforated gastric ulcer: Status: Acute (4) DKA (diabetic ketoacidosis): Status: Acute Assessment and Plan: hospital d#6 40yo F with DM1 admitted to ICU with acute perforated gastric ulcer requiring pressor support s/p suture ligature + omental patch, POD #5 [place] [facility] [place] # perforated ulcer # generalized peritonitis- turbid fluid noted on ex-lap but cultures negative- pip/sergio + fluconazole d/c'ed - POD#5, Surgery following, d/c NGT tube today and hopefully can start diet tomorrow, otherwise may need TPN # acute blood loss anemia due to GI bleed - monitor Hb, transfuse if <7 # tachycardia # hypovolemic shock - resolved # DM1 - A1c 8.3 - increased Lantus to 15 units daily, continue correction-dose lispro. will need more insulin once she is eating consistently [uses 30 units of Lantus daily at home] # hyperK - resolved # VTE ppx - SCDs # dispo - anticipate home with VNA eventually per PT eval Quality Stroke Does the patient have a stroke diagnosis?: No VTE Prior VTE?: No VTE Risk Level:: Medical - low VTE Device Contraindication: N/A - Device Ordered VTE Drug Contraindication: N/A - Med Ordered
[2021-04-16 17:37] LABS: Glucose, Whole Blood 187 mg/dL (60-115)
[2021-04-16 20:28] LABS: Glucose, Whole Blood 247 mg/dL (60-115)
[2021-04-16] MEDS: Insulin Glargine,Hum.rec.anlog 100 UNIT/ML 10 ML VIAL 15 UNIT SUBCUT (22:14)
[2021-04-16 23:42] LABS: Glucose, Whole Blood 250 mg/dL (60-115)
[2021-04-17] VITALS (9 sets, daily range): BP systolic 98–142; BP diastolic 51–61; PULSE 86–111; RESP 18–21; TEMP 36.3–37.5; O2SAT 92–97; BMI 31.8
[2021-04-17] MEDS: KCl 20 mEq in 5% Dex/0.45% Sod 20 MEQ/1,000 ML IV.SOLN 125 MEQ IVCONT ×2 (00:01→06:45)
[2021-04-17] MEDS: HYDROmorphone HCl 1 MG/ML SYRINGE IVPUSH ×6 (02:47→20:30)
[2021-04-17 05:37] LABS: Hematocrit 24.6 % (37.0-47.0); Hemoglobin 7.9 g/dl (12.0-16.0); Mean Corpuscular HGB Conc 32.1 g/dl (31.0-35.0); Mean Corpuscular Hemoglobin 26.2 pg (27.0-33.0); Mean Corpuscular Volume 81.7 fL (80.0-98.0); NRBC Pct Auto 0.2 /100WBC (0.0-0.2); Platelet Count 301 X10*3/uL (160-400); Red Blood Count 3.01 X10*6/uL (4.20-5.50); Red Cell Distribution Width 17.2 % (11.0-16.0); White Blood Count 12.1 X10*3/uL (4.8-10.8)
[2021-04-17 05:57] LABS: Anion Gap 11 (12-20); Blood Urea Nitrogen 2 mg/dL (9-16); Carbon Dioxide 22 mmol/L (22-29); Chloride 109 mmol/L (96-108); Creatinine Clr Calc Pharmacy 136.3; Estimated Glomerular Filt Rate > 60; Glucose Random 221 mg/dL (60-115); Magnesium 1.6 mg/dL (1.6-2.6); Phosphorus 3.2 mg/dL (2.7-4.5); Potassium 3.6 mmol/L (3.3-5.1); Sodium 138 mmol/L (135-145)
[2021-04-17 06:30] LABS: Glucose, Whole Blood 197 mg/dL (60-115)
[2021-04-17] MEDS: Pantoprazole Sodium 40 MG/10 ML VIAL IVPUSH ×2 (06:45→16:36)
[2021-04-17] MEDS: Insulin Lispro 100 UNIT/ML 3 ML VIAL SUBCUT ×4 (06:45→20:31)
[2021-04-17] MEDS: 0.9 % Sodium Chloride Flush 3 ML SYRINGE IVFLUSH ×2 (09:23→16:36)
[2021-04-17 10:58] LABS: Glucose, Whole Blood 211 mg/dL (60-115)
--- NOTE | 2021-04-17 11:20 | P.PNGS_ITS ---
Subjective Subjective Date of Service: 04/17/21 <Rose Freitas PA-C - Last Filed: 04/17/21 11:24> 04/17/21 <Eric Moe MD - Last Filed: 04/17/21 12:13> Interval history: Feeling better today, better pain control. Dilaudid wears off too quickly. More talkative. Tolerating clears and feels ready for solid food. Continues to pass liquid stools with some old blood. <Rose Freitas PA-C - Last Filed: 04/17/21 11:24> Physical Exam Vital Signs: Vital Signs: Last Vital Signs Temp 97.8 F 04/17/21 07:53 Pulse 86 04/17/21 07:53 Resp 18 04/17/21 07:53 BP 101/60 04/17/21 07:53 Pulse Ox 95 04/17/21 07:53 BMI result Body Mass Index 31.8 <Rose Freitas PA-C - Last Filed: 04/17/21 11:24> Const: General: comfortable, no acute distress and alert <Rose Freitas PA-C - Last Filed: 04/17/21 11:24> Orientation/consciousness: patient oriented x3 <Rose Freitas PA-C - Last Filed: 04/17/21 11:24> GI: Other: JEAN with serous drainage <Rose Freitas PA-C - Last Filed: 04/17/21 11:24> Inspection: No distended and Yes incision (clean) <Rose Freitas PA-C - Last Filed: 04/17/21 11:24> Palpation (GI): Soft to palpation and Tenderness to palpation present (GI) (incisional) <Rose Feritas PA-C - Last Filed: 04/17/21 11:24> Skin: General skin exam: no rashes or lesions noted <MENA Tam Last Filed: 04/17/21 11:24> Neuro: General: patient oriented x3 <MENA Tam Last Filed: 04/17/21 11:24> Objective Data Active Medications Dextrose (Dextrose 50 % 25 Gm/50 Ml Vial) 25 gm IVPUSH Q15M PRN; Protocol PRN Reason: per Hypoglycemia Standing Ord. Glucose (Glucose Gel 15 Gm Gel..Gram.) 15 gm PO Q15M PRN; Protocol PRN Reason: per Hypoglycemia Standing Ord. Hydromorphone HCl (Hydromorphone Hcl 1 Mg/Ml Syringe) 1 mg IVPUSH Q3H PRN; Protocol PRN Reason: Pain, Severe (Pain Scale 7-10) Last Admin: 04/17/21 09:35 Dose: 1 mg Documented by: JAMES Potassium Chloride/Dextrose/Sod Cl () 20 meq in 1,000 mls @ 125 mls/hr IVCONT .Q8H [facility] Last Admin: 04/17/21 06:45 Dose: 125 mls/hr Documented by: ALYCIA Insulin Glargine (Insulin Glargine,Hum.Rec.Anlog 100 Unit/Ml 10 Ml Vial) 15 unit SUBCUT BEDTIME [facility] Last Admin: 04/16/21 22:14 Dose: 15 unit Documented by: ALYCIA Insulin Human Lispro (Insulin Lispro 100 Unit/Ml 3 Ml Vial) 0 unit SUBCUT Q6H [facility]; Protocol Last Admin: 04/17/21 06:45 Dose: 2 unit Documented by: ALYCIA Lorazepam (Lorazepam 2 Mg/Ml Vial) 0.25 mg IVPUSH Q4H PRN PRN Reason: anxiety/restlessness Last Admin: 04/16/21 22:25 Dose: 0.25 mg Documented by: ALYCIA Oxycodone HCl (Oxycodone Hcl Immed Release 5 Mg Tablet) 5 mg PO Q4H PRN PRN Reason: Pain, Moderate (Pain Scale 4-6 Pantoprazole Sodium (Pantoprazole Sodium 40 Mg/10 Ml Vial) 40 mg IVPUSH BID@0630,1630 [facility] Last Admin: 04/17/21 06:45 Dose: 40 mg Documented by: ALYCIA Sodium Chloride (0.9 % Sodium Chloride Flush 3 Ml Syringe) 3 ml IVFLUSH QSHIFT [facility] Last Admin: 04/17/21 09:23 Dose: 3 ml Documented by: JAMES <Rose Freitas PA-C - Last Filed: 04/17/21 11:24> Labs CBC & Chem 7: : 04/17/21 05:21 04/17/21 05:21 <Rose Freitas PA-C - Last Filed: 04/17/21 11:24> Labs: Laboratory Results - last 24 hr 04/16/21 04/16/21 04/16/21 11:40 17:32 20:25 MCV MCH MCHC RDW Plt Count MPV Absolute Nucleated RBC Nucleated RBC % (auto) Anion Gap Estim Creat Clear Calc Estimated GFR POC Glucose 166 H 187 H 247 H Random Glucose Calcium Phosphorus Magnesium 04/16/21 04/17/21 04/17/21 23:38 05:21 05:21 MCV 81.7 MCH 26.2 L MCHC 32.1 RDW 17.2 H Plt Count 301 MPV 10.0 Absolute Nucleated RBC 0.030 H Nucleated RBC % (auto) 0.2 Anion Gap 11 L Estim Creat Clear Calc 136.3 Estimated GFR > 60 POC Glucose 250 H Random Glucose 221 H Calcium 8.0 L Phosphorus 3.2 Magnesium 1.6 04/17/21 04/17/21 06:26 10:53 MCV MCH MCHC RDW Plt Count MPV Absolute Nucleated RBC Nucleated RBC % (auto) Anion Gap Estim Creat Clear Calc Estimated GFR POC Glucose 197 H 211 H Random Glucose Calcium Phosphorus Magnesium <Rose Freitas PA-C - Last Filed: 04/17/21 11:24> Microbiology Microbiology Results: Microbiology 04/11/21 Unknown Gram Stain - Final Peritoneal Fluid Anaerobic Culture - Final NO GROWTH AFTER 5 DAYS Body Fluid Culture - Final No growth after 2 days 04/11/21 03:21 Blood Culture - Final Blood - Venous No growth after 5 days. <Rose Freitas PA-C - Last Filed: 04/17/21 11:24> Procedures Date of Service Date of Service: 04/17/21 <Rose Freitas PA-C - Last Filed: 04/17/21 11:24> Progress Note: A&P Assessment and plan (1) Perforated gastric ulcer: Status: Acute <MENA Tam Last Filed: 04/17/21 11:24> (2) Peritonitis (acute) generalized: Status: Acute <Rose Freitas PA-C - Last Filed: 04/17/21 11:24> Assessment and Plan: S/p gastrotomy, ligation of bleeding ulcer, omental patch of gastric ulcer.? Biopsy of ulcer negative for malignancy. Overall doing very well surgically.? H/H remaining unchanged.?Advance to solid diet. Can d/c triple lumen.? OOB and ambulation, PT. Begin dispo planning. Will remove JEAN drain prior. Will need surgical and GI f/u. <Rose Freitas PA-C - Last Filed: 04/17/21 11:24> S/p gastrotomy, ligation of bleeding ulcer, omental patch of gastric ulcer.? Biopsy of ulcer negative for malignancy. Overall doing very well surgically.? H/H remaining unchanged.?Advance to solid diet. Can d/c triple lumen.? OOB and ambulation, PT. Begin dispo planning. Will remove JEAN drain prior. Will need surgical and GI f/u. Agree with the above assessment and plan. Patient much more talkative today, seems much improved. Will advance diet. Continue PPI. Convert to po meds now. Possible discharge in 1-2 days if tolerating diet and comfortable on po meds. <Eric Moe MD - Last Filed: 04/17/21 12:13> Fall Risk Details Current Medications: Current Medications Dextrose (Dextrose 50 % 25 Gm/50 Ml Vial) 25 gm IVPUSH Q15M PRN; Protocol PRN Reason: per Hypoglycemia Standing Ord. Glucose (Glucose Gel 15 Gm Gel..Gram.) 15 gm PO Q15M PRN; Protocol PRN Reason: per Hypoglycemia Standing Ord. Hydromorphone HCl (Hydromorphone Hcl 1 Mg/Ml Syringe) 1 mg IVPUSH Q3H PRN; Protocol PRN Reason: Pain, Severe (Pain Scale 7-10) Last Admin: 04/17/21 09:35 Dose: 1 mg Documented by: Potassium Chloride/Dextrose/Sod Cl () 20 meq in 1,000 mls @ 125 mls/hr IVCONT .Q8H [facility] Last Admin: 04/17/21 06:45 Dose: 125 mls/hr Documented by: Insulin Glargine (Insulin Glargine,Hum.Rec.Anlog 100 Unit/Ml 10 Ml Vial) 15 unit SUBCUT BEDTIME [facility] Last Admin: 04/16/21 22:14 Dose: 15 unit Documented by: Insulin Human Lispro (Insulin Lispro 100 Unit/Ml 3 Ml Vial) 0 unit SUBCUT Q6H [facility]; Protocol Last Admin: 04/17/21 06:45 Dose: 2 unit Documented by: Lorazepam (Lorazepam 2 Mg/Ml Vial) 0.25 mg IVPUSH Q4H PRN PRN Reason: anxiety/restlessness Last Admin: 04/16/21 22:25 Dose: 0.25 mg Documented by: Oxycodone HCl (Oxycodone Hcl Immed Release 5 Mg Tablet) 5 mg PO Q4H PRN PRN Reason: Pain, Moderate (Pain Scale 4-6 Pantoprazole Sodium (Pantoprazole Sodium 40 Mg/10 Ml Vial) 40 mg IVPUSH BID@0630,1630 [facility] Last Admin: 04/17/21 06:45 Dose: 40 mg Documented by: Sodium Chloride (0.9 % Sodium Chloride Flush 3 Ml Syringe) 3 ml IVFLUSH QSHIFT [facility] Last Admin: 04/17/21 09:23 Dose: 3 ml Documented by: <Rose Freitas PA-C - Last Filed: 04/17/21 11:24> Time Spent With Patient Time: Total time spent is greater than 50% in coordination of care (as documented) at patient's floor/unit and/or counseling patient: <Rose Freitas PA-C - Last Filed: 04/17/21 11:24> Time with patient: 15 - 24 minutes <Rose Freitas PA-C - Last Filed: 04/17/21 11:24> Quality Stroke Does the patient have a stroke diagnosis?: No <Rose Freitas PA-C - Last Filed: 04/17/21 11:24> VTE Prior VTE?: No <MENA Tam Last Filed: 04/17/21 11:24> VTE Risk Level:: Medical - low <MENA Tam Last Filed: 04/17/21 11:24> VTE Device Contraindication: N/A - Device Ordered <MENA Tam Last Filed: 04/17/21 11:24> VTE Drug Contraindication: N/A - Med Ordered <Rose Freitas PA-C - Last Filed: 04/17/21 11:24>
[2021-04-17] MEDS: oxyCODONE HCl Immed Release 5 MG TABLET PO ×3 (12:09→22:07)
--- NOTE | 2021-04-17 13:21 | HO.PM.IMPN ---
Subjective Subjective Date of Service: 04/17/21 Interval History: Patient complaining of persistent incisional pain, pain meds wears of within 2-3 hours tolerating clear liquid diet has loose watery stool, denies fever chills no headache, no nausea no vomiting. Review of Systems General no headache no dizziness no fever chills. CVS no chest pain, no palpitation. Respiratory no cough, no shortness of breath Gastrointestinal no nausea, no vomiting, abdominal pain as above Review of Systems: Yes all other systems are reviewed and are negative Physical Exam Vital Signs: Vital Signs: Last Vital Signs Temp 98.3 F 04/17/21 11:30 Pulse 97 04/17/21 11:30 Resp 18 04/17/21 11:30 BP 102/61 04/17/21 11:30 Pulse Ox 97 04/17/21 11:30 BMI result Body Mass Index 31.8 General awake alert x3, no acute distress.? Neck? supple ,no JVD. CVS? regular rate rhythm, Respiratory lungs clear to auscultation, no respiratory distress, no wheeze, no rhonchi. Gastrointestinal abdomen dressing in place, JEAN with serous drainage, incision dry and clean celia and place, good bowel sounds, tenderness to palpation Extremities no edema. Neuro nonfocal Skin no rash Psych appropriate affect Objective Data Active Medications Dextrose (Dextrose 50 % 25 Gm/50 Ml Vial) 25 gm IVPUSH Q15M PRN; Protocol PRN Reason: per Hypoglycemia Standing Ord. Glucose (Glucose Gel 15 Gm Gel..Gram.) 15 gm PO Q15M PRN; Protocol PRN Reason: per Hypoglycemia Standing Ord. Hydromorphone HCl (Hydromorphone Hcl 1 Mg/Ml Syringe) 1 mg IVPUSH Q3H PRN; Protocol PRN Reason: Pain, Severe (Pain Scale 7-10) Last Admin: 04/17/21 09:35 Dose: 1 mg Documented by: JAMES Potassium Chloride/Dextrose/Sod Cl () 20 meq in 1,000 mls @ 125 mls/hr IVCONT .Q8H [facility] Last Admin: 04/17/21 06:45 Dose: 125 mls/hr Documented by: ALYCIA Insulin Glargine (Insulin Glargine,Hum.Rec.Anlog 100 Unit/Ml 10 Ml Vial) 15 unit SUBCUT BEDTIME [facility] Last Admin: 04/16/21 22:14 Dose: 15 unit Documented by: ALYCIA Insulin Human Lispro (Insulin Lispro 100 Unit/Ml 3 Ml Vial) 0 unit SUBCUT Q6H [facility]; Protocol Last Admin: 04/17/21 12:10 Dose: 4 unit Documented by: JAMES Lorazepam (Lorazepam 2 Mg/Ml Vial) 0.25 mg IVPUSH Q4H PRN PRN Reason: anxiety/restlessness Last Admin: 04/16/21 22:25 Dose: 0.25 mg Documented by: ALYCIA Oxycodone HCl (Oxycodone Hcl Immed Release 5 Mg Tablet) 5 mg PO Q4H PRN PRN Reason: Pain, Moderate (Pain Scale 4-6 Last Admin: 04/17/21 12:09 Dose: 5 mg Documented by: JAMES Pantoprazole Sodium (Pantoprazole Sodium 40 Mg/10 Ml Vial) 40 mg IVPUSH BID@0630,1630 [facility] Last Admin: 04/17/21 06:45 Dose: 40 mg Documented by: ALYCIA Sodium Chloride (0.9 % Sodium Chloride Flush 3 Ml Syringe) 3 ml IVFLUSH QSHIFT [facility] Last Admin: 04/17/21 09:23 Dose: 3 ml Documented by: JAMES Labs CBC & Chem 7: 04/17/21 05:21 04/17/21 05:21 Labs: Laboratory Results - last 24 hr 04/16/21 04/16/21 04/16/21 17:32 20:25 23:38 MCV MCH MCHC RDW Plt Count MPV Absolute Nucleated RBC Nucleated RBC % (auto) Anion Gap Estim Creat Clear Calc Estimated GFR POC Glucose 187 H 247 H 250 H Random Glucose Calcium Phosphorus Magnesium 04/17/21 04/17/21 04/17/21 05:21 05:21 06:26 MCV 81.7 MCH 26.2 L MCHC 32.1 RDW 17.2 H Plt Count 301 MPV 10.0 Absolute Nucleated RBC 0.030 H Nucleated RBC % (auto) 0.2 Anion Gap 11 L Estim Creat Clear Calc 136.3 Estimated GFR > 60 POC Glucose 197 H Random Glucose 221 H Calcium 8.0 L Phosphorus 3.2 Magnesium 1.6 04/17/21 10:53 MCV MCH MCHC RDW Plt Count MPV Absolute Nucleated RBC Nucleated RBC % (auto) Anion Gap Estim Creat Clear Calc Estimated GFR POC Glucose 211 H Random Glucose Calcium Phosphorus Magnesium Microbiology Microbiology Results: Microbiology 04/11/21 Unknown Gram Stain - Final Peritoneal Fluid Anaerobic Culture - Final NO GROWTH AFTER 5 DAYS Body Fluid Culture - Final No growth after 2 days Assessment and Plan (1) Peritonitis (acute) generalized: Status: Acute (2) Type 1 diabetes mellitus: Status: Acute (3) Perforated gastric ulcer: Status: Acute Assessment and Plan: 40yo F with DM1 admitted to ICU with acute perforated gastric ulcer requiring pressor support s/p suture ligature + omental patch, POD #5 stepped down to [facility] 04/12/21 # perforated gastric ulcer/generalized peritonitis Persistent abdominal pain , no nausea no vomiting, will add oxycodone as needed Turbid fluid noted on ex-lap but cultures negative POD#6, Surgery following, they will remove JEAN drain advance diet to regular ,lucille dc ivf.s/p diflucan, and IV Zosyn Will transition to my mouth PPI at am. # acute blood loss anemia due to GI bleed - monitor Hb, hematocrit stable today, transfuse if <7 # tachycardia # hypovolemic shock - resolved # DM1 - A1c 8.3 - blood sugar 211, continue Lantus to 15 units daily, continue correction-dose lispro.? will adjust dose of Lantus if tolerate solids today, [uses 30 units of Lantus daily at home] # hyperK - resolved # VTE ppx - SCDs # dispo - anticipate home with VNA in next 1-2 days. Quality Stroke Does the patient have a stroke diagnosis?: No VTE Prior VTE?: No VTE Risk Level:: Medical - low VTE Device Contraindication: N/A - Device Ordered VTE Drug Contraindication: N/A - Med Ordered
--- NOTE | 2021-04-17 13:26 | MHC.CLN ---
F/U DIET ADVANCED TO 2000DM TODAY RECOMMEND GLUCERNA BID TO INCREASE KCALS MONITOR PO INTAKE CLOSELY
--- NOTE | 2021-04-17 13:49 | MHC.CM.PN ---
per rounds pt from icu on clear liguids no dc date at this time
[2021-04-17 16:00] LABS: Glucose, Whole Blood 232 mg/dL (60-115)
[2021-04-17 19:35] LABS: Glucose, Whole Blood 219 mg/dL (60-115)
[2021-04-17] MEDS: Insulin Glargine,Hum.rec.anlog 100 UNIT/ML 10 ML VIAL 15 UNIT SUBCUT (20:32)
[2021-04-18] VITALS (11 sets, daily range): BP systolic 98–102; BP diastolic 56–58; PULSE 86–93; RESP 17–18; TEMP 36.6–38.3; O2SAT 92–99
[2021-04-18] MEDS: HYDROmorphone HCl 1 MG/ML SYRINGE IVPUSH ×3 (00:06→11:53)
[2021-04-18] MEDS: LORazepam 2 MG/ML VIAL 0.25 MG IVPUSH (01:42)
[2021-04-18] MEDS: oxyCODONE HCl Immed Release 5 MG TABLET PO ×5 (03:09→20:11)
[2021-04-18] MEDS: Pantoprazole Sodium 40 MG/10 ML VIAL IVPUSH (05:59)
[2021-04-18 07:15] LABS: Glucose, Whole Blood 152 mg/dL (60-115)
[2021-04-18] MEDS: Insulin Lispro 100 UNIT/ML 3 ML VIAL SUBCUT ×4 (07:45→21:01)
--- NOTE | 2021-04-18 08:18 | P.PNGS_ITS ---
Subjective Subjective Date of Service: 04/18/21 Interval history: Patient tolerated a regular diet yesterday without nausea or vomiting. She reports mild abdominal pain which is being controlled by the oral pain medication. Physical Exam 2 Vital Signs: Vital Signs: Last Vital Signs Temp 98.8 F 04/18/21 07:13 Pulse 88 04/18/21 07:13 Resp 17 04/18/21 07:13 BP 98/56 L 04/18/21 07:13 Pulse Ox 95 04/18/21 07:13 BMI result Body Mass Index 31.8 Const: General: no acute distress Nutritional Appearance: well nourished Orientation/consciousness: patient oriented x3 Limitations: no limitations Resp: Other: Breathing comfortably on room air, no shortness of breath GI: Other: Soft, nondistended, incision is clean, dry, and intact. JEAN with serous discharge. JEAN was removed and dry sterile dressing applied. Skin: Other: Warm, dry, no rash. Neuro: General: patient oriented x3 Extrem: Other: No edema Objective Data Active Medications Dextrose (Dextrose 50 % 25 Gm/50 Ml Vial) 25 gm IVPUSH Q15M PRN; Protocol PRN Reason: per Hypoglycemia Standing Ord. Glucose (Glucose Gel 15 Gm Gel..Gram.) 15 gm PO Q15M PRN; Protocol PRN Reason: per Hypoglycemia Standing Ord. Hydromorphone HCl (Hydromorphone Hcl 1 Mg/Ml Syringe) 1 mg IVPUSH Q3H PRN; Protocol PRN Reason: Pain, Severe (Pain Scale 7-10) Last Admin: 04/18/21 05:59 Dose: 1 mg Documented by: ALYCIA Insulin Glargine (Insulin Glargine,Hum.Rec.Anlog 100 Unit/Ml 10 Ml Vial) 15 un it SUBCUT BEDTIME [facility] Last Admin: 04/17/21 20:32 Dose: 15 unit Documented by: ALYCIA Insulin Human Lispro (Insulin Lispro 100 Unit/Ml 3 Ml Vial) 0 unit SUBCUT QIDACHS [facility]; Protocol Last Admin: 04/18/21 07:45 Dose: 2 unit Documented by: JAMES Lorazepam (Lorazepam 2 Mg/Ml Vial) 0.25 mg IVPUSH Q4H PRN PRN Reason: anxiety/restlessness Last Admin: 04/18/21 01:42 Dose: 0.25 mg Documented by: ALYCIA Omeprazole (Omeprazole 40 Mg Capsule.) 40 mg PO BID@0630,1630 [facility] Oxycodone HCl (Oxycodone Hcl Immed Release 5 Mg Tablet) 5 mg PO Q4H PRN PRN Reason: Pain, Moderate (Pain Scale 4-6 Last Admin: 04/18/21 07:45 Dose: 5 mg Documented by: JAMES Sodium Chloride (0.9 % Sodium Chloride Flush 3 Ml Syringe) 3 ml IVFLUSH QSHIFT [facility] Last Admin: 04/18/21 00:00 Dose: 3 ml Documented by: ALYCIA Labs CBC & Chem 7: 04/17/21 05:21 04/17/21 05:21 Labs: Laboratory Results - last 24 hr 04/17/21 04/17/21 04/17/21 10:53 15:55 19:31 POC Glucose 211 H 232 H 219 H 04/18/21 07:08 POC Glucose 152 H Procedures Date of Service Date of Service: 04/18/21 Progress Note: A&P Assessment and plan (1) Perforated gastric ulcer: Status: Acute (2) GI bleed due to NSAIDs: Status: Acute Assessment and Plan: Patient remains hemodynamically stable with no evidence of ongoing bleeding. She is tolerating a regular diet without nausea or vomiting. Reports only mild abdominal pain. JEAN drain was removed today. A central line remains in place which is being used for IV access. This will be removed prior to discharge. Patient will be ready for discharge tomorrow. Fall Risk Details Current Medications: Current Medications Dextrose (Dextrose 50 % 25 Gm/50 Ml Vial) 25 gm IVPUSH Q15M PRN; Protocol PRN Reason: per Hypoglycemia Standing Ord. Glucose (Glucose Gel 15 Gm Gel..Gram.) 15 gm PO Q15M PRN; Protocol PRN Reason: per Hypoglycemia Standing Ord. Hydromorphone HCl (Hydromorphone Hcl 1 Mg/Ml Syringe) 1 mg IVPUSH Q3H PRN; Prot ocol PRN Reason: Pain, Severe (Pain Scale 7-10) Last Admin: 04/18/21 05:59 Dose: 1 mg Documented by: Insulin Glargine (Insulin Glargine,Hum.Rec.Anlog 100 Unit/Ml 10 Ml Vial) 15 unit SUBCUT BEDTIME [facility] Last Admin: 04/17/21 20:32 Dose: 15 unit Documented by: Insulin Human Lispro (Insulin Lispro 100 Unit/Ml 3 Ml Vial) 0 unit SUBCUT QIDACHS [facility]; Protocol Last Admin: 04/18/21 07:45 Dose: 2 unit Documented by: Lorazepam (Lorazepam 2 Mg/Ml Vial) 0.25 mg IVPUSH Q4H PRN PRN Reason: anxiety/restlessness Last Admin: 04/18/21 01:42 Dose: 0.25 mg Documented by: Omeprazole (Omeprazole 40 Mg Capsule.Dr) 40 mg PO BID@0630,1630 [facility] Oxycodone HCl (Oxycodone Hcl Immed Release 5 Mg Tablet) 5 mg PO Q4H PRN PRN Reason: Pain, Moderate (Pain Scale 4-6 Last Admin: 04/18/21 07:45 Dose: 5 mg Documented by: Sodium Chloride (0.9 % Sodium Chloride Flush 3 Ml Syringe) 3 ml IVFLUSH QSHIFT [facility] Last Admin: 04/18/21 00:00 Dose: 3 ml Documented by: Time Spent With Patient Time: Total time spent is greater than 50% in coordination of care (as docu mented) at patient's floor/unit and/or counseling patient: Time with patient: 15 - 24 minutes Quality Stroke Does the patient have a stroke diagnosis?: No VTE Prior VTE?: No VTE Risk Level:: Medical - low VTE Device Contraindication: N/A - Device Ordered VTE Drug Contraindication: N/A - Med Ordered
[2021-04-18] MEDS: 0.9 % Sodium Chloride Flush 3 ML SYRINGE IVFLUSH ×4 (09:59→20:12)
--- NOTE | 2021-04-18 11:07 | HO.PM.IMPN ---
Subjective Subjective Date of Service: 04/18/21 Interval History: Complaining of abdominal pain after JEAN drain pulled out, otherwise tolerating solid diet no nausea, no vomiting, no further bout of diarrhea. Review of Systems General no headache,no dizziness, no fever chills.? CVS no chest pain, no palpitation.? Respiratory no cough, no shortness of breath Gastrointestinal no nausea, no vomiting,? abdominal pain as above Review of Systems: Yes all other systems are reviewed and are negative Physical Exam Vital Signs: Vital Signs: Last Vital Signs Temp 99.3 F 04/18/21 11:01 Pulse 93 04/18/21 11:01 Resp 17 04/18/21 07:13 BP 98/56 L 04/18/21 07:13 Pulse Ox 95 04/18/21 07:13 BMI result Body Mass Index 31.8 General awake alert x3, no acute distress.? Neck? supple ,no JVD. CVS? regular rate rhythm, Respiratory lungs clear to auscultation, no respiratory distress, no wheeze, no rhonchi. Gastrointestinal abdomen incision dry and clean, celia in place, good bowel sounds. Extremities no edema. Neuro nonfocal Skin no rash Psych appropriate affect Objective Data Active Medications Dextrose (Dextrose 50 % 25 Gm/50 Ml Vial) 25 gm IVPUSH Q15M PRN; Protocol PRN Reason: per Hypoglycemia Standing Ord. Glucose (Glucose Gel 15 Gm Gel..Gram.) 15 gm PO Q15M PRN; Protocol PRN Reason: per Hypoglycemia Standing Ord. Insulin Glargine (Insulin Glargine,Hum.Rec.Anlog 100 Unit/Ml 10 Ml Vial) 15 unit SUBCUT BEDTIME [facility] Last Admin: 04/17/21 20:32 Dose: 15 unit Documented by: ALYCIA Insulin Human Lispro (Insulin Lispro 100 Unit/Ml 3 Ml Vial) 0 unit SUBCUT QIDACHS [facility]; Protocol Last Admin: 04/18/21 07:45 Dose: 2 unit Documented by: JAEMS Lorazepam (Lorazepam 2 Mg/Ml Vial) 0.25 mg IVPUSH Q4H PRN PRN Reason: anxiety/restlessness Last Admin: 04/18/21 01:42 Dose: 0.25 mg Documented by: ALYCIA Omeprazole (Omeprazole 40 Mg Hayder.) 40 mg PO BID@0630,1630 [facility] Oxycodone HCl (Oxycodone Hcl Immed Release 5 Mg Tablet) 5 mg PO Q4H PRN PRN Reason: Pain, Moderate (Pain Scale 4-6 Last Admin: 04/18/21 07:45 Dose: 5 mg Documented by: JAMES Sodium Chloride (0.9 % Sodium Chloride Flush 3 Ml Syringe) 3 ml IVFLUSH QSHIFT [facility] Last Admin: 04/18/21 09:59 Dose: 3 ml Documented by: JAMES Labs CBC & Chem 7: 04/17/21 05:21 04/17/21 05:21 Labs: Laboratory Results - last 24 hr 04/17/21 04/17/21 04/18/21 15:55 19:31 07:08 POC Glucose 232 H 219 H 152 H Assessment and Plan (1) Peritonitis (acute) generalized: Status: Acute (2) Type 1 diabetes mellitus: Status: Acute (3) Hyperkalemia: Status: Acute (4) Perforated gastric ulcer: Status: Acute Assessment and Plan: 40yo F with DM1 admitted to ICU with acute perforated gastric ulcer requiring pressor support s/p suture ligature + omental patch, POD #5 stepped down to [facility] 04/12/21 # perforated gastric ulcer/generalized peritonitis ?? abdominal pain improving, no nausea no vomiting, developed abdominal pain after JEAN drain removed, will give 1 dose of IV Dilaudid and discontinue Dilaudid, continue oxycodone as needed q.4 hours ?? Fluid culture negative from ex-lap ?? POD#7, Surgery following, JEAN drain removed, tolerating regular diet, not on any antibiotic, will transition IV PPI to by mouth today Plan for discharge at a.m., encourage ambulation, out of bed to chair # acute blood loss anemia due to GI bleed - monitor Hb, hematocrit stable today, transfuse if <7 # tachycardia # hypovolemic shock - resolved # DM1 - A1c 8.3 - blood sugar around 200, continue Lantus 15 units daily, continue correction-dose lispro.? will adjust dose of Lantus [uses 30 units of Lantus daily at home] # hyperK - resolved # VTE ppx - SCDs # dispo - anticipate home with VNA tomorrow Quality Stroke Does the patient have a stroke diagnosis?: No VTE Prior VTE?: No VTE Risk Level:: Medical - low VTE Device Contraindication: N/A - Device Ordered VTE Drug Contraindication: N/A - Med Ordered
[2021-04-18 11:34] LABS: Glucose, Whole Blood 222 mg/dL (60-115)
[2021-04-18 16:13] LABS: Glucose, Whole Blood 224 mg/dL (60-115)
[2021-04-18] MEDS: Omeprazole 40 MG CAPSULE.DR PO (16:24)
[2021-04-18] MEDS: Acetaminophen 325 MG TABLET 650 MG PO (17:41)
[2021-04-18 20:34] LABS: Glucose, Whole Blood 259 mg/dL (60-115)
[2021-04-18] MEDS: Insulin Glargine,Hum.rec.anlog 100 UNIT/ML 10 ML VIAL 15 UNIT SUBCUT (21:01)
[2021-04-19] MEDS: LORazepam 2 MG/ML VIAL 0.25 MG IVPUSH
[2021-04-19 04:00] VITALS: BP 116/62; PULSE 95; RESP 20; TEMP 37; O2SAT 94
[2021-04-19 06:00] VITALS: BMI 28.8
[2021-04-19] MEDS: Omeprazole 40 MG CAPSULE.DR PO (06:40)
[2021-04-19] MEDS: oxyCODONE HCl Immed Release 5 MG TABLET PO ×3 (06:40→10:55)
[2021-04-19] MEDS: Acetaminophen 325 MG TABLET 650 MG PO ×3 (06:40→13:57)
[2021-04-19 07:11] VITALS: BP 100/58; PULSE 96; RESP 18; TEMP 37; O2SAT 96
[2021-04-19 07:27] LABS: Glucose, Whole Blood 185 mg/dL (60-115)
[2021-04-19] MEDS: Insulin Lispro 100 UNIT/ML 3 ML VIAL SUBCUT ×2 (07:59→11:52)
[2021-04-19] MEDS: 0.9 % Sodium Chloride Flush 3 ML SYRINGE IVFLUSH (08:01)
[2021-04-19 11:05] VITALS: BP 103/61; PULSE 97; RESP 18; TEMP 36.7; O2SAT 94
--- NOTE | 2021-04-19 11:09 | MHC.CM.PN ---
pt dcd home no skilled services orderd by
[2021-04-19 11:13] LABS: Glucose, Whole Blood 161 mg/dL (60-115)
--- NOTE | 2021-04-19 11:25 | P.DS_ITS ---
DS: Providers Provider Date of Service: 04/19/21 Date of admission: 04/11/21 05:22 Primary care physician: Gene Esparza MD Consults: 04/11/21 08:58 Consult to Gastroenterology Routine Consulting Provider: Ligia Woodson Reason for consultation: abnormal bowel on CT/abdominal pain Has provider been notified: Yes 04/11/21 10:49 Consult to General Surgery Stat Consulting Provider: Eric Moe Reason for consultation: acute abdomen Has provider been notified: Yes 04/11/21 19:27 Consult to Infectious Diseases Stat Consulting Provider: Audelia Bowens Reason for consultation: NEW [place] Has provider been notified: Yes DS: Diagnosis Discharge Diagnosis (1) Peritonitis (acute) generalized: Status: Acute (2) Type 1 diabetes mellitus: Status: Acute (3) Hyperkalemia: Status: Acute (4) Perforated gastric ulcer: Status: Acute DS: Summary Hospital Course Hospital Course: Date of Service: 04/11/21 Attending physician on admission: Clarisa Funes Chief Complaint: Weakness and abdominal pain 40-year-old female type 1 diabetic presenting with weakness and abdominal pain which she feels across the epigastrium not into her back with a sense of nausea but no vomiting just yet no change in bowel habits no evidence of hematemesis no hematochezia and no fever this is all within less than 24 hours time was noted to be markedly hyperglycemic as well as having positive anion gap metabolic acidosis with positive acetone presumably therefore diabetic ketoacidosis which behaved intractably even on the IV insulin and IV fluid replacement which was aggressive The CT scan of the abdomen and pelvis initially it was read as having submucosal thickening noted in portions of the small bowel and there was some questionable free fluid that was noted in the abdomen with with some evidence of mesenteric stranding in relation to those portions of the small bowel that appeared thickened but on repeat blood work as there was some mild resolution of her metabolic acidosis with serum bicarb only climbing up to about 14 compensated pH of 7.3 due to a pCO2 of 22 we noted that there was a drop in hemoglobin and then she started to drop blood pressure is well and clearly had flat neck veins flat inferior vena cava and the presumption was of course is that she was she was bleeding and it at as yet had no hematemesis and no evidence of hematochezia or melena and on the CT scan because there was such a large volume in the stomach we placed an NG tube and we started to get what appeared to be maroonish heme- positive aspirate and then she vomited very large volume of of of blood big drop in hemoglobin to 6.8 blood pressure initially 77 she responded to volume and then we had to do emergent type and crossmatch surgical consult and GI consult with both called we will reviewed the CT scan together and thought we saw free air between the hepatic border in the lesser curvature of the stomach and we concerned because of the use of nonsteroidals that she might have a perforated ulcer so she was transfused 3 units of blood blood pressure stabilized we kept m dione arterial pressures greater than 65 she was awake and alert taken to the OR of volume repleted where central line was placed and exploratory laparotomy did reveal a bleeding ulcer which was then patched bleeding was controlled she looked well was immediately extubated amount of doing beautifully but her pH felt a 715 because after she was ventilated artificially she was relatively hypo ventilated so hopefully it on her own she will be able to hyperventilate to compensate will relook at all of her electrolytes and redo all of her fluids reinstate her IV insulin drip. Hospital course 40yo F with DM1 admitted to ICU with diagnosis of DKA and acute perforated gastric ulcer requiring pressor support and underwent emergent surgery s/p suture ligature + omental patch, patient noted to have generalized peritonitis treated aggressively with IV antibiotics, IV PPI, antiemetics, analgesics and subsequently stepped down to [facility] on 04/12/21, postprocedure her diet has been gradually advanced, abdominal fluid culture showed no growth, JEAN drain removed, patient is tolerating regular diet antibiotics has been discontinued, she has been placed on by mouth PPI car incision site looks clean with no drainage patient followed closely by General surgery now being discharged home on Prilosec 40 mg b.i.d. and oxycodone 5 mg q.4 hours as needed for pain patient has been recommended to gradually taper use of narcotics and to have outpatient follow-up with General surgery Dr. Moe in [address] Woodson from Gastroenterology in next 1-2 weeks she has been recommended to avoid aspirin and NSAIDs. Patient noted to have acute blood loss anemia due to GI bleed, her hematocrit remains stable, recommend close outpatient PCP follow-up. In regard to diabetes mellitus type 1 patient has been started back on Lantus and Humalog before meals hemoglobin A1cs 8.3 she has been recommended diabetic diet hyperK- resolved Time Spent with Patient Time attestation: Total time spent providing and/or coordinating discharge services: Discharge coordination time: Greater than 30 minutes Quality: Stroke Does the patient have a stroke diagnosis?: No Physical Exam Vital Signs: Vital Signs: Last Vital Signs Temp 98.0 F 04/19/21 11:05 Pulse 97 04/19/21 11:05 Resp 18 04/19/21 11:05 BP 103/61 04/19/21 11:05 Pulse Ox 94 04/19/21 11:05 BMI result Body Mass Index 28.8 General awake alert x3, no acute distress.? Neck? supple ,no JVD. CVS? regular rate rhythm, Respiratory lungs clear to auscultation, no respiratory distress, no wheeze, no rhonchi. Gastrointestinal abdomen incision dry and clean, celia in place, good bowel sounds. Extremities no edema. Neuro nonfocal Skin no rash Psych appropriate affect DS: Data Data Completed and Pending Completed studies during hospitalization [Text1]: Pending at discharge 04/11/21 13:49 Surgical [PTH] Stat Labs on day of discharge: Laboratory Results - last 24 hr 04/18/21 04/18/21 04/18/21 11:16 16:08 20:27 POC Glucose 222 H 224 H 259 H 04/19/21 04/19/21 07:10 11:06 POC Glucose 185 H 161 H Discharge Plan Discharge Patient Disposition: Home, Self-Care Discharge Diagnosis: DKA Perforated gastric ulcer Generalized peritonitis Referrals: Gene Esparza MD [Primary Care Provider] - 1 Week Eric Moe MD [Physician] - 1 Week Discharge Medications: New omeprazole 40 mg Capsule,Delayed Release(Dr/Ec) 40 mg PO BID@0630,1630 Qty: 60 RF: 0 oxycodone 5 mg Tablet 5 mg PO Q4H PRN (Reason: Pain, Moderate (Pain Scale 4-6) Qty: 30 RF: 0 Continued insulin lispro [Humalog KwikPen Insulin] 100 unit/mL insulin pen 5 unit subcut TID RF: 0 ondansetron 4 mg tablet,disintegrating 4 mg PO Q8H PRN (Reason: nausea and vomiting) Qty: 20 RF: 0 Changed Lantus Solostar U-100 Insulin 100 unit/mL (3 mL) insulin pen 20 unit subcut DAILY@1700 Qty: 0 RF: 0 Discontinued doxycycline hyclate 100 mg capsule 100 mg PO BID 7 Days Qty: 14 RF: 0 hydrocodone-acetaminophen 5-325 mg tablet 1 tab PO Q6H PRN (Reason: pain) Qty: 12 RF: 0 cephalexin 500 mg capsule 500 mg PO TID 7 Days Qty: 21 RF: 0 Discharge Orders: Discharge Order (Routine); Ordered 04/19/21 Ordered By: Nadine Sauer Diet: diabetic diet Activity on Discharge: As tolerated Stand Alone Forms: Patient Portal Discharge page Activity Restrictions/Additional Instructions: If the incision area is tender, you may apply an ice pack for short intervals (No more than 20 minutes on, followed by at least 20 minutes off). Do not apply heat. Do not use creams, lotions, or topical antibiotics unless instructed to do so by your surgeon. These can cause infection or allergic reaction. Ok to shower. You have celia closing your incision and these will be removed approximately 10-14 days after surgery. NO HEAVY LIFTING (>10lbs). AVOID ALL NSAIDS including but not limited to aspirin, aleve, ibuprofen, motrin, naproxen, naprosyn. Follow up in office. ([phone]) Call Your Doctor If: -Your temperature exceeds 101.5? F -You experience excessive pain or swelling -You have an unexpected reaction to medication -You have excessive bleeding -You experience continued vomiting/nausea -Your incision begins to separate -Your incision shows signs of infection such as increased redness, swelling, excessive pain, drainage (light blood or clear fluid is normal) or heat Care Plan Goals: Take oxycodone as needed for pain and gradually taper dose next 2-3 days, take stool softeners to avoid constipation while on oxycodone Avoid ASPIRIN AND ALL NSAIDS Health Concerns: Diabetes mellitus continue Lantus dose reduced to 20 units due to decreased by mouth intake, increase dose to 30 units if noted to have elevated blood sugars Gastric ulcer take Prilosec and follow-up with gastroenterology and primary care Plan of Treatment: Outpatient follow-up with Dr. Moe in 1 week, outpatient follow-up with Dr. Woodson from Gastroenterology in 2 weeks for monitoring of gastric ulcer. For follow-up with primary care physician in 1-2 weeks Assessment: As above
== END 2021-04-19 14:53 | disposition home or self-care (01) | DRG 220 ==
LOC: HO.ED 04-11 04:12 → HO.EDOVER 04-11 05:28 → HO.ICU 04-11 05:46 → HO.IMC 04-12 15:24
PROVIDERS: Family Medicine; Internal Medicine Cardiovascular Disease; Surgery; Admitting Provider Physician Assistant; Emergency Provider Student in an Organized Health Care Education/Training Program; PCP Internal Medicine; Visit Provider Hospitalist
PROC: 0DU607Z Supplement Stomach with Autologous Tissue Substitute, Open Approach (ICD-10-PCS; CPT 49000; principal; 2021-04-11 12:30)
DX: K25.2 Acute gastric ulcer with both hemorrhage and perforation (principal); R57.1 Hypovolemic shock; E10.10 Type 1 diabetes mellitus with ketoacidosis without coma; K65.9 Peritonitis, unspecified; E87.1 Hypo-osmolality and hyponatremia; E87.5 Hyperkalemia; F41.9 Anxiety disorder, unspecified; R00.0 Tachycardia, unspecified; T39.395A Adverse effect of other nonsteroidal anti-inflammatory drugs [NSAID], initial encounter; D62 Acute posthemorrhagic anemia; Y92.9 Unspecified place or not applicable; Z20.822 Contact with and (suspected) exposure to COVID-19; Z79.1 Long term (current) use of non-steroidal anti-inflammatories (NSAID); Z79.4 Long term (current) use of insulin; Z87.891 Personal history of nicotine dependence
CPT/HCPCS: 36415; 71045; 74018; 74177; 80048; 80053; 80307; 81001; 82009; 82272; 82803; 82947; 83036; 83516; 83605; 83690; 83735; 84100; 85025; 85027; 85652; 86140; 86850; 86900; 86901; 86920; 86923; 87040; 87070; 87073; 87177; 87205; 87209; 87493; 87635; 88161; 88305; 88331; 88342; 89055; 96361; 96365; 96366; 96367; 96368; 96375; 97116; 97162; 99024; 99285; C1751; J0131; J0330; J1170; J1450; J1650; J2060; J2185; J2250; J2405; J2543; J3010; P9016; P9017; P9047; Q9967

== ENCOUNTER → 2021-05-02 15:34 | Outpatient (BNVA) | payer MEDICAID, SELFPAY | PROVIDERS: PCP Internal Medicine; Visit Provider Surgery | DX: Z48.815 Encounter for surgical aftercare following surgery on the digestive system (principal); Z87.11 Personal history of peptic ulcer disease; T39.395D Adverse effect of other nonsteroidal anti-inflammatory drugs [NSAID], subsequent encounter | CPT/HCPCS: 99212 ==

== ENCOUNTER 2021-05-18 15:12 | Outpatient (REF) | payer MEDICAID, SELFPAY | END 2021-05-18 15:13 | disposition home or self-care (01) | LOC: HO.LNP 15:12 | PROVIDERS: PCP Internal Medicine; Visit Provider Surgery | DX: K25.5 Chronic or unspecified gastric ulcer with perforation (principal); Z87.891 Personal history of nicotine dependence; Z79.4 Long term (current) use of insulin | CPT/HCPCS: 87071; 87205; 99212 ==

== ENCOUNTER → 2021-05-25 08:55 | Outpatient (BNVA) | payer MEDICAID, SELFPAY | PROVIDERS: PCP Internal Medicine; Visit Provider Surgery | DX: Z48.815 Encounter for surgical aftercare following surgery on the digestive system (principal); Z87.19 Personal history of other diseases of the digestive system | CPT/HCPCS: 99212 ==

== ENCOUNTER → 2021-06-02 11:48 | Outpatient (BNVA) | payer MEDICAID, SELFPAY | PROVIDERS: PCP Internal Medicine; Visit Provider Surgery | DX: K25.5 Chronic or unspecified gastric ulcer with perforation (principal) | CPT/HCPCS: 99212 ==

== ENCOUNTER → 2021-06-22 10:29 | Outpatient (BNVA) | payer MEDICAID, SELFPAY | PROVIDERS: PCP Internal Medicine; Visit Provider Physician Assistant | DX: Z02.1 Encounter for pre-employment examination (principal); R94.5 Abnormal results of liver function studies; R10.10 Upper abdominal pain, unspecified; K25.5 Chronic or unspecified gastric ulcer with perforation; E10.9 Type 1 diabetes mellitus without complications; Z87.891 Personal history of nicotine dependence; Z79.4 Long term (current) use of insulin; Z79.891 Long term (current) use of opiate analgesic; Z79.899 Other long term (current) drug therapy | CPT/HCPCS: 99212 ==

== ENCOUNTER 2021-06-22 12:49 | Outpatient (REF) | payer MEDICAID, SELFPAY ==
[2021-06-22 13:03] LABS: MANUAL DIFF FLAG NO
[2021-06-22 13:32] LABS: Basophils Absolute Auto 0.1 X10*3/uL (0.0-0.2); Basophils Percent Auto 0.8 % (0-2); Eosinophils Absolute Auto 0.2 X10*3/uL (0.0-0.4); Eosinophils Percent Auto 2.4 % (0-4); Hematocrit 34.8 % (37.0-47.0); Hemoglobin 10.2 g/dl (12.0-16.0); Imm Gran Abs Auto 0.02 X10*3/uL (0.00-0.03); Imm Gran Pct Auto 0.2 % (0.0-0.4); Lymphocytes Absolute Auto 2.7 X10*3/uL (1.2-4.9); Lymphocytes Percent Auto 32.5 % (20-40); Mean Corpuscular HGB Conc 29.3 g/dl (31.0-35.0); Mean Corpuscular Hemoglobin 20.4 pg (27.0-33.0); Mean Corpuscular Volume 69.6 fL (80.0-98.0); Monocytes Absolute Auto 0.5 X10*3/uL (0.1-1.2); Monocytes Percent Auto 6.4 % (2-11); Neutrophils Absolute Auto 4.8 x10*3/uL (2.0-8.3); Neutrophils Percent Auto 57.7 % (45-73); Platelet Count 219 X10*3/uL (160-400); Red Cell Distribution Width 15.4 % (11.0-16.0); White Blood Count 8.3 X10*3/uL (4.8-10.8)
[2021-06-22 14:01] LABS: Alanine Aminotransferase 64 U/L (0-31); Albumin Level 4.1 g/dL (3.5-5.0); Alkaline Phosphatase 352 U/L (39-117); Anion Gap 12 (12-20); Aspartate Amino Transferase 58 U/L (5-31); Bilirubin Total 1.1 mg/dL (0.0-1.0); Blood Urea Nitrogen 12 mg/dL (9-16); Calcium 9.6 mg/dL (8.4-10.2); Carbon Dioxide 23 mmol/L (22-29); Chloride 104 mmol/L (96-108); Estimated Glomerular Filt Rate > 60; Glucose Random 234 mg/dL (60-115); Lipase 12 U/L (8-78); Potassium 4.3 mmol/L (3.3-5.1); Sodium 135 mmol/L (135-145); Total Protein 7.2 g/dL (6.5-8.0)
[2021-06-22 14:22] LABS: Ferritin 15 ng/mL (10-250)
== END 2021-06-22 12:50 | disposition home or self-care (01) ==
LOC: HO.LAB 12:49
PROVIDERS: PCP Internal Medicine; Visit Provider Internal Medicine Gastroenterology
DX: R10.10 Upper abdominal pain, unspecified (principal); D64.9 Anemia, unspecified; K25.5 Chronic or unspecified gastric ulcer with perforation
CPT/HCPCS: 36415; 80053; 82728; 83690; 85025; 99212

== ENCOUNTER → 2021-06-23 10:16 | Outpatient (BNVA) | payer MEDICAID, SELFPAY | PROVIDERS: PCP Internal Medicine; Visit Provider Surgery | DX: K25.5 Chronic or unspecified gastric ulcer with perforation (principal) | CPT/HCPCS: 99212 ==

== ENCOUNTER 2021-06-26 11:43 | Outpatient (REF) | payer MEDICAID, SELFPAY ==
--- NOTE | ~2021-06-26 | CT_ITS ---
EXAMINATION: CT ABDOMEN AND PELVIS WITHOUT CONTRAST CLINICAL INFORMATION: Chronic or unspecified gastric ulcer with perforation. COMPARISON: CT abdomen and pelvis 04/11/2021 TECHNIQUE: Multidetector volumetric imaging was performed from the superior aspect of the liver through the pubic symphysis. Sagittal and coronal reformatted images were obtained on the technologist's workstation. This CT examination was performed using dose optimization techniques as appropriate, variously including the following: *Automated exposure control *Adjustment of mA and/or kV according to patient size (this includes techniques or standardized protocols for targeted exams where dose is matched to indication/reason for exam; i.e. extremities or head) *Use of iterative reconstruction technique DLP: 505 mGy-cm FINDINGS: LUNG BASES: There are band-like atelectatic changes in both lower lobes. LIVER, GALLBLADDER, AND BILIARY TREE: The liver is normal in size, shape, and attenuation. No focal hepatic lesion or biliary ductal dilatation is present. The gallbladder is nondistended with slightly isodense sludge visualized. No wall thickening or pericholecystic fluid collection. PANCREAS: Unremarkable. SPLEEN: Unremarkable. ADRENAL GLANDS: Unremarkable. KIDNEYS AND URETERS: The kidneys are normal in size, shape, and attenuation. There are bilateral nonobstructive renal calculi. The largest 3 mm radiopaque calculi lower pole left kidney and 2 mm several radiopaque calculi in upper, mid and lower pole right kidney. BLADDER: Unremarkable. GASTROINTESTINAL TRACT: There is a large amount of stool seen in the colon without significant distention. Minimal oral contrast is seen in the small bowel loops and appears unremarkable. The stomach is distended with oral contrast. ABDOMINAL WALL: There is a small periumbilical hernia containing fat. There are midline surgical sutures in the anterior upper abdomen. LYMPH NODES: Normal. VASCULAR: Unremarkable. PELVIC VISCERA: The uterus is retroverted and appears unremarkable. OSSEOUS STRUCTURES: There is an L5-S1 fusion with disc prosthesis. No gross bony abnormality is seen. CT/CT abdomen pelvis wo con IMPRESSION: Significant constipation without obstruction. No free air or free fluid seen. Nonobstructive bilateral renal calculi. No hydroureteronephrosis. Fleischner guidelines were followed.
[2021-06-26] MEDS: Diatrizoate Meglumine, Sodium 30 ML SOLUTION PO (14:08)
== END 2021-06-26 11:44 | disposition home or self-care (01) ==
LOC: HO.CT 11:43
PROVIDERS: PCP Internal Medicine; Visit Provider Surgery
DX: K25.5 Chronic or unspecified gastric ulcer with perforation (principal)
CPT/HCPCS: 74176

== ENCOUNTER 2021-07-10 11:05 | Day surgery (SDC) | payer MEDICAID, SELFPAY ==
--- NOTE | 2021-07-10 11:31 | MHC.SHP ---
Pre-Procedural Eval Section A Date of Service: 07/10/21 The patient is an INPATIENT: No Changes since office visit: Yes Patient answered all questions; No Cold of Flu in the past 2 weeks, No New Medical Problems and No Changes in Medication The History & Physical has been completed within 30 days and I have reviewed it.: Yes Section B Chief Complaint: abd pain Allergies: Allergies Allergy/AdvReac Type Severity Reaction Status Date / Time No Known Allergies Allergy Mild NONE Verified 06/23/21 10:26 Plan I have reviewed the history and physical and performed a pertinent physical examination on my patient. No changes have occurred unless specified.
--- NOTE | 2021-07-10 11:31 | PM.OP ---
Brief Operative Note Date of Service: 07/10/21 Pre-op diagnosis: Abd pain, nausea and vomiting, FU of perforated status post surgery 04/11/21 Post-op diagnosis: other (Healing gastric ulcer, gastritis) Procedure: FLEXIBLE TRANSORAL UPPER GASTROINTESTINAL ENDOSCOPY WITH BIOPSIES Consent: Indications for the procedure and potential complications of bleeding, perforation, reaction to medications and missed diagnosis were discussed with the patient and informed consent was obtained. Instrument: Olympus GIF H 190 mid size upper endoscope Monitoring: Vital signs and clinical assessment, continuous EKG monitoring, Pulse oximetry, Carbon Dioxide monitoring and blood pressure monitoring were done throughout the procedure. Procedure: The patient was placed in the left lateral decubitis position and pre-procedure medications were administered and a bite block was placed. The endoscope was inserted into the mouth and advanced under direct vision to the third part of duodenum. A careful inspection was made as the upper endoscope was withdrawn including a retroflexed examination of the proximal stomach; Findings and interventions are described below. Findings: Larynx: Normal Esophagus: GE junction at 36. No esophagitis or De La Torer's. Stomach: Some bile noted in the stomach which was suctioned. Edematous folds at the lesser curvature/incisura with a 2 cms healing ulcer - Two ligatures seen at the ulcer site - biopsies were obtained from the ulcer and from the gastric antrum to check for H Pylori. Grade 2 flap valve on retroflexed examination of the cardia. Duodenum: Normal bulb and descending duodenum Intervention: Biopsies as noted above Impression and Post Procedure Diagnosis: Endoscopy Findings: STOMACH: Some bile noted in the stomach which was suctioned. Edematous folds at the lesser curvature/incisura with a 2 cms healing ulcer - Two ligatures seen at the ulcer site - biopsies were obtained from the ulcer and from the gastric antrum to check for H Pylori. Plan: Await pathology results. Continue Omeprazole 40 mg twice daily. Patient has an appointment on 11/02/21 in the GI Clinic with Ligia Woodson M.D. Repeat EGD in 4 months to confirm gastric ulcer has healed. Above findings were reviewed with the patient and PUD and diet for Gastric ulcer handouts were given in the discharge area ADDENDUM: Biopsies showed: A.? Stomach, ulcer, biopsy:? Ulcerated gastric mucosa; no Helicobacter organism seen. B.? Stomach, antrum, biopsy:? Antral-type mucosa with moderate chronic inactive inflammation; no Helicobacter organisms seen. Surgeon: Ligia Woodson MD Anesthesia: MAC (Dr Peterson) Was an Client Director used for this Procedure?: No Client Director: Jody Lewis Estimated blood loss (mL): 0 Pathology: other (A. gastric ulcer bxs B. gastric antrum bxs, R/O H. pylori) Condition: stable Disposition: PACU
[2021-07-10 11:40] VITALS: BMI 26.2
--- NOTE | 2021-07-10 11:51 | P.CONAN_ITS ---
[facility] Active Problems Active Problems: All Active Problems (Updated 06/22/21 @ 12:33 by Ligia Woodson MD) Perforated gastric ulcer (Acute) Upper abdominal pain (Acute) Anemia (Acute) Past Medical History Medical History Diabetes Type 1 diabetes mellitus Family History Family history of problems with anesthesia: No Surgical History Surgical History H/O exploratory laparotomy (04/11/21) History of Problems with Anesthesia: Yes Social History Social History Household Members: Children Housing: House Do you presently have visiting nurse or other home services: No Patient Tobacco Use Status: Former Tobacco user Quit Date: -10YEARS Tobacco use type: Cigarette Cigarettes Per Day: 3 Smoked in Last 30 Days: No Use of substances other than those prescribed or required for medical reasons: No Are you DNR?: No Advance Directives: No Advance Directives Information Provided: No Recently lost weight without trying: Yes How much weight loss: 14-23 pounds Nutrition Risks: No Nutritional Risk service: No Current occupational status: unemployed Meds Allergies Allergy/AdvReac Type Severity Reaction Status Date / Time No Known Allergies Allergy Mild NONE Verified 06/23/21 10:26 Home Medications Medication Instructions Recorded Confirmed Last Taken Type insulin lispro 100 unit/mL 5 unit SUBCUT TID 04/19/21 06/23/21 Unknown History subcutaneous pen (Humalog KwikPen (U-100) Insulin) tramadol 50 mg tablet 1 tab PO Q4H 07/10/21 07/10/21 07/10/21 History Exam Exam Date and Time: July 10, 2021 1151 Height,Weight and Vital Signs: Height 5 ft 4 in Weight 69.4 kg Airway Mallampati Class: II TM Dist: >3cm Neck ROM: Full Loose/Missing/Broken Teeth: No Heart: RRR Lungs: CTA Assessment and Plan Assessment Anesthesia Assessment: Anesthesia Plan Discussed and Chart Reviewed Final Anesthetic Review Family History of Problems with Anesthesia: No History of Problems with Anesthesia: Yes NPO: Yes ASA Class: II Final Preanesthetic Review: Meds/Allgs Chart Reviewed, Consent Obtained/Reviewed and Anes Risks/Benef Reviewed Patient Risk: Low Procedure Risk: Intermediate Anesthetic Plan Anesthetic Plan: MAC: Disposition: Standard PACU
[2021-07-10 11:59] LABS: UPreg QC Valid YES; Urine Pregnancy NEGATIVE (NEGATIVE)
--- NOTE | 2021-07-10 11:59 | W.PM.OPN ---
Operative Note Operative Note Date of Service: 07/10/21 Narrative: Pre-op diagnosis: Abd pain, nausea and vomiting, FU of perforated with bleeding status post surgery 04/11/21 Post-op diagnosis:?other (Healing gastric ulcer, gastritis) Procedure: FLEXIBLE TRANSORAL UPPER GASTROINTESTINAL ENDOSCOPY WITH BIOPSIES Consent:?Indications for the procedure and potential complications of bleeding, perforation, reaction to medications and missed diagnosis were discussed with the patient and informed consent was obtained. Instrument:?Olympus GIF H 190 mid size upper endoscope Monitoring: Vital signs and clinical assessment, continuous EKG monitoring, Pulse oximetry, Carbon Dioxide monitoring and blood pressure monitoring were done throughout the procedure. Procedure:?The patient was placed in the left lateral decubitis position and pre-procedure medications were administered and a bite block was placed. The endoscope was inserted into the mouth and advanced under direct vision to the third part of duodenum. A careful inspection was made as the upper endoscope was withdrawn including a retroflexed examination of the proximal stomach; Findings and interventions are described below. Findings: Larynx:? Normal Esophagus: GE junction at 36. No esophagitis or De La Torre's. Stomach: Some bile noted in the stomach which was suctioned.? Edematous folds at the lesser curvature/incisura with a 2 cms healing ulcer - Two ligatures seen at the ulcer site - biopsies were obtained from the ulcer and from the gastric antrum to check for H Pylori. Grade 2 flap valve on retroflexed examination of the cardia. Duodenum: Normal bulb and descending duodenum Intervention: Biopsies as noted above Impression and Post Procedure Diagnosis: Endoscopy Findings: STOMACH: Some bile noted in the stomach which was suctioned.? Edematous folds at the lesser curvature/incisura with a 2 cms healing ulcer - Two ligatures seen at the ulcer site - biopsies were obtained from the ulcer and from the gastric antrum to check for H Pylori. Plan: Await pathology results. Continue Omeprazole 40 mg twice daily. Patient has an appointment on 11/02/21 in the GI Clinic with Ligia Woodson M.D. Repeat EGD in 4 months to confirm gastric ulcer has healed. Above findings were reviewed with the patient and PUD and diet for Gastric ulcer handouts were given in the discharge area ADDENDUM: Biopsies showed: A.? Stomach, ulcer, biopsy:? Ulcerated gastric mucosa; no Helicobacter organism seen. B.? Stomach, antrum, biopsy:? Antral-type mucosa with moderate chronic inactive inflammation; no Helicobacter organisms seen. Surgeon: Ligia Woodson MD Anesthesia:?MAC (Dr Peterson) Was an Sales Service Representative used for this Procedure?:?No Sales Service Representative:?Jody Lewis Estimated blood loss (mL):?0 Pathology:?other (A. gastric ulcer bxs? B. gastric antrum bxs, R/O H. pylori) Condition:?stable Disposition:?PACU
[2021-07-10 12:03] LABS: Glucose, Whole Blood 100 mg/dL (60-115)
[2021-07-10] MEDS: Lactated Ringers 1,000 ML 50 ML IVCONT (12:10)
[2021-07-10 12:35] VITALS: BP 96/61; PULSE 80; RESP 18; TEMP 36.6; O2SAT 100
[2021-07-10 12:50] VITALS: BP 115/70; PULSE 68; RESP 18; O2SAT 100
[2021-07-10 13:05] VITALS: BP 120/71; PULSE 80; RESP 18; TEMP 36.2; O2SAT 100
== END 2021-07-10 14:07 | disposition home or self-care (01) ==
PROVIDERS: PCP Internal Medicine; Visit Provider Internal Medicine Gastroenterology
PROC: 0DJ08ZZ Inspection of Upper Intestinal Tract, Via Natural or Artificial Opening Endoscopic (ICD-10-PCS; CPT 43235; principal; 2021-07-10 12:20)
DX: K25.9 Gastric ulcer, unspecified as acute or chronic, without hemorrhage or perforation (principal); K29.50 Unspecified chronic gastritis without bleeding; R74.8 Abnormal levels of other serum enzymes; D64.9 Anemia, unspecified; E10.8 Type 1 diabetes mellitus with unspecified complications; Z79.4 Long term (current) use of insulin; Z79.899 Other long term (current) drug therapy; Z87.891 Personal history of nicotine dependence
CPT/HCPCS: 43239; 81025; 82947; 88305; 88342

== ENCOUNTER → 2021-11-02 09:34 | Outpatient (BNVA) | payer MEDICAID, SELFPAY | PROVIDERS: PCP Internal Medicine; Visit Provider Internal Medicine Gastroenterology | DX: K25.5 Chronic or unspecified gastric ulcer with perforation (principal); R10.10 Upper abdominal pain, unspecified; D64.9 Anemia, unspecified; R79.89 Other specified abnormal findings of blood chemistry; K80.20 Calculus of gallbladder without cholecystitis without obstruction; Z98.890 Other specified postprocedural states | CPT/HCPCS: 99212 ==

== ENCOUNTER 2021-11-14 07:23 | Day surgery (SDC) | payer MEDICAID, SELFPAY ==
[2021-11-07 15:39] VITALS: BMI 27.9
[2021-11-14 07:50] VITALS: BP 115/76; PULSE 81; RESP 16; TEMP 36.1; O2SAT 97; BMI 29.2
[2021-11-14 07:55] LABS: Glucose, Whole Blood 249 mg/dL (60-115)
[2021-11-14 07:57] LABS: UPreg QC Valid YES; Urine Pregnancy NEGATIVE (NEGATIVE)
[2021-11-14] MEDS: Lactated Ringers 1,000 ML 100 ML IVCONT (07:59)
--- NOTE | 2021-11-14 08:16 | P.CONAN_ITS ---
FORMERLY [facility] Active Problems Active Problems: All Active Problems (Updated 11/07/21 @ 15:29 by Priscila Shepherd RN) Anemia (Acute) Upper abdominal pain (Acute) Perforated gastric ulcer (Acute) Elevated LFTs (Acute) Asymptomatic gallstones (Acute) Past Medical History Medical History Chronic back pain Diabetes History of vertigo Type 1 diabetes mellitus Patient : No Family History Family history of problems with anesthesia: No Surgical History Surgical History (Updated 11/07/21 @ 15:29 by Priscila Shepherd RN) H/O exploratory laparotomy History of back surgery History of esophagogastroduodenoscopy (EGD) History of Problems with Anesthesia: Yes Social History Social History Household Members: Children Housing: House Do you presently have visiting nurse or other home services: No Patient Tobacco Use Status: Former Tobacco user Quit Date: -10YEARS Tobacco use type: Cigarette Cigarettes Per Day: 3 Use of substances other than those prescribed or required for medical reasons: No Advance Directives: No Advance Directives Information Provided: Yes service: No Current occupational status: unemployed Meds Allergies Allergy/AdvReac Type Severity Reaction Status Date / Time No Known Allergies Allergy Mild NONE Verified 11/02/21 09:40 Active Medications: Current Medications Lactated Ringer's (Lr) 1,000 mls @ 100 mls/hr IVCONT .Q10H LILIAN Last Admin: 11/14/21 07:59 Dose: 100 mls/hr Ondansetron HCl (Ondansetron Hcl 4 Mg/2 Ml Vial) 4 mg IVPUSH ONCE PRN PRN Reason: Nausea and Vomiting Ondansetron HCl (Ondansetron Hcl 4 Mg/2 Ml Vial) 4 mg IVPUSH ONCE PRN PRN Reason: Nausea and Vomiting Home Medications Medication Instructions Recorded Confirmed Last Taken Type insulin lispro 100 unit/mL 5 unit subcut TID 04/19/21 11/07/21 Unknown History subcutaneous pen (Humalog KwikPen (U-100) Insulin) tramadol 50 mg tablet 1 tab PO Q4H 07/10/21 11/07/21 07/10/21 History lorazepam 0.5 mg tablet 1 tab PO BID 11/07/21 11/07/21 Unknown History Exam Exam Date and Time: November 14, 2021 0816 Height,Weight and Vital Signs: Height 5 ft 4 in Weight 77.111 kg Last Vital Signs Temp 96.9 F 11/14/21 07:50 Pulse 81 11/14/21 07:50 Resp 16 11/14/21 07:50 BP 115/76 11/14/21 07:50 Pulse Ox 97 11/14/21 07:50 O2 Del Method 11/14/21 07:50 Pertinent Lab Results Pertinent Lab Results: Laboratory Tests 11/14/21 11/14/21 07:31 07:48 POC Glucose 249 H Urine Test NEGATIVE Airway Mallampati Class: I TM Dist: >3cm Neck ROM: Full Loose/Missing/Broken Teeth: No Heart: rrr Lungs: clear Assessment and Plan Final Anesthetic Review Family History of Problems with Anesthesia: No History of Problems with Anesthesia: Yes NPO: Yes ASA Class: II Final Preanesthetic Review: No Changes in Pt Med Stat, Meds/Allgs Chart Reviewed, Consent Obtained/Reviewed and Anes Risks/Benef Reviewed Patient Risk: Low Procedure Risk: Low Anesthetic Plan Anesthetic Plan: MAC: Disposition: Standard PACU
--- NOTE | 2021-11-14 08:51 | MHC.SHP ---
Pre-Procedural Eval Section A Date of Service: 11/14/21 The patient is an INPATIENT: No Changes since office visit: Yes Patient answered all questions; No Cold of Flu in the past 2 weeks, No New Medical Problems and No Changes in Medication The History & Physical has been completed within 30 days and I have reviewed it.: Yes Section B Chief Complaint: anemia,gallbladder calculus,abnormal findings,abd Allergies: Allergies Allergy/AdvReac Type Severity Reaction Status Date / Time No Known Allergies Allergy Mild NONE Verified 11/02/21 09:40 Plan I have reviewed the history and physical and performed a pertinent physical examination on my patient. No changes have occurred unless specified.
--- NOTE | 2021-11-14 09:05 | PM.OP ---
Brief Operative Note Date of Service: 11/14/21 Pre-op diagnosis: Follow-up of gastric ulcer Post-op diagnosis: other (Gastritis, retained food in the stomach) Procedure: FLEXIBLE TRANSORAL UPPER GASTROINTESTINAL ENDOSCOPY WITH BIOPSIES Consent: Indications for the procedure and potential complications of bleeding, perforation, reaction to medications and missed diagnosis were discussed with the patient and informed consent was obtained. Instrument: Olympus GIF H 190 mid size upper endoscope Monitoring: Vital signs and clinical assessment, continuous EKG monitoring, Pulse oximetry, Carbon Dioxide monitoring and blood pressure monitoring were done throughout the procedure. Procedure: The patient was placed in the left lateral decubitis position and pre-procedure medications were administered and a bite block was placed. The endoscope was inserted into the mouth and advanced under direct vision to the third part of duodenum. A careful inspection was made as the upper endoscope was withdrawn including a retroflexed examination of the proximal stomach; Findings and interventions are described below. Findings: Larynx: Normal Esophagus: GE junction at 36. No esophagitis or De La Torre's. Stomach: Copious amount of undigested food in the stomach. Edematous folds at the lesser curvature/incisura and ulcer seen on past EGD appeared to have healed. Two ligatures seen at the ulcer site - biopsies were obtained from the gastric antrum to check for H Pylori. Retroflexed examination was not performed. Duodenum: Not examined Intervention: Biopsies as noted above Impression and Post Procedure Diagnosis: Endoscopy Findings: STOMACH: Copious amount of undigested food in the stomach - suggestive of gastroparesis. Pt is taking Tramadol 50 mg 2-3 times daily for back pain which can cause delayed gastric emptying. Edematous folds at the lesser curvature/incisura and ulcer seen on past EGD appeared to have healed. Two ligatures seen at the ulcer site - biopsies were obtained from the gastric antrum to check for H Pylori. Retroflexed examination was not performed. Plan: Letter will be sent with pathology results. Pt will be scheduled for a Gastric Emptying Study. Patient has an appointment on 04/12/22 in the GI Clinic with Ligia Woodson M.D.. Above findings were reviewed with the patient and and Peptic Ulcer Disease handouts were given in the discharge area Surgeon: Ligia Woodson MD Anesthesia: MAC (Dr Almendarez) Was an Meat Cutter used for this Procedure?: Yes Meat Cutter: Jody Lewis Estimated blood loss (mL): 0 Pathology: other (A. Gastric antrum) Condition: stable Disposition: PACU
[2021-11-14 09:12] VITALS: BP 104/67; PULSE 81; RESP 18; TEMP 36.4; O2SAT 97
[2021-11-14 09:27] VITALS: BP 119/74; PULSE 86; RESP 18; TEMP 37; O2SAT 99
[2021-11-14 09:42] VITALS: BP 130/80; PULSE 83; RESP 18; TEMP 36.8; O2SAT 99
--- NOTE | 2021-11-14 12:52 | P.OP_ITS ---
Operative Note Operative Note Date of Service: 11/14/21 Narrative: Pre-op diagnosis: Follow-up of gastric ulcer Post-op diagnosis:?other (Gastritis, retained food in the stomach) Procedure: FLEXIBLE TRANSORAL UPPER GASTROINTESTINAL ENDOSCOPY WITH BIOPSIES Consent:?Indications for the procedure and potential complications of bleeding, perforation, reaction to medications and missed diagnosis were discussed with the patient and informed consent was obtained. Instrument:?Olympus GIF H 190 mid size upper endoscope Monitoring: Vital signs and clinical assessment, continuous EKG monitoring, Pulse oximetry, Carbon Dioxide monitoring and blood pressure monitoring were done throughout the procedure. Procedure:?The patient was placed in the left lateral decubitis position and pre-procedure medications were administered and a bite block was placed. The endoscope was inserted into the mouth and advanced under direct vision to the third part of duodenum. A careful inspection was made as the upper endoscope was withdrawn including a retroflexed examination of the proximal stomach; Findings and interventions are described below. Findings: Larynx:? Normal Esophagus: GE junction at 36. No esophagitis or De La Torre's. Stomach: Copious amount of undigested food in the stomach. Edematous folds at the lesser curvature/incisura and ulcer seen on past EGD appeared to have healed. Two ligatures seen at the ulcer site - biopsies were obtained from the gastric antrum to check for H Pylori. Retroflexed examination was not performed. Duodenum: Not examined Intervention: Biopsies as noted above Impression and Post Procedure Diagnosis: Endoscopy Findings: STOMACH: Copious amount of undigested food in the stomach - suggestive of gastroparesis. Pt is taking Tramadol 50 mg 2-3 times daily for back pain which can cause delayed gastric emptying. Edematous folds at the lesser curvature/incisura and ulcer seen on past EGD appeared to have healed. Two ligatures seen at the ulcer site - biopsies were obtained from the gastric antrum to check for H Pylori. Retroflexed examination was not performed. Plan: Letter will be sent with pathology results. Pt will be scheduled for a Gastric Emptying Study. Patient has an appointment on 04/12/22 in the GI Clinic with Ligia Woodson M.D.. Above findings were reviewed with the patient and? and Peptic Ulcer Disease handouts were given in the discharge area Surgeon: Ligia Woodson MD Anesthesia:?MAC (Dr Almendarez) Was an Interventional Radiology Rn used for this Procedure?:?Yes Interventional Radiology Rn:?Jody Lewis Estimated blood loss (mL):?0 Pathology:?other (A.? Gastric antrum) Condition:?stable Disposition:?PACU
== END 2021-11-14 10:37 | disposition home or self-care (01) ==
PROVIDERS: Nurse Practitioner; PCP Internal Medicine; Visit Provider Internal Medicine Gastroenterology
PROC: 0DJ08ZZ Inspection of Upper Intestinal Tract, Via Natural or Artificial Opening Endoscopic (ICD-10-PCS; CPT 43235; principal; 2021-11-14 08:30)
DX: K25.5 Chronic or unspecified gastric ulcer with perforation (principal); D64.9 Anemia, unspecified; R79.89 Other specified abnormal findings of blood chemistry; K80.20 Calculus of gallbladder without cholecystitis without obstruction; K29.50 Unspecified chronic gastritis without bleeding; K30 Functional dyspepsia; K21.9 Gastro-esophageal reflux disease without esophagitis; G89.29 Other chronic pain; M54.9 Dorsalgia, unspecified; Z98.890 Other specified postprocedural states; E10.9 Type 1 diabetes mellitus without complications; Z79.4 Long term (current) use of insulin; Z79.1 Long term (current) use of non-steroidal anti-inflammatories (NSAID); Z79.899 Other long term (current) drug therapy; Z87.891 Personal history of nicotine dependence
CPT/HCPCS: 43239; 81025; 82947; 88305; 88342

== ENCOUNTER → 2022-02-13 09:57 | Outpatient (BNVA) | payer MEDICAID, SELFPAY | PROVIDERS: PCP Internal Medicine; Referring Provider Physician Assistant; Visit Provider Surgery | DX: K43.2 Incisional hernia without obstruction or gangrene (principal) | CPT/HCPCS: 99212 ==

== ENCOUNTER 2022-02-28 06:14 | Day surgery (SDC) | payer MEDICAID, SELFPAY ==
[2022-02-23 14:42] VITALS: BMI 28.8
--- NOTE | 2022-02-27 09:45 | HO.ANESPROP2 ---
Documented by User: Roxy Lopez NP 02/27/22 09:49 HPI - Anesthesia Eval Consult details Narrative: 41yo F for Repair of incisional (umbilical) hernia with mesh s/p EGD 11/2021 with [facility] Active Problems Active Problems: All Active Problems (Updated 02/13/22 @ 10:46 by Eric Moe MD) Incisional hernia (Acute) Anemia (Acute) Upper abdominal pain (Acute) Perforated gastric ulcer (Acute) Elevated LFTs (Acute) Asymptomatic gallstones (Acute) Past Medical History Medical History (Updated 02/28/22 @ 06:27 by Esperanza Call RN) Anxiety Chronic back pain Diabetes History of vertigo Type 1 diabetes mellitus Family History Family History Mother Vaginal cancer Family history of problems with anesthesia: No Surgical History Surgical History H/O exploratory laparotomy History of back surgery History of esophagogastroduodenoscopy (EGD) History of Problems with Anesthesia: Yes Social History Social History Household Members: Children Housing: House Do you presently have visiting nurse or other home services: No Patient Tobacco Use Status: Former Tobacco user Quit Date: >6yrs ago Tobacco use type: Cigarette Cigarettes Per Day: 3 Use of substances other than those prescribed or required for medical reasons: No Are you DNR?: No Advance Directives: No Advance Directives Information Provided: Yes service: No Current occupational status: unemployed Meds Allergies Allergy/AdvReac Type Severity Reaction Status Date / Time No Known Allergies Allergy Mild NONE Verified 02/28/22 06:20 Home Medications Medication Instructions Recorded Confirmed Last Taken Type insulin lispro 100 unit/mL 5 unit subcut TID 04/19/21 02/28/22 Unknown History subcutaneous pen (Humalog KwikPen (U-100) Insulin) tramadol 50 mg tablet 1 tab PO Q4H 07/10/21 02/28/22 02/28/22 05:55 History lorazepam 0.5 mg tablet 1 tab PO BEDTIME 11/07/21 02/28/22 Unknown History Exam Exam Date and Time: February 27, 2022 0945 Height,Weight and Vital Signs: Height 5 ft 4.75 in Weight 77.836 kg Pertinent Lab Results Pertinent Lab Results: Laboratory Tests 06/22/21 06/22/21 13:02 13:02 WBC 8.3 Hgb 10.2 L D Hct 34.8 L D Plt Count 219 D Sodium 135 Potassium 4.3 Chloride 104 Carbon Dioxide 23 BUN 12 D Creatinine 0.80 Assessment and Plan Assessment Anesthesia Assessment: Chart Reviewed Final Anesthetic Review Family History of Problems with Anesthesia: No History of Problems with Anesthesia: Yes Documented by User: David Almendarez MD 02/28/22 07:33 [facility] Past Medical History Medical History (Updated 02/28/22 @ 06:27 by Esperanza Call RN) Anxiety Chronic back pain Diabetes History of vertigo Type 1 diabetes mellitus Family History Family History Mother Vaginal cancer Surgical History Surgical History H/O exploratory laparotomy History of back surgery History of esophagogastroduodenoscopy (EGD) Social History Social History Household Members: Children Housing: House Do you presently have visiting nurse or other home services: No Patient Tobacco Use Status: Former Tobacco user Quit Date: >6yrs ago Tobacco use type: Cigarette Cigarettes Per Day: 3 Use of substances other than those prescribed or required for medical reasons: No Are you DNR?: No Advance Directives: No Advance Directives Information Provided: Yes service: No Current occupational status: unemployed Meds Allergies Allergy/AdvReac Type Severity Reaction Status Date / Time No Known Allergies Allergy Mild NONE Verified 02/28/22 06:20 Home Medications Medication Instructions Recorded Confirmed Last Taken Type insulin lispro 100 unit/mL 5 unit subcut TID 04/19/21 02/28/22 Unknown History subcutaneous pen (Humalog KwikPen (U-100) Insulin) tramadol 50 mg tablet 1 tab PO Q4H 07/10/21 02/28/22 02/28/22 05:55 History lorazepam 0.5 mg tablet 1 tab PO BEDTIME 11/07/21 02/28/22 Unknown History Exam Airway Mallampati Class: I TM Dist: >3cm Neck ROM: Full Loose/Missing/Broken Teeth: No Assessment and Plan Final Anesthetic Review NPO: Yes ASA Class: II Final Preanesthetic Review: No Changes in Pt Med Stat, Meds/Allgs Chart Reviewed, Consent Obtained/Reviewed and Anes Risks/Benef Reviewed Patient Risk: Intermediate Procedure Risk: Low Anesthetic Plan Anesthetic Plan: GA Disposition: Standard PACU
[2022-02-28] VITALS (18 sets, daily range): BP systolic 112–125; BP diastolic 65–75; PULSE 80–91; RESP 15–20; TEMP 36.4–36.6; O2SAT 95–100
[2022-02-28 06:36] LABS: UPreg QC Valid YES; Urine Pregnancy NEGATIVE (NEGATIVE)
[2022-02-28 06:42] LABS: Glucose, Whole Blood 196 mg/dL (60-115)
[2022-02-28] MEDS: Lactated Ringers 1,000 ML 100 ML IVCONT (06:49)
--- NOTE | 2022-02-28 08:54 | P.OP_ITS ---
Operative Note Operative Note Date of Service: 02/28/22 Narrative: Preoperative diagnosis: Incisional hernia upper abdomen Postoperative diagnosis: same Procedure: repair of incisional hernia with Surgeon: Eric Moe MD Sweater Designer: Rose Freitas PA-C, ZINA Awan Anesthesia: general endotracheal Indications for procedure: 41-year-old female patient with a previous history of bleeding gastric ulcer status post exploratory laparotomy with plication of bleeding ulcer now presenting with incisional hernia in the lower abdomen. The hernias increasing in size and causing discomfort. She presents for Repair with mesh Operative findings: 8 cm fascial defect located just above the umbilicus repaired with a 11 cm Ventrio round mesh. Specimen: none Estimated blood loss: 10 mL Complications: none Procedure details: patient was brought to the OR placed in a supine position. After administering general anesthesia the patient's abdomen was prepped with ChloraPrep and draped in a sterile fashion. A surgical time-out was called the consent confirmed. Patient received preoperative antibiotics and Venodyne boots were in place. Local anesthesia consisting of 0.5% Sensorcaine was then infiltrated circumferentially around the previous incision. Elliptical incision to excise the previous scar tissue was then performed in the midline of approximately 12 cm length. This was carried down into the subcutaneous tissue. The scar was excised and discarded. Incision was then carried down to the midline fascia. The fascial defect was identified. The sac was then dissected circumferentially and a preperitoneal space created circumferentially. Defect measured approximately 8 cm in diameter. 11 cm round Ventrio mesh was then obtained. Mesh was secured circumferentially using a 1 Tycron suture to the fascia laterally. AbsorbaTack was then used to fixate the mesh circumferentially in the preperitoneal space. Fascia was then closed over the mesh using [id number] 1 Tycron sutures to completely cover the mesh. Prior to complete closure of the fascia 8 mL of Zenrelef was infiltrated over the mesh. The fascia was then completely closed with the 1 Tycron suture. Liberty's fascia and dermis were then reapproximated using interrupted 3-0 Polysorb sutures. Skin was closed using a subcuticular 4-0 Polysorb suture. Steri- Strips 2 x 2 gauze and Tegaderm were then applied. The patient tolerated the procedure well. Sponge, instrument, and needle counts reported as correct. The patient was transferred to PACU in stable condition.
--- NOTE | 2022-02-28 09:01 | MHC.SHP ---
Pre-Procedural Eval Section A Date of Service: 02/28/22 The patient is an INPATIENT: No Changes since office visit: Yes Patient answered all questions; No Cold of Flu in the past 2 weeks, No New Medical Problems and No Changes in Medication The History & Physical has been completed within 30 days and I have reviewed it.: Yes Section B Chief Complaint: Incisional hernia without obstruction or gangrene Allergies: Allergies Allergy/AdvReac Type Severity Reaction Status Date / Time No Known Allergies Allergy Mild NONE Verified 02/28/22 06:20 Plan Diagnosis/Plan: Unchanged I have reviewed the history and physical and performed a pertinent physical examination on my patient. No changes have occurred unless specified.
[2022-02-28] MEDS: Acetaminophen 325 MG TABLET 650 MG PO (09:31)
[2022-02-28] MEDS: oxyCODONE HCl Immed Release 5 MG TABLET PO (09:31)
[2022-02-28] MEDS: fentaNYL citrate/PF 100 MCG/2 ML VIAL 25 MCG IVPUSH ×3 (09:31→09:43)
[2022-02-28] MEDS: HYDROmorphone HCl 0.5 MG/0.5 ML SYRINGE 0.25 MG IVPUSH ×2 (09:54→09:59)
== END 2022-02-28 12:00 | disposition home or self-care (01) ==
PROVIDERS: Nurse Practitioner; PCP Physician Assistant; Visit Provider Surgery
PROC: (CPT 49560; principal; 2022-02-28 07:30)
DX: K43.2 Incisional hernia without obstruction or gangrene (principal); E10.9 Type 1 diabetes mellitus without complications; Z79.4 Long term (current) use of insulin; M54.9 Dorsalgia, unspecified; G89.29 Other chronic pain; Z79.899 Other long term (current) drug therapy; Z87.891 Personal history of nicotine dependence
CPT/HCPCS: 49560; 49568; 81025; 82947; C1781; C9088; J0330; J0690; J1100; J1170; J1885; J2250; J2405; J2550; J2795; J3010

== ENCOUNTER 2022-10-04 13:36 | Outpatient (REF) | payer MEDICAID, SELFPAY ==
[2022-10-04 15:08] LABS: Basophils Absolute Auto 0.1 X10*3/uL (0.0-0.2); Imm Gran Abs Auto 0.03 X10*3/uL (0.00-0.03); Imm Gran Pct Auto 0.4 % (0.0-0.4); MANUAL DIFF FLAG SCAN; Mean Platelet Volume 12.7 fL (9.4-12.3); Red Cell Distribution Width 15.3 % (11.0-16.0); SCAN SMEAR FLAG 1
[2022-10-04 15:10] LABS: Basophils Percent Auto 1.1 % (0-2); Eosinophils Absolute Auto 0.2 X10*3/uL (0.0-0.4); Eosinophils Percent Auto 2.8 % (0-4); Hematocrit 40.7 % (37.0-47.0); Hemoglobin 12.4 g/dl (12.0-16.0); Lymphocytes Absolute Auto 2.1 X10*3/uL (1.2-4.9); Mean Corpuscular HGB Conc 30.5 g/dl (31.0-35.0); Mean Corpuscular Hemoglobin 22.8 pg (27.0-33.0); Mean Corpuscular Volume 74.7 fL (80.0-98.0); Monocytes Absolute Auto 0.6 X10*3/uL (0.1-1.2); Monocytes Percent Auto 7.8 % (2-11); Neutrophils Absolute Auto 4.5 x10*3/uL (2.0-8.3); Neutrophils Percent Auto 59.9 % (45-73); Platelet Count 170 X10*3/uL (160-400); Red Blood Count 5.45 X10*6/uL (4.20-5.50); White Blood Count 7.6 X10*3/uL (4.8-10.8)
[2022-10-04 15:22] LABS: PLT ABN DIST 1
[2022-10-04 15:32] LABS: Alanine Aminotransferase 37 U/L (0-31); Alkaline Phosphatase 235 U/L (39-117); Aspartate Amino Transferase 23 U/L (5-31); Bilirubin Direct 0.2 mg/dL (0.0-0.5); Blood Urea Nitrogen 11 mg/dL (9-16); C Reactive Protein 0.29 mg/dL (< or = 0.50); Estimated Glomerular Filt Rate > 60; Lipase 7 U/L (8-78); Total Protein 6.7 g/dL (6.5-8.0)
[2022-10-04 15:36] LABS: SLIDE REVIEW VERIFIED
== END 2022-10-04 13:37 | disposition home or self-care (01) ==
LOC: HO.LAB 13:36
PROVIDERS: PCP Internal Medicine; Referring Provider Physician Assistant; Visit Provider Internal Medicine Gastroenterology
DX: R10.10 Upper abdominal pain, unspecified (principal); K25.5 Chronic or unspecified gastric ulcer with perforation; K80.20 Calculus of gallbladder without cholecystitis without obstruction; D64.9 Anemia, unspecified; R11.0 Nausea; R79.89 Other specified abnormal findings of blood chemistry; R19.00 Intra-abdominal and pelvic swelling, mass and lump, unspecified site
CPT/HCPCS: 36415; 80076; 82565; 83690; 84520; 85025; 86140; 99212

== ENCOUNTER 2022-10-10 21:33 | Emergency (ER) | payer MEDICAID, SELFPAY ==
--- NOTE | ~2022-10-10 | CT_ITS ---
EXAMINATION: CT ABDOMEN AND PELVIS WITHOUT CONTRAST CLINICAL INFORMATION: Question ventral hernia. COMPARISON: 06/26/2021 TECHNIQUE: Multidetector volumetric imaging was performed from the superior aspect of the liver through the pubic symphysis. Sagittal and coronal reformatted images were obtained on the technologist's workstation. This CT examination was performed using dose optimization techniques as appropriate, variously including the following: *Automated exposure control *Adjustment of mA and/or kV according to patient size (this includes techniques or standardized protocols for targeted exams where dose is matched to indication/reason for exam; i.e. extremities or head) *Use of iterative reconstruction technique DLP: 530 mGy-cm FINDINGS: LUNG BASES: Linear bibasilar atelectasis. LIVER, GALLBLADDER, AND BILIARY TREE: Liver is enlarged, measuring approximately 21 cm in length. No focal hepatic lesion or biliary ductal dilatation is identified on this noncontrast exam. Subtle layering hyperdensity in the gallbladder may represent gallstones or sludge. No appreciable gallbladder wall thickening or surrounding inflammation. PANCREAS: Unremarkable. SPLEEN: Unremarkable. ADRENAL GLANDS: Unremarkable. KIDNEYS AND URETERS: No hydronephrosis or obstructing calculus bilaterally. Few tiny bilateral renal calculi noted. BLADDER: Unremarkable. GASTROINTESTINAL TRACT: No evidence of bowel obstruction. No significant bowel wall thickening is seen. Moderate to large amount of stool is present. The appendix is unremarkable. No free fluid or free air is seen. ABDOMINAL WALL: Broad-based upper abdominal ventral hernia contains a short segment of transverse colon, without evidence for obstruction. LYMPH NODES: No lymphadenopathy is seen, though assessment is limited in the absence of intravenous contrast. VASCULAR: Unremarkable. PELVIC VISCERA: Grossly unremarkable. OSSEOUS STRUCTURES: Disc spacer is present at L5-S1. CT/CT abdomen pelvis wo IV con IMPRESSION: 1. Broad-based upper abdominal ventral hernia containing a short segment of transverse colon, without evidence for obstruction. 2. Moderate to large volume of stool. No evidence of bowel obstruction. 3. Subtle layering hyperdensity in the gallbladder may represent gallstones or sludge.
[2022-10-10 21:46] VITALS: BP 123/63; PULSE 77; RESP 18; TEMP 36.8; O2SAT 99; BMI 27.6
[2022-10-10 22:31] LABS: Basophils Absolute Auto 0.1 X10*3/uL (0.0-0.2); Basophils Percent Auto 0.7 % (0-2); SCAN SMEAR FLAG 1
[2022-10-10 22:33] LABS: Eosinophils Absolute Auto 0.4 X10*3/uL (0.0-0.4); Eosinophils Percent Auto 4.9 % (0-4); Hematocrit 39.2 % (37.0-47.0); Hemoglobin 11.9 g/dl (12.0-16.0); Imm Gran Abs Auto 0.04 X10*3/uL (0.00-0.03); Imm Gran Pct Auto 0.5 % (0.0-0.4); Lymphocytes Absolute Auto 2.4 X10*3/uL (1.2-4.9); Lymphocytes Percent Auto 28.4 % (20-40); MANUAL DIFF FLAG SCAN; Mean Corpuscular HGB Conc 30.4 g/dl (31.0-35.0); Mean Corpuscular Hemoglobin 22.8 pg (27.0-33.0); Mean Corpuscular Volume 75.2 fL (80.0-98.0); Mean Platelet Volume 12.2 fL (9.4-12.3); Monocytes Absolute Auto 0.5 X10*3/uL (0.1-1.2); Monocytes Percent Auto 5.7 % (2-11); Neutrophils Absolute Auto 5.1 x10*3/uL (2.0-8.3); Neutrophils Percent Auto 59.8 % (45-73); Platelet Count 160 X10*3/uL (160-400); Red Blood Count 5.21 X10*6/uL (4.20-5.50); Red Cell Distribution Width 15.4 % (11.0-16.0); White Blood Count 8.4 X10*3/uL (4.8-10.8)
[2022-10-10 22:34] LABS: PLT ABN DIST 1
[2022-10-10 22:49] LABS: Alanine Aminotransferase 32 U/L (0-31); Albumin Level 3.8 g/dL (3.5-5.0); Alkaline Phosphatase 237 U/L (39-117); Anion Gap 17 (12-20); Aspartate Amino Transferase 24 U/L (5-31); Bilirubin Direct 0.2 mg/dL (0.0-0.5); Bilirubin Total 0.6 mg/dL (0.0-1.0); Blood Urea Nitrogen 16 mg/dL (9-16); Calcium 8.9 mg/dL (8.4-10.2); Carbon Dioxide 18 mmol/L (22-29); Chloride 107 mmol/L (96-108); Creatinine Clr Calc Pharmacy 71.3; Estimated Glomerular Filt Rate 56; Glucose Random 558 mg/dL (60-115); Lipase 8 U/L (8-78); Potassium 4.9 mmol/L (3.3-5.1); SLIDE REVIEW VERIFIED; Sodium 137 mmol/L (135-145); Total Protein 6.7 g/dL (6.5-8.0)
[2022-10-11 00:50] VITALS: BP 109/62; PULSE 73; RESP 17; TEMP 36.6; O2SAT 97
--- NOTE | 2022-10-11 01:16 | ED.ABDPAIN ---
HPI - Abdominal Pain General Chief Complaint: Abdominal Pain Stated Complaint: Ulcer on stomach Time Seen by Provider: 10/11/22 01:03 Source: patient Mode of arrival: ambulatory Limitations: no limitations History of Present Illness HPI narrative: Patient 41 years old diabetic with history of perforated bleeding peptic ulcer status post laparotomy and gastrotomy in 04/02 and incisional hernia surgery in 03/03 comes here for increased swelling and pain and mid abdomen for last 3 days patient been able to eat and drink without any significant pain increases no melena no vomiting blood Related Data Home Medications Medication Instructions Recorded Confirmed insulin lispro 100 unit/mL 5 unit subcut TID 04/19/21 10/04/22 subcutaneous pen (Humalog KwikPen (U-100) Insulin) tramadol 50 mg tablet 1 tab PO Q4H 07/10/21 10/04/22 lorazepam 0.5 mg tablet 1 tab PO BEDTIME 11/07/21 10/04/22 blood sugar diagnostic (FreeStyle #10 ea 04/12/22 10/04/22 Lite Strips) Previous Rx's Medication Instructions Recorded insulin glargine 100 unit/mL (3 20 unit (0.2 mL) subcut DAILY@1700 04/19/21 mL) subcutaneous pen (Lantus #0 mL Solostar U-100 Insulin) omeprazole 40 mg capsule,delayed 40 mg PO DAILY 60 days #60 caps 04/12/22 release ondansetron 4 mg disintegrating 4 mg PO Q8H PRN nausea and 10/04/22 tablet vomiting 25 days #60 tabs Allergies Allergy/AdvReac Type Severity Reaction Status Date / Time No Known Allergies Allergy Mild NONE Verified 10/10/22 21:46 [facility] Past Medical History Medical History Anxiety Chronic back pain Diabetes History of vertigo Type 1 diabetes mellitus Surgical History H/O exploratory laparotomy History of back surgery History of esophagogastroduodenoscopy (EGD) History of incisional hernia repair (02/28/22) Family History Family History Mother Vaginal cancer Social History Social History Household Members: Children Housing: House Do you presently have visiting nurse or other home services: No Patient Tobacco Use Status: Former Tobacco user Quit Date: >6yrs ago Tobacco use type: Cigarette Cigarettes Per Day: 3 Advance Directives: No Advance Directives Information Provided: No Patient : No service: No Current occupational status: unemployed Physical Exam ED Vital Signs: Vital Signs - 24 hr 10/10/22 21:46 10/11/22 00:50 10/11/22 02:00 Temperature 98.2 F 97.9 F Pulse Rate 77 73 Respiratory Rate 18 17 16 Blood Pressure 123/63 109/62 Pulse Oximetry 99 97 Oxygen Delivery Method Room Air Room Air 10/11/22 03:17 Temperature 97.4 F Pulse Rate 77 Respiratory Rate 17 Blood Pressure 120/67 Pulse Oximetry 98 Oxygen Delivery Method Room Air BMI result Body Mass Index 27.6 Appearance: Alert. Oriented X3. No acute distress. Eyes: PERRLA, No Nystagmus ENT: Pharynx normal. Oral Mucosa moist Neck: Normal inspection. Neck supple. CVS: Normal heart rate and rhythm. Pulses normal. Respiratory: No respiratory distress. Equal air entry bilateral, no wheezing/rales/rhonchi Abdomen: Soft reducible ventral hernia slight tenderness, Bowel sounds are present, no mass palpable, no CVA tenderness Skin: Skin warm and dry. Normal skin color. Normal skin turgor. Extremities: No lower extremity edema. No calf tenderness Neuro: Oriented X 3. No motor deficit. No sensory deficit.No cerebellar signs , cranial nerves II-XII intact Medical Decision Making Medical Decision Making [facility] Narrative: Patient with reducible ventral hernia advised for with surgeon noted to have hyperglycemia which improved after insulin Lab Data [facility] Lab Attestation statement: I reviewed the patient's lab results. 10/10/22 22:26 10/10/22 22:26 Labs: Lab Results 10/10/22 10/10/22 10/11/22 Range/Units 22:26 22:26 02:59 WBC 8.4 (4.8-10.8) X10*3/uL RBC 5.21 (4.20-5.50) X10*6/uL Hgb 11.9 L (12.0-16.0) g/dl Hct 39.2 (37.0-47.0) % MCV 75.2 L (80.0-98.0) fL MCH 22.8 L (27.0-33.0) pg MCHC 30.4 L (31.0-35.0) g/dl RDW 15.4 (11.0-16.0) % Plt Count 160 (160-400) X10*3/uL MPV 12.2 (9.4-12.3) fL Immature Gran % (Auto) 0.5 H (0.0-0.4) % Neut % (Auto) 59.8 (45-73) % Lymph % (Auto) 28.4 (20-40) % [place] % (Auto) 5.7 (2-11) % Eos % (Auto) 4.9 H (0-4) % Baso % (Auto) 0.7 (0-2) % Lymph # (Auto) 2.4 (1.2-4.9) X10*3/uL [place] # (Auto) 0.5 (0.1-1.2) X10*3/uL Eos # (Auto) 0.4 (0.0-0.4) X10*3/uL Baso # (Auto) 0.1 (0.0-0.2) X10*3/uL Abs Immat Gran (auto) 0.04 H (0.00-0.03) X10*3/uL Absolute Neuts (auto) 5.1 (2.0-8.3) x10*3/uL Absolute Nucleated RBC 0.000 (0.0-0.012) X10*3/uL Nucleated RBC % (auto) 0.0 (0.0-0.2) /100WBC Smear Tech's Comments VERIFIED Sodium 137 (135-145) mmol/L Potassium 4.9 (3.3-5.1) mmol/L Chloride 107 (96-108) mmol/L Carbon Dioxide 18 L (22-29) mmol/L Anion Gap 17 (12-20) BUN 16 (9-16) mg/dL Creatinine 1.08 (0.5-1.4) mg/dL Estim Creat Clear Calc 71.3 Estimated GFR 56 POC Glucose 88 (60-115) mg/dL Random Glucose 558 H* (60-115) mg/dL Calcium 8.9 D (8.4-10.2) mg/dL Total Bilirubin 0.6 (0.0-1.0) mg/dL Direct Bilirubin 0.2 (0.0-0.5) mg/dL AST 24 (5-31) U/L ALT 32 H (0-31) U/L Alkaline Phosphatase 237 H (39-117) U/L Total Protein 6.7 (6.5-8.0) g/dL Albumin 3.8 (3.5-5.0) g/dL Lipase 8 (8-78) U/L 10/11/22 10/11/22 10/11/22 Range/Units 03:32 04:03 04:35 WBC (4.8-10.8) X10*3/uL RBC (4.20-5.50) X10*6/uL Hgb (12.0-16.0) g/dl Hct (37.0-47.0) % MCV (80.0-98.0) fL MCH (27.0-33.0) pg MCHC (31.0-35.0) g/dl RDW (11.0-16.0) % Plt Count (160-400) X10*3/uL MPV (9.4-12.3) fL Immature Gran % (Auto) (0.0-0.4) % Neut % (Auto) (45-73) % Lymph % (Auto) (20-40) % [place] % (Auto) (2-11) % Eos % (Auto) (0-4) % Baso % (Auto) (0-2) % Lymph # (Auto) (1.2-4.9) X10*3/uL [place] # (Auto) (0.1-1.2) X10*3/uL Eos # (Auto) (0.0-0.4) X10*3/uL Baso # (Auto) (0.0-0.2) X10*3/uL Abs Immat Gran (auto) (0.00-0.03) X10*3/uL Absolute Neuts (auto) (2.0-8.3) x10*3/uL Absolute Nucleated RBC (0.0-0.012) X10*3/uL Nucleated RBC % (auto) (0.0-0.2) /100WBC Smear Tech's Comments Sodium (135-145) mmol/L Potassium (3.3-5.1) mmol/L Chloride (96-108) mmol/L Carbon Dioxide (22-29) mmol/L Anion Gap (12-20) BUN (9-16) mg/dL Creatinine (0.5-1.4) mg/dL Estim Creat Clear Calc Estimated GFR POC Glucose 42 L* 86 131 H (60-115) mg/dL Random Glucose (60-115) mg/dL Calcium (8.4-10.2) mg/dL Total Bilirubin (0.0-1.0) mg/dL Direct Bilirubin (0.0-0.5) mg/dL AST (5-31) U/L ALT (0-31) U/L Alkaline Phosphatase (39-117) U/L Total Protein (6.5-8.0) g/dL Albumin (3.5-5.0) g/dL Lipase (8-78) U/L Medications Administered Discontinued Medications Generic Name Dose Route Start Last Admin Trade Name Freq PRN Reason Stop Dose Admin Famotidine 20 mg 10/11/22 01:23 10/11/22 02:01 Famotidine/Pf 20 Mg/2 Ml Vial IVPUSH 10/11/22 01:24 20 mg ONCE ONE Administration Sodium Chloride 1,000 mls @ 999 mls/hr 10/11/22 01:17 10/11/22 03:12 Ns IV 10/11/22 02:17 Infused .Q1H1M ONE Infusion Insulin Glargine 30 unit 10/11/22 01:22 10/11/22 01:42 Insulin Glargine,Hum.Rec.Anlog 100 Unit/Ml 10 Ml Vial SUBCUT 10/11/22 01:23 30 unit ONCE ONE Administration Insulin Human Lispro 14 unit 10/11/22 01:17 10/11/22 01:42 Insulin Lispro 100 Unit/Ml 3 Ml Vial SUBCUT 10/11/22 01:18 14 unit ONCE ONE Administration Morphine Sulfate 4 mg 10/11/22 01:23 10/11/22 02:00 Morphine Sulfate 4 Mg/Ml Cartridge IVPUSH 10/11/22 01:24 4 mg ONCE ONE Administration Protocol Ondansetron HCl 4 mg 10/11/22 01:23 10/11/22 02:01 Ondansetron Hcl 4 Mg/2 Ml Vial IVPUSH 10/11/22 01:24 4 mg ONCE ONE Administration Discharge Plan Discharge Clinical Impression: Ventral hernia, Hyperglycemia due to diabetes mellitus Patient Disposition: Home, Self-Care Instructions: Diabetic Hyperglycemia (ED), Ventral Hernia (ED) Additional Instructions: Take your insulin on time Drink plenty of fluids Follow-up with surgeon Avoid constipation Prescriptions: No Action insulin lispro [Humalog KwikPen Insulin] 100 unit/mL insulin pen 5 unit subcut TID insulin glargine [Lantus Solostar U-100 Insulin] 100 unit/mL (3 mL) insulin pen 20 unit subcut DAILY@1700 Qty: 0 0RF tramadol 50 mg tablet 1 tab PO Q4H lorazepam 0.5 mg tablet 1 tab PO BEDTIME (DME) FreeStyle Lite Strips Strip See Rx Instructions .ROUTE BID Qty: 10 Rx Instructions: As directed omeprazole 40 mg capsule,delayed release(DR/EC) 40 mg PO DAILY 60 Days Qty: 60 3RF ondansetron 4 mg tablet,disintegrating 4 mg PO Q8H PRN (Reason: nausea and vomiting) 25 Days Qty: 60 0RF Stand Alone Forms: Work/School Release Interventions: ED Discharge Assessment Last Done: 10/11/22 04:49 Discharge Date/Time: 10/11/22 04:51
[2022-10-11] MEDS: Insulin Lispro 100 UNIT/ML 3 ML VIAL 14 UNIT SUBCUT (01:42)
[2022-10-11] MEDS: Insulin Glargine,Hum.rec.anlog 100 UNIT/ML 10 ML VIAL 30 UNIT SUBCUT (01:42)
[2022-10-11 02:00] VITALS: RESP 16
[2022-10-11] MEDS: Morphine Sulfate 4 MG/ML CARTRIDGE IVPUSH (02:00)
[2022-10-11] MEDS: ondansetron HCL 4 MG/2 ML VIAL IVPUSH (02:01)
[2022-10-11] MEDS: 0.9 % Sodium Chloride 1,000 ML 999 ML IV (02:01)
[2022-10-11] MEDS: Famotidine/PF 20 MG/2 ML VIAL IVPUSH (02:01)
--- NOTE | 2022-10-11 02:12 | PC.NURSE ---
Provider placed IV 20G right side of neck. Medicated per jul. Pt ca&ox3, no signs of distress. Pt spouse at bedside. Will continue to monitor.
[2022-10-11 03:03] LABS: Glucose, Whole Blood 88 mg/dL (60-115)
--- NOTE | 2022-10-11 03:06 | PC.NURSE ---
POC 88, provider made aware. Pt given juice and pudding. Pt ca&ox3, no signs of distress. Will continue to monitor.
[2022-10-11 03:17] VITALS: BP 120/67; PULSE 77; RESP 17; TEMP 36.3; O2SAT 98
[2022-10-11 03:36] LABS: Glucose, Whole Blood 42 mg/dL (60-115)
--- NOTE | 2022-10-11 03:36 | PC.NURSE ---
Poc 42, Provider aware. Pt given pudding, juice and sandwich. Pt ca&ox3. Will continue to monitor.
[2022-10-11 04:07] LABS: Glucose, Whole Blood 86 mg/dL (60-115)
--- NOTE | 2022-10-11 04:10 | PC.NURSE ---
Poc 86, provider made aware. Will continue to monitor.
[2022-10-11 04:39] LABS: Glucose, Whole Blood 131 mg/dL (60-115)
== END 2022-10-11 04:51 | disposition home or self-care (01) ==
PROVIDERS: Emergency Provider Internal Medicine; PCP Internal Medicine
DX: K43.9 Ventral hernia without obstruction or gangrene (principal); E10.65 Type 1 diabetes mellitus with hyperglycemia; Z87.891 Personal history of nicotine dependence; Z79.4 Long term (current) use of insulin; Z79.899 Other long term (current) drug therapy
CPT/HCPCS: 36415; 74176; 80048; 80076; 82947; 83690; 85025; 96361; 96374; 96375; 99284; J2270; J2405

== ENCOUNTER → 2022-10-16 14:29 | Outpatient (BNVA) | payer MEDICAID, SELFPAY | PROVIDERS: PCP Internal Medicine; Referring Provider Internal Medicine; Visit Provider Surgery | DX: K43.2 Incisional hernia without obstruction or gangrene (principal) | CPT/HCPCS: 99212 ==

== ENCOUNTER 2022-10-24 07:07 | Day surgery (SDC) | payer MEDICAID, SELFPAY ==
[2022-10-22 10:46] VITALS: BMI 27.6
--- NOTE | 2022-10-23 10:19 | HO.ANESPROP2 ---
Documented by User: Roxy Lopez NP 10/23/22 10:20 HPI - Anesthesia Eval Consult details Narrative: 41yo F for4 Hernia Repair Incisional with mesh s/p same 02/2022 with GA-ETT 7.5 PMFSH Active Problems Active Problems: All Active Problems (Updated 10/22/22 @ 10:34 by Olamide Betancur RN) Anemia (Acute) Upper abdominal pain (Acute) Perforated gastric ulcer (Acute) Elevated LFTs (Acute) Asymptomatic gallstones (Acute) Incisional hernia (Acute) Colon cancer screening (Acute) Reducible bulge of abdominal wall (Acute) Nausea (Acute) Past Medical History Medical History Anxiety Chronic back pain History of vertigo Type 1 diabetes mellitus Family History Family History Mother Vaginal cancer Family history of problems with anesthesia: No Surgical History Surgical History H/O exploratory laparotomy History of back surgery History of esophagogastroduodenoscopy (EGD) History of incisional hernia repair (02/28/22) History of Problems with Anesthesia: Yes Social History Social History Household Members: Children Housing: House Do you presently have visiting nurse or other home services: No Patient Tobacco Use Status: Former Tobacco user Quit Date: >6 years ago Tobacco use type: Cigarette Cigarettes Per Day: 3 Use of substances other than those prescribed or required for medical reasons: No Have you been hit, kicked, punched, or otherwise hurt by someone within the past year? If so, by whom?: No Are you DNR?: No Advance Directives: No Advance Directives Information Provided: No Advance Directives on File: No Recently lost weight without trying: No Nutrition Risks: No Nutritional Risk Patient : No Poor oral hygiene: No (broken teeth) service: No Current occupational status: unemployed Meds Allergies Allergy/AdvReac Type Severity Reaction Status Date / Time No Known Allergies Allergy Mild NONE Verified 10/16/22 14:36 Home Medications Medication Instructions Recorded Confirmed Last Taken Type insulin lispro 100 unit/mL 5 unit subcut TID 04/19/21 10/22/22 Unknown History subcutaneous pen (Humalog KwikPen (U-100) Insulin) tramadol 50 mg tablet 1 tab PO Q4H PRN Pain 07/10/21 10/22/22 10/24/22 History lorazepam 0.5 mg tablet 1 tab PO BEDTIME 11/07/21 10/22/22 Unknown History blood sugar diagnostic (FreeStyle #10 ea 04/12/22 10/16/22 Unknown History Lite Strips) insulin glargine 100 unit/mL (3 40 unit subcut DAILY@1700 10/24/22 10/24/22 Unknown History mL) subcutaneous pen (Lantus Solostar U-100 Insulin) Exam Exam Date and Time: October 23, 2022 1019 Height,Weight and Vital Signs: Height 5 ft 6 in Weight 77.564 kg Pertinent Lab Results Pertinent Lab Results: Laboratory Tests 10/10/22 10/10/22 22:26 22:26 WBC 8.4 Hgb 11.9 L Hct 39.2 Plt Count 160 Sodium 137 Potassium 4.9 Chloride 107 Carbon Dioxide 18 L BUN 16 Creatinine 1.08 Assessment and Plan Assessment Anesthesia Assessment: Chart Reviewed Final Anesthetic Review Family History of Problems with Anesthesia: No History of Problems with Anesthesia: Yes Documented by User: Blaire Fuentes MD 10/24/22 09:06 HPI - Anesthesia Eval Consult details Narrative: 41yo F for4 Hernia Repair Incisional with mesh s/p same 02/2022 with GA-ETT 7.5.today BS 293. PMFSH Past Medical History Medical History Anxiety Chronic back pain History of vertigo Type 1 diabetes mellitus Family History Family History Mother Vaginal cancer Surgical History Surgical History H/O exploratory laparotomy History of back surgery History of esophagogastroduodenoscopy (EGD) History of incisional hernia repair (02/28/22) Social History Social History Household Members: Children Housing: House Do you presently have visiting nurse or other home services: No Patient Tobacco Use Status: Former Tobacco user Quit Date: >6 years ago Tobacco use type: Cigarette Cigarettes Per Day: 3 Use of substances other than those prescribed or required for medical reasons: No Have you been hit, kicked, punched, or otherwise hurt by someone within the past year? If so, by whom?: No Are you DNR?: No Advance Directives: No Advance Directives Information Provided: No Advance Directives on File: No Recently lost weight without trying: No Nutrition Risks: No Nutritional Risk Patient : No Poor oral hygiene: No (broken teeth) service: No Current occupational status: unemployed Meds Allergies Allergy/AdvReac Type Severity Reaction Status Date / Time No Known Allergies Allergy Mild NONE Verified 10/16/22 14:36 Home Medications Medication Instructions Recorded Confirmed Last Taken Type insulin lispro 100 unit/mL 5 unit subcut TID 04/19/21 10/22/22 Unknown History subcutaneous pen (Humalog KwikPen (U-100) Insulin) tramadol 50 mg tablet 1 tab PO Q4H PRN Pain 07/10/21 10/22/22 10/24/22 History lorazepam 0.5 mg tablet 1 tab PO BEDTIME 11/07/21 10/22/22 Unknown History blood sugar diagnostic (FreeStyle #10 ea 04/12/22 10/16/22 Unknown History Lite Strips) insulin glargine 100 unit/mL (3 40 unit subcut DAILY@1700 10/24/22 10/24/22 Unknown History mL) subcutaneous pen (Lantus Solostar U-100 Insulin) Exam Airway Mallampati Class: II TM Dist: >3cm Neck ROM: Full Loose/Missing/Broken Teeth: Yes, Upper (up and down bilateral raiza g teeth. broken right upper tooth. ) and Lower Heart: rrr Lungs: cta Assessment and Plan Assessment Anesthesia Assessment: Anesthesia Plan Discussed Final Anesthetic Review NPO: Yes ASA Class: III Final Preanesthetic Review: No Changes in Pt Med Stat, Meds/Allgs Chart Reviewed, Consent Obtained/Reviewed and Anes Risks/Benef Reviewed Patient Risk: Intermediate Procedure Risk: Intermediate Anesthetic Plan Anesthetic Plan: GA Disposition: Standard PACU
[2022-10-24] VITALS (10 sets, daily range): BP systolic 112–122; BP diastolic 63–74; PULSE 59–87; RESP 12–24; TEMP 36.4–36.8; O2SAT 95–99; BMI 27.6
[2022-10-24 07:33] LABS: UPreg QC Valid YES; Urine Pregnancy NEGATIVE (NEGATIVE)
[2022-10-24 07:42] LABS: Glucose, Whole Blood 293 mg/dL (60-115)
[2022-10-24] MEDS: Lactated Ringers 1,000 ML 100 ML IVCONT (07:59)
--- NOTE | 2022-10-24 08:16 | PC.NURSE ---
poc 293 @ [id number], anesthesiologist for case Dr. Steele & floor anesthesiologist aware.
--- NOTE | 2022-10-24 08:52 | MHC.SHP ---
Pre-Procedural Eval Section A Date of Service: 10/24/22 The patient is an INPATIENT: No Changes since office visit: Yes Patient answered all questions; No Cold of Flu in the past 2 weeks, No New Medical Problems and No Changes in Medication The History & Physical has been completed within 30 days and I have reviewed it.: Yes Section B Chief Complaint: Incisional hernia without obstruction or gangrene Allergies: Allergies Allergy/AdvReac Type Severity Reaction Status Date / Time No Known Allergies Allergy Mild NONE Verified 10/16/22 14:36 Plan Diagnosis/Plan: Unchanged I have reviewed the history and physical and performed a pertinent physical examination on my patient. No changes have occurred unless specified. Time Spent With Patient Time: Total time managing care of this patient today ____ minutes.
--- NOTE | 2022-10-24 09:11 | P.OP_ITS ---
Operative Note Operative Note Date of Service: 10/24/22 Narrative: Preoperative diagnosis: Incisional hernia upper abdomen Postoperative diagnosis: same Procedure: repair of incisional hernia with Surgeon: Eric Moe MD Manager Garage: Sheila Arambula RN Anesthesia: general LMA Indications for procedure: 41-year-old female patient with history of bleeding ulcer status post exploratory laparotomy now presenting with an incisional hernia in the upper abdomen. Operative findings: 6 x 8 cm incisional hernia upper abdomen, reduced Specimen: non Estimated blood loss: 20 mL Complications: non Procedure details: patient was brought to the OR and placed in a supine positio n. After administering general anesthesia patient's abdomen was prepped with ChloraPrep and draped in a sterile fashion. A surgical time-out was called the consent confirmed. Patient received preoperative antibiotics and Venodyne boots were in place. Local anesthesia was infiltrated over the previous incision in the midline just below xiphoid. Incision was then made with a scalpel carried out through subcutaneous tissue up to the anterior rectus sheath. The area of herniation was identified in the upper abdomen. Fascia was entered and preperitoneal spaceDefined. Hernia sac was then dissected free circumferentially to expose the fascial edge. A defect measuring 6 x 8 cm was then identified. A large preperitoneal submuscular space was then created. A 11.4 cm round Ventrio mesh was then obtained. The mesh was deployed within the submuscular space in the Upper midline and secured in 4 quadrants using 1 Tycron sutures. additional of circumferential sutures were then placed to secure the mesh laterally to the posterior sheath and undersurface of the anteriorSheath. Fascia was then closed over the mesh using [id number] 1 Tycron sutures incorporating the mesh in the repair. Wounds were then irrigated with saline solution and suctioned dry. Hemostasis was assured using electrocautery. Zenrelef 8 mL was then infiltrated into the subcutaneous tissue. Liberty's fascia was reapproximated using interrupted 3-0 Polysorb sutures. Dermis was reapproximated using interrupted 3-0 Polysorb sutures. Skin was closed using a running subcuticular 4-0 Polysorb suture. Steri-Strips, 4 x 4 gauze and Tegaderm were then applied. The patient tolerated the procedure well. Sponge, instrument, and needle counts reported as correct. The patient was transferred to PACU in stable condition.
[2022-10-24] MEDS: Acetaminophen 1,000 MG/100 ML PIGGYBACK 400 MG IV (11:08)
[2022-10-24 11:16] LABS: Glucose, Whole Blood 274 mg/dL (60-115)
[2022-10-24] MEDS: Insulin Lispro 100 UNIT/ML 3 ML VIAL 8 UNIT SUBCUT (11:18)
[2022-10-24] MEDS: fentaNYL citrate/PF 100 MCG/2 ML VIAL 50 MCG IVPUSH ×2 (11:20→11:30)
[2022-10-24] MEDS: oxyCODONE HCl Immed Release 5 MG TABLET 10 MG PO (11:40)
[2022-10-24] MEDS: ondansetron HCL 4 MG/2 ML VIAL IVPUSH (11:43)
== END 2022-10-24 13:00 | disposition home or self-care (01) ==
PROVIDERS: Nurse Practitioner; PCP Internal Medicine; Visit Provider Surgery
PROC: (CPT 49593; principal; 2022-10-24 08:40)
DX: K43.2 Incisional hernia without obstruction or gangrene (principal); E10.9 Type 1 diabetes mellitus without complications; M54.9 Dorsalgia, unspecified; G89.29 Other chronic pain; F41.1 Generalized anxiety disorder; Z79.4 Long term (current) use of insulin; Z79.899 Other long term (current) drug therapy; Z87.891 Personal history of nicotine dependence
CPT/HCPCS: 49593; 81025; 82947; C1781; C9088; J0131; J0690; J1885; J2405; J3010

== ENCOUNTER → 2022-11-06 13:57 | Outpatient (BNVA) | payer MEDICAID, SELFPAY | PROVIDERS: PCP Internal Medicine; Visit Provider Surgery | DX: Z48.815 Encounter for surgical aftercare following surgery on the digestive system (principal) | CPT/HCPCS: 99211 ==

== ENCOUNTER 2022-11-20 13:18 | Outpatient (AMB) | payer MEDICAID, SELFPAY ==
--- NOTE | 2022-11-20 13:25 | A.OFFVIS_ITS ---
Intake Vital Signs 11/20/22 13:27 Height 5 ft 6 in Weight 173 lb BMI 27.9 BP 135/77 Blood Pressure Location Lt brachial Position Sitting Pulse 89 Intake Visit Reasons: post op ventral hernia Intake Note: Pt is seen in office for post op assessment post ventral hernia repair. 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 Accompanied by: Family/Other Allergies No Known Allergies Allergy (Mild, Verified 11/20/22 13:27) NONE Medication List - Last Reconciled 11/20/22 by Erci Moe MD blood sugar diagnostic (FreeStyle Lite Strips) As directed insulin glargine (Lantus Solostar U-100 Insulin) 40 units subcut DAILY@1700 insulin lispro (Humalog KwikPen (U-100) Insulin) 5 units subcut TID lorazepam 1 tab PO BEDTIME omeprazole 40 mg PO DAILY 60 days ondansetron 4 mg PO Q8H PRN 25 days tramadol 1 tab PO Q4H PRN HPI HPI Comments History of Present Illness Details Luzma returns approximately 4 weeks following repair of a large ventral hernia in the upper abdomen. She reports some nausea and discomfort in the upper abdomen. She also notes some swelling in the upper abdomen. She denies any bleeding or discharge from the incision. [facility] Medical History Anxiety Chronic back pain History of vertigo Type 1 diabetes mellitus Surgical History H/O exploratory laparotomy History of back surgery History of esophagogastroduodenoscopy (EGD) History of incisional hernia repair (02/28/22) History of incisional hernia repair (10/24/22) Family History Mother Vaginal cancer Social History Household Members: Children Housing: House Do you presently have visiting nurse or other home services: No Patient Tobacco Use Status: Former Tobacco user Quit Date: >6 years ago Tobacco use type: Cigarette Cigarettes Per Day: 3 service: No Current occupational status: unemployed Physical Exam Vital Signs: Last Vital Signs Pulse 89 11/20/22 13:27 BP 135/77 11/20/22 13:27 BMI result Body Mass Index 27.9 Const General: no acute distress and well developed Nutritional Appearance: well nourished Orientation/consciousness: patient oriented x3 Limitations: no limitations Resp Effort & Inspection: normal respiratory effort GI Other: Area of swelling in the upper abdomen with no change noted in the supine or standing position. No changes noted with Valsalva maneuvers. Findings are suggestive of a small seroma at the site of previous hernia. No recurrent hernias identified. Midline incision is clean, dry, and intact. Inspection: Yes normal to inspection Palpation (GI): Soft to palpation and Tenderness to palpation present (GI) in the epigastrum Neuro General: patient oriented x3 Extrem General: Yes no clubbing, cyanosis or edema Assessment & Plan Assessment & Plan (1) Incisional hernia: Code(s): K43.2 - Incisional hernia without obstruction or gangrene Plan Patient returns 4 weeks following repair of an incisional hernia with mesh. Her wounds are healing nicely without evidence of infection. She is still having some symptoms of pain and may require several more weeks for return to full activity. I recommended a follow-up examination in 3 weeks. Expressed understanding and agrees with the plan. Medications: Discontinued insulin glargine 20 units (0.2 mL) subcut DAILY@1700 0 mL 0RF Coding Level of Care Code Global (67632) Diagnoses Incisional hernia K43.2
[2022-11-20 13:27] VITALS: BP 135/77; PULSE 89; BMI 27.9
== END 2022-11-20 13:38 | disposition home or self-care (01) ==
PROVIDERS: PCP Internal Medicine; Visit Provider Surgery
DX: K43.2 Incisional hernia without obstruction or gangrene (principal)
CPT/HCPCS: 99212

== ENCOUNTER → 2022-11-20 13:18 | Outpatient (BNVA) | payer MEDICAID, SELFPAY | PROVIDERS: PCP Internal Medicine; Visit Provider Surgery | DX: K43.2 Incisional hernia without obstruction or gangrene (principal) | CPT/HCPCS: 99212 ==

== ENCOUNTER 2022-12-11 13:33 | Outpatient (AMB) | payer MEDICAID, SELFPAY ==
--- NOTE | 2022-12-11 13:37 | MHC.OFFVIS ---
Intake Intake Visit Reasons: 3 wk follow up hernia repair Intake Note: Patient is seen in office for 3 wks follow up visit, post hernia repair. 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 Accompanied by: Self / Same As Patient Allergies No Known Allergies Allergy (Mild, Verified 11/20/22 13:27) NONE Medication List - Last Reconciled 12/11/22 by Eric Moe MD blood sugar diagnostic (FreeStyle Lite Strips) As directed insulin glargine (Lantus Solostar U-100 Insulin) 40 units subcut DAILY@1700 insulin lispro (Humalog KwikPen (U-100) Insulin) 5 units subcut TID lorazepam 1 tab PO BEDTIME omeprazole 40 mg PO DAILY ondansetron 4 mg PO Q8H PRN tramadol 1 tab PO Q4H PRN HPI HPI Comments History of Present Illness Details Patient returns with complaints of swelling in the upper abdomen with pain on palpation. She also reports nausea, anorexia and diarrhea. Overall she feels wiped out without significant energy. The diarrhea is not watery but very loose and occurs whether she eats or not. She feels too weak to return to work. [facility] Medical History Anxiety Chronic back pain History of vertigo Type 1 diabetes mellitus Surgical History H/O exploratory laparotomy History of back surgery History of esophagogastroduodenoscopy (EGD) History of incisional hernia repair (02/28/22) History of incisional hernia repair (10/24/22) Family History Mother Vaginal cancer Social History Household Members: Children Housing: House Do you presently have visiting nurse or other home services: No Patient Tobacco Use Status: Former Tobacco user Quit Date: >6 years ago Tobacco use type: Cigarette Cigarettes Per Day: 3 service: No Current occupational status: unemployed Physical Exam Const General: no acute distress and well developed Nutritional Appearance: well nourished Orientation/consciousness: patient oriented x3 Limitations: no limitations Resp Effort & Inspection: normal respiratory effort GI Other: Midline incision is clean, dry, and intact without redness or discharge. There is an area of swelling to the left of midline with no changes noted with Valsalva maneuvers. No definite hernias appreciated. Overall abdomen appears distended however with some tympany to percussion. No rebound, guarding or rigidity. Inspection: Yes normal to inspection Palpation (GI): Soft to palpation and Tenderness to palpation present (GI) in the epigastrum Skin General skin exam: no rashes or lesions noted Neuro General: patient oriented x3 Extrem General: Yes no clubbing, cyanosis or edema Assessment & Plan Assessment & Plan (1) Diarrhea: Code(s): R19.7 - Diarrhea, unspecified (2) Upper abdominal pain: Code(s): R10.10 - Upper abdominal pain, unspecified (3) Incisional hernia: Code(s): K43.2 - Incisional hernia without obstruction or gangrene Plan 42-year-old female patient status post repair of an incisional hernia with mesh now presenting with diarrhea, nausea and upper abdominal pain. I recommended evaluation with CT abdomen and pelvis evaluate for recurrent hernia as well as a stool specimen for C diff titer. She will return in 2 weeks for follow-up examination. Orders: Orders CT abdomen pelvis w IV con Today K43.2 - Incisional hernia without obstruction or gangrene, R10.10 - Upper abdominal pain, unspecified CDiff Gene PCR Today R19.7 - Diarrhea, unspecified Medications: Discontinued insulin glargine 20 units (0.2 mL) subcut DAILY@1700 0 mL 0RF Coding Level of Care Code Global (87541) Diagnoses Diarrhea R19.7 Upper abdominal pain R10.10 Incisional hernia K43.2
== END 2022-12-11 13:54 | disposition home or self-care (01) ==
PROVIDERS: PCP Internal Medicine; Visit Provider Surgery
DX: R19.7 Diarrhea, unspecified (principal); R10.10 Upper abdominal pain, unspecified; K43.2 Incisional hernia without obstruction or gangrene
CPT/HCPCS: 99214

== ENCOUNTER → 2022-12-11 13:33 | Outpatient (BNVA) | payer MEDICAID, SELFPAY | PROVIDERS: PCP Internal Medicine; Visit Provider Surgery | DX: K43.2 Incisional hernia without obstruction or gangrene (principal); R19.7 Diarrhea, unspecified; R10.10 Upper abdominal pain, unspecified | CPT/HCPCS: 99212 ==

== ENCOUNTER 2022-12-13 14:54 | Outpatient (REF) | payer MEDICAID, SELFPAY ==
[2022-12-13 16:11] LABS: CDiff Gene PCR NEGATIVE (Negative)
== END 2022-12-13 14:55 | disposition home or self-care (01) ==
LOC: HO.LNP 14:54
PROVIDERS: Visit Provider Surgery
DX: R19.7 Diarrhea, unspecified (principal)
CPT/HCPCS: 87493

== ENCOUNTER 2022-12-20 15:08 | Outpatient (REF) | payer MEDICAID, SELFPAY ==
[2022-12-20 16:34] LABS: Blood Urea Nitrogen 13 mg/dL (9-16); Estimated Glomerular Filt Rate > 60
== END 2022-12-20 15:09 | disposition home or self-care (01) ==
LOC: HO.LAB 15:08
PROVIDERS: Visit Provider Surgery
DX: R10.10 Upper abdominal pain, unspecified (principal)
CPT/HCPCS: 36415; 82565; 84520

== ENCOUNTER 2022-12-21 08:33 | Outpatient (REF) | payer MEDICAID, SELFPAY ==
--- NOTE | ~2022-12-21 | CT_ITS ---
EXAMINATION: CT ABDOMEN AND PELVIS WITHOUT CONTRAST CLINICAL INFORMATION: Upper abdominal pain. COMPARISON: CT abdomen and pelvis 10/11/2022. TECHNIQUE: Multidetector volumetric imaging was performed from the superior aspect of the liver through the pubic symphysis. Sagittal and coronal reformatted images were obtained on the technologist's workstation. This CT examination was performed using dose optimization techniques as appropriate, variously including the following: *Automated exposure control *Adjustment of mA and/or kV according to patient size (this includes techniques or standardized protocols for targeted exams where dose is matched to indication/reason for exam; i.e. extremities or head) *Use of iterative reconstruction technique DLP: 487 mGy-cm FINDINGS: LUNG BASES: Bibasilar scarring/atelectasis is again seen. Heart size normal. No infiltrates or effusions. LIVER, GALLBLADDER, AND BILIARY TREE: The liver is normal in size, shape, and attenuation. No focal hepatic lesion or biliary ductal dilatation is present. The gallbladder is again noted to contain high density layering material consistent with gallstones but is otherwise unremarkable with no evidence of densely calcified gallstones, gallbladder wall thickening, or obvious pericholecystic inflammatory changes. PANCREAS: Unremarkable. SPLEEN: Unremarkable. ADRENAL GLANDS: Unremarkable. KIDNEYS AND URETERS: The kidneys are normal in size, shape, and attenuation. Again noted is a punctate 3 mm right lower lobe nonobstructing calculus. No hydronephrosis, hydroureter, or additional calculi seen. No perinephric stranding. BLADDER: Unremarkable. GASTROINTESTINAL TRACT: The small and large bowel are unremarkable. The appendix is unremarkable. ABDOMINAL WALL: There appears to have been interval surgery with presumed repair of umbilical hernia. Please correlate with surgical history as this information is not provided. There is a new fluid collection/abscess in the abdominal wall measuring 6.7 x 2.5 x 8 cm (7:51). This contains fluid as well as air. There is a smaller component in the subcutaneous tissues of the abdominal wall slightly to the left of the midline measuring 4.5 x 0.8 x 6.5 cm (7:47). LYMPH NODES: No retroperitoneal lymphadenopathy. VASCULAR: Unremarkable. PELVIC VISCERA: A retroverted uterus is present. There is a 4.7 cm benign-appearing left ovarian cyst present, increased in size since prior. OSSEOUS STRUCTURES: There has been prior fixation with an interbody device at L5-S1. CT/CT abdomen pelvis wo IV con IMPRESSION: 1. There appears to have been interval surgery since the prior study with repair of a ventral hernia. There is a new fluid collection/abscess in the abdominal wall as well as a smaller component in the subcutaneous tissues. 2. Incidental note made of cholelithiasis, nonobstructing right renal calculus, benign left ovarian cyst and postoperative changes L5-S1. No followup imaging is recommended for the ovarian cyst. Fleischner guidelines were followed.
[2022-12-21] MEDS: Barium Sulfate Oral (Vanilla) 450 ML ORAL.SUSP 900 ML PO (11:37)
== END 2022-12-21 08:34 | disposition home or self-care (01) ==
LOC: HO.CT 08:33
PROVIDERS: PCP Internal Medicine; Visit Provider Surgery
DX: R10.10 Upper abdominal pain, unspecified (principal); K43.2 Incisional hernia without obstruction or gangrene
CPT/HCPCS: 74176; Q9967

== ENCOUNTER 2022-12-22 20:10 | Emergency (ER) | payer OTHER, SELFPAY ==
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
[2022-12-22 20:20] VITALS: BP 130/76; BP 180/100; PULSE 106; PULSE 92; RESP 18; TEMP 37.2; O2SAT 98; O2SAT 99; BMI 29.3
[2022-12-22 20:29] VITALS: BP 130/76; PULSE 92; RESP 18; TEMP 37.2; O2SAT 99
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
[2022-12-22 21:56] LABS: Glucose, Whole Blood 305 mg/dL (60-115)
[2022-12-22] MEDS: traMADoL HCL 50 MG TABLET PO (22:16)
[2022-12-22] MEDS: Bacitracin Oint 0.9 GM PACKET 1 APPL TOPICAL (22:16)
[2022-12-22] MEDS: Insulin Lispro 100 UNIT/ML 3 ML VIAL 10 UNIT SUBCUT (22:17)
[2022-12-22 23:45] VITALS: BP 125/76; PULSE 83; RESP 14; O2SAT 98
--- NOTE | 2022-12-23 03:00 | PC.NURSE ---
Reviewed discharge instruction with pt, pt verbalized understanding, pt wheel out with family, no distress. Notified RAE Castaneda.
--- NOTE | 2022-12-23 03:10 | PC.NURSE ---
Reviewed discharge instruction with pt, pt verbalized understanding, no sign of distress, pt wheeled out with family.
--- NOTE | 2022-12-23 03:13 | PC.NURSE ---
Notified RAE Castaneda pt was discharged.
== END 2022-12-23 03:12 | disposition home or self-care (01) ==
PROVIDERS: Emergency Provider Emergency Medicine; PCP Internal Medicine
DX: S00.81XA Abrasion of other part of head, initial encounter (principal); V43.52XA Car driver injured in collision with other type car in traffic accident, initial encounter; W22.10XA Striking against or struck by unspecified automobile airbag, initial encounter; Y93.9 Activity, unspecified; Y92.9 Unspecified place or not applicable; Y99.9 Unspecified external cause status; M25.469 Effusion, unspecified knee; E10.65 Type 1 diabetes mellitus with hyperglycemia; R51.9 Headache, unspecified
CPT/HCPCS: 70450; 72125; 73562; 82947; 99284

== ENCOUNTER 2022-12-31 16:25 | Outpatient (REF) | payer OTHER, MEDICAID, SELFPAY ==
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
== END 2022-12-31 16:26 | disposition home or self-care (01) ==
LOC: HO.XRAY 16:25
PROVIDERS: PCP Internal Medicine; Visit Provider Internal Medicine
DX: T14.90XA Injury, unspecified, initial encounter (principal)
CPT/HCPCS: 72050

== ENCOUNTER 2023-01-29 17:52 | Outpatient (REF) | payer OTHER, MEDICAID, SELFPAY ==
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
== END 2023-01-29 17:53 | disposition home or self-care (01) ==
LOC: HO.MRI 17:52
PROVIDERS: PCP Internal Medicine; Visit Provider Internal Medicine
DX: M25.562 Pain in left knee (principal)
CPT/HCPCS: 73721

== ENCOUNTER → 2023-05-20 13:52 | Outpatient (BNVA) | payer OTHER, SELFPAY | PROVIDERS: PCP Internal Medicine; Visit Provider Physician Assistant Medical | DX: S16.1XXA Strain of muscle, fascia and tendon at neck level, initial encounter (principal); V89.0XXA Person injured in unspecified motor-vehicle accident, nontraffic, initial encounter | CPT/HCPCS: 99202 ==

== ENCOUNTER → 2023-05-22 14:56 | Outpatient (BNVA) | payer OTHER, SELFPAY | PROVIDERS: PCP Internal Medicine; Visit Provider Physician Assistant | DX: S16.1XXA Strain of muscle, fascia and tendon at neck level, initial encounter (principal); S46.911A Strain of unspecified muscle, fascia and tendon at shoulder and upper arm level, right arm, initial encounter; V89.0XXA Person injured in unspecified motor-vehicle accident, nontraffic, initial encounter | CPT/HCPCS: 99214 ==

== ENCOUNTER → 2023-06-07 13:53 | Outpatient (BNVA) | payer OTHER, SELFPAY | PROVIDERS: PCP Internal Medicine; Visit Provider Physician Assistant | DX: S16.1XXA Strain of muscle, fascia and tendon at neck level, initial encounter (principal); S46.911A Strain of unspecified muscle, fascia and tendon at shoulder and upper arm level, right arm, initial encounter; V89.0XXA Person injured in unspecified motor-vehicle accident, nontraffic, initial encounter | CPT/HCPCS: 99214 ==

== ENCOUNTER → 2023-07-04 15:53 | Outpatient (BNVA) | payer OTHER, SELFPAY | PROVIDERS: PCP Internal Medicine; Visit Provider Physician Assistant Medical | DX: S16.1XXD Strain of muscle, fascia and tendon at neck level, subsequent encounter (principal); V89.0XXD Person injured in unspecified motor-vehicle accident, nontraffic, subsequent encounter | CPT/HCPCS: 99213 ==

== ENCOUNTER → 2023-07-30 13:00 | Outpatient (BNVA) | payer OTHER, SELFPAY | PROVIDERS: PCP Internal Medicine; Visit Provider Physician Assistant Medical | DX: S16.1XXD Strain of muscle, fascia and tendon at neck level, subsequent encounter (principal); S46.811D Strain of other muscles, fascia and tendons at shoulder and upper arm level, right arm, subsequent encounter; V89.0XXD Person injured in unspecified motor-vehicle accident, nontraffic, subsequent encounter | CPT/HCPCS: 99213 ==

== ENCOUNTER → 2023-08-29 15:44 | Outpatient (BNVA) | payer OTHER, SELFPAY | PROVIDERS: PCP Internal Medicine; Visit Provider Physician Assistant | DX: S16.1XXD Strain of muscle, fascia and tendon at neck level, subsequent encounter (principal); S46.811D Strain of other muscles, fascia and tendons at shoulder and upper arm level, right arm, subsequent encounter; V89.0XXD Person injured in unspecified motor-vehicle accident, nontraffic, subsequent encounter | CPT/HCPCS: 99213 ==

== ENCOUNTER 2023-09-17 16:36 | Outpatient (REF) | payer MEDICAID, SELFPAY ==
--- NOTE | ~2023-09-17 | XR_ITS ---
EXAMINATION: XR CHEST CLINICAL INFORMATION: Wheezing COMPARISON: Chest 04/11/2021 TECHNIQUE: 2 views of the chest were obtained. FINDINGS: Trace linear density at the lung bases is consistent with atelectasis and/or scar. No focal consolidation, interstitial pulmonary edema or pneumothorax. No pleural effusion. No significant abnormality is noted involving the heart, mediastinum, bony thorax or soft tissues. XR/XR chest 2V IMPRESSION: No acute abnormality.
== END 2023-09-17 16:37 | disposition home or self-care (01) ==
LOC: HO.XRAY 16:36
PROVIDERS: PCP Internal Medicine; Visit Provider Physician Assistant
DX: R06.2 Wheezing (principal)
CPT/HCPCS: 71046

== ENCOUNTER 2023-09-18 11:55 | Outpatient (REF) | payer MEDICAID, SELFPAY | END 2023-09-18 11:56 | disposition home or self-care (01) | LOC: HO.MANLNP 11:55 | PROVIDERS: Visit Provider Physician Assistant | DX: R05.9 Cough, unspecified (principal) | CPT/HCPCS: 87070 ==

== ENCOUNTER 2023-11-12 09:26 | Outpatient (AMB) | payer MEDICAID, SELFPAY ==
[2023-11-12 09:26] VITALS: BP 126/69; PULSE 76; BMI 28.4
--- NOTE | 2023-11-12 09:26 | MHC.OFFVIS ---
Vital Signs 11/12/23 09:26 Height 5 ft 6 in Weight 176 lb BMI 28.4 BP 126/69 Blood Pressure Location Rt brachial Position Sitting Pulse 76 Intake Visit Reasons: Hernia Intake Note: Patient presents for a hernia assessment. Patient c/o; bulge, reports pain, reports diarrhea, reports nausea, reports constipation some days. 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 Required: No Accompanied by: Self / Same As Patient Allergies No Known Allergies Allergy (Mild, Verified 11/12/23 09:33) NONE Medication List - Last Reconciled 11/12/23 by Eric Moe MD blood sugar diagnostic (FreeStyle Lite Strips) As directed cyclobenzaprine 10 mg PO TID PRN cyclobenzaprine 5 mg PO TID PRN ibuprofen 600 mg PO TID PRN insulin glargine (Lantus Solostar U-100 Insulin) 40 units subcut DAILY@1700 insulin lispro (Humalog KwikPen (U-100) Insulin) 5 units subcut TID lorazepam 1 tab PO BEDTIME omeprazole 40 mg PO DAILY ondansetron 4 mg PO Q8H PRN 30 days tramadol 1 tab PO Q4H PRN HPI Comments Details: 43-year-old female patient with a prior history of perforated bleeding ulcer status post exploratory laparotomy, plication of bleeding ulcer and Bryan patch on 04/11/2021. She subsequently developed an incisional hernia which required repair on 10/24/2022. She now reports swelling in the abdomen and is concerned about a recurrent incisional hernia. She also reports alternating constipation and diarrhea, nausea and abdominal pain. She denies any blood per rectum. [facility] Medical History Anxiety History of vertigo Chronic back pain Type 1 diabetes mellitus Surgical History History of incisional hernia repair (10/24/22) History of incisional hernia repair (02/28/22) History of back surgery History of esophagogastroduodenoscopy (EGD) H/O exploratory laparotomy Family History Mother Vaginal cancer Social History Household Members: Children Housing: House Do you presently have visiting nurse or other home services: No Alcohol intake: never Patient Tobacco Use Status: Former Tobacco user Tobacco use type: Cigarette Cigarettes Per Day: 3 service: No Current occupational status: unemployed Review of Systems Const All systems reviewed & are unremarkable except as noted in HPI and below Physical Exam Vital Signs: Last Vital Signs Pulse 76 11/12/23 09:26 BP 126/69 11/12/23 09:26 BMI result Body Mass Index 28.4 Const General: no acute distress and well developed Nutritional Appearance: well nourished Orientation/consciousness: patient oriented x3 Limitations: no limitations Resp Effort & Inspection: normal respiratory effort GI Other: Midline incision is clean, dry, and intact without redness or discharge. There is an area of swelling to the left of midline with no changes noted with Valsalva maneuvers. No definite hernias appreciated. Overall abdomen appears distended however with some tympany to percussion. No rebound, guarding or rigidity. Inspection: Yes normal to inspection Palpation (GI): Soft to palpation and Tenderness to palpation present (GI) in the epigastrum Skin General skin exam: no rashes or lesions noted Neuro General: patient oriented x3 Extrem General: Yes no clubbing, cyanosis or edema Assessment & Plan Assessment & Plan (1) Incisional hernia: Code(s): K43.2 - Incisional hernia without obstruction or gangrene Category: Medical Qualifiers: Obstruction and gangrene presence: without obstruction or gangrene Qualified Code(s): K43.2 - Incisional hernia without obstruction or gangrene (2) Upper abdominal pain: Code(s): R10.10 - Upper abdominal pain, unspecified Category: Medical (3) Perforated gastric ulcer: Code(s): K25.5 - Chronic or unspecified gastric ulcer with perforation Category: Medical Qualifiers: Gastric ulcer chronicity: acute Qualified Code(s): K25.1 - Acute gastric ulcer with perforation (4) Diarrhea: Code(s): R19.7 - Diarrhea, unspecified Category: Medical Qualifiers: Diarrhea type: unspecified type Qualified Code(s): R19.7 - Diarrhea, unspecified Plan 43-year-old female patient with a previous history of perforated and bleeding gastric ulcer now presenting with abdominal pain in the upper abdominal incision. She feels point tenderness in the mid incision is concerned about a recurrent hernia. She also reports other intestinal symptoms including constipation, diarrhea, nausea and vomiting. I recommended follow-up with Gastroenterology and have requested a CT abdomen and pelvis to evaluate for incisional hernia. He will return following the CT to review the results. Orders: Orders CT abdomen pelvis wo IV con Today K43.2 - Incisional hernia without obstruction or gangrene Referrals Gastroenterology Referral K25.5 - Chronic or unspecified gastric ulcer with perforation, R10.10 - Upper abdominal pain, unspecified, R19.7 - Diarrhea, unspecified Coding Level of Care Code Est Pt Level 3 (77189) Diagnoses Incisional hernia, without obstruction or gangrene K43.2 Obstruction and gangrene presence: without obstruction or gangrene Upper abdominal pain R10.10 Acute gastric ulcer with perforation K25.1 Gastric ulcer chronicity: acute Diarrhea, unspecified type R19.7 Diarrhea type: unspecified type
== END 2023-11-12 09:39 | disposition home or self-care (01) ==
PROVIDERS: PCP Internal Medicine; Visit Provider Surgery
DX: K43.2 Incisional hernia without obstruction or gangrene (principal); R10.10 Upper abdominal pain, unspecified; K25.1 Acute gastric ulcer with perforation; R19.7 Diarrhea, unspecified
CPT/HCPCS: 99213

== ENCOUNTER → 2023-11-12 09:26 | Outpatient (BNVA) | payer MEDICAID, SELFPAY | PROVIDERS: PCP Internal Medicine; Visit Provider Surgery | DX: R19.00 Intra-abdominal and pelvic swelling, mass and lump, unspecified site (principal); R10.10 Upper abdominal pain, unspecified; K25.1 Acute gastric ulcer with perforation; R19.7 Diarrhea, unspecified | CPT/HCPCS: 99212 ==

== ENCOUNTER → 2024-02-27 15:46 | Outpatient (BNVA) | payer OTHER, SELFPAY | PROVIDERS: PCP Internal Medicine; Visit Provider Physician Assistant | DX: S16.1XXD Strain of muscle, fascia and tendon at neck level, subsequent encounter (principal); V89.0XXD Person injured in unspecified motor-vehicle accident, nontraffic, subsequent encounter | CPT/HCPCS: 99214 ==

== ENCOUNTER 2024-04-16 14:46 | Outpatient (REF) | payer MEDICAID, SELFPAY ==
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
--- NOTE | ~2024-04-16 | CT_ITS ---
EXAMINATION: CT HEAD WITHOUT CONTRAST CLINICAL INFORMATION: Mechanical fall. Blunt head trauma without loss of consciousness, significant head injury and posttraumatic headache. COMPARISON: CT brain on 12/22/2022 TECHNIQUE: Contiguous axial imaging was performed from the skull base to vertex without intravenous administration of contrast. This CT examination was performed using dose optimization techniques as appropriate, variously including the following: *Automated exposure control *Adjustment of mA and/or kV according to patient size (this includes techniques or standardized protocols for targeted exams where dose is matched to indication/reason for exam; i.e. extremities or head) *Use of iterative reconstruction technique DLP: 789.2 mGy-cm FINDINGS: Ventricles, sulci and cisterns are normal. There is interval appearance of gyriform high attenuation in left posterior frontal lobe, series 4 image #47, series 6 image #118, 119. There is no midline shift. Villalobos and white matter differentiation is normal. Bone window images show no evidence of skull fracture. CT/CT head/brain wo IV con IMPRESSION: 1. Interval appearance of gyriform relative high attenuation in left posterior frontal lobe, most likely due to imaging artifacts directly beneath the high density calvarium. Clinical correlation is recommended to determine the need for further evaluation with noncontrast MRI of brain to exclude subarachnoid hemorrhage. 2. No evidence of skull fracture is seen. 3. No evidence of space occupying lesion could be found. 4. The current plain CT scan of the brain shows no diagnostic evidence of acute cerebral infarction. Electronically signed by: Zheng Resendiz MD 04/17/2024 10:34 AM [facility]
== END 2024-04-16 14:47 | disposition home or self-care (01) ==
LOC: HO.CT 14:46
PROVIDERS: PCP Internal Medicine; Visit Provider Physician Assistant
DX: S09.90XA Unspecified injury of head, initial encounter (principal)
CPT/HCPCS: 70450; 72125

== ENCOUNTER 2024-04-24 17:00 | Outpatient (REF) | payer MEDICAID, SELFPAY | END 2024-04-24 17:01 | disposition home or self-care (01) | LOC: HO.CT 17:00 | PROVIDERS: PCP Internal Medicine; Visit Provider Surgery | DX: K43.2 Incisional hernia without obstruction or gangrene (principal) | CPT/HCPCS: 74176 ==

== ENCOUNTER → 2024-04-24 17:01 | Outpatient (BNV) | payer MEDICAID, SELFPAY | PROVIDERS: PCP Internal Medicine; Visit Provider Radiology Diagnostic Radiology | DX: N20.0 Calculus of kidney (principal) | CPT/HCPCS: 74176 ==

== ENCOUNTER 2024-05-27 18:22 | Emergency (ER) | payer MEDICAID, SELFPAY ==
--- NOTE | ~2024-05-27 | CT_ITS ---
CLINICAL HISTORY: pain, sbo? CT abdomen and pelvis with contrast Comparison: CT/SR - CT ABDOMEN PELVIS WO IV CON - 04/24/24 17:11 EST Findings: There is mild bibasilar atelectasis. The liver, pancreas, spleen, and adrenal glands are unremarkable. There is cholelithiasis. Gallbladder appears otherwise normal. There are a couple tiny nonobstructing renal stones in the lower poles of both kidneys. Kidneys are otherwise unremarkable. The appendix is normal. There is a moderate amount of stool in the colon. There is no bowel obstruction. There is no free fluid or free air. The aorta and IVC appear normal. There are no enlarged lymph nodes. Uterus and adnexa are unremarkable. There is L5-S1 fusion. There is no fracture or suspicious lytic or sclerotic lesion. IMPRESSION: 1. No acute abnormality in the abdomen or pelvis. 2. Cholelithiasis. 3. Tiny bilateral nonobstructing renal stones. This document has been electronically signed by: Manjit Ross MD on 05/28/2024 02:48:19
[2024-05-27 19:04] VITALS: BP 139/70; PULSE 83; RESP 16; TEMP 36.7; O2SAT 92; BMI 28.7
--- NOTE | 2024-05-27 19:54 | MHC.EDTECH ---
Patient brought into triage area,some labs drawn,unable to collect the lactic,due to pt being a difficult stick,provider Salvatore aware,, per provider hold on drawing lactic at this time.
[2024-05-27 19:56] LABS: MANUAL DIFF FLAG NO
[2024-05-27 19:58] LABS: Basophils Absolute Auto 0.1 X10*3/uL (0.0-0.2); Basophils Percent Auto 0.8 % (0-2); Eosinophils Absolute Auto 0.5 X10*3/uL (0.0-0.4); Eosinophils Percent Auto 5.2 % (0-4); Hematocrit 42.4 % (37.0-47.0); Hemoglobin 13.4 g/dl (12.0-16.0); Imm Gran Abs Auto 0.03 X10*3/uL (0.00-0.03); Imm Gran Pct Auto 0.3 % (0.0-0.4); Lymphocytes Absolute Auto 2.9 X10*3/uL (1.2-4.9); Lymphocytes Percent Auto 27.5 % (20-40); Mean Corpuscular HGB Conc 31.6 g/dl (31.0-35.0); Mean Corpuscular Hemoglobin 23.7 pg (27.0-33.0); Mean Corpuscular Volume 74.9 fL (80.0-98.0); Mean Platelet Volume 12.3 fL (9.4-12.3); Monocytes Absolute Auto 0.7 X10*3/uL (0.1-1.2); Monocytes Percent Auto 6.9 % (2-11); Neutrophils Absolute Auto 6.2 x10*3/uL (2.0-8.3); Neutrophils Percent Auto 59.3 % (45-73); Platelet Count 194 X10*3/uL (160-400); Red Blood Count 5.66 X10*6/uL (4.20-5.50); Red Cell Distribution Width 14.6 % (11.0-16.0); White Blood Count 10.5 X10*3/uL (4.8-10.8)
[2024-05-27 20:14] LABS: Albumin Level 3.9 g/dL (3.5-5.0); Alkaline Phosphatase 247 U/L (39-117); Anion Gap 10 (12-20); Aspartate Amino Transferase 31 U/L (5-31); Bilirubin Total 0.6 mg/dL (0.0-1.0); Blood Urea Nitrogen 14 mg/dL (9-16); Carbon Dioxide 20 mmol/L (22-29); Chloride 113 mmol/L (96-108); Creatinine Clr Calc Pharmacy 64.6; Estimated Glomerular Filt Rate 49; Glucose Random 302 mg/dL (60-115); Lipase 5 U/L (8-78); Potassium 4.7 mmol/L (3.3-5.1); Sodium 138 mmol/L (135-145)
[2024-05-27 20:26] LABS: Alanine Aminotransferase 37 U/L (0-31)
[2024-05-27 21:01] LABS: Lactic Acid 1.3 mmol/L (0.5-2.0)
[2024-05-27 23:45] VITALS: RESP 18
[2024-05-27] MEDS: Morphine Sulfate 4 MG/ML CARTRIDGE IVPUSH (23:45)
[2024-05-27] MEDS: ondansetron HCL 4 MG/2 ML VIAL IVPUSH (23:45)
[2024-05-27] MEDS: 0.9 % Sodium Chloride 500 ML IV (23:46)
[2024-05-27] MEDS: Diatrizoate Meglumine, Sodium 30 ML SOLUTION PO (23:55)
[2024-05-28 01:00] VITALS: BP 109/61; PULSE 67; RESP 18; TEMP 36.9
[2024-05-28 01:35] VITALS: BP 109/61; PULSE 67; RESP 18; TEMP 36.9; O2SAT 98
[2024-05-28] MEDS: iohexoL 350 MG/ML 100 ML INFUS..BTL 85 ML IV (01:58)
--- NOTE | 2024-05-28 03:12 | ED.ABDPAIN ---
HPI - Abdominal Pain General Chief Complaint: Abdominal Pain Stated Complaint: lump in abdomen Time Seen by Provider: 05/27/24 20:53 Source: patient Limitations: no limitations History of Present Illness ED Provider: Olamide Russell PA-C HPI narrative: 43-year-old female with a history of obesity, anemia, perforated gastric ulcer, incisional hernia, presents with abdominal pain since this morning. Pain over epigastric and left upper quadrant, unable to describe the nature of her discomfort. Patient states that she has a ?lump?, that she can palpate within this region. Associated abdominal distention, nausea, indigestion and diarrhea. Patient denies constipation or inability to pass flatus. Related Data Home Medications ?Medication ?Instructions ?Recorded ?Confirmed insulin lispro 100 unit/mL 5 unit subcut TID 04/19/21 05/29/24 subcutaneous pen (Humalog KwikPen (U-100) Insulin) lorazepam 0.5 mg tablet 1 tab PO BEDTIME 11/07/21 05/29/24 blood sugar diagnostic (FreeStyle #10 ea 04/12/22 05/29/24 Lite Strips) insulin glargine 100 unit/mL (3 40 unit subcut DAILY@1700 10/24/22 05/29/24 mL) subcutaneous pen (Lantus Solostar U-100 Insulin) Previous Rx's ?Medication ?Instructions ?Recorded omeprazole 40 mg capsule,delayed 40 mg PO DAILY #90 caps 10/08/23 release ondansetron 4 mg disintegrating 4 mg PO Q8H PRN for 11/07/23 tablet nausea/vomiting 30 days #60 tabs naproxen 500 mg tablet 500 mg PO BID PRN pain #40 tabs 02/27/24 cyclobenzaprine 5 mg tablet 5 mg PO BEDTIME PRN muscle spasm 03/13/24 #10 tabs Allergies Allergy/AdvReac Type Severity Reaction Status Date / Time No Known Allergies Allergy Mild NONE Verified 05/29/24 09:24 Review of Systems Review of Systems Yes all other systems are reviewed and are negative Constitutional: Denies fatigue and Denies fever(s) Cardiovascular: Denies chest pain and Denies dyspnea Respiratory: Denies cough and Denies dyspnea Gastrointestinal: Reports abdominal pain, Denies constipation, Reports diarrhea, Reports nausea and Reports vomiting Endocrine: Denies fatigue PMFSH Past Medical History Attestation statement: The following information was validated with the patient. Medical History Anxiety History of vertigo Chronic back pain Type 1 diabetes mellitus Surgical History History of incisional hernia repair (10/24/22) History of incisional hernia repair (02/28/22) History of back surgery History of esophagogastroduodenoscopy (EGD) H/O exploratory laparotomy Family History Family History Mother Vaginal cancer Social History Social History Household Members: Children Housing: House Do you presently have visiting nurse or other home services: No Alcohol intake: never Patient Tobacco Use Status: Former Tobacco user Tobacco use type: Cigarette Cigarettes Per Day: 3 service: No Current occupational status: unemployed Physical Exam ED Vital Signs: Vital Signs - 24 hr 05/27/24 19:04 05/27/24 23:45 05/28/24 01:35 Temperature 98.0 F 98.4 F Pulse Rate 83 67 Respiratory Rate 16 18 18 Blood Pressure 139/70 109/61 Pulse Oximetry 92 98 Oxygen Delivery Method Room Air Room Air BMI result Body Mass Index 28.7 Const Other: Alert Orientation/consciousness: patient oriented x3 Resp Effort & Inspection: normal respiratory effort Cardio Other: Normal peripheral perfusion GI Other: Abdomen is soft, obese, no objective distention, I can palpate a mass in the upper abdomen, no guarding, no peritoneal signs Skin Other: Warm dry no rash Neuro General: patient oriented x3, no focal motor deficits and CN's II-XI intact bilaterally Psych Other: Cooperative Medical Decision Making Medical Decision Making MDM Narrative: 43-year-old female with a history of obesity, anemia, perforated gastric ulcer, incisional hernia, presents with abdominal pain since this morning. Pain over epigastric and left upper quadrant, unable to describe the nature of her discomfort. Patient states that she has a ?lump?, that she can palpate within this region. Associated abdominal distention, nausea, indigestion and diarrhea. Patient denies constipation or inability to pass flatus. Problem: Obesity, prior perforated gastric ulcer, incisional hernia History: Per patient I have considered the following differential diagnoses: Biliary colic, cholecystitis, gastritis, perforated gastric ulcer, pancreatitis, bowel obstruction, incarcerated/strangulated hernia Plan: Objectively, I can palpate a mass in the upper abdomen, perhaps this is the incisional hernia perhaps it is incarcerated. There was no overlying skin changes to suggest strangulation. We will be scanning her abdomen. Giving analgesia, antiemetic and saline. Given upper abdominal discomfort, I have also considered biliary versus gastric versus pancreatic etiology as cause for her symptoms. The pain is not truly focal to either the left or the right upper quadrant. She also has no peritoneal signs to suggest a perforated gastric ulcer. I have independently reviewed the following tests: Labs: No leukocytosis, not anemic, no electrolyte abnormality, no elevation in LFTs they are at her baseline CT abdomen and pelvis:IMPRESSION: Findings: There is mild bibasilar atelectasis. The liver, pancreas, spleen, and adrenal glands are unremarkable. There is cholelithiasis. Gallbladder appears otherwise normal. There are a couple tiny nonobstructing renal stones in the lower poles of both kidneys. Kidneys are otherwise unremarkable. The appendix is normal. There is a moderate amount of stool in the colon. There is no bowel obstruction. There is no free fluid or free air. The aorta and IVC appear normal. There are no enlarged lymph nodes. Uterus and adnexa are unremarkable. There is L5-S1 fusion. There is no fracture or suspicious lytic or sclerotic lesion. IMPRESSION: 1. No acute abnormality in the abdomen or pelvis. 2. Cholelithiasis. 3. Tiny bilateral nonobstructing renal stones. Lab Data 05/27/24 19:50 05/27/24 19:50 Labs: Lab Results 05/27/24 05/27/24 Range/Units 19:50 20:42 WBC 10.5 (4.8-10.8) X10*3/uL RBC 5.66 H (4.20-5.50) X10*6/uL Hgb 13.4 (12.0-16.0) g/dl Hct 42.4 (37.0-47.0) % MCV 74.9 L (80.0-98.0) fL MCH 23.7 L (27.0-33.0) pg MCHC 31.6 (31.0-35.0) g/dl RDW 14.6 (11.0-16.0) % Plt Count 194 (160-400) X10*3/uL MPV 12.3 (9.4-12.3) fL Immature Gran % (Auto) 0.3 (0.0-0.4) % Neut % (Auto) 59.3 (45-73) % Lymph % (Auto) 27.5 (20-40) % Nicholas % (Auto) 6.9 (2-11) % Eos % (Auto) 5.2 H (0-4) % Baso % (Auto) 0.8 (0-2) % Lymph # (Auto) 2.9 (1.2-4.9) X10*3/uL Nicholas # (Auto) 0.7 (0.1-1.2) X10*3/uL Eos # (Auto) 0.5 H (0.0-0.4) X10*3/uL Baso # (Auto) 0.1 (0.0-0.2) X10*3/uL Abs Immat Gran (auto) 0.03 (0.00-0.03) X10*3/uL Absolute Neuts (auto) 6.2 (2.0-8.3) x10*3/uL Absolute Nucleated RBC 0.000 (0.0-0.012) X10*3/uL Nucleated RBC % (auto) 0.0 (0.0-0.2) /100WBC Sodium 138 (135-145) mmol/L Potassium 4.7 (3.3-5.1) mmol/L Chloride 113 H (96-108) mmol/L Carbon Dioxide 20 L (22-29) mmol/L Anion Gap 10 L (12-20) BUN 14 (9-16) mg/dL Creatinine 1.19 (0.5-1.4) mg/dL Estim Creat Clear Calc 64.6 Estimated GFR 49 Random Glucose 302 H (60-115) mg/dL Lactic Acid 1.3 (0.5-2.0) mmol/L Calcium 9.0 (8.4-10.2) mg/dL Total Bilirubin 0.6 (0.0-1.0) mg/dL AST 31 (5-31) U/L ALT 37 H (0-31) U/L Alkaline Phosphatase 247 H (39-117) U/L Total Protein 7.0 (6.5-8.0) g/dL Albumin 3.9 (3.5-5.0) g/dL Lipase 5 L (8-78) U/L Medications Administered Discontinued Medications Generic Name Dose Route Start Last Admin Trade Name Freq PRN Reason Stop Dose Admin Diatrizoate Meglum/Diatrizoate Sod 30 ml 05/27/24 23:54 05/27/24 23:55 Diatrizoate Meglumine, Sodium 30 Ml Solution PO 05/27/24 23:55 30 ml ONCE ONE Administration Sodium Chloride 500 mls @ 500 mls/hr 05/27/24 23:16 05/28/24 00:46 Ns IV 05/28/24 00:15 Infused .Q1H ONE Infusion Iohexol 85 ml 05/28/24 01:57 05/28/24 01:58 Iohexol 350 Mg/Ml 100 Ml Infus..Btl IV 05/28/24 01:58 85 ml ONCE ONE Administration Morphine Sulfate 4 mg 05/27/24 23:16 05/27/24 23:45 Morphine Sulfate 4 Mg/Ml Cartridge IVPUSH 05/27/24 23:17 4 mg ONCE ONE Administration Protocol Ondansetron HCl 4 mg 05/27/24 23:16 05/27/24 23:45 Ondansetron Hcl 4 Mg/2 Ml Vial IVPUSH 05/27/24 23:17 4 mg ONCE ONE Administration Discharge Plan Discharge Clinical Impression: Constipation Patient Disposition: Home, Self-Care Instructions: Constipation (ED) Additional Instructions: All of your labs were normal, you were found to be considerably constipated on the CT scan. See home care instructions. You need to begin to use a stool softener such as [id number] Colace, twice a day. In addition, you need to use [id number] MiraLax, 2 to 3 times a day, until you begin having regular, large volume bowel movements. Keep your pending appointment scheduled for today with your surgeon. Prescriptions: No Action omeprazole 40 mg capsule,delayed release(DR/EC) 40 mg PO DAILY Qty: 90 2RF ondansetron 4 mg tablet,disintegrating 4 mg PO Q8H PRN (Reason: for nausea/vomiting) 30 Days Qty: 60 0RF cyclobenzaprine 5 mg tablet 5 mg PO BEDTIME PRN (Reason: muscle spasm) Qty: 10 0RF Rx Instructions: Do not drive or operate machinery for 8 hours after taking this medicine insulin lispro [Humalog KwikPen Insulin] 100 unit/mL insulin pen 5 unit subcut TID lorazepam 0.5 mg tablet 1 tab PO BEDTIME insulin glargine [Lantus Solostar U-100 Insulin] 100 unit/mL (3 mL) insulin pen 40 unit subcut DAILY@1700 (DME) FreeStyle Lite Strips Strip See Rx Instructions .ROUTE BID Qty: 10 Rx Instructions: As directed naproxen 500 mg tablet 500 mg PO BID PRN (Reason: pain) Qty: 40 0RF Stand Alone Forms: Work/School Release Interventions: ED Discharge Assessment Last Done: 05/28/24 03:29 Discharge Date/Time: 05/28/24 03:30 Print Language: Finnish
[2024-05-28 03:29] VITALS: BP 94/56; PULSE 75; RESP 16; TEMP 36.6; O2SAT 97
== END 2024-05-28 03:30 | disposition home or self-care (01) ==
PROVIDERS: Emergency Provider Emergency Medicine; PCP Internal Medicine
DX: K59.00 Constipation, unspecified (principal); R10.2 Pelvic and perineal pain; E11.9 Type 2 diabetes mellitus without complications; R11.0 Nausea; Z79.4 Long term (current) use of insulin; Z79.899 Other long term (current) drug therapy; Z87.891 Personal history of nicotine dependence
CPT/HCPCS: 36415; 74177; 80053; 83605; 83690; 85025; 96361; 96374; 96375; 99284; J2270; J2405; Q9967

== ENCOUNTER 2024-05-28 15:05 | Outpatient (AMB) | payer MEDICAID, SELFPAY ==
--- NOTE | 2024-05-28 15:18 | A.OFFVIS_ITS ---
Vital Signs 05/28/24 15:21 Height 5 ft 6 in Weight 179 lb 8 oz BMI 29.0 BP 124/79 Blood Pressure Location Lt brachial Position Sitting Pulse 88 Intake Visit Reasons: s/p CT scan 05/04/24 pt in severe pain Intake Note: Patient is seen in office for for CT scan results, following incisional hernia. 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 She subsequently developed an incisional hernia which required repair on 10/24/2022. She now reports swelling in the abdomen and is concerned about a recurrent incisional hernia. She also reports alternating constipation and diarrhea, nausea and abdominal pain. She denies any blood per rectum. She was initially evaluated in November [address] abdomen and pelvis recommended. She finally underwent a CT in the past week and returns today to review the results. She continues to have abdominal pain mainly in the left upper quadrant which is been quite severe. COUNT INCLUDES THE [facility] Medical History Anxiety History of vertigo Chronic back pain Type 1 diabetes mellitus Surgical History History of incisional hernia repair (10/24/22) History of incisional hernia repair (02/28/22) History of back surgery History of esophagogastroduodenoscopy (EGD) H/O exploratory laparotomy Family History Mother Vaginal cancer Social History Household Members: Children Housing: House Do you presently have visiting nurse or other home services: No Alcohol intake: never Patient Tobacco Use Status: Former Tobacco user Tobacco use type: Cigarette Cigarettes Per Day: 3 service: No Current occupational status: unemployed Review of Systems Const All systems reviewed & are unremarkable except as noted in HPI and below Physical Exam Vital Signs: Last Vital Signs Pulse 88 05/28/24 15:21 BP 124/79 05/28/24 15:21 BMI result Body Mass Index 29.0 Const General: tired appearing Nutritional Appearance: well nourished Orientation/consciousness: patient oriented x3 Limitations: no limitations Resp Effort & Inspection: normal respiratory effort, no audible wheezes, no cough and no respiratory distress GI Inspection: Yes normal to inspection Palpation (GI): Soft to palpation, Tenderness to palpation present (GI) in the LUQ; Palmer's sign negative and with no rebound tenderness, no guarding, not rigid, No hepatosplenomegaly present and no hernias Percussion: Yes tympanic to percussion Auscultation: normal bowel sounds Rectal Exam - Female: deferred Skin General skin exam: no rashes or lesions noted Neuro General: patient oriented x3 Assessment & Plan Assessment & Plan (1) Upper abdominal pain: Code(s): R10.10 - Upper abdominal pain, unspecified Category: Medical Plan 43-year-old female patient with a prior history of perforated and bleeding gastric ulcer now presenting with complaints of left upper quadrant abdominal pain. She has undergone [address] abdomen and pelvis examination is both of which do not show any evidence of free air, fluid collection, abscess, bowel obstruction or hernia formation. On her 2nd CT the stomach does seem to be somewhat more dilated she was vaguely the area that she complains of the abdominal pain. Contrast is noted to pass through into the small bowel without evidence of gastric outlet obstruction. The study was reviewed in detail with the patient and her . No surgical intervention is recommended at this time although I would recommend re-evaluation by Gastroenterology. Arrangements have been made for a follow up appointment tomorrow with Dr. Woodson. The patient understands and agrees with the plan. Coding Level of Care Code Est Pt Level 3 (21162) Diagnoses Upper abdominal pain R10.10
[2024-05-28 15:21] VITALS: BP 124/79; PULSE 88; BMI 29.0
== END 2024-05-28 16:08 | disposition home or self-care (01) ==
PROVIDERS: PCP Internal Medicine; Visit Provider Surgery
DX: R10.10 Upper abdominal pain, unspecified (principal)
CPT/HCPCS: 99213

== ENCOUNTER → 2024-05-28 15:05 | Outpatient (BNVA) | payer MEDICAID, SELFPAY | PROVIDERS: PCP Internal Medicine; Visit Provider Surgery | DX: R10.10 Upper abdominal pain, unspecified (principal) | CPT/HCPCS: 99212 ==

== ENCOUNTER → 2024-05-28 | Outpatient (BNV) | payer MEDICAID, SELFPAY | PROVIDERS: Emergency Provider Emergency Medicine; PCP Internal Medicine; Visit Provider Radiology Diagnostic Radiology | DX: R10.2 Pelvic and perineal pain (principal) | CPT/HCPCS: 74177 ==

== ENCOUNTER 2024-05-29 09:15 | Outpatient (AMB) | payer MEDICAID, SELFPAY ==
--- NOTE | 2024-05-29 09:24 | MHC.OFFVIS ---
Vital Signs 05/29/24 09:32 Height 5 ft 6 in Weight 179 lb BMI 28.9 BP 120/73 Blood Pressure Location Lt brachial Position Sitting Pulse 88 Intake Visit Reasons: abdominal pain/bleeding Intake Note: Patient abdominal pain Patient cc: abdominal pain with diarrhea, heartburn with nauseas and not a good appetite. Patient have a CT scan at the last visit to the ER dept. Appeals Board Referee Required: No Accompanied by: Family/Other Allergies No Known Allergies Allergy (Mild, Verified 05/29/24 09:24) NONE Medication List - Last Reconciled 05/29/24 by Ligia Woodson MD blood sugar diagnostic (FreeStyle Lite Strips) As directed cyclobenzaprine 5 mg PO BEDTIME PRN insulin glargine (Lantus Solostar U-100 Insulin) 40 units subcut DAILY@1700 insulin lispro (Humalog KwikPen (U-100) Insulin) 5 units subcut TID lorazepam 1 tab PO BEDTIME naproxen 500 mg PO BID PRN omeprazole 40 mg PO DAILY ondansetron 4 mg PO Q8H PRN 30 days HPI HPI abdominal pain/bleeding: Details: GI clinic visit for this 43 YF scheduled for an urgent FU appt after pt was seen in the ED on 05/28/24 for abd pain and a lump Abd CT scan showed: 1. No acute abnormality in the abdomen or pelvis. 2. Cholelithiasis. 3. Tiny bilateral nonobstructing renal stones. 4. Moderate amount of stool in the colon TODAY'S VISIT: Pt is accompanied by her SO Patient cc: abdominal pain with diarrhea, heartburn with nauseas and not a good appetite. Patient have a CT scan at the last visit to the ER dept Pt started having 9/10 constant epigastric/LUQ pain - felt a lump or ball in the LUQ Denies radiation to the back or shoulder No known precipitating factors - woke up with abdominal pain. Complains of nausea, denies vomiting, fever or chills Also had diarrhea - 9 episode of watery to loose stools without blood or mucous. No change in abd distension after the diarrhea Had 3 BMs yesterday and 3 timnes since this am. Abd pain improved to 5/10 today [place] bloated with visible abdominal distension Had soup for dinner Lately she has been eating less - starts eating and feels full - since last Saturday. Called her PCP and advised to go to the ER Abd pain is different than the pain she had when she had the Denies recent antibiotics or NSAID use PAST VISTS: Noted a bump in the upper abdomen x 2 weeks Has been noticing nausea, bloating and diarrhea since then Denies early satiety. Takes Tramadol 1 -3 times a day prn Foul smelling burps have resolved. 04/11/21 Pt had Exploratory laparotomy, gastrotomy, suture ligature of bleeding gastric ulcer, biopsy of gastric ulcer, omental patch of gastric ulcer 10/2022 patient had incisional hernia repair with mesh placement by Dr. Moe Has been doing good. Had surgery for an incisional hernia in 02/2022 and has been doing well since Intermittent burping (foul smelling). Takes Tramadol for back pain and has been cutting back - takes it only when she really needs it. Denies abdominal pain, nausea or vomiting or wt loss. Abdominal pain is not that bad - uncomfortable at times. Denies nausea or vomiting. Intermittent discomfort after eating. Noted abdominal pain, nausea and vomiting a month after her surgery - saw Dr Moe and scheduled for CT scan on 06/26/20. Pain is epigastric and LUQ and feels like a cramp and is 8/10 in intensity. Woke up with pain this am. Eating can make the pain worse, sometimes it stays the same or goes away. Intermittent nausea.? Vomits 1-2 times a week and contains undigested food Notes partial relief of pain after vomting Patient denies symptoms of heartburn, dysphagia. Wt has been stable. Denies recent change in bowel habits, constipation, diarrhea, black stools or rectal bleeding. Patient denies major cardiac or pulmonary problems, loud snoring or sleep apnea Denies problems with anesthesia in the past. Denies being on chronic anticoagulation. 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 and has 2 children (5 children at home) Patient denies known family history of colon cancer or other GI malignancies. Brother had colon polyps at age 37 - 38 yrs. PAST EGD/COLONOSCOPY:? [place] [facility] [place]brother has colon polyps in his early?40's IMAGING STUDIES:? 06/[address] SCAN SHOWED: Significant constipation without obstruction. No free air or free fluid seen. Nonobstructive bilateral renal calculi. No hydroureteronephrosis. ? 12/01/21 EGD SHOWED: STOMACH: Copious amount of undigested food in the stomach - suggestive of gastroparesis. Pt is taking Tramadol 50 mg 2-3 times daily for back pain which can cause delayed gastric emptying. Edematous folds at the lesser curvature/incisura and ulcer seen on past EGD appeared to have healed. Two ligatures seen at the ulcer site - biopsies were obtained from the gastric antrum to check for H Pylori. Retroflexed examination was not performed. Gastric biopsies were negative for Helicobacter pylori. Plan:? Pt will be scheduled for a Gastric Emptying Study. Above findings were reviewed with the patient and? and Peptic Ulcer Disease handouts were given in the discharge area 07/10/21 EGD SHOWED: STOMACH: Some bile noted in the stomach which was suctioned.? Edematous folds at the lesser curvature/incisura with a 2 cms healing ulcer - Two ligatures seen at the ulcer site - biopsies were obtained from the ulcer and from the gastric antrum to check for H Pylori. Plan:? Continue Omeprazole 40 mg twice daily. Repeat EGD in 4 months to confirm gastric ulcer has healed. Above findings were reviewed with the patient and PUD and diet for Gastric ulcer handouts were given in the discharge area ADDENDUM: Biopsies showed: A.? Stomach, ulcer, biopsy:? Ulcerated gastric mucosa; no Helicobacter organism seen. B.? Stomach, antrum, biopsy:? Antral-type mucosa with moderate chronic inactive inflammation; no Helicobacter organisms seen. [facility] Medical History Anxiety History of vertigo Chronic back pain Type 1 diabetes mellitus Surgical History History of incisional hernia repair (10/24/22) History of incisional hernia repair (02/28/22) History of back surgery History of esophagogastroduodenoscopy (EGD) H/O exploratory laparotomy Family History Mother Vaginal cancer Social History Household Members: Children Housing: House Do you presently have visiting nurse or other home services: No Alcohol intake: never Patient Tobacco Use Status: Former Tobacco user Tobacco use type: Cigarette Cigarettes Per Day: 3 service: No Current occupational status: unemployed Review of Systems Const Reports fatigue, Denies fever(s), Reports headache(s) and Denies weight loss Eyes Denies eye discharge and Denies irritation ENT Reports Normal hearing present, Denies dysphagia, Denies dizziness and Reports headache(s) Card Denies chest pain, Denies leg edema and Denies dyspnea on exertion Resp Denies cough, Denies dyspnea on exertion and Denies wheezing GI Reports abdominal pain, Reports bloating, Denies change in bowel habits, Denies dysphagia, Reports early satiety, Reports heartburn, Reports diarrhea, Reports nausea and Reports other (loss of appetite) Denies difficulty voiding, Denies dysuria and Reports other (LMP 05/01/24) Musc Denies back pain, Reports arthralgias and Reports other (arthritis) Skin/Breast Denies pruritus, Denies rash and Denies jaundice Neuro Reports Normal hearing present, Denies Abnormal speech present, Denies dizziness, Reports headache(s) and Denies seizure-like activity Psych Reports anxiety, Denies depression and Denies panic attacks Endo Denies cold intolerance, Reports fatigue, Denies flushing and Denies heat intolerance Ba/Lymph Denies easy bleeding and Denies easy bruising Aller/Immun Denies wheezing Physical Exam Vital Signs: Last Vital Signs Pulse 88 05/29/24 09:32 BP 120/73 05/29/24 09:32 BMI result Body Mass Index 28.9 Const General: tired appearing Nutritional Appearance: well nourished Orientation/consciousness: patient oriented x3 Limitations: no limitations Resp Effort & Inspection: normal respiratory effort, no audible wheezes, no cough and no respiratory distress GI Inspection: Yes normal to inspection Palpation (GI): Soft to palpation, Tenderness to palpation present (GI) in the LUQ; Palmer's sign negative and with no rebound tenderness, no guarding, not rigid, No hepatosplenomegaly present and no hernias Percussion: Yes tympanic to percussion Auscultation: normal bowel sounds Rectal Exam - Female: deferred Skin General skin exam: no rashes or lesions noted Neuro General: patient oriented x3 Cranial nerves: Yes Normal hearing present Speech: No Abnormal speech present Assessment & Plan Assessment & Plan (1) Anemia: Code(s): D64.9 - Anemia, unspecified Category: Medical (2) Upper abdominal pain: Code(s): R10.10 - Upper abdominal pain, unspecified Category: Medical (3) Elevated LFTs: Comment: Elevated LFTs since 2019 Hep B and C serologies were negative in 2019 JESSE and ASMA were negative Additional labs ordered Code(s): R79.89 - Other specified abnormal findings of blood chemistry Category: Medical (4) Asymptomatic gallstones: Code(s): K80.20 - Calculus of gallbladder without cholecystitis without obstruction Category: Medical (5) Colon cancer screening: Comment: [place] [facility] [place] (brother has colon polyps in his early 40's) Pt was advised repeat colonoscopy in 2022 Code(s): Z12.11 - Encounter for screening for malignant neoplasm of colon Category: Medical (6) Reducible bulge of abdominal wall: Code(s): R19.00 - Intra-abdominal and pelvic swelling, mass and lump, unspecified site Category: Medical (7) Nausea: Code(s): R11.0 - Nausea Category: Medical (8) Diarrhea: Code(s): R19.7 - Diarrhea, unspecified Category: Medical Qualifiers: Diarrhea type: unspecified type Qualified Code(s): R19.7 - Diarrhea, unspecified (9) Early satiety: Code(s): R68.81 - Early satiety Category: Medical Plan 43 YF hospitalized in 03/2021 with a perforated and bleeding gastric ulcer. 04/11/21 Pt had Exploratory laparotomy, gastrotomy, suture ligature of bleeding gastric ulcer, biopsy of gastric ulcer, omental patch of gastric ulcer. Pt has been having nausea, vomiting, early satiety and abdominal pain a month after her surgery raising concern for recurrent peptic ulcer disease/gastric outlet obstruction.? Patient was seen by Dr. Moe and is scheduled for an abdominal CT scan on 06/26/2021.? 07/10/21 EGD SHOWED?edematous folds at the lesser curvature/incisura with a 2 cms healing ulcer - Two ligatures seen at the ulcer site - biopsies obtained from the ulcer and from the gastric antrum were negative for H Pylori. EGD was performed and results as noted above. Plan:? Decrease Omeprazole to 40 mg once daily. 10/04/22 Pt noted a bump in LUQ x 2 weeks - appeared spontaneously - not associated with lifting or straining On exam - smooth bulge in LUQ (just lateral to the scar) on standing and reduces spontaneously when pt lies down Pt advised to schedule an urgent CT scan 10/2022 patient had incisional hernia repair with mesh placement by Dr. Moe 05/29/24 LUQ pain and diarrhea for the past week 05/28/24 seen at [facility] [place] ED for abd pain and a lump Abd CT scan showed: 1. No acute abnormality in the abdomen or pelvis. 2. Cholelithiasis. 3. Tiny bilateral nonobstructing renal stones. 4. Moderate amount of stool in the colon Also showed a large stomach with retained food suggestive of gastroparesis (Pt diagnosed with DM 6-7 yrs ago) Acute diarrhea can be due to acute bacterial or viral gastroenteritis Pt advised to schedule an EGD in 1-2 weeks and a gastric emptying study Stool studies for C Diff and a GI panel if diarrhea persists FU in 6 weeks Orders: Orders GI Panel Today R10.10 - Upper abdominal pain, unspecified, R19.7 - Diarrhea, unspecified NM gastric emptying study Today R10.10 - Upper abdominal pain, unspecified, R68.81 - Early satiety CDiff Gene PCR Today R10.10 - Upper abdominal pain, unspecified, R19.7 - Diarrhea, unspecified Coding Level of Care Code Est Pt Level 4 (40074) Diagnoses Anemia D64.9 Upper abdominal pain R10.10 Elevated LFTs R79.89 Asymptomatic gallstones K80.20 Colon cancer screening Z12.11 Reducible bulge of abdominal wall R19.00 Nausea R11.0 Diarrhea, unspecified type R19.7 Diarrhea type: unspecified type Early satiety R68.81 Time Spent (min) 25
[2024-05-29 09:32] VITALS: BP 120/73; PULSE 88; BMI 28.9
== END 2024-05-29 15:38 | disposition home or self-care (01) ==
PROVIDERS: PCP Internal Medicine; Visit Provider Internal Medicine Gastroenterology
DX: D64.9 Anemia, unspecified (principal); R10.10 Upper abdominal pain, unspecified; R79.89 Other specified abnormal findings of blood chemistry; K80.20 Calculus of gallbladder without cholecystitis without obstruction; Z12.11 Encounter for screening for malignant neoplasm of colon; R19.00 Intra-abdominal and pelvic swelling, mass and lump, unspecified site; R11.0 Nausea; R19.7 Diarrhea, unspecified; R68.81 Early satiety
CPT/HCPCS: 99214

== ENCOUNTER → 2024-05-29 09:15 | Outpatient (BNVA) | payer MEDICAID, SELFPAY | PROVIDERS: PCP Internal Medicine; Visit Provider Internal Medicine Gastroenterology | DX: Z12.11 Encounter for screening for malignant neoplasm of colon (principal); R10.10 Upper abdominal pain, unspecified; R19.00 Intra-abdominal and pelvic swelling, mass and lump, unspecified site; R11.0 Nausea; R19.7 Diarrhea, unspecified; R68.81 Early satiety; D64.9 Anemia, unspecified; K80.20 Calculus of gallbladder without cholecystitis without obstruction; R79.89 Other specified abnormal findings of blood chemistry | CPT/HCPCS: 99212 ==

== ENCOUNTER 2024-07-30 12:11 | Emergency (ER) | payer MEDICAID, SELFPAY ==
--- NOTE | ~2024-07-30 | XR_ITS ---
EXAMINATION: XR KNEE 3 VIEWS RIGHT HISTORY: pain, swelling COMPARISON: There are no prior studies available for comparison. FINDINGS: Five views of the right knee are submitted. Osseous mineralization is normal. There is no fracture or dislocation. The joint spaces are preserved. The soft tissues are unremarkable. There is no joint effusion. XR/XR knee RT 3V IMPRESSION: Unremarkable examination of the right knee. Electronically signed by: Magnus Potter MD 07/30/2024 01:23 PM EDT
--- NOTE | ~2024-07-30 | US_ITS ---
EXAMINATION: US TRIPLEX LOWER EXTREMITY, RIGHT CLINICAL INFORMATION: Pain, right lower extremity. COMPARISON: June 16, 2018. TECHNIQUE: Color-flow triplex imaging with spectral analysis and compression Doppler were performed on the right lower extremity. FINDINGS: Respiratory variation, normal compression and augmented flow are noted throughout the common femoral vein, superficial femoral vein, profunda femoral vein, popliteal vein and midcalf peroneal and posterior tibial venous segments show . There is no Quiroga's cyst. US/US venous duplex LE RT IMPRESSION: No acute deep venous thrombosis involving the right lower extremity. Negative for DVT. Electronically signed by: Vega Houston MD 07/30/2024 02:01 PM EDT
[2024-07-30 12:42] VITALS: BP 125/74; PULSE 88; RESP 16; TEMP 36.7; O2SAT 97; BMI 28.7
--- NOTE | 2024-07-30 12:43 | ED_ITS ---
HPI - General Adult General Chief complaint: Extremity Problem Stated complaint: r side swelling and pain Time Seen by Provider: 07/30/24 17:09 History of Present Illness HPI narrative: Duplicate chartis in place Related Data Home Medications ?Medication ?Instructions ?Recorded ?Confirmed insulin lispro 100 unit/mL 5 unit subcut TID 04/19/21 05/29/24 subcutaneous pen (Humalog KwikPen (U-100) Insulin) lorazepam 0.5 mg tablet 1 tab PO BEDTIME 11/07/21 05/29/24 blood sugar diagnostic (FreeStyle #10 ea 04/12/22 05/29/24 Lite Strips) insulin glargine 100 unit/mL (3 40 unit subcut DAILY@1700 10/24/22 05/29/24 mL) subcutaneous pen (Lantus Solostar U-100 Insulin) Previous Rx's ?Medication ?Instructions ?Recorded omeprazole 40 mg capsule,delayed 40 mg PO DAILY #90 caps 10/08/23 release ondansetron 4 mg disintegrating 4 mg PO Q8H PRN for 11/07/23 tablet nausea/vomiting 30 days #60 tabs naproxen 500 mg tablet 500 mg PO BID PRN pain #40 tabs 02/27/24 cyclobenzaprine 5 mg tablet 5 mg PO BEDTIME PRN muscle spasm 03/13/24 #10 tabs ibuprofen 600 mg tablet 600 mg PO Q6H PRN fever or pain 07/30/24 #30 tabs oxycodone 5 mg tablet 5 mg PO Q6H PRN pain #20 tabs 07/30/24 prednisone 20 mg tablet 60 mg (3 x 20 mg) PO DAILY #21 tabs 07/30/24 Allergies Allergy/AdvReac Type Severity Reaction Status Date / Time No Known Allergies Allergy Mild NONE Verified 07/30/24 12:45 REPLACED BY [facility] Past Medical History Medical History Anxiety History of vertigo Chronic back pain Type 1 diabetes mellitus Surgical History History of incisional hernia repair (10/24/22) History of incisional hernia repair (02/28/22) History of back surgery History of esophagogastroduodenoscopy (EGD) H/O exploratory laparotomy Family History Family History Mother Vaginal cancer Social History Social History Household Members: Children Housing: House Do you presently have visiting nurse or other home services: No Alcohol intake: never Patient Tobacco Use Status: Former Tobacco user Tobacco use type: Cigarette Cigarettes Per Day: 3 Smoked in Last 30 Days: No Use of substances other than those prescribed or required for medical reasons: No Advance Directives: No Advance Directives Information Provided: No service: No Current occupational status: unemployed Physical Exam ED Vital Signs: Vital Signs - 24 hr 07/30/24 12:42 07/30/24 17:31 07/30/24 19:04 Temperature 98.1 F 98.2 F 98.2 F Pulse Rate 88 83 83 Respiratory Rate 16 16 16 Blood Pressure 125/74 115/68 115/68 Pulse Oximetry 97 95 95 Oxygen Delivery Method Room Air Room Air Room Air BMI result Body Mass Index 28.7 Course Course Course Narrative: This is an RME: Additional HPI, ROS, PE not included below will be deferred to primary provider. RME assessment and note performed by: Velma Driscoll PA-C This is a 50-[id number]-female, with a hx of diabetes, who presents to the ER with complaints of right sided body swelling since this morning. Reports that she is having swelling in her right arm and right leg. No hx of similar symptoms in the past. No injury, trauma or falls. Hx of blood clots > had PE 18 years ago was on anticoagulation for 4 years, not currently on AC. No chest pain or SOB. Reporting R knee pain with TTP throughout joint > no trauma or falls. Plan: Labs, US, xr knee Reevaluation(s) Reevaluation #1: >> see note from Dr. Manning, primary provider Medications Administered Discontinued Medications Generic Name Dose Route Start Last Admin Trade Name Freq PRN Reason Stop Dose Admin Ibuprofen 600 mg 07/30/24 18:33 07/30/24 19:02 Ibuprofen 600 Mg Tablet PO 07/30/24 18:34 600 mg ONCE ONE Administration Oxycodone HCl 10 mg 07/30/24 18:33 07/30/24 19:02 Oxycodone Hcl Immed Release 5 Mg Tablet PO 07/30/24 18:34 10 mg ONCE ONE Administration Prednisone 60 mg 07/30/24 17:16 07/30/24 17:46 Prednisone 20 Mg Tablet PO 07/30/24 17:17 60 mg ONCE ONE Administration Medical Decision Making Lab Data 07/30/24 13:03 07/30/24 13:03 Labs: Lab Results 07/30/24 Range/Units 13:03 WBC 15.6 H (4.8-10.8) X10*3/uL RBC 5.43 (4.20-5.50) X10*6/uL Hgb 12.9 (12.0-16.0) g/dl Hct 40.1 (37.0-47.0) % MCV 73.8 L (80.0-98.0) fL MCH 23.8 L (27.0-33.0) pg MCHC 32.2 (31.0-35.0) g/dl RDW 15.1 (11.0-16.0) % Plt Count 189 (160-400) X10*3/uL MPV 11.5 (9.4-12.3) fL Immature Gran % (Auto) 0.5 H (0.0-0.4) % Neut % (Auto) 81.0 H (45-73) % Lymph % (Auto) 11.3 L (20-40) % [place] % (Auto) 4.4 (2-11) % Eos % (Auto) 2.2 (0-4) % Baso % (Auto) 0.6 (0-2) % Lymph # (Auto) 1.8 (1.2-4.9) X10*3/uL [place] # (Auto) 0.7 (0.1-1.2) X10*3/uL Eos # (Auto) 0.4 (0.0-0.4) X10*3/uL Baso # (Auto) 0.1 (0.0-0.2) X10*3/uL Abs Immat Gran (auto) 0.08 H (0.00-0.03) X10*3/uL Absolute Neuts (auto) 12.6 H (2.0-8.3) x10*3/uL Absolute Nucleated RBC 0.000 (0.0-0.012) X10*3/uL Nucleated RBC % (auto) 0.0 (0.0-0.2) /100WBC ESR 12 (0-20) MM/HR Sodium 135 (135-145) mmol/L Potassium 4.3 (3.3-5.1) mmol/L Chloride 105 (96-108) mmol/L Carbon Dioxide 24 (22-29) mmol/L Anion Gap 10 L (12-20) BUN 22 H (9-16) mg/dL Creatinine 0.81 (0.5-1.4) mg/dL Estim Creat Clear Calc 94.9 Estimated GFR > 60 Random Glucose 339 H (60-115) mg/dL Calcium 9.3 (8.4-10.2) mg/dL Magnesium 1.8 (1.6-2.6) mg/dL Total Bilirubin 1.0 (0.0-1.0) mg/dL Direct Bilirubin 0.4 (0.0-0.5) mg/dL AST 53 H (5-31) U/L ALT 93 H (0-31) U/L Alkaline Phosphatase 262 H (39-117) U/L C-Reactive Protein 0.68 H (< or = 0.50) mg/dL B-Natriuretic Peptide 11 (<100) pg/mL Total Protein 7.4 (6.5-8.0) g/dL Albumin 3.9 (3.5-5.0) g/dL Discharge Plan Discharge Clinical Impression: Arthritis Patient Disposition: Home, Self-Care Instructions: Arthritis (ED) Additional Instructions: Take pain medication as prescribed Prednisone as prescribed Follow up with floor layer for further evaluation and management Prescriptions: New prednisone 20 mg tablet 60 mg PO DAILY Qty: 21 0RF ibuprofen 600 mg tablet 600 mg PO Q6H PRN (Reason: fever or pain) Qty: 30 0RF oxycodone 5 mg tablet 5 mg PO Q6H PRN (Reason: pain) Qty: 20 0RF Rx Instructions: Partial Fill upon patient request. No Action omeprazole 40 mg capsule,delayed release(DR/EC) 40 mg PO DAILY Qty: 90 2RF ondansetron 4 mg tablet,disintegrating 4 mg PO Q8H PRN (Reason: for nausea/vomiting) 30 Days Qty: 60 0RF cyclobenzaprine 5 mg tablet 5 mg PO BEDTIME PRN (Reason: muscle spasm) Qty: 10 0RF Rx Instructions: Do not drive or operate machinery for 8 hours after taking this medicine insulin lispro [Humalog KwikPen Insulin] 100 unit/mL insulin pen 5 unit subcut TID lorazepam 0.5 mg tablet 1 tab PO BEDTIME insulin glargine [Lantus Solostar U-100 Insulin] 100 unit/mL (3 mL) insulin pen 40 unit subcut DAILY@1700 (DME) FreeStyle Lite Strips Strip See Rx Instructions .ROUTE BID Qty: 10 Rx Instructions: As directed naproxen 500 mg tablet 500 mg PO BID PRN (Reason: pain) Qty: 40 0RF Referrals: Agustin Munoz MD [Physician] - Stand Alone Forms: Work/School Release Interventions: ED Discharge Assessment Last Done: 07/30/24 19:04 Discharge Date/Time: 07/30/24 19:05 Print Language: Occitan
[2024-07-30 13:09] LABS: MANUAL DIFF FLAG NO
[2024-07-30 13:11] LABS: Basophils Absolute Auto 0.1 X10*3/uL (0.0-0.2); Basophils Percent Auto 0.6 % (0-2); Eosinophils Absolute Auto 0.4 X10*3/uL (0.0-0.4); Eosinophils Percent Auto 2.2 % (0-4); Hematocrit 40.1 % (37.0-47.0); Hemoglobin 12.9 g/dl (12.0-16.0); Imm Gran Abs Auto 0.08 X10*3/uL (0.00-0.03); Imm Gran Pct Auto 0.5 % (0.0-0.4); Lymphocytes Absolute Auto 1.8 X10*3/uL (1.2-4.9); Lymphocytes Percent Auto 11.3 % (20-40); Mean Corpuscular HGB Conc 32.2 g/dl (31.0-35.0); Mean Corpuscular Hemoglobin 23.8 pg (27.0-33.0); Mean Corpuscular Volume 73.8 fL (80.0-98.0); Mean Platelet Volume 11.5 fL (9.4-12.3); Monocytes Absolute Auto 0.7 X10*3/uL (0.1-1.2); Monocytes Percent Auto 4.4 % (2-11); Neutrophils Absolute Auto 12.6 x10*3/uL (2.0-8.3); Platelet Count 189 X10*3/uL (160-400); Red Blood Count 5.43 X10*6/uL (4.20-5.50); Red Cell Distribution Width 15.1 % (11.0-16.0); White Blood Count 15.6 X10*3/uL (4.8-10.8)
[2024-07-30 13:24] LABS: Alanine Aminotransferase 93 U/L (0-31); Albumin Level 3.9 g/dL (3.5-5.0); Alkaline Phosphatase 262 U/L (39-117); Anion Gap 10 (12-20); Aspartate Amino Transferase 53 U/L (5-31); Bilirubin Direct 0.4 mg/dL (0.0-0.5); Blood Urea Nitrogen 22 mg/dL (9-16); Calcium 9.3 mg/dL (8.4-10.2); Carbon Dioxide 24 mmol/L (22-29); Chloride 105 mmol/L (96-108); Creatinine Clr Calc Pharmacy 94.9; Estimated Glomerular Filt Rate > 60; Glucose Random 339 mg/dL (60-115); Magnesium 1.8 mg/dL (1.6-2.6); Potassium 4.3 mmol/L (3.3-5.1); Sodium 135 mmol/L (135-145); Total Protein 7.4 g/dL (6.5-8.0)
[2024-07-30 13:29] LABS: B Type Natriuretic Peptide 11 pg/mL (<100)
--- NOTE | 2024-07-30 17:20 | ED_ITS ---
HPI - General Adult General Chief complaint: Extremity Problem Stated complaint: r side swelling and pain Time Seen by Provider: 07/30/24 17:09 Source: patient Mode of arrival: ambulatory Limitations: no limitations History of Present Illness ED Provider: HPI narrative: Patient's history of diabetes PE mother has a history of rheumatoid arthritis comes here for swelling of the right knee and right hand since she woke up today no prior history of arthritis/ arthralgia never been tested for lupus rheumatoid arthritis no shortness of breath Related Data Home Medications ?Medication ?Instructions ?Recorded ?Confirmed insulin lispro 100 unit/mL 5 unit subcut TID 04/19/21 05/29/24 subcutaneous pen (Humalog KwikPen (U-100) Insulin) lorazepam 0.5 mg tablet 1 tab PO BEDTIME 11/07/21 05/29/24 blood sugar diagnostic (FreeStyle #10 ea 04/12/22 05/29/24 Lite Strips) insulin glargine 100 unit/mL (3 40 unit subcut DAILY@1700 10/24/22 05/29/24 mL) subcutaneous pen (Lantus Solostar U-100 Insulin) Previous Rx's ?Medication ?Instructions ?Recorded omeprazole 40 mg capsule,delayed 40 mg PO DAILY #90 caps 10/08/23 release ondansetron 4 mg disintegrating 4 mg PO Q8H PRN for 11/07/23 tablet nausea/vomiting 30 days #60 tabs naproxen 500 mg tablet 500 mg PO BID PRN pain #40 tabs 02/27/24 cyclobenzaprine 5 mg tablet 5 mg PO BEDTIME PRN muscle spasm 03/13/24 #10 tabs ibuprofen 600 mg tablet 600 mg PO Q6H PRN fever or pain 07/30/24 #30 tabs oxycodone 5 mg tablet 5 mg PO Q6H PRN pain #20 tabs 07/30/24 prednisone 20 mg tablet 60 mg (3 x 20 mg) PO DAILY #21 tabs 07/30/24 Allergies Allergy/AdvReac Type Severity Reaction Status Date / Time No Known Allergies Allergy Mild NONE Verified 07/30/24 12:45 Review of Systems 2 Review of Systems: Yes all other systems are reviewed and are negative PMFSH Past Medical History Medical History Anxiety History of vertigo Chronic back pain Type 1 diabetes mellitus Surgical History History of incisional hernia repair (10/24/22) History of incisional hernia repair (02/28/22) History of back surgery History of esophagogastroduodenoscopy (EGD) H/O exploratory laparotomy Family History Family History Mother Vaginal cancer Social History Social History Household Members: Children Housing: House Do you presently have visiting nurse or other home services: No Alcohol intake: never Patient Tobacco Use Status: Former Tobacco user Tobacco use type: Cigarette Cigarettes Per Day: 3 Smoked in Last 30 Days: No Use of substances other than those prescribed or required for medical reasons: No Advance Directives: No Advance Directives Information Provided: No service: No Current occupational status: unemployed Physical Exam ED Vital Signs: Vital Signs - 24 hr 07/30/24 12:42 07/30/24 17:31 07/30/24 19:04 Temperature 98.1 F 98.2 F 98.2 F Pulse Rate 88 83 83 Respiratory Rate 16 16 16 Blood Pressure 125/74 115/68 115/68 Pulse Oximetry 97 95 95 Oxygen Delivery Method Room Air Room Air Room Air BMI result Body Mass Index 28.7 Appearance: Alert. Oriented X3. No acute distress. Eyes: No pallor or icterus ENT: Pharynx normal. Oral Mucosa moist Neck: Normal inspection. Neck supple. CVS: Normal heart rate and rhythm. Pulses normal. Respiratory: No respiratory distress. Equal air entry bilateral, no wheezing/rales/rhonchi Abdomen: Soft and nontender. Bowel sounds are present, no mass palpable, no CVA tenderness Skin: Skin warm and dry. Normal skin color. Normal skin turgor. Extremities: No lower extremity edema. No calf tenderness swelling of the right knee with small amount of fluid also swelling of the right MCP joint Neuro: Oriented X 3. No motor deficit. No sensory deficit.No cerebellar signs , cranial nerves II-XII intact Medications Administered Discontinued Medications Generic Name Dose Route Start Last Admin Trade Name Freq PRN Reason Stop Dose Admin Ibuprofen 600 mg 07/30/24 18:33 07/30/24 19:02 Ibuprofen 600 Mg Tablet PO 07/30/24 18:34 600 mg ONCE ONE Administration Oxycodone HCl 10 mg 07/30/24 18:33 07/30/24 19:02 Oxycodone Hcl Immed Release 5 Mg Tablet PO 07/30/24 18:34 10 mg ONCE ONE Administration Prednisone 60 mg 07/30/24 17:16 07/30/24 17:46 Prednisone 20 Mg Tablet PO 07/30/24 17:17 60 mg ONCE ONE Administration Medical Decision Making Medical Decision Making MDM Narrative: Patient with polyarthralgia likely rheumatoid arthritis responded to prednisone patient advised to follow with retail beauty specialist Lab Data [facility] Lab Attestation statement: I reviewed the patient's lab results. 07/30/24 13:03 07/30/24 13:03 Labs: Lab Results 07/30/24 Range/Units 13:03 WBC 15.6 H (4.8-10.8) X10*3/uL RBC 5.43 (4.20-5.50) X10*6/uL Hgb 12.9 (12.0-16.0) g/dl Hct 40.1 (37.0-47.0) % MCV 73.8 L (80.0-98.0) fL MCH 23.8 L (27.0-33.0) pg MCHC 32.2 (31.0-35.0) g/dl RDW 15.1 (11.0-16.0) % Plt Count 189 (160-400) X10*3/uL MPV 11.5 (9.4-12.3) fL Immature Gran % (Auto) 0.5 H (0.0-0.4) % Neut % (Auto) 81.0 H (45-73) % Lymph % (Auto) 11.3 L (20-40) % [place] % (Auto) 4.4 (2-11) % Eos % (Auto) 2.2 (0-4) % Baso % (Auto) 0.6 (0-2) % Lymph # (Auto) 1.8 (1.2-4.9) X10*3/uL [place] # (Auto) 0.7 (0.1-1.2) X10*3/uL Eos # (Auto) 0.4 (0.0-0.4) X10*3/uL Baso # (Auto) 0.1 (0.0-0.2) X10*3/uL Abs Immat Gran (auto) 0.08 H (0.00-0.03) X10*3/uL Absolute Neuts (auto) 12.6 H (2.0-8.3) x10*3/uL Absolute Nucleated RBC 0.000 (0.0-0.012) X10*3/uL Nucleated RBC % (auto) 0.0 (0.0-0.2) /100WBC ESR 12 (0-20) MM/HR Sodium 135 (135-145) mmol/L Potassium 4.3 (3.3-5.1) mmol/L Chloride 105 (96-108) mmol/L Carbon Dioxide 24 (22-29) mmol/L Anion Gap 10 L (12-20) BUN 22 H (9-16) mg/dL Creatinine 0.81 (0.5-1.4) mg/dL Estim Creat Clear Calc 94.9 Estimated GFR > 60 Random Glucose 339 H (60-115) mg/dL Calcium 9.3 (8.4-10.2) mg/dL Magnesium 1.8 (1.6-2.6) mg/dL Total Bilirubin 1.0 (0.0-1.0) mg/dL Direct Bilirubin 0.4 (0.0-0.5) mg/dL AST 53 H (5-31) U/L ALT 93 H (0-31) U/L Alkaline Phosphatase 262 H (39-117) U/L C-Reactive Protein 0.68 H (< or = 0.50) mg/dL B-Natriuretic Peptide 11 (<100) pg/mL Total Protein 7.4 (6.5-8.0) g/dL Albumin 3.9 (3.5-5.0) g/dL Discharge Plan Discharge Clinical Impression: Arthritis Patient Disposition: Home, Self-Care Instructions: Arthritis (ED) Additional Instructions: Take pain medication as prescribed Prednisone as prescribed Follow up with retail beauty specialist for further evaluation and management Prescriptions: New prednisone 20 mg tablet 60 mg PO DAILY Qty: 21 0RF ibuprofen 600 mg tablet 600 mg PO Q6H PRN (Reason: fever or pain) Qty: 30 0RF oxycodone 5 mg tablet 5 mg PO Q6H PRN (Reason: pain) Qty: 20 0RF Rx Instructions: Partial Fill upon patient request. No Action omeprazole 40 mg capsule,delayed release(DR/EC) 40 mg PO DAILY Qty: 90 2RF ondansetron 4 mg tablet,disintegrating 4 mg PO Q8H PRN (Reason: for nausea/vomiting) 30 Days Qty: 60 0RF cyclobenzaprine 5 mg tablet 5 mg PO BEDTIME PRN (Reason: muscle spasm) Qty: 10 0RF Rx Instructions: Do not drive or operate machinery for 8 hours after taking this medicine insulin lispro [Humalog KwikPen Insulin] 100 unit/mL insulin pen 5 unit subcut TID lorazepam 0.5 mg tablet 1 tab PO BEDTIME insulin glargine [Lantus Solostar U-100 Insulin] 100 unit/mL (3 mL) insulin pen 40 unit subcut DAILY@1700 (DME) FreeStyle Lite Strips Strip See Rx Instructions .ROUTE BID Qty: 10 Rx Instructions: As directed naproxen 500 mg tablet 500 mg PO BID PRN (Reason: pain) Qty: 40 0RF Referrals: Agustin Munoz MD [Physician] - Stand Alone Forms: Work/School Release Interventions: ED Discharge Assessment Last Done: 07/30/24 19:04 Discharge Date/Time: 07/30/24 19:05 Print Language: French
[2024-07-30 17:31] VITALS: BP 115/68; PULSE 83; RESP 16; TEMP 36.8; O2SAT 95
[2024-07-30] MEDS: predniSONE 20 MG TABLET 60 MG PO (17:46)
[2024-07-30 17:47] LABS: C Reactive Protein 0.68 mg/dL (< or = 0.50)
[2024-07-30 18:36] LABS: Erythrocyte Sedimentation Rate 12 MM/HR (0-20)
[2024-07-30] MEDS: Ibuprofen 600 MG TABLET PO (19:02)
[2024-07-30] MEDS: oxyCODONE HCl Immed Release 5 MG TABLET 10 MG PO (19:02)
[2024-07-30 19:04] VITALS: BP 115/68; PULSE 83; RESP 16; TEMP 36.8; O2SAT 95
== END 2024-07-30 19:05 | disposition home or self-care (01) ==
PROVIDERS: Physician Assistant Medical; Emergency Provider Internal Medicine; PCP Internal Medicine
DX: M17.11 Unilateral primary osteoarthritis, right knee (principal); M19.041 Primary osteoarthritis, right hand; E10.9 Type 1 diabetes mellitus without complications; Z79.4 Long term (current) use of insulin; Z79.899 Other long term (current) drug therapy
CPT/HCPCS: 36415; 73562; 80048; 80076; 83735; 83880; 85025; 85652; 86140; 93971; 99284

== ENCOUNTER → 2024-07-30 12:48 | Outpatient (BNV) | payer SELFPAY | PROVIDERS: PCP Internal Medicine; Visit Provider Radiology Diagnostic Radiology | DX: M79.661 Pain in right lower leg (principal); M25.561 Pain in right knee; R22.41 Localized swelling, mass and lump, right lower limb | CPT/HCPCS: 73562; 93971 ==

== ENCOUNTER 2024-08-24 11:35 | Day surgery (SDC) | payer MEDICAID, SELFPAY ==
[2024-08-20 13:17] VITALS: BMI 28.9
[2024-08-24 12:22] VITALS: BMI 29.0
[2024-08-24 12:31] LABS: UPreg QC Valid YES; Urine Pregnancy NEGATIVE (NEGATIVE)
--- NOTE | 2024-08-24 12:48 | MHC.SHP ---
Pre-Procedural Eval Section A - 24 Hr Update-Section A only Date of Service: 08/24/24 The patient is an INPATIENT: No The patient has been examined within 24 hours of the surgical procedure. The History & Physical has been completed within 30 days and I have reviewed it.: No Section B - Complete if H&P > 30 days Chief Complaint: Upper abdominal pain, Relevant Family History (Specify if Yes): No Relevant Social History: Tobacco Use (Former smoker) Present Medications: see Short Stay Collaborative assessment Medical History: Significant History (Anxiety History of vertigo Chronic back pain Type 1 diabetes mellitus) History of Previous Operations: Relevant previous surgery/procedure and date(s) (History of incisional hernia repair (10/24/22) History of incisional hernia repair (02/28/22) History of back surgery History of esophagogastroduodenoscopy (EGD) H/O exploratory laparotomy) Allergies: Allergies Allergy/AdvReac Type Severity Reaction Status Date / Time No Known Allergies Allergy Mild NONE Verified 07/30/24 12:45 Review of Systems Sugical H&P ROS: Negative: Constitution, Cardiovascular and Respiratory and Yes, Specify: Gastrointestinal (upper abd pain) Exam Surgical H&P Exam: Normal: Heart, Normal: Lungs, Normal: Extremities and Normal: Abdomen Plan Diagnosis/Plan: Unchanged I have reviewed the history and physical and performed a pertinent physical examination on my patient. No changes have occurred unless specified. Time Spent With Patient Time: Total time managing care of this patient today ____ minutes.
[2024-08-24 13:04] VITALS: BP 100/64; PULSE 85; RESP 16; TEMP 36.8; O2SAT 97
[2024-08-24] MEDS: Lactated Ringers 1,000 ML 50 ML IVCONT (13:17)
[2024-08-24 13:18] LABS: Glucose, Whole Blood 247 mg/dL (60-115)
--- NOTE | 2024-08-24 13:40 | W.PM.OPN ---
Operative Note Operative Note Date of Service: 08/24/24 Narrative: FLEXIBLE TRANSORAL UPPER GASTROINTESTINAL ENDOSCOPY Pre-op diagnosis: Epigastric pain, Hx of perforated gastric ulcer Post-op diagnosis: Aborted procedure Endoscopist:? Ligia Woodson MD Anesthesia:?MAC UPPER ENDOSCOPY Consent: Indications for the procedure and potential complications of bleeding, perforation, reaction to medications and missed diagnosis were discussed with the patient and informed consent was obtained. Instrument: Olympus GIF H 190 mid size upper endoscope Monitoring: Vital signs and clinical assessment, continuous EKG monitoring, Pulse oximetry, Carbon Dioxide monitoring and blood pressure monitoring were done throughout the procedure. Procedure: The patient was placed in the left lateral decubitis position and pre-procedure medications were administered and a bite block was placed. The endoscope was inserted into the mouth and advanced under direct vision to the third part of duodenum. A careful inspection was made as the upper endoscope was withdrawn including a retroflexed examination of the proximal stomach; Findings and interventions are described below. Findings: Larynx: Normal Esophagus: GE junction at 36. A 1 cms superficial erosion at the GE junction. Stomach: Copious amount of undigested food in the stomach. Endoscope was removed and procedure was aborted. Retroflexed examination was not performed. Duodenum: Not examined Intervention: Biopsies as noted above Impression and Post Procedure Diagnosis: Endoscopy Findings: ESOPHAGUS: A 1 cms superficial erosion at the GE junction. STOMACH: Procedure was discontinued due to Copious amount of undigested food in the stomach. DUODENUM: Not examined Plan: EGD rescheduled for 08/28/24 (pt advised to be on a clear liquid diet the day before EGD) Schedule a gastric emptying study. Pt has a FU appointment on 09/03/[address] Woodson. Above findings were reviewed with the patient and relevant handouts were given and the discharge area.
[2024-08-24 14:10] VITALS: BP 95/64; PULSE 79; RESP 18; TEMP 36.2; O2SAT 100
[2024-08-24 14:25] VITALS: BP 114/74; PULSE 78; RESP 16; TEMP 36.2; O2SAT 98
== END 2024-08-24 14:56 | disposition home or self-care (01) ==
PROVIDERS: Anesthesiology; PCP Physician Assistant; Visit Provider Internal Medicine Gastroenterology
PROC: 0DJ08ZZ Inspection of Upper Intestinal Tract, Via Natural or Artificial Opening Endoscopic (ICD-10-PCS; CPT 43235; principal; 2024-08-24 13:10)
DX: K22.10 Ulcer of esophagus without bleeding (principal); T18.2XXA Foreign body in stomach, initial encounter; W44.F3XA Food entering into or through a natural orifice, initial encounter; Z53.09 Procedure and treatment not carried out because of other contraindication; R10.13 Epigastric pain; E10.9 Type 1 diabetes mellitus without complications
CPT/HCPCS: 43235; 81025; 82947; J2003; J2704

== ENCOUNTER → 2024-08-24 11:35 | Outpatient (BNV) | payer MEDICAID, SELFPAY | PROVIDERS: PCP Physician Assistant; Visit Provider Internal Medicine Gastroenterology | DX: R10.13 Epigastric pain (principal); K22.10 Ulcer of esophagus without bleeding; T18.2XXA Foreign body in stomach, initial encounter; Z53.09 Procedure and treatment not carried out because of other contraindication | CPT/HCPCS: 43235 ==

== ENCOUNTER 2024-08-28 11:05 | Day surgery (SDC) | payer MEDICAID, SELFPAY ==
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
--- NOTE | 2024-08-26 14:04 | P.CONAN_ITS ---
Documented by User: Roxy Lopez NP 08/26/24 14:07 HPI - Anesthesia Eval Consult details Narrative: 43yo F for Upper Endoscopy s/p same 08/24/24 with MAC *aborted d/t large amount of undigested food in the stomach* Pt instructed to follow clear liquid diet 08/27/24 [facility] Active Problems Active Problems: All Active Problems (Updated 07/31/24 @ 00:01 by Background Daemon) Early satiety (Acute) Diarrhea (Acute) Anemia (Acute) Upper abdominal pain (Acute) Perforated gastric ulcer (Acute) Elevated LFTs (Acute) Asymptomatic gallstones (Acute) Incisional hernia (Acute) Colon cancer screening (Acute) Reducible bulge of abdominal wall (Acute) Nausea (Acute) Past Medical History Medical History Anxiety History of vertigo Chronic back pain Type 1 diabetes mellitus Family History Family History Mother Vaginal cancer Family history of problems with anesthesia: No Surgical History Surgical History History of incisional hernia repair (10/24/22) History of incisional hernia repair (02/28/22) History of back surgery History of esophagogastroduodenoscopy (EGD) H/O exploratory laparotomy History of Problems with Anesthesia: Yes Social History Social History Household Members: Children Housing: House Are you a primary progressive care unit registered nurse to a significant other at home: No Do you presently have visiting nurse or other home services: No Alcohol intake: never Patient Tobacco Use Status: Former Tobacco user Tobacco use type: Cigarette Cigarettes Per Day: 3 Have you been hit, kicked, punched, or otherwise hurt by someone within the past year? If so, by whom?: No Are you DNR?: No Advance Directives: No Advance Directives Information Provided: Yes FDLMP: one week ago Poor oral hygiene: No service: No Current occupational status: unemployed Meds Allergies Allergy/AdvReac Type Severity Reaction Status Date / Time No Known Allergies Allergy Mild NONE Verified 08/28/24 11:47 Home Medications ?Medication ?Instructions ?Recorded ?Confirmed ?Last Taken ?Type insulin lispro 100 unit/mL 5 unit subcut TID 04/19/21 08/28/24 Unknown History subcutaneous pen (Humalog KwikPen (U-100) Insulin) lorazepam 0.5 mg tablet 1 tab PO BEDTIME 11/07/21 08/28/24 Unknown History blood sugar diagnostic (FreeStyle #10 ea 04/12/22 08/28/24 Unknown History Lite Strips) insulin glargine 100 unit/mL (3 40 unit subcut DAILY@1700 10/24/22 08/28/24 Unknown History mL) subcutaneous pen (Lantus Solostar U-100 Insulin) Assessment and Plan Assessment Anesthesia Assessment: Chart Reviewed Final Anesthetic Review Family History of Problems with Anesthesia: No History of Problems with Anesthesia: Yes Documented by User: Korina Cross MD 08/28/24 12:18 PMF Past Medical History Medical History Anxiety History of vertigo Chronic back pain Type 1 diabetes mellitus Family History Family History Mother Vaginal cancer Family history of problems with anesthesia: No Surgical History Surgical History History of incisional hernia repair (10/24/22) History of incisional hernia repair (02/28/22) History of back surgery History of esophagogastroduodenoscopy (EGD) H/O exploratory laparotomy Social History Social History Household Members: Children Housing: House Are you a primary progressive care unit registered nurse to a significant other at home: No Do you presently have visiting nurse or other home services: No Alcohol intake: never Patient Tobacco Use Status: Former Tobacco user Tobacco use type: Cigarette Cigarettes Per Day: 3 Have you been hit, kicked, punched, or otherwise hurt by someone within the past year? If so, by whom?: No Are you DNR?: No Advance Directives: No Advance Directives Information Provided: Yes FDLMP: one week ago Poor oral hygiene: No service: No Current occupational status: unemployed Meds Allergies Allergy/AdvReac Type Severity Reaction Status Date / Time No Known Allergies Allergy Mild NONE Verified 08/28/24 11:47 Home Medications ?Medication ?Instructions ?Recorded ?Confirmed ?Last Taken ?Type insulin lispro 100 unit/mL 5 unit subcut TID 04/19/21 08/28/24 Unknown History subcutaneous pen (Humalog KwikPen (U-100) Insulin) lorazepam 0.5 mg tablet 1 tab PO BEDTIME 11/07/21 08/28/24 Unknown History blood sugar diagnostic (FreeStyle #10 ea 04/12/22 08/28/24 Unknown History Lite Strips) insulin glargine 100 unit/mL (3 40 unit subcut DAILY@1700 10/24/22 08/28/24 Unknown History mL) subcutaneous pen (Lantus Solostar U-100 Insulin) Assessment and Plan Final Anesthetic Review Family History of Problems with Anesthesia: No Documented by User: Blaire Fuentes MD 08/28/24 12:30 [facility] Past Medical History Medical History Anxiety History of vertigo Chronic back pain Type 1 diabetes mellitus Family History Family History Mother Vaginal cancer Surgical History Surgical History History of incisional hernia repair (10/24/22) History of incisional hernia repair (02/28/22) History of back surgery History of esophagogastroduodenoscopy (EGD) H/O exploratory laparotomy Social History Social History Household Members: Children Housing: House Are you a primary progressive care unit registered nurse to a significant other at home: No Do you presently have visiting nurse or other home services: No Alcohol intake: never Patient Tobacco Use Status: Former Tobacco user Tobacco use type: Cigarette Cigarettes Per Day: 3 Have you been hit, kicked, punched, or otherwise hurt by someone within the past year? If so, by whom?: No Are you DNR?: No Advance Directives: No Advance Directives Information Provided: Yes FDLMP: one week ago Poor oral hygiene: No service: No Current occupational status: unemployed Meds Allergies Allergy/AdvReac Type Severity Reaction Status Date / Time No Known Allergies Allergy Mild NONE Verified 08/28/24 11:47 Home Medications ?Medication ?Instructions ?Recorded ?Confirmed ?Last Taken ?Type insulin lispro 100 unit/mL 5 unit subcut TID 04/19/21 08/28/24 Unknown History subcutaneous pen (Humalog KwikPen (U-100) Insulin) lorazepam 0.5 mg tablet 1 tab PO BEDTIME 11/07/21 08/28/24 Unknown History blood sugar diagnostic (FreeStyle #10 ea 04/12/22 08/28/24 Unknown History Lite Strips) insulin glargine 100 unit/mL (3 40 unit subcut DAILY@1700 10/24/22 08/28/24 Unknown History mL) subcutaneous pen (Lantus Solostar U-100 Insulin) Exam Airway Mallampati Class: II TM Dist: >3cm Neck ROM: Full Heart: rrr Lungs: cta Assessment and Plan Assessment Anesthesia Assessment: Anesthesia Plan Discussed Final Anesthetic Review NPO: Yes ASA Class: II Final Preanesthetic Review: No Changes in Pt Med Stat, Meds/Allgs Chart Reviewed, Consent Obtained/Reviewed and Anes Risks/Benef Reviewed Patient Risk: Intermediate Procedure Risk: Low Anesthetic Plan Anesthetic Plan: MAC: Disposition: Standard PACU
[2024-08-28 11:18] LABS: UPreg QC Valid YES; Urine Pregnancy NEGATIVE (NEGATIVE)
--- NOTE | 2024-08-28 11:23 | MHC.SHP ---
Pre-Procedural Eval Section A - 24 Hr Update-Section A only Date of Service: 08/28/24 The patient is an INPATIENT: No Changes since office visit: Yes Patient answered all questions; No Cold of Flu in the past 2 weeks, No New Medical Problems and No Changes in Medication The patient has been examined within 24 hours of the surgical procedure. The History & Physical has been completed within 30 days and I have reviewed it.: Yes Section B - Complete if H&P > 30 days Chief Complaint: Upper abdominal pain, unspecified Allergies: Allergies Allergy/AdvReac Type Severity Reaction Status Date / Time No Known Allergies Allergy Mild NONE Verified 07/30/24 12:45 Plan Diagnosis/Plan: Unchanged I have reviewed the history and physical and performed a pertinent physical examination on my patient. No changes have occurred unless specified. Time Spent With Patient Time: Total time managing care of this patient today ____ minutes.
[2024-08-28] MEDS: Lactated Ringers 1,000 ML 100 ML IVCONT (11:28)
[2024-08-28 11:44] VITALS: BP 101/69; PULSE 80; RESP 18; TEMP 36.7; O2SAT 97
[2024-08-28 11:46] VITALS: BMI 29.2
[2024-08-28 11:49] LABS: Glucose, Whole Blood 126 mg/dL (60-115)
[2024-08-28 13:07] VITALS: BP 93/58; PULSE 77; RESP 17; TEMP 36.3; O2SAT 95
--- NOTE | 2024-08-28 13:16 | W.PM.OPN ---
Operative Note Operative Note Date of Service: 08/28/24 Narrative: FLEXIBLE TRANSORAL UPPER GASTROINTESTINAL ENDOSCOPY WITH BIOPSIES Pre-op diagnosis: Epigastric pain, hx of gastric ulcer with bleeding and perforation Post-op diagnosis: GERD, Gastritis, gastric ulcer Endoscopist:? Ligia Woodson MD Anesthesia:?MAC UPPER ENDOSCOPY Consent: Indications for the procedure and potential complications of bleeding, perforation, reaction to medications and missed diagnosis were discussed with the patient and informed consent was obtained. Instrument: Olympus GIF H 190 mid size upper endoscope Monitoring: Vital signs and clinical assessment, continuous EKG monitoring, Pulse oximetry, Carbon Dioxide monitoring and blood pressure monitoring were done throughout the procedure. Procedure: The patient was placed in the left lateral decubitis position and pre-procedure medications were administered and a bite block was placed. The endoscope was inserted into the mouth and advanced under direct vision to the third part of duodenum. A careful inspection was made as the upper endoscope was withdrawn including a retroflexed examination of the proximal stomach; Findings and interventions are described below. Findings: Larynx: Normal Esophagus: GE junction at 36. A 1.5 cms superficial erosion at the GE junction. Stomach: Some bile noted in the stomach which was suctioned.? Edematous folds at the lesser curvature/incisura at 45 cms with a 6-7 mm chronic appearing ulcer - Biopsies obtained Two ligatures seen at the ulcer site from past ulcer surgery. Biopsies were obtained from the gastric body and antrum to check for H Pylori and gastric intestinal metaplasia.. Grade 2 flap valve on retroflexed examination of the cardia. Duodenum: Normal bulb and descending duodenum. Biopsies were obtained from 3rd part of the duodenum to check for celiac sprue Intervention: Biopsies as noted above Impression and Post Procedure Diagnosis: Endoscopy Findings: ESOPHAGUS: A 1.5 cms superficial erosion at the GE junction. STOMACH: Edematous folds at the lesser curvature/incisura at 45 cms with a 6-7 mm chronic appearing ulcer - Biopsies obtained Two ligatures seen at the ulcer site from past ulcer surgery. DUODENUM: Normal - biopsied to check for celiac sprue Plan: Pt has a FU appointment on 09/03/[address] Woodson. Above findings were reviewed with the patient and relevant handouts were given and the discharge area. She was advised to increase Omeprazole to 40 mg twice daily and avoid NSAIDs. Follow-up EGD in 3-4 months to confirm gastric ulcer has healed.
[2024-08-28 13:20] VITALS: BP 107/71; PULSE 82; RESP 16; TEMP 36.3; O2SAT 99
== END 2024-08-28 13:50 | disposition home or self-care (01) ==
PROVIDERS: Nurse Practitioner; PCP Physician Assistant; Visit Provider Internal Medicine Gastroenterology
PROC: 0DJ08ZZ Inspection of Upper Intestinal Tract, Via Natural or Artificial Opening Endoscopic (ICD-10-PCS; CPT 43235; principal; 2024-08-28 12:30)
DX: R10.13 Epigastric pain (principal); Z87.11 Personal history of peptic ulcer disease; K25.9 Gastric ulcer, unspecified as acute or chronic, without hemorrhage or perforation; K29.50 Unspecified chronic gastritis without bleeding; K21.9 Gastro-esophageal reflux disease without esophagitis; G89.29 Other chronic pain; M54.9 Dorsalgia, unspecified; F41.9 Anxiety disorder, unspecified; E10.9 Type 1 diabetes mellitus without complications; Z79.4 Long term (current) use of insulin; Z79.1 Long term (current) use of non-steroidal anti-inflammatories (NSAID); Z79.899 Other long term (current) drug therapy
CPT/HCPCS: 43239; 81025; 82947; 88305; 88313; 88342; J1596; J2003; J2704

== ENCOUNTER → 2024-08-28 11:05 | Outpatient (BNV) | payer MEDICAID, SELFPAY | PROVIDERS: PCP Physician Assistant; Visit Provider Internal Medicine Gastroenterology | DX: K21.9 Gastro-esophageal reflux disease without esophagitis (principal); K29.70 Gastritis, unspecified, without bleeding; K25.9 Gastric ulcer, unspecified as acute or chronic, without hemorrhage or perforation | CPT/HCPCS: 43239 ==

== ENCOUNTER 2024-09-03 09:02 | Outpatient (AMB) | payer OTHER, SELFPAY ==
--- NOTE | 2024-09-03 09:17 | A.OFFVIS_ITS ---
Vital Signs 09/03/24 09:18 Height 5 ft 6 in Weight 181 lb BMI 29.2 BP 107/67 Blood Pressure Location Lt brachial Position Sitting Pulse 82 Pulse Oximetry (%) 97 Oxygen Delivery Method Room Air Intake Visit Reasons: EGD results Intake Note: Patient follow up for Anemia and post op EGD result, Patient was order test on last visit but patient cancel due no insurance Patient cc: nauseas, GERD with some burning sensation on and off, abdominal pain, between diarrhea and constipation. 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 Accompanied by: Family/Other Allergies No Known Allergies Allergy (Mild, Verified 09/03/24 09:17) NONE Medication List - Last Reconciled 09/03/24 by Ligia Woodson MD blood sugar diagnostic (FreeStyle Lite Strips) As directed cyclobenzaprine 5 mg PO BEDTIME PRN ibuprofen 600 mg PO Q6H PRN insulin glargine (Lantus Solostar U-100 Insulin) 40 units subcut DAILY@1700 insulin lispro (Humalog KwikPen (U-100) Insulin) 5 units subcut TID lorazepam 1 tab PO BEDTIME naproxen 500 mg PO BID PRN omeprazole 40 mg PO BID 60 days ondansetron 4 mg PO Q8H PRN 30 days HPI HPI EGD results: Details: GI clinic visit for this 43 YF for FU appt to review EGD results. Patient cc: nauseas, GERD with some burning sensation on and off, abdominal pain, between diarrhea and constipation. Pt is accompanied by her SO EGD and biopsy results were reviewed with the patient. Continues to have abdominal pain and bloating. Pt started having 9/10 constant epigastric/LUQ pain - felt a lump or ball in the LUQ Denies radiation to the back or shoulder No known precipitating factors - woke up with abdominal pain. Complains of nausea, denies vomiting, fever or chills Also had diarrhea - 9 episode of watery to loose stools without blood or mucous. No change in abd distension after the diarrhea Had 3 BMs yesterday and 3 timnes since this am. Abd pain improved to 5/10 today Kermit bloated with visible abdominal distension Had soup for dinner Lately she has been eating less - starts eating and feels full - since last Saturday. Called her PCP and advised to go to the ER Abd pain is different than the pain she had when she had the Denies recent antibiotics or NSAID use PAST VISTS: Noted a bump in the upper abdomen x 2 weeks Has been noticing nausea, bloating and diarrhea since then Denies early satiety. Takes Tramadol 1 -3 times a day prn Foul smelling burps have resolved. 04/11/21 Pt had Exploratory laparotomy, gastrotomy, suture ligature of bleeding gastric ulcer, biopsy of gastric ulcer, omental patch of gastric ulcer 10/2022 patient had incisional hernia repair with mesh placement by Dr. Moe Has been doing good. Had surgery for an incisional hernia in 02/2022 and has been doing well since Intermittent burping (foul smelling). Takes Tramadol for back pain and has been cutting back - takes it only when she really needs it. Denies abdominal pain, nausea or vomiting or wt loss. Abdominal pain is not that bad - uncomfortable at times. Denies nausea or vomiting. Intermittent discomfort after eating. Noted abdominal pain, nausea and vomiting a month after her surgery - saw Dr Moe and scheduled for CT scan on 06/26/20. Pain is epigastric and LUQ and feels like a cramp and is 8/10 in intensity. Woke up with pain this am. Eating can make the pain worse, sometimes it stays the same or goes away. Intermittent nausea.? Vomits 1-2 times a week and contains undigested food Notes partial relief of pain after vomting Patient denies symptoms of heartburn, dysphagia. Wt has been stable. Denies recent change in bowel habits, constipation, diarrhea, black stools or rectal bleeding. Patient denies major cardiac or pulmonary problems, loud snoring or sleep apnea Denies problems with anesthesia in the past. Denies being on chronic anticoagulation. 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 and has 2 children (5 children at home) Patient denies known family history of colon cancer or other GI malignancies. Brother had colon polyps at age 37 - 38 yrs. PAST EGD/COLONOSCOPY:? Colonoscopy 5 yrs ago at [facility] was negative (brother has colon polyps in his early?40's IMAGING STUDIES:? 06/[address] SCAN SHOWED: Significant constipation without obstruction. No free air or free fluid seen. Nonobstructive bilateral renal calculi. No hydroureteronephrosis. ? 12/01/21 EGD SHOWED: STOMACH: Copious amount of undigested food in the stomach - suggestive of gastroparesis. Pt is taking Tramadol 50 mg 2-3 times daily for back pain which can cause delayed gastric emptying. Edematous folds at the lesser curvature/incisura and ulcer seen on past EGD appeared to have healed. Two ligatures seen at the ulcer site - biopsies were obtained from the gastric antrum to check for H Pylori. Retroflexed examination was not performed. Gastric biopsies were negative for Helicobacter pylori. Plan:? Pt will be scheduled for a Gastric Emptying Study. Above findings were reviewed with the patient and? and Peptic Ulcer Disease handouts were given in the discharge area 07/10/21 EGD SHOWED: STOMACH: Some bile noted in the stomach which was suctioned.? Edematous folds at the lesser curvature/incisura with a 2 cms healing ulcer - Two ligatures seen at the ulcer site - biopsies were obtained from the ulcer and from the gastric antrum to check for H Pylori. Plan:? Continue Omeprazole 40 mg twice daily. Repeat EGD in 4 months to confirm gastric ulcer has healed. Above findings were reviewed with the patient and PUD and diet for Gastric ulcer handouts were given in the discharge area ADDENDUM: Biopsies showed: A.? Stomach, ulcer, biopsy:? Ulcerated gastric mucosa; no Helicobacter organism seen. B.? Stomach, antrum, biopsy:? Antral-type mucosa with moderate chronic inactive inflammation; no Helicobacter organisms seen [facility] Medical History (Updated 09/03/24 @ 09:58 by Ligia Woodson MD) Anxiety History of vertigo Chronic back pain Type 1 diabetes mellitus Surgical History History of incisional hernia repair (10/24/22) History of incisional hernia repair (02/28/22) History of back surgery History of esophagogastroduodenoscopy (EGD) H/O exploratory laparotomy Family History Mother Vaginal cancer Social History Household Members: Children Housing: House Are you a primary daycare manager to a significant other at home: No Do you presently have visiting nurse or other home services: No Alcohol intake: never Patient Tobacco Use Status: Former Tobacco user Tobacco use type: Cigarette Cigarettes Per Day: 3 service: No Current occupational status: unemployed Review of Systems Const All systems reviewed & are unremarkable except as noted in HPI and below ENT Reports Normal hearing present Neuro Reports Normal hearing present and Denies Abnormal speech present Physical Exam Vital Signs: Last Vital Signs Pulse 82 09/03/24 09:18 BP 107/67 09/03/24 09:18 Pulse Ox 97 09/03/24 09:18 Oxygen Delivery Method Room Air 09/03/24 09:18 BMI result Body Mass Index 29.2 Const General: tired appearing Nutritional Appearance: well nourished Orientation/consciousness: patient oriented x3 Limitations: no limitations Resp Effort & Inspection: normal respiratory effort, no audible wheezes, no cough and no respiratory distress GI Inspection: Yes normal to inspection Palpation (GI): Soft to palpation, Tenderness to palpation present (GI) in the LUQ; Palmer's sign negative and with no rebound tenderness, no guarding, not rigid, No hepatosplenomegaly present and no hernias Percussion: Yes tympanic to percussion Auscultation: normal bowel sounds Rectal Exam - Female: deferred Skin General skin exam: no rashes or lesions noted Neuro General: patient oriented x3 Cranial nerves: Yes Normal hearing present Speech: No Abnormal speech present Assessment & Plan Assessment & Plan (1) Anemia: Code(s): D64.9 - Anemia, unspecified Category: Medical (2) Upper abdominal pain: Code(s): R10.10 - Upper abdominal pain, unspecified Category: Medical (3) Asymptomatic gallstones: Code(s): K80.20 - Calculus of gallbladder without cholecystitis without obstruction Category: Medical (4) Colon cancer screening: Comment: Colonoscopy 5 yrs ago at [facility] was negative (brother has colon polyps in his early 40's) Pt was advised repeat colonoscopy in 2022 Code(s): Z12.11 - Encounter for screening for malignant neoplasm of colon Category: Medical (5) Diarrhea: Code(s): R19.7 - Diarrhea, unspecified Category: Medical Qualifiers: Diarrhea type: unspecified type Qualified Code(s): R19.7 - Diarrhea, unspecified (6) Early satiety: Code(s): R68.81 - Early satiety Category: Medical (7) Gastroparesis: Code(s): K31.84 - Gastroparesis Category: Medical (8) Elevated LFTs: Comment: Elevated LFTs since 2019 Hep B and C serologies were negative in 2019 JESSE and ASMA were negative Additional labs ordered Code(s): R79.89 - Other specified abnormal findings of blood chemistry Category: Medical Plan 43 YF hospitalized in 03/2021 with a perforated and bleeding gastric ulcer. 04/11/21 Pt had Exploratory laparotomy, gastrotomy, suture ligature of bleeding gastric ulcer, biopsy of gastric ulcer, omental patch of gastric ulcer. Pt has been having nausea, vomiting, early satiety and abdominal pain a month after her surgery raising concern for recurrent peptic ulcer disease/gastric outlet obstruction.? Patient was seen by Dr. Moe and is scheduled for an abdominal CT scan on 06/26/2021.? 07/10/21 EGD SHOWED?edematous folds at the lesser curvature/incisura with a 2 cms healing ulcer - Two ligatures seen at the ulcer site - biopsies obtained from the ulcer and from the gastric antrum were negative for H Pylori. EGD was performed and results as noted above. Plan:? Decrease Omeprazole to 40 mg once daily. 10/04/22 Pt noted a bump in LUQ x 2 weeks - appeared spontaneously - not associated with lifting or straining On exam - smooth bulge in LUQ (just lateral to the scar) on standing and reduces spontaneously when pt lies down Pt advised to schedule an urgent CT scan 10/2022 patient had incisional hernia repair with mesh placement by Dr. Moe 05/29/24 LUQ pain and diarrhea for the past week 05/28/24 seen at [facility] for abd pain and a lump Abd CT scan showed: 1. No acute abnormality in the abdomen or pelvis. 2. Cholelithiasis. 3. Tiny bilateral nonobstructing renal stones. 4. Moderate amount of stool in the colon Also showed a large stomach with retained food suggestive of gastroparesis (Pt diagnosed with DM 6-7 yrs ago) Acute diarrhea can be due to acute bacterial or viral gastroenteritis Pt advised to schedule an EGD in 1-2 weeks and a gastric emptying study Stool studies for C Diff and a GI panel if diarrhea persists 08/28/24 EGD showed: ESOPHAGUS: A 1.5 cms superficial erosion at the GE junction. STOMACH: Edematous folds at the lesser curvature/incisura at 45 cms with a 6-7 mm chronic appearing ulcer - Biopsies obtained Two ligatures seen at the ulcer site from past ulcer surgery. DUODENUM: Normal - biopsied to check for celiac sprue Plan: She was advised to increase Omeprazole to 40 mg twice daily and avoid NSAIDs. Follow-up EGD in 3-4 months to confirm gastric ulcer has healed. Patient is scheduled for a gastric emptying study on 09/08/2024 09/03/24 Pt advised to start metoclopramide 10 mg 3 times daily before meals after gastric emptying studies completed. HIDA scan to rule out biliary source of abdominal pain. FU in 2 months - scheduled 12/17/2024 Orders: Orders Hepatitis B Core Antibody Today R79.89 - Other specified abnormal findings of blood chemistry Hepatitis B Surface Antibody Today R79.89 - Other specified abnormal findings of blood chemistry NM hepatobiliary w pharm Today K80.20 - Calculus of gallbladder without cholecystitis without obstruction, R79.89 - Other specified abnormal findings of blood chemistry Liver Panel Today R79.89 - Other specified abnormal findings of blood chemistry Hepatitis B Surface Antigen Today R79.89 - Other specified abnormal findings of blood chemistry Hepatitis C Antibody Today R79.89 - Other specified abnormal findings of blood chemistry Prothrombin Time INR Today R79.89 - Other specified abnormal findings of blood chemistry Medications: New metoclopramide HCl Take 1/2 hour before meals 10 mg PO .Q 8 hrly 30 days 90 tabs 3RF nausea and vomiting K31.84 - Gastroparesis Discontinued naproxen Discontinued Reason: Patient Completed Course 500 mg PO BID PRN 40 tabs 0RF pain Coding Level of Care Code Est Pt Level 4 (85878) Diagnoses Anemia D64.9 Upper abdominal pain R10.10 Asymptomatic gallstones K80.20 Colon cancer screening Z12.11 Diarrhea, unspecified type R19.7 Diarrhea type: unspecified type Early satiety R68.81 Gastroparesis K31.84 Elevated LFTs R79.89
[2024-09-03 09:18] VITALS: BP 107/67; PULSE 82; O2SAT 97; BMI 29.2
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
== END 2024-09-03 10:07 | disposition home or self-care (01) ==
LOC: HO.HGI 09:02
PROVIDERS: PCP Internal Medicine; Visit Provider Internal Medicine Gastroenterology
DX: D64.9 Anemia, unspecified (principal); K80.20 Calculus of gallbladder without cholecystitis without obstruction; R19.7 Diarrhea, unspecified; R68.81 Early satiety; K31.84 Gastroparesis; R79.89 Other specified abnormal findings of blood chemistry
CPT/HCPCS: 99214

== ENCOUNTER → 2024-09-03 09:02 | Outpatient (BNVA) | payer OTHER, SELFPAY | PROVIDERS: PCP Internal Medicine; Visit Provider Internal Medicine Gastroenterology ==

== ENCOUNTER → 2024-10-16 08:01 | Outpatient (REF) | payer MEDICAID, SELFPAY ==
--- NOTE | ~2024-10-16 | NM_ITS ---
EXAMINATION: NM HEPATOBILIARY WITH PHARM HISTORY: K80.20 - Calculus of gallbladder without cholecystitis without obstruction. TECHNIQUE: An hepatobiliary scan was performed following the intravenous administration of 5.0 mCi technetium 99m-mebrofenin. Sequential images were obtained over 1 hour. Subsequently, the patient received 1.6 microgram of IV CCK over 30 minutes and additional imaging was performed. COMPARISON: Correlation is made with a CT of the abdomen and pelvis with contrast dated 05/28/2024. FINDINGS: There is normal uptake and excretion of the radiopharmaceutical by the liver. Gallbladder activity is noted at 20 minutes. Common bile duct activity is seen at 12 minutes. Small bowel activity is noted at 14 minutes. After the administration of intravenous CCK, the estimated gallbladder ejection fraction is 86%, which is within normal limits (normal 35-80%). NM/NM hepatobiliary w pharm IMPRESSION: Normal hepatobiliary scan with normal gallbladder ejection fraction. Electronically signed by: Magnus Potter MD 10/16/2024 11:51 AM EDT
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
== END ==
LOC: HO.NUCMED 08:01
PROVIDERS: PCP Internal Medicine; Visit Provider Internal Medicine Gastroenterology
DX: K80.20 Calculus of gallbladder without cholecystitis without obstruction (principal); R79.89 Other specified abnormal findings of blood chemistry
CPT/HCPCS: 78227; A9537; J2805

== ENCOUNTER → 2024-10-16 08:03 | Outpatient (BNV) | payer MEDICAID, SELFPAY | PROVIDERS: PCP Internal Medicine; Visit Provider Radiology Diagnostic Radiology | DX: K80.20 Calculus of gallbladder without cholecystitis without obstruction (principal) | CPT/HCPCS: 78227 ==

== ENCOUNTER → 2024-10-20 08:31 | Outpatient (REF) | payer MEDICAID, SELFPAY ==
--- NOTE | ~2024-10-20 | NM_ITS ---
EXAMINATION: NM RADIONUCLIDE SOLID FOOD GASTRIC EMPTYING 4-HOUR STUDY CLINICAL INFORMATION: Early satiety COMPARISON: None TECHNIQUE: A standard meal consisting of 4 oz of Egg Beaters brand tagged with 0.84 microcuries Tc-99m Sulfur Colloid, 8 oz water and 2 slices of toast with jelly was administered orally to the patient. Images were obtained using a dual head gamma camera in the anterior and posterior projections over of the stomach immediately post ingestion and at hourly intervals up to 4 hours post ingestion. The anterior and posterior counts at each time interval were averaged using the geometric mean and expressed as percentage of the immediate post ingestion counts. FINDINGS: There is good visualization of activity in the stomach immediately post ingestion. As the study progresses, there is good clearance of activity from the stomach and visualization of progressively increasing small bowel activity. By the end of the study, there is almost no retention noted in the stomach. Retention in the stomach at each time interval was: 1 hour 92% (normal 37%-90%) 2 hours 66% (normal 30%-60%) 3 hours 38% 4 hours 20% (normal 0%-10%) NM/OH gastric emptying study IMPRESSION: Abnormal 4-hour solid food gastric emptying study with 20% for retained at 4 hours. For solid meal, rapid gastric emptying is less than 30% at 60 minutes. Delayed gastric emptying criteria is more than 60% remaining at 120 minutes or more than 10% at 240 minutes. The 4-hour value is the best discriminator of a normal or abnormal result). Gastric emptying study grading per JNMT Consensus Recommendations in 2008 (https://tech.snmjournals.org/content/36) Grade 1 (mild retention): 11-20% at 4h Grade 2 (moderate retention): 21-35% at 4h Grade 3 (severe retention): 36-50% at 4h Grade 4 (very severe retention): >50% retention at 4h Electronically signed by: Mikhail Velez MD 10/20/2024 01:44 PM EDT
== END ==
LOC: HO.NUCMED 08:31
PROVIDERS: PCP Internal Medicine; Visit Provider Internal Medicine Gastroenterology
DX: R68.81 Early satiety (principal); R10.10 Upper abdominal pain, unspecified
CPT/HCPCS: 78264; A9541

== ENCOUNTER → 2024-10-20 08:33 | Outpatient (BNV) | payer MEDICAID, SELFPAY | PROVIDERS: PCP Internal Medicine; Visit Provider Radiology Diagnostic Radiology | DX: R68.81 Early satiety (principal) | CPT/HCPCS: 78264 ==

== ENCOUNTER 2024-12-17 12:06 | Outpatient (AMB) | payer MEDICAID, SELFPAY ==
--- NOTE | 2024-12-17 12:16 | A.OFFVIS_ITS ---
Vital Signs 12/17/24 12:18 Height 5 ft 6 in Weight 176 lb 5.917 oz BMI 28.5 BP 107/63 Blood Pressure Location Lt brachial Position Sitting Pulse 82 Intake Visit Reasons: N/S gastric empty 2x FU abd pain + gastroparesis Intake Note: Luzma presents in the office as a follow up for her abdominal pain and gastroparesis. CC: States that she had an EGD and GES. States that she has had diarrhea for two days and unable to sleep because pains in the stomach are so bad. 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: No Allergies No Known Allergies Allergy (Mild, Verified 12/17/24 12:20) NONE Medication List - Last Reconciled 12/17/24 by Ligia Woodson MD blood sugar diagnostic (FreeStyle Lite Strips) As directed cyclobenzaprine 5 mg PO BEDTIME PRN ibuprofen 600 mg PO Q6H PRN insulin glargine (Lantus Solostar U-100 Insulin) 40 units subcut DAILY@1700 insulin lispro (Humalog KwikPen (U-100) Insulin) 5 units subcut TID linaclotide (Linzess) 145 mcg PO DAILY lorazepam 1 tab PO BEDTIME metoclopramide HCl 10 mg PO .Q 8 hrly 30 days omeprazole 40 mg PO BID 60 days ondansetron 4 mg PO Q8H PRN 30 days tramadol 50 mg PO Q4H PRN HPI HPI N/S gastric empty 2x FU abd pain + gastroparesis: Details: GI clinic visit for this 44 YF for FU appt to review EGD results. Patient cc: Luzma presents in the office as a follow up for her abdominal pain and gastroparesis. CC: States that she had an EGD and GES. States that she has had diarrhea for two days and unable to sleep because pains in the stomach are so bad. Had diarrhea after she ate a salad and a bowl of cereal Gets diarrhea intermittently every 2 weeks - usually subsides after 2-3 times Unable to sleep last night due to diarrhea. Continues to have abdominal pain and nausea PAST VISTS: EGD and biopsy results were reviewed with the patient. Continues to have abdominal pain and bloating. Pt started having 9/10 constant epigastric/LUQ pain - felt a lump or ball in the LUQ Denies radiation to the back or shoulder No known precipitating factors - woke up with abdominal pain. Complains of nausea, denies vomiting, fever or chills Also had diarrhea - 9 episode of watery to loose stools without blood or mucous. No change in abd distension after the diarrhea Had 3 BMs yesterday and 3 timnes since this am. Abd pain improved to 5/10 today Mcintosh bloated with visible abdominal distension Had soup for dinner Lately she has been eating less - starts eating and feels full - since last Saturday. Called her PCP and advised to go to the ER Abd pain is different than the pain she had when she had the Denies recent antibiotics or NSAID use Noted a bump in the upper abdomen x 2 weeks Has been noticing nausea, bloating and diarrhea since then Denies early satiety. Takes Tramadol 1 -3 times a day prn Foul smelling burps have resolved. 04/11/21 Pt had Exploratory laparotomy, gastrotomy, suture ligature of bleeding gastric ulcer, biopsy of gastric ulcer, omental patch of gastric ulcer 10/2022 patient had incisional hernia repair with mesh placement by Dr. Moe Has been doing good. Had surgery for an incisional hernia in 02/2022 and has been doing well since Intermittent burping (foul smelling). Takes Tramadol for back pain and has been cutting back - takes it only when she really needs it. Denies abdominal pain, nausea or vomiting or wt loss. Abdominal pain is not that bad - uncomfortable at times. Denies nausea or vomiting. Intermittent discomfort after eating. Noted abdominal pain, nausea and vomiting a month after her surgery - saw Dr Moe and scheduled for CT scan on 06/26/20. Pain is epigastric and LUQ and feels like a cramp and is 8/10 in intensity. Woke up with pain this am. Eating can make the pain worse, sometimes it stays the same or goes away. Intermittent nausea.? Vomits 1-2 times a week and contains undigested food Notes partial relief of pain after vomting Patient denies symptoms of heartburn, dysphagia. Wt has been stable. Denies recent change in bowel habits, constipation, diarrhea, black stools or rectal bleeding. Patient denies major cardiac or pulmonary problems, loud snoring or sleep apnea Denies problems with anesthesia in the past. Denies being on chronic anticoagulation. 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 and has 2 children (5 children at home) Patient denies known family history of colon cancer or other GI malignancies. Brother had colon polyps at age 37 - 38 yrs. PAST EGD/COLONOSCOPY:? Colonoscopy 5 yrs ago at [facility] [place] was negative (brother has colon polyps in his early?40's IMAGING STUDIES:? 06/[address] SCAN SHOWED: Significant constipation without obstruction. No free air or free fluid seen. Nonobstructive bilateral renal calculi. No hydroureteronephrosis. ? 12/01/21 EGD SHOWED: STOMACH: Copious amount of undigested food in the stomach - suggestive of gastroparesis. Pt is taking Tramadol 50 mg 2-3 times daily for back pain which can cause delayed gastric emptying. Edematous folds at the lesser curvature/incisura and ulcer seen on past EGD appeared to have healed. Two ligatures seen at the ulcer site - biopsies were obtained from the gastric antrum to check for H Pylori. Retroflexed examination was not performed. Gastric biopsies were negative for Helicobacter pylori. Plan:? Pt will be scheduled for a Gastric Emptying Study. Above findings were reviewed with the patient and? and Peptic Ulcer Disease handouts were given in the discharge area 07/10/21 EGD SHOWED: STOMACH: Some bile noted in the stomach which was suctioned.? Edematous folds at the lesser curvature/incisura with a 2 cms healing ulcer - Two ligatures seen at the ulcer site - biopsies were obtained from the ulcer and from the gastric antrum to check for H Pylori. Plan:? Continue Omeprazole 40 mg twice daily. Repeat EGD in 4 months to confirm gastric ulcer has healed. Above findings were reviewed with the patient and PUD and diet for Gastric ulcer handouts were given in the discharge area ADDENDUM: Biopsies showed: A.? Stomach, ulcer, biopsy:? Ulcerated gastric mucosa; no Helicobacter organism seen. B.? Stomach, antrum, biopsy:? Antral-type mucosa with moderate chronic inactive inflammation; no Helicobacter organisms seen [facility] Medical History (Updated 09/03/24 @ 09:58 by Ligia Woodson MD) Anxiety History of vertigo Chronic back pain Type 1 diabetes mellitus Surgical History (Updated 12/17/24 @ 12:19 by STEPHANIE Mehta) Hx of colonoscopy History of incisional hernia repair (10/24/22) History of incisional hernia repair (02/28/22) History of back surgery History of esophagogastroduodenoscopy (EGD) H/O exploratory laparotomy Family History Mother Vaginal cancer Social History Household Members: Children Housing: House Are you a primary medication care manager to a significant other at home: No Do you presently have visiting nurse or other home services: No Alcohol intake: never Patient Tobacco Use Status: Former Tobacco user Tobacco use type: Cigarette Cigarettes Per Day: 3 service: No Current occupational status: unemployed Review of Systems Const All systems reviewed & are unremarkable except as noted in HPI and below ENT Reports Normal hearing present Neuro Reports Normal hearing present and Denies Abnormal speech present Physical Exam Const General: tired appearing Nutritional Appearance: well nourished Orientation/consciousness: patient oriented x3 Limitations: no limitations Resp Effort & Inspection: normal respiratory effort, no audible wheezes, no cough and no respiratory distress GI Inspection: Yes normal to inspection Palpation (GI): Soft to palpation, Tenderness to palpation present (GI) in the LUQ; Palmer's sign negative and with no rebound tenderness, no guarding, not rigid, No hepatosplenomegaly present and no hernias Percussion: Yes tympanic to percussion Auscultation: normal bowel sounds Rectal Exam - Female: deferred Skin General skin exam: no rashes or lesions noted Neuro General: patient oriented x3 Cranial nerves: Yes Normal hearing present Speech: No Abnormal speech present Assessment & Plan Assessment & Plan (1) Perforated gastric ulcer: Code(s): K25.5 - Chronic or unspecified gastric ulcer with perforation Category: Medical Qualifiers: Gastric ulcer chronicity: acute Qualified Code(s): K25.1 - Acute gastric ulcer with perforation (2) Elevated LFTs: Comment: Elevated LFTs since 2019 Hep B and C serologies were negative in 2019 JESSE and ASMA were negative Additional labs ordered Code(s): R79.89 - Other specified abnormal findings of blood chemistry Category: Medical (3) Colon cancer screening: Comment: Colonoscopy 5 yrs ago at [facility] [place] was negative (brother has colon polyps in his early 40's) Pt was advised repeat colonoscopy in 2022 Code(s): Z12.11 - Encounter for screening for malignant neoplasm of colon Category: Medical (4) Nausea: Code(s): R11.0 - Nausea Category: Medical (5) Gastroparesis: Code(s): K31.84 - Gastroparesis Category: Medical Plan 44 YF hospitalized in 03/2021 with a perforated and bleeding gastric ulcer. 04/11/21 Pt had Exploratory laparotomy, gastrotomy, suture ligature of bleeding gastric ulcer, biopsy of gastric ulcer, omental patch of gastric ulcer. Pt has been having nausea, vomiting, early satiety and abdominal pain a month after her surgery raising concern for recurrent peptic ulcer disease/gastric outlet obstruction.? Patient was seen by Dr. Moe and is scheduled for an abdominal CT scan on 06/26/2021.? 07/10/21 EGD showed edematous folds at the lesser curvature/incisura with a 2 cms healing ulcer - Two ligatures seen at the ulcer site - biopsies obtained from the ulcer and from the gastric antrum were negative for H Pylori. Plan:? Decrease Omeprazole to 40 mg once daily. 10/04/22 Pt noted a bump in LUQ x 2 weeks - appeared spontaneously - not associated with lifting or straining On exam - smooth bulge in LUQ (just lateral to the scar) on standing and reduces spontaneously when pt lies down Pt advised to schedule an urgent CT scan 10/2022 patient had incisional hernia repair with mesh placement by Dr. Moe 05/29/24 LUQ pain and diarrhea for the past week 05/28/24 seen at [facility] ED for abd pain and a lump Abd CT scan showed: 1. No acute abnormality in the abdomen or pelvis. 2. Cholelithiasis. 3. Tiny bilateral nonobstructing renal stones. 4. Moderate amount of stool in the colon Also showed a large stomach with retained food suggestive of gastroparesis (Pt diagnosed with DM 6-7 yrs ago) Acute diarrhea can be due to acute bacterial or viral gastroenteritis Pt advised to schedule an EGD in 1-2 weeks and a gastric emptying study Stool studies for C Diff and a GI panel if diarrhea persists 08/28/24 EGD showed: ESOPHAGUS: A 1.5 cms superficial erosion at the GE junction. STOMACH: Edematous folds at the lesser curvature/incisura at 45 cms with a 6-7 mm chronic appearing ulcer - Biopsies obtained Two ligatures seen at the ulcer site from past ulcer surgery. DUODENUM: Normal - biopsied to check for celiac sprue Plan: She was advised to increase Omeprazole to 40 mg twice daily and avoid NSAIDs. Follow-up EGD in 3-4 months to confirm gastric ulcer has healed. Patient is scheduled for a gastric emptying study on 09/08/2024 09/03/24 Pt advised to start metoclopramide 10 mg 3 times daily before meals after gastric emptying studies completed. HIDA scan to rule out biliary source of abdominal pain. 10/16/24 Normal hepatobiliary scan with normal gallbladder ejection fraction. 10/20/24 GES SHOWED: 1 hour 92% (normal 37%-90%) 2 hours 66% (normal 30%-60%) 3 hours 38% 4 hours 20% (normal 0%-10%) IMPRESSION: Abnormal 4-hour solid food gastric emptying study with 20% for retained at 4 hours. 12/17/24 GES and HIDA scan results reviewed. Advised to take Linzess every day instead to 2-3 times a week EGD scheduled on 01/08/25 FU in 4 weeks Coding Level of Care Code Est Pt Level 4 (36239) Diagnoses Acute gastric ulcer with perforation K25.1 Gastric ulcer chronicity: acute Elevated LFTs R79.89 Colon cancer screening Z12.11 Nausea R11.0 Gastroparesis K31.84 Time Spent (min) 21
[2024-12-17 12:18] VITALS: BP 107/63; PULSE 82; BMI 28.5
--- OUTSIDE RECORDS SUMMARY | 2024-12-17 12:29 | XMS_ITS | Encounter Summary ---
Author Organization [facility] Address [address] [address] Phone Care Team Providers Care Manager Compensation Name Role Phone Vilma Gene Coleman DO Primary Care Provider [phone] Gene Esparza DO Unavailable Encounter Details Date Type Department Care Team (Latest Contact Info) Description 02/23/2020 Transcribe Orders Virtual Department [address] [place] [address] Felecia Amador PA [address] [facility] [place] [address] Migrainous vertigo (Primary Dx); Other disorders of vestibular function, unspecified ear Social History Tobacco Use Types Packs/Day Years Used Date Smoking Tobacco: Never Assessed Comments Unknown Sex and Gender Information Value Date Recorded Sex Assigned at Not on file Legal Sex Female 9:22 PM EDT Gender Identity Not on file Sexual Orientation Not on file documented as of this encounter Plan of Treatment Not on file documented as of this encounter Visit Diagnoses Diagnosis Migrainous vertigo- Primary Other disorders of vestibular function, unspecified ear documented in this encounter Care Teams Manager Compensation Relationship Specialty Start Date End Date Gene Esparza DO PCP - General 05/16/17 Gene Esparza DO [address] [place] [address] [place] [address] Insurance Assigned Provider 10/12/1809/29 documented as of this encounter Additional Source Comments The information contained in this document represents components of the legal health record. It is not the complete legal health record.[facility]
== END 2024-12-17 12:53 | disposition home or self-care (01) ==
LOC: HO.HGI 12:07
PROVIDERS: PCP Internal Medicine; Visit Provider Internal Medicine Gastroenterology
DX: K25.1 Acute gastric ulcer with perforation (principal); R74.01 Elevation of levels of liver transaminase levels; R11.0 Nausea; K31.84 Gastroparesis
CPT/HCPCS: 99214

== ENCOUNTER → 2024-12-17 12:06 | Outpatient (BNVA) | payer MEDICAID, SELFPAY | PROVIDERS: PCP Internal Medicine; Visit Provider Internal Medicine Gastroenterology | DX: Z71.2 Person consulting for explanation of examination or test findings (principal); K25.1 Acute gastric ulcer with perforation; R79.89 Other specified abnormal findings of blood chemistry; R11.0 Nausea; K31.84 Gastroparesis | CPT/HCPCS: 99212 ==

== ENCOUNTER 2025-01-08 07:57 | Day surgery (SDC) | payer MEDICAID, SELFPAY ==
--- OUTSIDE RECORDS SUMMARY | 2024-12-18 14:28 | XMS_ITS | Encounter Summary ---
Author Organization [facility] Address [address] [address] Phone Care Team Providers Care Technical Writer Name Role Phone Vilma Gene Coleman DO Primary Care Provider [phone] Gene Esparza DO Unavailable Encounter Details Date Type Department Care Team (Latest Contact Info) Description 02/23/2020 Transcribe Orders Virtual Department [address] [place] [address] Felecia Amador PA 6 [facility] [place] [address] Migrainous vertigo (Primary Dx); Other disorders of [...] ear documented in this encounter Care Teams Technical Writer Relationship Specialty Start Date End Date Gene Esparza DO PCP - General 05/16/17 Gene Esparza DO [address] [place] [address] [place] [address] Insurance Assigned Provider 10/12/1809/29 documented as of this encounter Additional Source Comments The information contained in this document represents components of the legal health record. It is not the complete legal health record.[facility]
[2025-01-06 13:27] VITALS: BMI 28.4
--- NOTE | 2025-01-07 11:47 | HO.ANESPROP2 ---
HPI - Anesthesia Eval Consult details Narrative: 44yo F for Upper Endoscopy s/p same 08/24/24 with MAC *aborted d/t large amount of undigested food in the stomach* Pt instructed to follow clear liquid diet 08/27/24 with EGD 08/28/24 with TIVA PMFSH Active Problems Active Problems: All Active Problems Gastroparesis (Acute) Early satiety (Acute) Diarrhea (Acute) Nausea (Acute) Reducible bulge of abdominal wall (Acute) Colon cancer screening (Acute) Incisional hernia (Acute) Asymptomatic gallstones (Acute) Elevated LFTs (Acute) Perforated gastric ulcer (Acute) Upper abdominal pain (Acute) Anemia (Acute) Past Medical History Medical History (Updated 01/06/25 @ 13:27 by Olamide Betancur RN) Arthritis Anxiety History of vertigo Chronic back pain Type 1 diabetes mellitus Family History Family History Mother Vaginal cancer Family history of problems with anesthesia: No Surgical History Surgical History Hx of colonoscopy History of incisional hernia repair (10/24/22) History of incisional hernia repair (02/28/22) History of back surgery History of esophagogastroduodenoscopy (EGD) H/O exploratory laparotomy History of Problems with Anesthesia: Yes Social History Social History Household Members: Children Housing: House Are you a primary overnight caregiver to a significant other at home: No Do you presently have visiting nurse or other home services: No Alcohol intake: never Patient Tobacco Use Status: Former Tobacco user Tobacco use type: Cigarette Cigarettes Per Day: 3 service: No Current occupational status: unemployed Meds Allergies Allergy/AdvReac Type Severity Reaction Status Date / Time No Known Allergies Allergy Mild NONE Verified 01/19/25 07:51 Home Medications ?Medication ?Instructions ?Recorded ?Confirmed ?Last Taken ?Type insulin lispro 100 unit/mL 5 unit subcut TID 04/19/21 01/06/25 Unknown History subcutaneous pen (Humalog KwikPen (U-100) Insulin) lorazepam 0.5 mg tablet 1 tab PO BEDTIME 11/07/21 01/06/25 Unknown History blood sugar diagnostic (FreeStyle #10 ea 04/12/22 12/17/24 Unknown History Lite Strips) insulin glargine 100 unit/mL (3 40 unit subcut DAILY@1700 10/24/22 01/06/25 Unknown History mL) subcutaneous pen (Lantus Solostar U-100 Insulin) tramadol 50 mg tablet 50 mg PO Q4H PRN pain 12/17/24 01/06/25 Unknown History Exam Height,Weight and Vital Signs: Height 5 ft 6 in Weight 79.832 kg Assessment and Plan Assessment Anesthesia Assessment: Chart Reviewed Final Anesthetic Review Family History of Problems with Anesthesia: No History of Problems with Anesthesia: Yes
[2025-01-08 08:40] VITALS: BMI 29.5
[2025-01-08 08:48] LABS: UPreg QC Valid YES
[2025-01-08 08:52] LABS: Glucose, Whole Blood 176 mg/dL (60-115)
[2025-01-08 09:00] VITALS: BP 112/71; PULSE 84; RESP 16; TEMP 36.1; O2SAT 98
--- NOTE | 2025-01-08 09:07 | MHC.SHP ---
Pre-Procedural Eval Section A - 24 Hr Update-Section A only Date of Service: 01/08/25 The patient is an INPATIENT: No Changes since office visit: Yes Patient answered all questions; No Cold of Flu in the past 2 weeks, No New Medical Problems and No Changes in Medication The patient has been examined within 24 hours of the surgical procedure. The History & Physical has been completed within 30 days and I have reviewed it.: Yes Section B - Complete if H&P > 30 days Chief Complaint: Acute gastric ulcer with hemorrhage Allergies: Allergies Allergy/AdvReac Type Severity Reaction Status Date / Time No Known Allergies Allergy Mild NONE Verified 12/17/24 12:20 Plan Diagnosis/Plan: Unchanged I have reviewed the history and physical and performed a pertinent physical examination on my patient. No changes have occurred unless specified. Time Spent With Patient Time: Total time managing care of this patient today ____ minutes.
--- NOTE | 2025-01-08 09:48 | W.PM.OPN ---
Operative Note Operative Note Date of Service: 01/08/25 Narrative: FLEXIBLE TRANSORAL UPPER GASTROINTESTINAL ENDOSCOPY WITH BIOPSIES Pre-op diagnosis: Epigastric pain, FU of gastric ulcer Post-op diagnosis: Inlet patch, Gastritis, Endoscopist:? Ligia Woodson MD Anesthesia:?MAC UPPER ENDOSCOPY Consent: Indications for the procedure and potential complications of bleeding, perforation, reaction to medications and missed diagnosis were discussed with the patient and informed consent was obtained. Instrument: Olympus GIF H 190 mid size upper endoscope Monitoring: Vital signs and clinical assessment, continuous EKG monitoring, Pulse oximetry, Carbon Dioxide monitoring and blood pressure monitoring were done throughout the procedure. Procedure: The patient was placed in the left lateral decubitis position and pre-procedure medications were administered and a bite block was placed. The endoscope was inserted into the mouth and advanced under direct vision to the third part of duodenum. A careful inspection was made as the upper endoscope was withdrawn including a retroflexed examination of the proximal stomach; Findings and interventions are described below. Findings: Larynx: Normal Esophagus: GE junction at 36. No esophagitis. A 2 x 1 cms inlet patch in the proximal esophagus - biopsied to check for Barretts. Stomach: Some bile and residual food noted in the stomach which was suctioned.? Edematous folds at the lesser curvature/angularis at 45 cms - Biopsies obtained Ulcer seen on previous EGD has healed. Two ligatures seen at the site from past ulcer surgery. Grade 2 flap valve on retroflexed examination of the cardia. Duodenum: Normal bulb and descending duodenum. Intervention: Biopsies as noted above Impression and Post Procedure Diagnosis: Endoscopy Findings: ESOPHAGUS: Inlet patch in the proximal esophagus - biopsied. STOMACH: Edematous folds at the lesser curvature/incisura at 45 cms - Biopsies obtained Ulcer seen on previous EGD has healed. Two ligatures seen at the ulcer site from past ulcer surgery. DUODENUM: Normal Plan: Pt has a FU appointment on 01/19/[address] Woodson Continue Omeprazole 40 mg twice daily. Above findings were reviewed with the patient and relevant handouts were given and the discharge area.
[2025-01-08 09:52] VITALS: BP 93/47; PULSE 91; RESP 16; TEMP 36.3; O2SAT 94
[2025-01-08 10:00] VITALS: BP 94/49; PULSE 89; RESP 16; O2SAT 94
[2025-01-08 10:15] VITALS: BP 118/58; PULSE 93; RESP 17; TEMP 36.3; O2SAT 99
--- NOTE | 2025-01-08 10:25 | HO.POSTANES ---
Post Anesthesia Evaluation Post Anesthesia Evaluation Date of Service: 01/08/25 Vital Signs: Vital Signs Temp Pulse Resp BP Pulse Ox O2 Del Method 01/08/25 10:15 97.3 F 93 17 118/58 L 99 Room Air 01/08/25 10:00 89 16 94/49 L 94 Room Air 01/08/25 09:52 97.3 F 91 16 93/47 L 94 Room Air 01/08/25 09:00 97 F 84 16 112/71 98 Room Air Anesthesia: Monitored Mental Status: Awake Pain Control: Satisfactory Nausea/Vomiting: None Hydration: Adequate Anesthesia-Related Issues: No Anes. Related Issues
== END 2025-01-08 10:41 | disposition home or self-care (01) ==
PROVIDERS: Nurse Practitioner; PCP Internal Medicine; Visit Provider Internal Medicine Gastroenterology
PROC: 0DJ08ZZ Inspection of Upper Intestinal Tract, Via Natural or Artificial Opening Endoscopic (ICD-10-PCS; CPT 43235; principal; 2025-01-08 09:20)
DX: K25.0 Acute gastric ulcer with hemorrhage (principal); K29.60 Other gastritis without bleeding; Q39.8 Other congenital malformations of esophagus; K31.89 Other diseases of stomach and duodenum; Z79.4 Long term (current) use of insulin; Z79.899 Other long term (current) drug therapy; Z87.891 Personal history of nicotine dependence
CPT/HCPCS: 43239; 81025; 82947; 88305; 88313; 88342; J2003; J2704

== ENCOUNTER → 2025-01-08 07:57 | Outpatient (BNV) | payer MEDICAID, SELFPAY | PROVIDERS: PCP Internal Medicine; Visit Provider Internal Medicine Gastroenterology | DX: R10.13 Epigastric pain (principal); K22.89 Other specified disease of esophagus; K29.70 Gastritis, unspecified, without bleeding | CPT/HCPCS: 43239 ==

== ENCOUNTER 2025-01-19 07:36 | Outpatient (AMB) | payer MEDICAID, SELFPAY ==
--- OUTSIDE RECORDS SUMMARY | 2025-01-19 07:42 | XMS_ITS | Encounter Summary ---
Author Organization [facility] Address [address] [address] Phone Care Team Providers Care Cane Flume Watcher Name Role Phone Gene Espazra DO Primary Care Provider [phone] Gene Esparza DO Unavailable Encounter Details Date Type Department Care Team (Latest Contact Info) Description 02/23/2020 Transcribe Orders Virtual Department [address] [place] [address] Felecia Amador PA 6 [facility] [place] [address] Migrainous vertigo (Primary Dx); Other disorders of [...] ear documented in this encounter Care Teams Cane Flume Watcher Relationship Specialty Start Date End Date Gene Esparza DO PCP - General 05/16/17 Gene Esparza DO [address] [place] [address] [place] [address] Insurance Assigned Provider 10/12/1809/29 documented as of this encounter Additional Source Comments The information contained in this document represents components of the legal health record. It is not the complete legal health record.[facility]
--- OUTSIDE RECORDS SUMMARY | 2025-01-19 07:42 | XMS_ITS | Encounter Summary ---
Author Organization [facility] Address [address] [facility] [address] [place] [address] Phone Care Team Providers Care Promotor Group Ticket Sales Name Role Phone Jemaljesus alberto Gene Jared Primary Care Provider [phone] Gene Esparza DO Unavailable Encounter Details Date Type Department Care Team (Late st Contact Info) Description 05/31/2020 Procedure Pass [facility], Ct Scan - [address] [address] Social History Tobacco Use Types Packs/Day Years Used Date Smoking Tobacco: Never Assessed Comments Unknown Sex and Gender Information Value Date Recorded Sex Assigned at Not on file Legal Sex Female 9:22 PM EDT Gender Identity Not on file Sexual Orientation Not on file documented as of this encounter Plan of Treatment Not on file documented as of this encounter Visit Diagnoses Not on filedocumented in this encounter Care Teams Promotor Group Ticket Sales Relationship Specialty Start Date End Date Gene Esparza DO PCP - General 05/16/17 Gene Esparza DO [address] [place] [address] Insurance Assigned Provider 10/12/1809/29 documented as of this encounter Additional Source Comments The information contained in this document represents components of the legal health record. It is not the complete legal health record.[facility]
--- OUTSIDE RECORDS SUMMARY | 2025-01-19 07:42 | XMS_ITS | Encounter Summary ---
Author Organization [facility] Address 399 [facility] [address] [place] [address] Phone Care Team Providers Care Therapist Radiation Name Role Phone JemalGene granda Primary Care Provider [phone] JemalGene granda DO Unavailable Reason for Referral * MRI/CAT Scan - Closed Specialty Diagnoses / Procedures Referred By Contac t Referred To Contact Radiology Diagnoses Radiculopathy, lumbar region Procedures CT Lumbar Spine Felecia Amador PA Phone: tel: fax: Referral ID Status Reason Start Date Expiration Date Visits Re quested Visits Authorized [id number] Closed 07/08/2020 07/08/2021 1 1 Encounter Details Date Type Department Care Team (Latest Contact Info) Description 06/21/2020 Transcribe Orders Virtual Department [address] [place] [address] Felecia Amador PA [address] [place] [address] [place] [address] Radiculopathy, lumbar region (Primary Dx) Social History Tobacco Use Types Packs/Day Years Used Date Smoking Tobacco: Never Assessed Comments Unknown Sex and Gender Information Value Date Recorded Sex Assigned at Not on file Legal Sex Female 9:22 PM EDT Gender Identity Not on file Sexual Orientation Not on file documented as of this encounter Plan of Treatment Not on file documented as of this encounter Results * CT LUMBAR SPINE WITHOUT CONTRAST (07/13/2020 3:34 PM EST) Anatomical Region Laterality Modality L-spine Computed Tomogra phy 07/13/2020 3:35 PM EST Narrative 07/13/2020 3:[address] LUMBAR SPINE WITHOUT CONTRAST TECHNIQUE: Diagnostic Sagittal and coronal reformatted images were obtained. CLINICAL HISTORY: Evaluate for disc herniation and nerve compression. FINDINGS: There are no lumbar vertebral body compression fractures. T12-L1 level: Minimal left posterior paramedian disc protrusion. Mild facet arthropathy. L1-L2 level: Small posterior left paramedian disc protrusion with mild impression upon the thecal sac. Mild facet arthropathy. L2-L3 level: Small broad-based posterior disc protrusion with mild impression upon the thecal sac. Mild facet arthropathy. L3-L4 level: Mild L3 on L4 vertebral body with retrolisthesis and small broad- based posterior and minimally left paramedian disc protrusion with mild to moderate impression upon the thecal sac. Mild facet arthropathy. L4-L5 level: Minimal L4 on L5 vertebral body retrolisthesis and small to moderate broad-based posterior disc protrusion with mild compression of the thecal sac. Mild facet arthropathy. Mild bilateral neural foraminal narrowing with slight encroachment upon exiting L4 nerve roots. L5-S1 level: Status post discectomy and left greater than right decompressive hemilaminectomies. Intervertebral disc cage placement. Intervertebral disc space height is maintained. There are small to moderate-sized posterior vertebral endplate osteophytes with mild to moderate impression upon the thecal sac. Mild to moderate facet arthropathy without central canal stenosis. Mild neural foraminal narrowing with slight encroachment upon exiting L5 nerve root. Visualized portion of lower lungs demonstrate no abnormalities. No evidence of retroperitoneal lymphadenopathy. CONCLUSION:r L5-S1 level: Status post discectomy, placement of intervertebral disc spacer with maintained intervertebral disc height. Bilateral left larger than right L5-S1 hemilaminectomies. No evidence of recurrent disc herniation. Posterior vertebral endplate osteophytes with mild to moderate impression upon the thecal sac. Mild bilateral narrowing of neural foramina. Additional findings of mild lumbar spondylosis, as described. No evidence of lumbar intervertebral disc herniations or central canal stenosis. Procedure Note Warren Jones MD - 07/13/2020 CT LUMBAR SPINE WITHOUT CONTRAST TECHNIQUE: Diagnostic Sagittal and coronal reformatted images wereobtained. CLINICAL HISTORY: Evaluate for disc herniation and nerve compression. FINDINGS: There are no lumbar vertebral body compression fractures. T12-L1 level: Minimal left posterior paramedian disc protrusion. Mildfacet arthropathy. L1-L2 level: Small posterior left paramedian disc protrusion with mildimpression upon the thecal sac. Mild facet arthropathy. L2-L3 level: Small broad-based posterior disc protrusion with mildimpression upon the thecal sac. Mild facet arthropathy. L3-L4 level: Mild L3 on L4 vertebral body with retrolisthesis and smallbroad- based posterior and minimally left paramedian disc protrusion withmild to moderate impression upon the thecal sac. Mild facet arthropathy. L4-L5 level: Minimal L4 on L5 vertebral body retrolisthesis and small tomoderate broad-based posterior disc protrusion with mild compression ofthe thecal sac. Mild facet arthropathy. Mild bilateral neural foraminalnarrowing with slight encroachment upon exiting L4 nerve roots. L5-S1 level: Status post discectomy and left greater than rightdecompressive hemilaminectomies. Intervertebral disc cage placement.Intervertebral disc space height is maintained. There are small tomoderate-sized posterior vertebral endplate osteophytes with mild tomoderate impression upon the thecal sac. Mild to moderate facetarthropathy without central canal stenosis. Mild neural foraminalnarrowing with slight encroachment upon exiting L5 nerve root. Visualized portion of lower lungs demonstrate no abnormalities. No evidence of retroperitoneal lymphadenopathy. CONCLUSION:r L5-S1 level: Status post discectomy, placement of intervertebral discspacer with maintained intervertebral disc height. Bilateral left largerthan right L5-S1 hemilaminectomies. No evidence of recurrent discherniation. Posterior vertebral endplate osteophytes with mild to moderateimpression upon the thecal sac. Mild bilateral narrowing of neuralforamina. Additional findings of mild lumbar spondylosis, as described. No evidenceof lumbar intervertebral disc herniations or central canal stenosis. us Felecia COOLEY IMG CT XSPECIALTY ORDERABLE S Final Result documented in this encounter Visit Diagnoses Diagnosis Radiculopathy, lumbar region- Primary Thoracic or lumbosacral neuritis or radiculitis, unspecified Radiculopathy, lumbar region Thoracic or lumbosacral neuritis or radiculitis, unspecified documented in this encounter Care Teams Therapist Radiation Relationship Specialty Start Date End Date Gene Esparza DO PCP - General 05/16/17 Gene Esparza DO [address] [place] [address] Insurance Assigned Provider 10/12/1809/29 documented as of this encounter Additional Source Comments The information contained in this document represents components of the legal health record. It is not the complete legal health record.[facility]
--- OUTSIDE RECORDS SUMMARY | 2025-01-19 07:42 | XMS_ITS | Encounter Summary ---
Author Organization [facility] Address [address] [facility] [address] [place] [address] Phone Care Team Providers Care Fiber Designer Name Role Phone JemalGnee granda Primary Care Provider [phone] JemalGene granda DO Unavailable Reason for Referral * MRI/CAT Scan - Closed Specialty Diagnoses / Procedures Referred By Contac t Referred To Contact Radiology Diagnoses Other disorders of vestibular function, unspecified ear Migrainous vertigo Procedures CT Head Felecia Amador PA Phone: tel: fax: Referral ID Status Reason Start Date Expiration Date Visits Re quested Visits Authorized [id number] Closed 05/31/2020 05/31/2021 1 1 Encounter Details Date Type Department Care Team (Latest Contact Info) Description 05/31/2020 Transcribe Orders Virtual Department [address] [place] [address] Felecia Amador PA [address] [place] [address] [place] [address] Other disorders of vestibular function, unspecified ear (Primary Dx); Migrainous vertigo; Ganglion, right ankle and foot Social History Tobacco Use Types Packs/Day Years Used Date Smoking Tobacco: Never Assessed Comments Unknown Sex and Gender Information Value Date Recorded Sex Assigned at Not on file Legal Sex Female 9:22 PM EDT Gender Identity Not on file Sexual Orientation Not on file documented as of this encounter Plan of Treatment Not on file documented as of this encounter Results * XR FOOT 3 OR MORE VIEWS (RIGHT) (06/20/2020 4:42 PM EST) Anatomical Region Laterality Modality Foot Right Computed Radiogr aphy 06/20/2020 4:49 PM EST Impressions 06/20/2020 4:51 PM EST No explanation for pain. Narrative 06/20/2020 4:51 PM EST HISTORY: Pain region of fifth phalanges. COMPARISON: None. VIEWS: 3 views. FINDINGS: No fractures, subluxations or dislocations. Joint spaces well-maintained. No significant arthritic changes. No suspicious lytic or blastic lesions within the bones. No suspicious soft tissue calcifications. Procedure Note Jose Cruz Frank MD - 06/20/2020 HISTORY: Pain region of fifth phalanges. COMPARISON: None. VIEWS: 3 views. FINDINGS: No fractures, subluxations or dislocations. Joint spaces well-maintained.No significant arthritic changes. No suspicious lytic or blastic lesionswithin the bones. No suspicious soft tissue calcifications. IMPRESSION: No explanation for pain. Felecia COOLEY IMG XR LOWER EXTREMITY Gladis l Result * CT HEAD WITHOUT CONTRAST (06/20/2020 4:26 PM EST) Anatomical Region Laterality Modality Head Computed Tomogra phy 06/20/2020 4:28 PM EST Impressions 06/20/2020 4:31 PM EST No intracranial abnormality. Narrative 06/20/2020 4:31 PM EST EXAM: CT HEAD WITHOUT CONTRAST Unenhanced CT Scan of the Brain COMPARISON: None TECHNIQUE: Nonenhanced head CT from skull base to vertex. Coronal and sagittal reconstructions were created. Manual dose reduction technique tailored for patient and site of imaging INDICATION: Outside Radiology Order Study notes from technologist: Pt states episode of severe dizziness , seen in ed, dx as vertigo, then developed ringing l ear, denies any trauma FINDINGS: Ventricles, Sulci and extra axial spaces: The ventricles, sulci and cisterns are patent and symmetric without hydrocephalous. Brain Parenchyma: No acute hemorrhage or large vascular territory infarct is seen. No mass, midline shift or vasogenic edema. Cabrera white differentiation is preserved. Vascular: Unremarkable Skull Base: Sellar/parasellar structures, pineal gland region and craniovertebral junction are within normal limits. Orbits: The orbits are unremarkable. Paranasal sinuses: The visualized paranasal sinuses and mastoid air cells are clear.. Bones and soft tissues: The calvarium is intact. Soft tissues are unremarkable. Procedure Note Asa Chauhan MD - 06/20/2020 EXAM: CT HEAD WITHOUT CONTRAST Unenhanced CT Scan of the Brain COMPARISON: None TECHNIQUE: Nonenhanced head CT from skull base to vertex. Coronal andsagittal reconstructions were created. Manual dose reduction techniquetailored for patient and site of imaging INDICATION: Outside Radiology Order Study notes from technologist: Pt states episode of severe dizziness ,seen in ed, dx as vertigo, then developed ringing l ear, denies anytrauma FINDINGS: Ventricles, Sulci and extra axial spaces: The ventricles, sulci andcisterns are patent and symmetric without hydrocephalous. Brain Parenchyma: No acute hemorrhage or large vascular territory infarctis seen. No mass, midline shift or vasogenic edema. Cabrera whitedifferentiation is preserved. Vascular: Unremarkable Skull Base: Sellar/parasellar structures, pineal gland region andcraniovertebral junction are within normal limits. Orbits: The orbits are unremarkable. Paranasal sinuses: The visualized paranasal sinuses and mastoid air cellsare clear.. Bones and soft tissues: The calvarium is intact. Soft tissues areunremarkable. IMPRESSION: No intracranial abnormality. Felecia COOLEY IMG CT HEAD/NECK Final Resu lt documented in this encounter Visit Diagnoses Diagnosis Other disorders of vestibular function, unspecified ear- Primary Migrainous vertigo Ganglion, right ankle and foot Other disorders of vestibular function, unspecified ear Migrainous vertigo Ganglion, right ankle and foot documented in this encounter Care Teams Fiber Designer Relationship Specialty Start Date End Date Vilma Gene ColemanDO [email or web address] PCP - General 05/16/17 Gene Esparza DO [address] [place] [address] Insurance Assigned Provider 10/12/1809/29 documented as of this encounter Additional Source Comments The information contained in this document represents components of the legal health record. It is not the complete legal health record.[facility]
--- OUTSIDE RECORDS SUMMARY | 2025-01-19 07:42 | XMS_ITS | Encounter Summary ---
Author Organization [facility] Address [address] [facility] [address] [place] [address] Phone Care Team Providers Care Crop Ranch Hand Name Role Phone Jemaljesus alberto Gene Jared Primary Care Provider [phone] Gene Esparza DO Unavailable Encounter Details Date Type Department Care Team (Late st Contact Info) Description 06/21/2020 Procedure Pass [facility], Ct Scan - [address] [address] Social History Tobacco Use Types Packs/Day Years [...] on filedocumented in this encounter Care Teams Crop Ranch Hand Relationship Specialty Start Date End Date Gene Esparza DO [email or web address] PCP - General 05/16/17 Gene Esparza DO [address] [place] [address] [email or web address] Insurance Assigned Provider 10/12/1809/29 documented as of this encounter Additional Source Comments The information contained in this document represents components of the legal health record. It is not the complete legal health record.[facility]
--- OUTSIDE RECORDS SUMMARY | 2025-01-19 07:43 | XMS_ITS | Clinical Summary ---
Author Organization [facility] Address [address] [address] Phone Care Team Providers Care Prescription Clerk Lenses Name Role Phone Gene Esparza Primary Care Provider Medications metFORMIN (GLUCOPHAGE) 500 MG tablet 1 tablet with meals Orally Twice a day Active HYDROCODONE/JOVITA TAMINOPHEN (VICODIN ORAL) 1 TO 2 TABS Orally 5-325 EVERY 4 TO 6 HOURS Active Medication-Free Text insulin Active Social History Tobacco Use Types Packs/Day Years Used Date Smoking Tobacco: Never Assessed Education Answer Date Recorded Are you interested in more education? Not on elana e 09/07/2022 Are you concerned about learning? Not on file 09/07/2022 No 09/07/2022 No 09/07/2022 Digital Access Answer Date Recorded No 10/08/2022 No 10/08/2022 No 10/08/2022 Reliable internet access at home? Not on file 10/08/2022 Device with a working camera? Not on file Comments Unknown Sex and Gender Information Value Date Recorded Sex Assigned at Not on file Legal Sex Female 9:22 PM EDT Gender Identity Not on file Sexual Orientation Not on file Last Filed Vital Signs Vital Sign Reading Time Taken Comments Blood Pressure 109/71 03/14/2015 8:44 AM EST Pulse 76 03/14/2015 8:44 AM EST Temperature 36.7 C (98.1 F) 03/14/2015 8:44 AM EST Respiratory Rate - - Oxygen Saturation - - Inhaled Oxygen Concentration - - Weight 91.2 kg (201 lb) 03/14/2015 8:44 AM EST Height 163.8 cm (5' 4.5 ) 03/14/2015 8:44 AM EST Body Mass Index 33.97 03/14/2015 8:44 AM EST Plan of Treatment Health Maintenance Due Date Last Done Comments Adult Td,Tdap Booster 1979 CREATININE LEVEL 1979 LIPID PANEL 1979 DEPRESSION SCREENING 1991 SMOKING Hx and SMOKELESS TOBACCO SCREENING 10/27/1992 HEPATITIS C SCREENING 10/27/1997 HIV ONE-TIME SCREENING (18-6 5 YEARS) 10/27/1997 PAP SMEAR 10/27/2000 MAMMOGRAM 2019 COLOGUARD 10/27/2024 COLONOSCOPY 10/27/2024 COLORECTAL CANCER SCREENING 10/27/2024 FIT TEST 10/27/2024 FOBT 10/27/2024 SIGMOIDOSCOPY 10/27/2024 VIRTUAL COLONOSCOPY 10/27/2024 INFLUENZA VACCINE (#1) 2024 COVID-19 VACCINE (3 - 2024-2 6 season) 2025 07/01/2020, 06/10/2020 HEPATITIS A VACCINES Aged Out No long er eligible based on patient's age to complete this topic HIB VACCINES Aged Out No longer eligi ble based on patient's age to complete this topic MENINGOCOCCAL VACCINES (ACWY) Aged Out No longer eligible based on patient's age to complete this topic MENINGOCOCCAL VACCINES (B) Aged Out N o longer eligible based on patient's age to complete this topic PNEUMOCOCCAL VACCINES (0-49 years) Aged Out No longer eligible b ased on patient's age to complete this topic Medical Devices Not on file Care Teams Prescription Clerk Lenses Relationship Specialty Start Date End Date Gene Esparza DO [email or web address] PCP - General 05/16/17 Additional Source Comments The information contained in this document represents components of the legal health record. It is not the complete legal health record.[facility]
--- NOTE | 2025-01-19 07:51 | A.OFFVIS_ITS ---
Vital Signs 01/19/25 07:58 Height 5 ft 6 in Weight 178 lb BMI 28.7 BP 92/63 Blood Pressure Location Lt brachial Position Sitting Pulse 80 Pulse Oximetry (%) 96 Oxygen Delivery Method Room Air Intake Visit Reasons: S/P EGD. 4 week FUV. Intake Note: Patient follow up for EGD results Patient cc: abdominal pain with bloating, and some constipation. 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 4 week FUV.: Details: LAST VISIT WITH DR. FREGOSO 08/28/24 EGD showed: ESOPHAGUS: A 1.5 cms superficial erosion at the GE junction. STOMACH: Edematous folds at the lesser curvature/incisura at 45 cms with a 6-7 mm chronic appearing ulcer - Biopsies obtained Two ligatures seen at the ulcer site from past ulcer surgery. DUODENUM: Normal - biopsied to check for celiac sprue Plan: She was advised to increase Omeprazole to 40 mg twice daily and avoid NSAIDs. Follow-up EGD in 3-4 months to confirm gastric ulcer has healed. Patient is scheduled for a gastric emptying study on 09/08/2024 09/03/24 Pt advised to start metoclopramide 10 mg 3 times daily before meals after gastric emptying studies completed. HIDA scan to rule out biliary source of abdominal pain. 10/16/24 Normal hepatobiliary scan with normal gallbladder ejection fraction. 10/20/24 GES SHOWED: 1 hour 92% (normal 37%-90%) 2 hours 66% (normal 30%-60%) 3 hours 38% 4 hours 20% (normal 0%-10%) IMPRESSION: Abnormal 4-hour solid food gastric emptying study with 20% for retained at 4 hours. 12/17/24 GES and HIDA scan results reviewed. Advised to take Linzess every day instead to 2-3 times a week UPPER ENDOSCOPY Findings: Larynx: Normal Esophagus: GE junction at 36. No esophagitis. A 2 x 1 cms inlet patch in the proximal esophagus - biopsied to check for Barretts. Stomach: Some bile and residual food noted in the stomach which was suctioned.? Edematous folds at the lesser curvature/angularis at 45 cms - Biopsies obtained Ulcer seen on previous EGD has healed. Two ligatures seen at the site from past ulcer surgery. Grade 2 flap valve on retroflexed examination of the cardia. Duodenum: Normal bulb and descending duodenum. Intervention: Biopsies as noted above Impression and Post Procedure Diagnosis: Endoscopy Findings: ESOPHAGUS: Inlet patch in the proximal esophagus - biopsied. STOMACH: Edematous folds at the lesser curvature/incisura at 45 cms - Biopsies obtained Ulcer seen on previous EGD has healed. Two ligatures seen at the ulcer site from past ulcer surgery. DUODENUM: Normal Plan: Pt has a FU appointment on 01/19/[address] Fregoso Continue Omeprazole 40 mg twice daily. TODAY'S VISIT Patient is here today to discuss upper endoscopy results. Previously seen ulcer on endoscopy in August has healed. Patient is taking omeprazole twice a day. She continues to have epigastric pain and bloating. Patient reports abdominal bloating no matter what she eats. Patient takes Linzess only couple times a week as she works 9 hour days and is unable to take it daily due to diarrhea after taking it. She is taking Reglan and feels like it is helping some, however patient still feels like she is full. Continues with dyspepsia without dysphagia or odynophagia Patient reports that when she has diarrhea she still does not feel like she empties. She feels like she is constipated. Patient denies nausea or vomiting. Patient denies melena, hematochezia, unintentional weight loss or ribbon like stools. [facility] Medical History (Updated 01/06/25 @ 13:27 by Olamide Betancur RN) Arthritis Anxiety History of vertigo Chronic back pain Type 1 diabetes mellitus Surgical History Hx of colonoscopy History of incisional hernia repair (10/24/22) History of incisional hernia repair (10/19/22) History of back surgery History of esophagogastroduodenoscopy (EGD) H/O exploratory laparotomy Family History Mother Vaginal cancer Social History Household Members: Children Housing: House Are you a primary career development associate to a significant other at home: No Do you presently have visiting nurse or other home services: No Alcohol intake: never Patient Tobacco Use Status: Former Tobacco user Tobacco use type: Cigarette Cigarettes Per Day: 3 service: No Current occupational status: unemployed Review of Systems Const Denies weight gain and Denies weight loss ENT Reports no additional complaints, Denies dysphagia and Denies odynophagia Card Reports no additional complaints Resp Reports no additional complaints GI Reports abdominal pain, Denies belching, Denies melena, Reports bloating, Denies change in bowel habits, Reports constipation, Denies dysphagia, Denies excessive flatus, Denies dyspepsia, Reports heartburn, Denies diarrhea, Reports loose stools, Denies nausea, Denies odynophagia and Denies vomiting Reports no additional complaints Musc Reports no additional complaints Neuro Reports no additional complaints Psych Reports no additional complaints Endo Reports no additional complaints Physical Exam Vital Signs: Last Vital Signs Pulse 80 01/19/25 07:58 BP 92/63 01/19/25 07:58 Pulse Ox 96 01/19/25 07:58 Oxygen Delivery Method Room Air 01/19/25 07:58 BMI result Body Mass Index 28.7 Const General: healthy appearing, no acute distress and well developed Nutritional Appearance: well nourished Orientation/consciousness: patient oriented x3 Resp Effort & Inspection: normal respiratory effort, able to speak in complete sentences, no tracheal deviation and symmetric chest movement Auscultation: clear to auscultation bilaterally Cardio Rate: regular rate GI Inspection: Yes normal to inspection and No distended Palpation (GI): Soft to palpation, not firm, nontender and No hepatosplenomegaly present Auscultation: normal bowel sounds General: Yes no CVA tenderness Back/Spine/Pelvis Back: no CVA tenderness Skin General skin exam: elasticity normal, turgor normal and dry skin Neuro General: patient oriented x3 Psych Appearance: grossly normal Mental Status: mental status grossly normal Assessment & Plan Assessment & Plan (1) Nausea: Code(s): R11.0 - Nausea Category: Medical (2) Gastroparesis: Code(s): K31.84 - Gastroparesis Category: Medical (3) Elevated LFTs: Comment: Elevated LFTs since 2019 Hep B and C serologies were negative in 2019 JESSE and ASMA were negative Additional labs ordered Code(s): R79.89 - Other specified abnormal findings of blood chemistry Category: Medical (4) Asymptomatic gallstones: Code(s): K80.20 - Calculus of gallbladder without cholecystitis without obstruction Category: Medical (5) Diarrhea: Code(s): R19.7 - Diarrhea, unspecified Category: Medical Qualifiers: Diarrhea type: unspecified type Qualified Code(s): R19.7 - Diarrhea, unspecified (6) Upper abdominal pain: Code(s): R10.10 - Upper abdominal pain, unspecified Category: Medical (7) Postprandial epigastric pain: Code(s): R10.13 - Epigastric pain (8) IBS (irritable bowel syndrome): Code(s): K58.9 - Irritable bowel syndrome, unspecified Qualifiers: Irritable bowel syndrome type: with both diarrhea and constipation Qualified Code(s): K58.2 - Mixed irritable bowel syndrome Plan Patient will continue omeprazole twice a day. She will hold on taking Reglan and will try Motegrity to see if it will help. Patient reports that Linzess causes diarrhea. Patient will return in 2 weeks to re-evaluate. Patient was encouraged to call our office if her symptoms will get worse. Discussed with patient avoiding dietary triggers and late night snacking. Staying upright for minimum 3 hours after meals discussed with patient. Patient is agreeable to current plan of care and verbalizes understanding of instructions. She was given the opportunity to ask questions and all questions answered. Thank you for allowing me to participate in her care Medications: New prucalopride (Motegrity) 2 mg PO DAILY 30 tabs 2RF K59.04 - Chronic idiopathic constipation prucalopride (Motegrity) 2 mg PO DAILY 30 tabs 2RF K59.04 - Chronic idiopathic constipation Coding Level of Care Code Est Pt Level 4 (14425) Complex EM visit Add On G2211 Diagnoses Nausea R11.0 Gastroparesis K31.84 Elevated LFTs R79.89 Asymptomatic gallstones K80.20 Diarrhea, unspecified type R19.7 Diarrhea type: unspecified type Upper abdominal pain R10.10 Postprandial epigastric pain R10.13 Irritable bowel syndrome with both constipation and diarrhea K58.2 Irritable bowel syndrome type: with both diarrhea and constipation Time Spent (min) 40 Comment 25 minutes spent with patient and additional 15 minutes spent reviewing her records
[2025-01-19 07:58] VITALS: BP 92/63; PULSE 80; O2SAT 96; BMI 28.7
== END 2025-01-19 08:39 | disposition home or self-care (01) ==
PROVIDERS: PCP Internal Medicine; Visit Provider Nurse Practitioner Family
DX: R11.0 Nausea (principal); K31.84 Gastroparesis; R79.89 Other specified abnormal findings of blood chemistry; K80.20 Calculus of gallbladder without cholecystitis without obstruction; R19.7 Diarrhea, unspecified; R10.10 Upper abdominal pain, unspecified; R10.13 Epigastric pain; K58.2 Mixed irritable bowel syndrome
CPT/HCPCS: 99214

== ENCOUNTER → 2025-01-19 07:36 | Outpatient (BNVA) | payer MEDICAID, SELFPAY | PROVIDERS: PCP Internal Medicine; Visit Provider Internal Medicine Gastroenterology | DX: K31.84 Gastroparesis (principal); R11.0 Nausea | CPT/HCPCS: 99212 ==